=== PATIENT | female | born 1945 | race African-American/Black ===

== ENCOUNTER 2016-03-13 10:23 | Observation (INO) | payer MEDICARE, MEDICAID ==
[2016-03-13] MEDS ORDERED: ASPIRIN 81 MG TABLET, CHEWABLE PO ONE (10:37)
--- NOTE | 2016-03-13 10:37 | ER Document Report ---
ED Medical Screen (RME) - General Stated Complaint: SHORTNESS OF BREATH Notes: 70 yo female with hx/o asthma, COPD c/o chest pain and shortness of breath x several days. pt on home O2 @ 2L. + increased asthma symptoms . left sided chest pain 5/5. Sat 92% TRAVEL OUTSIDE OF THE [place] IN LAST 30 DAYS: No - Related Data Allergies/Adverse Reactions: NSAIDS (Non-Steroidal Anti-Inflamma [Nsaids] Allergy (Mild, Verified 04/07/15 08 :39) Past Medical History - Past Medical History Cardiac Medical History: Reports: Hx Coronary Artery Disease Denies: Hx Heart Attack, Hx Hypertension Pulmonary Medical History: Reports: Hx Asthma, Hx COPD Denies: Hx Bronchitis, Hx Pneumonia Neurological Medical History: Denies: Hx Cerebrovascular Accident, Hx Seizures Endocrine Medical History: Reports: Hx Diabetes Mellitus Type 1, Hx Diabetes Mellitus Type 2 GI Medical History: Reports: Hx Gastroesophageal Reflux Disease Musculoskeltal Medical History: Reports Hx Arthritis - Rheumatoid arthritis, Denies Hx Gout Past Surgical History: Reports: Hx Orthopedic Surgery - bilat knee. Denies: Hx Hysterectomy, Hx Pacemaker - Immunizations Hx Diphtheria, Pertussis, Tetanus Vaccination: Yes
[2016-03-13] MEDS ORDERED: IPRATROPIUM/ALBUTEROL 0.5-2.5 MG/3 ML AMPUL NEB ONE (11:03)
[2016-03-13] MEDS ORDERED: METHYLPREDNISOLONE INJ 125 MG/2 ML SDV IV ONE (11:03)
[2016-03-13] MEDS ORDERED: NITROGLYCERIN 0.4 MG/TAB 25 TAB/BOTTLE SL PRN (11:15)
--- NOTE | 2016-03-13 11:19 | ER Document Report ---
ED General - General Chief Complaint: Shortness Of Breath Stated Complaint: SHORTNESS OF BREATH Time seen by provider: 11:16 Mode of Arrival: Ambulatory Information source: Patient Notes: 70-year-old female who complains about left-sided chest heaviness nonradiating after waking up this morning associated with shortness of breath. Patient reports a history of asthma and uses oxygen 2 L nasal cannula continuously lower reports she does not usually get this type of chest discomfort with her asthma. Patient had a recent admission with COPD exacerbation and says she was at a routine follow-up after that with Dr. Eldridge this morning and when she reported the chest pain was referred to emergency department. She reports no associated diaphoresis, nausea, or vomiting. She denies fever, chills, swelling to extremities, or pain numbness weakness to extremities. She reports cough productive of yellow or white sputum which she says is chronic for her she did reports no prior cardiac workup. Physical Exam: General: Alert, appears well. HEENT: Normocephalic. Atraumatic. PERRLA. Extraocular movements intact. Oropharynx clear. Neck: Supple. Non-tender. Respiratory: No respiratory distress. Scattered wheezes bilaterally breath sounds equal. Left midsternal border mildly tender to palpation which does not exactly reproduce patient's pain Cardiovascular: Regular rate and rhythm. PMI not displaced Abdominal: Normal Inspection. Soft, non-tender. No distension. Normal Bowel Sounds. Back: Non-tender. No deformity or step off. Extremities: Moves all four extremities. SHOWS a 2+ pulses no cyanosis no edema no Homans sign brisk capillary refill Neurological: Speech clear mentation normal Psychological: Normal affect. Normal Mood. Skin: Warm. Dry. Normal color. TRAVEL OUTSIDE OF THE [place] IN LAST 30 DAYS: No - Related Data Allergies/Adverse Reactions: NSAIDS (Non-Steroidal Anti-Inflamma [Nsaids] Allergy (Mild, Verified 03/13/16 10 :34) Past Medical History - Social History Smoking Status: Former Smoker Chew tobacco use (# tins/day): No Frequency of alcohol use: None Drug Abuse: None Family History: Reviewed & Not Pertinent Patient has suicidal ideation: No Patient has homicidal ideation: No - Past Medical History Cardiac Medical History: Reports: Hx Coronary Artery Disease Denies: Hx Heart Attack, Hx Hypertension Pulmonary Medical History: Reports: Hx Asthma, Hx COPD Denies: Hx Bronchitis, Hx Pneumonia Neurological Medical History: Denies: Hx Cerebrovascular Accident, Hx Seizures Endocrine Medical History: Reports: Hx Diabetes Mellitus Type 1, Hx Diabetes Mellitus Type 2 Renal/ Medical History: Denies: Hx Peritoneal Dialysis GI Medical History: Reports: Hx Gastroesophageal Reflux Disease Musculoskeltal Medical History: Reports Hx Arthritis - Rheumatoid arthritis, Denies Hx Gout Past Surgical History: Reports: Hx Orthopedic Surgery - bilat knee. Denies: Hx Hysterectomy, Hx Pacemaker - Immunizations Hx Diphtheria, Pertussis, Tetanus Vaccination: Yes Hx Pneumococcal Vaccination: 12/25/14 Review of Systems - Review of Systems Constitutional: denies: Chills, Fever EENT: denies: Ear pain, Throat pain Cardiovascular: See HPI Respiratory: See HPI Gastrointestinal: denies: Abdominal pain Genitourinary: denies: Burning, Dysuria Musculoskeletal: denies: Back pain Hematologic/Lymphatic: denies: Swollen glands Neurological/Psychological: denies: Weakness, Numbness Physical Exam - Vital signs Vitals: Temp Pulse Resp BP Pulse Ox 98.4 F 107 H 24 H 129/97 H 92 03/13/16 10:37 03/13/16 10:37 03/13/16 10:37 03/13/16 10:37 03/13/16 10:37 Course - Re-evaluation Re-evalutation: 03/13/16 13:31 Patient treated with aspirin nebulizers and IV steroids here. She reported some chest pain on arrival but this resolved on its own prior to receiving nitroglycerin. The patient reports no prior cardiac workup and does have multiple risk factors for acute coronary syndrome. Certainly pleuritic chest discomfort related to COPD might also be in the differential with a what appeared to have her in at least overnight for repeat cardiac enzymes possible stress testing. Dr. Vandana Ibrahim request patient be placed on observation telemetry - Vital Signs Vital signs: Temp Pulse Resp BP Pulse Ox 98.4 F 107 H 21 H 146/81 H 98 03/13/16 10:37 03/13/16 10:37 03/13/16 12:17 03/13/16 12:17 03/13/16 12:17 - Laboratory Result Diagrams: 03/13/16 10:55 03/13/16 10:55 Laboratory results interpreted by me: 03/13/16 03/13/16 03/13/16 10:55 10:55 12:12 Hgb 10.8 L Hct 35.0 L MCH 26.4 L MCHC 30.9 L RDW 16.0 H Sodium 135.4 L Chloride 95 L Carbon Dioxide 32 H Glucose 372 H Urine Glucose (UA) >=500 H Urine Nitrite POSITIVE H - Diagnostic Test Radiology reviewed: Image reviewed, Reports reviewed - EKG Interpretation by Me Additional EKG results interpreted by me: 03/13/16 11:20 EKG reviewed by myself sinus tachycardia 109 no acute changes no significant change compared to February 13 03/13/16 13:31 Discharge - Discharge Clinical Impression: Acute coronary syndrome Chest pain Qualifiers: Chest pain type: precordial pain Qualified Code(s): R07.2 - Precordial pain Condition: Fair Disposition: ADMITTED OBSERVATION Admitting Provider: Jazmyn Unit Admitted: Telemetry
[2016-03-13 11:25] LABS: ABSOLUTE EOSINOPHILS # (AUTO) 0.1 10^3/uL (0.0-0.6); ABSOLUTE LYMPHOCYTES (AUTO) 0.9 10^3/uL (0.5-4.7); ABSOLUTE MONOCYTES (AUTO) 0.5 10^3/uL (0.1-1.4); ABSOLUTE NEUT (AUTO) 4.8 10^3/uL (1.7-8.2); BASOPHILS % (AUTO) 0.4 % (0-2); HEMOGLOBIN 10.8 g/dL (12.0-15.5); HGB HCT DIFFERENCE -2.6; LYMPHOCYTES % (AUTO) 14.1 % (13-45); MEAN CORPUSCULAR HEMOGLOBIN 26.4 pg (27.0-33.4); MEAN CORPUSCULAR HGB CONC 30.9 g/dL (32.0-36.0); MEAN CORPUSCULAR VOLUME 85 fl (80-97); MONOCYTES % (AUTO) 7.8 % (3-13); SEGMENTED NEUTROPHILS % (AUTO) 75.7 % (42-78); WHITE BLOOD COUNT 6.3 10^3/uL (4.0-10.5)
[2016-03-13 11:44] LABS: ALANINE AMINOTRANSFERASE 29 U/L (9-52); ALBUMIN 3.7 g/dL (3.5-5.0); ALKALINE PHOSPHATASE 93 U/L (38-126); ANION GAP 8 (5-19); ASPARTATE AMINO TRANSFERASE 22 U/L (14-36); BILIRUBIN,TOTAL 0.5 mg/dL (0.2-1.3); BLOOD UREA NITROGEN 10 mg/dL (7-20); CALCIUM 9.2 mg/dL (8.4-10.2); CARBON DIOXIDE 32 mmol/L (22-30); CHLORIDE 95 mmol/L (98-107); CREATINE KINASE 99 U/L (30-135); CREATININE RESULT 0.61 mg/dL (0.52-1.25); GLUCOSE 372 mg/dL (75-110); LIPASE 43.9 U/L (23-300); MAGNESIUM 1.7 mg/dL (1.6-2.3); POTASSIUM 4.8 mmol/L (3.6-5.0); SODIUM 135.4 mmol/L (137-145); TOTAL PROTEIN 6.6 g/dL (6.3-8.2)
[2016-03-13 11:53] LABS: CREATINE KINASE MB 1.13 ng/mL (<4.55)
[2016-03-13 11:54] LABS: TROPONIN I < 0.012 ng/mL
[2016-03-13 12:33] LABS: APPEARANCE,URINE CLEAR; BILIRUBIN,URINE NEGATIVE (NEGATIVE); GLUCOSE, URINE >=500 mg/dL (NEGATIVE); KETONES,URINE NEGATIVE (NEGATIVE); LEUKOCYTE ESTERASE,URINE NEGATIVE (NEGATIVE); NITRITE,URINE POSITIVE (NEGATIVE); PROTEIN,URINE NEGATIVE (NEGATIVE); URINE SPECIFIC GRAVITY 1.024; UROBILINOGEN,URINE NEGATIVE mg/dL (<2.0)
--- NOTE | 2016-03-13 18:28 | EKG REPORT ---
SEVERITY:- ABNORMAL ECG - SINUS TACHYCARDIA RIGHT ATRIAL ABNORMALITY PROBABLE ANTEROSEPTAL INFARCT, OLD : Confirmed by: Harry Wilde MD 13-Mar-2016 18:27:43
[2016-03-13] MEDS ORDERED: ALBUTEROL SULFATE HFA (90 MCG/PUFF) 200 PUFF/8.5 GM MDI IH PRN (18:51)
[2016-03-13] MEDS ORDERED: IPRATROPIUM/ALBUTEROL 0.5-2.5 MG/3 ML AMPUL NEB PRN (18:51)
[2016-03-13] MEDS ORDERED: ASPIRIN 81 MG TABLET, CHEWABLE PO PRN (18:51)
[2016-03-13] MEDS ORDERED: GLUCAGON,HUMAN RECOMB 1 MG INJ IM PRN (18:52)
[2016-03-13] MEDS ORDERED: DEXTROSE 40% GEL 15 GM TUBE PO PRN ×2 (18:52)
[2016-03-13] MEDS ORDERED: DEXTROSE 50%-WATER 25 GM/50 ML DISP.SYRIN IV PRN ×2 (18:52)
[2016-03-13] MEDS ORDERED: ENOXAPARIN SODIUM INJ 40 MG/0.4 ML DISP.SYRIN SUBCUT ONE (20:00)
[2016-03-13] MEDS: BUDESONIDE NEB 0.5 MG/2 ML AMPUL NEB SCH (20:05)
[2016-03-13 20:14] LABS: PROTHROMBIN TIME 12.7 SEC (11.4-15.4)
[2016-03-13 20:15] LABS: PARTIAL THROMBOPLASTIN TIME 25.6 SEC (23.5-35.8)
[2016-03-13] MEDS ORDERED: METFORMIN HCL 500 MG TABLET PO ONE (20:30)
[2016-03-13] MEDS ORDERED: GLIPIZIDE 5 MG TABLET PO ONE (20:30)
[2016-03-13] MEDS: DILTIAZEM HCL 120 MG CAP.SR.24H PO SCH (22:01)
[2016-03-13] MEDS: NORMAL SALINE 1000 ML 1,000 ML IV PRN (22:04)
[2016-03-13] MEDS: INSULIN LISPRO 100 UNIT/ML 3 ML VIAL SUBCUT PRN (22:30)
--- NOTE | 2016-03-13 22:59 | PDOC H&P ---
History of Present Illness Admission Date/PCP: 03/13/16 15:40 KIANALOTUS NEELY Patient complains of: Chest pain History of Present Illness: ALLIE JACQUES is a 70 year old female presented to the ED for further evaluation of reported left-sided chest pain and shortness of breath. Patient was seen in the office earlier today by my associates, Midny Jarad, HAND COUNTER-C, for schedule follow up appointment. She reported self discontinuation of her prescribed Cardizem, left sided chest pain and EKG that revealed sinus tachycardia. Due to lack of bed for direct admission, she was directed to the ED for immediate further evaluation. Patient reported associated shortness of breath, heaviness in chest, and productive cough. She denied any associated palpitation, diaphoresis, nausea or vomiting. No definite fever or chills. No nausea or vomiting. She denied any significant abdominal pain. Her chest pain and heaviness did resolved with administration of Aspirin 325 mg. Her initial cardiac enzymes were within normal limit without any significant electrocardiogram findings. In view of her comorbidities, including Diabetes Mellitus type 2, CAD, COPD, Asthma, GERD and Osteoarthritis, she was advised hospitalization to observation monitor bed for further evaluation for acute coronary syndrome process. Past Medical History Cardiac Medical History: Reports: Coronary Artery Disease Denies: Myocardial Infarction, Hypertension Pulmonary Medical History: Reports: Asthma, Chronic Obstructive Pulmonary Disease (COPD) Denies: Bronchitis, Pneumonia Neurological Medical History: Denies: Seizures Endocrine Medical History: Reports: Diabetes Mellitus Type 2 GI Medical History: Reports: Gastroesophageal Reflux Disease Musculoskeltal Medical History: Reports: Arthritis - Rheumatoid arthritis Denies: Gout Past Surgical History Past Surgical History: Reports: Orthopedic Surgery - bilat knee Denies: Hysterectomy, Pacemaker Social History Smoking Status: Former Smoker Last Time Smoked: 2010 Frequency of Alcohol Use: Rare Hx Recreational Drug Use: No Drugs: None Hx Prescription Drug Abuse: No - Advance Directive Resuscitation Status: Full Code Family History Family History: Reviewed & Not Pertinent Parental Family History Reviewed: Yes Children Family History Reviewed: Yes Sibling(s) Family History Reviewed.: Yes Medication/Allergy Home Medications: Albuterol Sulfate [Proair HFA Inhalation Aerosol 8.5 gm MDI] 1 puff IH Q4 PRN # 1 mdi 05/04/14 Aspirin [Aspirin 81 mg Chewable Tablet] 81 mg PO ASDIR PRN 04/07/15 [place]-3 Fatty Acids [Fish Oil] 1 tab PO DAILY 02/15/16 Metformin HCl 500 mg PO BID 02/19/16 Budesonide [Pulmicort Neb 0.5 mg/2 ml Ampul] 0.5 mg NEB RTQ12 #30 ampul.neb Diltiazem HCl [Cardizem Cd 120 mg Capsule] 120 mg PO Q12 #60 cap.sr.24h Glipizide [Glucotrol 5 mg Tablet] 5 mg PO BIDACBS #60 tablet 02/20/16 Ipratropium/Albuterol Sulfate [Duoneb 3 ml Ampul] 3 ml NEB RTQ3HP PRN #60 vial.neb 02/20/16 Tiotropium [place] [Spiriva Handihaler 5 Cap/Kit (18 Mcg/Cap)] 1 cap IH DAILY # 6 kit 02/20/16 Allergies/Adverse Reactions: NSAIDS (Non-Steroidal Anti-Inflamma [Nsaids] Allergy (Mild, Verified 03/13/16 10 :34) Review of Systems Constitutional: ABSENT: as per HPI, anorexia, chills, fatigue, fever(s), headache(s), night sweats, weakness, weight gain, weight loss, other Eyes: ABSENT: as per HPI, visual disturbances, other Ears: ABSENT: as per HPI, hearing changes, other Nose, Mouth, and Throat: ABSENT: as per HPI, headache(s), mouth pain, sore throat, vertigo, other Cardiovascular: PRESENT: chest pain. ABSENT: as per HPI, dyspnea on exertion, edema, orthropnea, palpitations, other Respiratory: PRESENT: cough, sputum. ABSENT: as per HPI, dyspnea, hemoptysis, other Gastrointestinal: ABSENT: as per HPI, abdominal pain, bloating, coffee ground emesis, constipation, diarrhea, dysphagia, heartburn, hematemesis, hematochezia , melena, nausea, vomiting, other Genitourinary: PRESENT: dysuria - recently treated for yeast vaginitis with Monostat. ABSENT: as per HPI, difficulty urinating, hematuria, nocturia, other Neurological: ABSENT: abnormal gait, abnormal speech, confusion, dizziness, focal weakness, syncope Psychiatric: ABSENT: anxiety, depression, homidical ideation, suicidal ideation Endocrine: ABSENT: cold intolerance, heat intolerance, menstrual abnormalities, polydipsia, polyuria Hematologic/Lymphatic: ABSENT: easy bleeding, easy bruising, lymphadenopathy Allergic/Immunologic: ABSENT: as per HPI, seasonal rhinorrhea, other Physical Exam Vital Signs: Temp Pulse Resp BP Pulse Ox 97.3 F 74 14 115/66 100 03/13/16 20:08 03/13/16 20:30 03/13/16 20:30 03/13/16 20:08 03/13/16 20:08 General appearance: PRESENT: no acute distress, obese. ABSENT: cooperative, disheveled, hard of hearing, mild distress, morbidly obese, severe distress, thin, well-developed, well-nourished, other Head exam: PRESENT: atraumatic, normocephalic Eye exam: PRESENT: conjunctiva pink, EOMI, PERRLA Ear exam: PRESENT: normal external ear exam Mouth exam: PRESENT: moist, tongue midline Throat exam: ABSENT: post pharyngeal erythema, tonsillar erythema, tonsillar exudate, tonsillogmegaly, other Neck exam: PRESENT: full ROM. ABSENT: carotid bruit, JVD, lymphadenopathy, thyromegaly Respiratory exam: PRESENT: rhonchi - minimal expiratory state. ABSENT: accessory muscle use, chest wall tenderness, clear to auscultation kyle, crackles , decreased breath sounds, prolonged expiratory phas, rales, retraction, stridor , symmetrical, tachypnea, unlabored, wheezes, other Cardiovascular exam: PRESENT: RRR. ABSENT: diastolic murmur, rubs, systolic murmur Pulses: PRESENT: normal dorsalis pedis pul, +2 pedal pulses bilateral Vascular exam: PRESENT: normal capillary refill GI/Abdominal exam: PRESENT: normal bowel sounds, soft. ABSENT: distended, guarding, mass, organolmegaly, rebound, tenderness Extremities exam: PRESENT: full ROM Musculoskeletal exam: PRESENT: ambulatory, deformity - due to arthritis involvement of multiple joints, full ROM Neurological exam: PRESENT: alert, awake, oriented to person, oriented to place , oriented to time, oriented to situation, CN II-XII grossly intact. ABSENT: motor sensory deficit Psychiatric exam: PRESENT: appropriate affect, normal mood. ABSENT: homicidal ideation, suicidal ideation Skin exam: PRESENT: dry, intact, warm. ABSENT: cyanosis, rash Results Laboratory Results: See komoot for details. I reviewed these results and they contribute to my final decision making. Impressions: Chest X-Ray 03/13/16 10:38 IMPRESSION: Stable chest. No acute findings. Assessment & Plan - Diagnosis (1) Acute coronary syndrome Is this a current diagnosis for this admission?: YesPlan: See admitting attending orders for details. (2) Chest pain Qualifiers: Chest pain type: precordial pain Qualified Code(s): R07.2 - Precordial pain Is this a current diagnosis for this admission?: YesPlan: See admitting attending orders for details. 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 (4) UTI (urinary tract infection) Qualifiers: Urinary tract infection type: site unspecified Hematuria presence: without hematuria Qualified Code(s): N39.0 - Urinary tract infection, site not specified Is this a current diagnosis for this admission?: YesPlan: See admitting attending orders for details. - Time Time Spent: 50 to 70 Minutes Medications reviewed and adjusted accordingly: Yes Anticipated discharge: Home Within: within 48 hours - Inpatient Certification Medical Necessity: Need Close Monitoring Due to Risk of Patient Decompensation, Need For Continuous Telemetry Monitoring, Risk of Complication if Not Cared For in Hospital - Plan Summary Plan Summary: See attending physician orders.
[2016-03-14 05:06] LABS: ABSOLUTE MONOCYTES (AUTO) 0.2 10^3/uL (0.1-1.4); ABSOLUTE NEUT (AUTO) 4.5 10^3/uL (1.7-8.2); BASOPHILS % (AUTO) 0.2 % (0-2); HEMATOCRIT 33.6 % (36.0-47.0); HEMOGLOBIN 10.2 g/dL (12.0-15.5); LYMPHOCYTES % (AUTO) 17.5 % (13-45); MEAN CORPUSCULAR HEMOGLOBIN 26.3 pg (27.0-33.4); MEAN CORPUSCULAR HGB CONC 30.5 g/dL (32.0-36.0); MEAN CORPUSCULAR VOLUME 86 fl (80-97); MONOCYTES % (AUTO) 3.2 % (3-13); RED BLOOD COUNT 3.89 10^6/uL (3.72-5.28); RED CELL DISTRIBUTION WIDTH 16.7 % (11.5-14.0); SEGMENTED NEUTROPHILS % (AUTO) 79.1 % (42-78); WHITE BLOOD COUNT 5.7 10^3/uL (4.0-10.5)
[2016-03-14] MEDS: LANSOPRAZOLE 30 MG TAB.RAP.DR PO SCH (05:14)
[2016-03-14 05:22] LABS: ALANINE AMINOTRANSFERASE 30 U/L (9-52); ALBUMIN 2.8 g/dL (3.5-5.0); ALKALINE PHOSPHATASE 81 U/L (38-126); ANION GAP 8 (5-19); ASPARTATE AMINO TRANSFERASE 18 U/L (14-36); BILIRUBIN,TOTAL 0.3 mg/dL (0.2-1.3); BLOOD UREA NITROGEN 12 mg/dL (7-20); CALCIUM 9.2 mg/dL (8.4-10.2); CARBON DIOXIDE 30 mmol/L (22-30); CHLORIDE 100 mmol/L (98-107); CHOLESTEROL 252.78 mg/dL (0-200); CREATININE RESULT 0.64 mg/dL (0.52-1.25); Direct HDL 70 mg/dL (>40); GLUCOSE 394 mg/dL (75-110); POTASSIUM 4.5 mmol/L (3.6-5.0); SODIUM 137.9 mmol/L (137-145); TOTAL PROTEIN 5.7 g/dL (6.3-8.2); TRIGLYCERIDES 121 mg/dL (<150)
[2016-03-14 05:32] LABS: DIRECT LDL 172 mg/dL (<100)
[2016-03-14] MEDS: BUDESONIDE NEB 0.5 MG/2 ML AMPUL NEB SCH ×2 (07:34→20:21)
[2016-03-14] MEDS: GLIPIZIDE 5 MG TABLET PO SCH ×2 (08:32→17:37)
[2016-03-14] MEDS: INSULIN LISPRO 100 UNIT/ML 3 ML VIAL SUBCUT PRN ×3 (08:32→17:37)
[2016-03-14] MEDS: DILTIAZEM HCL 120 MG CAP.SR.24H PO SCH (08:32)
[2016-03-14] MEDS: ENOXAPARIN SODIUM INJ 40 MG/0.4 ML DISP.SYRIN SUBCUT SCH (08:33)
[2016-03-14 09:50] LABS: CREATINE KINASE MB 1.41 ng/mL (<4.55)
[2016-03-14 09:57] LABS: TROPONIN I < 0.012 ng/mL
[2016-03-14] MEDS ORDERED: OMEGA PO SCH (10:00)
[2016-03-14] MEDS ORDERED: OMEGA-3 ACID ETHYL ESTERS 1 GM CAPSULE PO SCH (10:00)
[2016-03-14] MEDS ORDERED: METFORMIN HCL 500 MG TABLET PO SCH (10:00)
[2016-03-14] MEDS: TIOTROPIUM BROMIDE DPI 5 CAP/KIT (18 MCG/CAP) IH SCH (10:19)
[2016-03-14] MEDS: CEFTRIAXONE 1 GM/D5W RTU 50 ML IV SCH (10:19)
[2016-03-14] MEDS: RAMIPRIL 5 MG CAPSULE PO SCH (10:19)
--- NOTE | 2016-03-14 12:49 | PDOC PROGRESS REPORT ---
Subjective Progress Note for:: 03/14/16 Subjective:: Denied chest pain. No difficulty with breathing. No nausea or vomiting. No abdominal pain. Denied fever or chills. No significant dysuria. Physical Exam Vital Signs: Temp Pulse Resp BP Pulse Ox 97.3 F 73 18 124/64 100 03/14/16 07:52 03/14/16 07:52 03/14/16 07:52 03/14/16 07:52 03/14/16 07:52 Intake & Output 03/13/16 03/14/16 03/15/16 06:59 06:59 06:59 Intake Total 700 150 Balance 700 150 Weight 95.8 kg General appearance: PRESENT: no acute distress, well-developed, well-nourished Head exam: PRESENT: atraumatic, normocephalic Eye exam: PRESENT: conjunctiva pink, EOMI, PERRLA. ABSENT: scleral icterus Throat exam: ABSENT: post pharyngeal erythema, tonsillar erythema, tonsillar exudate, tonsillogmegaly, other Respiratory exam: ABSENT: accessory muscle use, chest wall tenderness, clear to auscultation kyle, crackles, decreased breath sounds, prolonged expiratory phas, rales, retraction, rhonchi, stridor, symmetrical, tachypnea, unlabored, wheezes , other Cardiovascular exam: PRESENT: RRR. ABSENT: diastolic murmur, rubs, systolic murmur GI/Abdominal exam: PRESENT: normal bowel sounds, soft. ABSENT: distended, guarding, mass, organolmegaly, rebound, tenderness Extremities exam: PRESENT: full ROM Musculoskeletal exam: PRESENT: ambulatory, deformity - due to joints involvement in arthritis changes, full ROM Neurological exam: PRESENT: alert, awake, oriented to person, oriented to place , oriented to time, oriented to situation, CN II-XII grossly intact. ABSENT: motor sensory deficit Psychiatric exam: PRESENT: appropriate affect, normal mood. ABSENT: homicidal ideation, suicidal ideation Skin exam: PRESENT: dry, intact, warm. ABSENT: cyanosis, rash Results Laboratory Results: 03/14/16 04:34 03/14/16 04:34 03/14/16 03/14/16 04:34 04:34 WBC 5.7 RBC 3.89 Hgb 10.2 L Hct 33.6 L MCV 86 MCH 26.3 L MCHC 30.5 L RDW 16.7 H Plt Count 213 Seg Neutrophils % 79.1 H Lymphocytes % 17.5 Monocytes % 3.2 Eosinophils % 0.0 Basophils % 0.2 Absolute Neutrophils 4.5 Absolute Lymphocytes 1.0 Absolute Monocytes 0.2 Absolute Eosinophils 0.0 Absolute Basophils 0.0 Sodium 137.9 Potassium 4.5 Chloride 100 Carbon Dioxide 30 Anion Gap 8 BUN 12 Creatinine 0.64 Est GFR ( Amer) > 60 Est GFR (Non-Af Amer) > 60 Glucose 394 H Calcium 9.2 Total Bilirubin 0.3 AST 18 ALT 30 Alkaline Phosphatase 81 Total Protein 5.7 L Albumin 2.8 L Triglycerides 121 Cholesterol 252.78 H LDL Cholesterol Direct 172 H VLDL Cholesterol 24.0 HDL Cholesterol 70 03/14/16 03/14/16 09:08 09:08 Creatine Kinase 73 CK-MB (CK-2) 1.41 Troponin I < 0.012 Impressions: Chest X-Ray 03/13/16 10:38 IMPRESSION: Stable chest. No acute findings. Assessment & Plan - Diagnosis (1) Acute coronary syndrome Is this a current diagnosis for this admission?: YesPlan: See attending physician orders. I will follow up on her cardiac enzymes findings. (2) Chest pain Qualifiers: Chest pain type: precordial pain Qualified Code(s): R07.2 - Precordial pain Is this a current diagnosis for this admission?: YesPlan: Resolved since admission. Follow up on cardiac enzymes profile. Her symptom is atypical and may be due to GI or musculoskeletal origin. 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 I will make adjustment to her diabetic mellitus medication management. (4) UTI (urinary tract infection) Qualifiers: Urinary tract infection type: site unspecified Hematuria presence: without hematuria Qualified Code(s): N39.0 - Urinary tract infection, site not specified Is this a current diagnosis for this admission?: YesPlan: Her urine culture did grew gram negative rods. Organism identification and sensitivity are pending. I will start patient on empirical antibiotic therapy iin viewof her comorbidities and hyperglycemia. - Time Time Spent with patient: 25-34 minutes Medications reviewed and adjusted accordingly: Yes Anticipated discharge: Home Within: Other - Inpatient Certification Based on my medical assessment, after consideration of the patient's comorbidities, presenting symptoms, or acuity I expect that the services needed warrant INPATIENT care.: Yes I certify that my determination is in accordance with my understanding of Medicare's requirements for reasonable and necessary INPATIENT services [42 CFR 412.3e].: Yes Medical Necessity: Need For IV Fluids, Need For Continuous Telemetry Monitoring , Need for IV Antibiotics, Risk of Complication if Not Cared For in Hospital Post Hospital Care: 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
[2016-03-14] MEDS ORDERED: ASPIRIN 81 MG TABLET, CHEWABLE PO ONE (14:00)
[2016-03-14 16:30] LABS: CREATINE KINASE MB 1.65 ng/mL (<4.55)
[2016-03-14 16:37] LABS: TROPONIN I < 0.012 ng/mL
[2016-03-14] MEDS: METFORMIN HCL 850 MG TABLET PO SCH (17:37)
[2016-03-14] MEDS: NORMAL SALINE 1000 ML 1,000 ML IV PRN (19:31)
[2016-03-14] MEDS ORDERED: ATORVASTATIN CALCIUM 20 MG TABLET PO SCH (22:00)
[2016-03-14 22:42] LABS: CREATINE KINASE MB 1.89 ng/mL (<4.55)
[2016-03-14 22:43] LABS: TROPONIN I < 0.012 ng/mL
[2016-03-14] MEDS ORDERED: ACETAMINOPHEN 325 MG TABLET PO PRN (23:47)
[2016-03-15] MEDS: LANSOPRAZOLE 30 MG TAB.RAP.DR PO SCH (06:17)
[2016-03-15] MEDS: BUDESONIDE NEB 0.5 MG/2 ML AMPUL NEB SCH (07:53)
[2016-03-15] MEDS ORDERED: ASPIRIN 81 MG TABLET, CHEWABLE PO SCH (10:00)
[2016-03-15] MEDS: CEFTRIAXONE 1 GM/D5W RTU 50 ML IV SCH (10:34)
[2016-03-15] MEDS: TIOTROPIUM BROMIDE DPI 5 CAP/KIT (18 MCG/CAP) IH SCH (10:35)
[2016-03-15] MEDS: METFORMIN HCL 850 MG TABLET PO SCH (10:36)
[2016-03-15] MEDS: RAMIPRIL 5 MG CAPSULE PO SCH (10:37)
[2016-03-15] MEDS: GLIPIZIDE 5 MG TABLET PO SCH (10:37)
[2016-03-15] MEDS: ENOXAPARIN SODIUM INJ 40 MG/0.4 ML DISP.SYRIN SUBCUT SCH (10:38)
[2016-03-15] MEDS: NORMAL SALINE 1000 ML 1,000 ML IV PRN (10:42)
[2016-03-15 15:43] VITALS: BP 113/82
--- NOTE | 2016-03-15 15:57 | PDOC DISCHARGE SUMMARY ---
General - Admit/Disc Date/PCP Admission Date/Primary Care Provider: 03/13/16 13:52 KIANA FLORINDA Discharge Date: 03/15/16 - Discharge Diagnosis (1) Acute coronary syndrome Is this a current diagnosis for this admission?: Yes (2) Chest pain Is this a current diagnosis for this admission?: Yes (3) Diabetes mellitus Is this a current diagnosis for this admission?: Yes (4) UTI (urinary tract infection) Is this a current diagnosis for this admission?: Yes - Additional Information Resuscitation Status: Full Code Discharge Diet: Cardiac, Diabetic Discharge Activity: Activity As Tolerated Home Medications: Albuterol Sulfate [Proair HFA Inhalation Aerosol 8.5 gm MDI] 1 puff IH Q4 PRN # 1 mdi 05/04/14 Aspirin [Aspirin 81 mg Chewable Tablet] 81 mg PO ASDIR PRN 04/07/15 [place]-3 Fatty Acids [Fish Oil] 1 tab PO DAILY 02/15/16 Budesonide [Pulmicort Neb 0.5 mg/2 ml Ampul] 0.5 mg NEB RTQ12 #30 ampul.neb Glipizide [Glucotrol 5 mg Tablet] 5 mg PO BIDACBS #60 tablet 02/20/16 Ipratropium/Albuterol Sulfate [Duoneb 3 ml Ampul] 3 ml NEB RTQ3HP PRN #60 vial.neb 02/20/16 Tiotropium [place] [Spiriva Handihaler 5 Cap/Kit (18 Mcg/Cap)] 1 cap IH DAILY # 6 kit 02/20/16 Amox Tr/Potassium Clavulanate [Augmentin 875-125 mg Tablet] 1 tab PO BID #10 tablet 03/15/16 Metformin HCl [Glucophage 850 mg Tablet] 850 mg PO BIDBS #60 tablet 03/15/16 Ramipril [Altace 5 mg Capsule] 5 mg PO DAILY #30 capsule 03/15/16 Rosuvastatin Calcium 10 mg PO DAILY #30 tablet 03/15/16 History of Present Illness History of Present Illness: ALLIE JACQUES is a 70 year old female presented to the ED for further evaluation of reported left-sided chest pain and shortness of breath. Patient was seen in the office earlier today by my associates, Mrs. Abraham, [employer], for schedule follow up appointment. She reported self discontinuation of her prescribed Cardizem, left sided chest pain and EKG that revealed sinus tachycardia. Due to lack of bed for direct admission, she was directed to the ED for immediate further evaluation. Patient reported associated shortness of breath, heaviness in chest, and productive cough. She denied any associated palpitation, diaphoresis, nausea or vomiting. No definite fever or chills. No nausea or vomiting. She denied any significant abdominal pain. Her chest pain and heaviness did resolved with administration of Aspirin 325 mg. Her initial cardiac enzymes were within normal limit without any significant electrocardiogram findings. In view of her comorbidities, including Diabetes Mellitus type 2, CAD, COPD, Asthma, GERD and Osteoarthritis, she was advised hospitalization to observation monitor bed for further evaluation for acute coronary syndrome process. Hospital Course Hospital Course: Patient's serial cardiac enzymes did not support acute coronary syndrome. Her chest pain is most likely due to musculoskeletal source. Her hospitalization was further complicated by hyperglycemia necessitating increase in her metformin dosage to 850 mg po bid. In view of her comorbidities, her Cardizem usage was discontinued. She was started on Ramipril 5 mg p.o daily with satisfactory response in Blood Pressure readings. Due to abnormal fasting lipid panel and associated comorbidities, she was started on Rosuvastatin. Her urine culture did grew E.Coli for which she received 2 doses of IV Rocephin and discharged home on Augmentin 875/125 mg p.o bid x 5 days based of sensitivity report. She will follow up in the office as instructed upon discharge. Physical Exam Vital Signs: Temp Pulse Resp BP Pulse Ox 97.7 F 100 14 129/71 H 96 03/15/16 11:20 03/15/16 14:00 03/15/16 11:20 03/15/16 11:20 03/15/16 11:20 Intake & Output 03/14/16 03/15/16 03/16/16 06:59 06:59 06:59 Intake Total 700 2040 Balance 700 2040 Weight 95.8 kg 92.7 kg General appearance: PRESENT: no acute distress, cooperative, obese Head exam: PRESENT: atraumatic, normocephalic Eye exam: PRESENT: conjunctiva pink, EOMI, PERRLA Neck exam: PRESENT: full ROM. ABSENT: carotid bruit, JVD, lymphadenopathy, thyromegaly Respiratory exam: ABSENT: accessory muscle use, chest wall tenderness, clear to auscultation kyle, crackles, decreased breath sounds, prolonged expiratory phas, rales, retraction, rhonchi, stridor, symmetrical, tachypnea, unlabored, wheezes , other GI/Abdominal exam: PRESENT: normal bowel sounds, soft. ABSENT: distended, guarding, mass, organolmegaly, rebound, tenderness Extremities exam: PRESENT: full ROM Musculoskeletal exam: PRESENT: deformity - related to joint involvement with arthritis, full ROM Neurological exam: PRESENT: alert, awake, oriented to person, oriented to place , oriented to time, oriented to situation, CN II-XII grossly intact. ABSENT: motor sensory deficit Psychiatric exam: PRESENT: appropriate affect, normal mood. ABSENT: homicidal ideation, suicidal ideation Skin exam: PRESENT: dry, intact, warm. ABSENT: cyanosis, rash Results Laboratory Results: 03/14/16 04:34 03/14/16 04:34 03/14/16 03/14/16 03/14/16 09:08 09:08 15:45 Creatine Kinase 73 83 CK-MB (CK-2) 1.41 Troponin I < 0.012 03/14/16 03/14/16 03/14/16 15:45 21:39 21:39 Creatine Kinase 98 CK-MB (CK-2) 1.65 1.89 Troponin I < 0.012 < 0.012 Impressions: Chest X-Ray 03/13/16 10:38 IMPRESSION: Stable chest. No acute findings. Qualifiers PATEINT BEING DISCHARGED WITH ANY OF THE FOLLOWING DIAGNOSIS?: No Plan Discharge Plan: see attending physician orders. Time Spent: Less than 30 Minutes
== END 2016-03-15 16:00 | disposition home or self-care (01) ==
LOC: ER 10:23 → EH 13:52 → OBSVTOIN 15:40 → INTOOBSV 15:40 → 5 16:14
PROVIDERS: ADMIT Internal Medicine Geriatric Medicine; ATTEND Internal Medicine Geriatric Medicine
DX: N39.0 Urinary tract infection, site not specified (principal); E11.8 Type 2 diabetes mellitus with unspecified complications; I24.9 Acute ischemic heart disease, unspecified; R06.02 Shortness of breath; I25.10 Atherosclerotic heart disease of native coronary artery without angina pectoris; J45.909 Unspecified asthma, uncomplicated; J44.9 Chronic obstructive pulmonary disease, unspecified; K21.9 Gastro-esophageal reflux disease without esophagitis; M06.9 Rheumatoid arthritis, unspecified; R00.0 Tachycardia, unspecified; R07.2 Precordial pain; Z87.891 Personal history of nicotine dependence; Z79.899 Other long term (current) drug therapy; Z79.51 Long term (current) use of inhaled steroids; Z79.82 Long term (current) use of aspirin; Z79.84 Long term (current) use of oral hypoglycemic drugs; Z88.6 Allergy status to analgesic agent
CPT/HCPCS: 93005; 94640 ×3; 99285; 96374; 36415 ×2; 87070; 87086; 87205; 82553 ×2; 82962 ×3; 82550 ×2; 83690; 83735; 85025 ×2; 85610; 85730; 87088; 80053 ×2; 81001; 84484 ×2; 87186; 83036; 80061; 83880; 71020; 93010; G0378 ×4; A9270 ×17; J3490; J2930; J1650 ×2; J7030 ×3; J0696 ×2; J1815; J7620

== ENCOUNTER → 2016-05-30 | Outpatient (CLI) | payer MEDICARE, MEDICAID | LOC: WI 08:09 | PROVIDERS: ATTEND Internal Medicine Geriatric Medicine | DX: N63 Unspecified lump in breast (principal) | CPT/HCPCS: 76642; G0204; 77066 ==

== ENCOUNTER 2016-11-13 12:02 | Emergency (ER) | payer MEDICARE, MEDICAID ==
[2016-11-13] MEDS ORDERED: BUTALB/ACETAMINOPHEN/CAFFEINE 1 TAB EACH PO ONE (13:37)
[2016-11-13 14:13] LABS: ABSOLUTE EOSINOPHILS # (AUTO) 0.1 10^3/uL (0.0-0.6); ABSOLUTE LYMPHOCYTES (AUTO) 2.2 10^3/uL (0.5-4.7); ABSOLUTE MONOCYTES (AUTO) 0.4 10^3/uL (0.1-1.4); ABSOLUTE NEUT (AUTO) 4.5 10^3/uL (1.7-8.2); BASOPHILS % (AUTO) 0.7 % (0-2); EOSINOPHILS % (AUTO) 1.3 % (0-6); HEMATOCRIT 37.2 % (36.0-47.0); HEMOGLOBIN 12.1 g/dL (12.0-15.5); HGB HCT DIFFERENCE -0.9; LYMPHOCYTES % (AUTO) 30.9 % (13-45); MEAN CORPUSCULAR HEMOGLOBIN 28.9 pg (27.0-33.4); MEAN CORPUSCULAR HGB CONC 32.4 g/dL (32.0-36.0); MEAN CORPUSCULAR VOLUME 89 fl (80-97); MONOCYTES % (AUTO) 5.8 % (3-13); RED BLOOD COUNT 4.18 10^6/uL (3.72-5.28); RED CELL DISTRIBUTION WIDTH 14.7 % (11.5-14.0); SEGMENTED NEUTROPHILS % (AUTO) 61.3 % (42-78); WHITE BLOOD COUNT 7.3 10^3/uL (4.0-10.5)
[2016-11-13 14:25] LABS: ALANINE AMINOTRANSFERASE 32 U/L (9-52); ALKALINE PHOSPHATASE 103 U/L (38-126); ANION GAP 12 (5-19); ASPARTATE AMINO TRANSFERASE 18 U/L (14-36); BILIRUBIN,DIRECT 0.3 mg/dL (0.0-0.4); BILIRUBIN,TOTAL 0.9 mg/dL (0.2-1.3); BLOOD UREA NITROGEN 8 mg/dL (7-20); CALCIUM 9.2 mg/dL (8.4-10.2); CARBON DIOXIDE 30 mmol/L (22-30); CHLORIDE 96 mmol/L (98-107); CREATINE KINASE 118 U/L (30-135); CREATININE RESULT 0.65 mg/dL (0.52-1.25); GLUCOSE 196 mg/dL (75-110); MAGNESIUM 1.9 mg/dL (1.6-2.3); POTASSIUM 4.4 mmol/L (3.6-5.0); SODIUM 137.9 mmol/L (137-145); TOTAL PROTEIN 7.4 g/dL (6.3-8.2)
[2016-11-13 14:40] LABS: APPEARANCE,URINE CLEAR; BILIRUBIN,URINE NEGATIVE (NEGATIVE); GLUCOSE, URINE 150 mg/dL (NEGATIVE); KETONES,URINE NEGATIVE (NEGATIVE); LEUKOCYTE ESTERASE,URINE NEGATIVE (NEGATIVE); NITRITE,URINE NEGATIVE (NEGATIVE); PROTEIN,URINE NEGATIVE (NEGATIVE); UROBILINOGEN,URINE NEGATIVE mg/dL (<2.0)
[2016-11-13 14:41] LABS: RBC,URINE NONE SEEN /HPF; WBC,URINE NONE SEEN /HPF
--- NOTE | 2016-11-13 15:47 | ER Document Report ---
ED Extremity Problem, Lower - General Chief Complaint: Leg Pain Stated Complaint: LEG CRAMPS Time Seen by Provider: 11/13/16 13:20 Mode of Arrival: Ambulatory Information source: Patient Notes: Patient presents with bilateral leg pain and cramps. Is been going on for several days. It is constant. Nothing makes it better or worse. The pain does radiate up both legs. She denies any rashes or joint swelling. No fevers. She does have a history of rheumatoid arthritis. TRAVEL OUTSIDE OF THE [place] IN LAST 30 DAYS: No - Related Data Allergies/Adverse Reactions: NSAIDS (Non-Steroidal Anti-Inflamma [Nsaids] Allergy (Mild, Verified 11/13/16 12 :06) Past Medical History - General Information source: Patient - Social History Smoking Status: Never Smoker Chew tobacco use (# tins/day): No Frequency of alcohol use: None Drug Abuse: None Family History: Reviewed & Not Pertinent - Past Medical History Cardiac Medical History: Reports: Hx Coronary Artery Disease Denies: Hx Heart Attack, Hx Hypertension Pulmonary Medical History: Reports: Hx Asthma, Hx COPD Denies: Hx Bronchitis, Hx Pneumonia Neurological Medical History: Denies: Hx Cerebrovascular Accident, Hx Seizures Endocrine Medical History: Reports: Hx Diabetes Mellitus Type 1, Hx Diabetes Mellitus Type 2 Renal/ Medical History: Denies: Hx Peritoneal Dialysis GI Medical History: Reports: Hx Gastroesophageal Reflux Disease Musculoskeltal Medical History: Reports Hx Arthritis - Rheumatoid arthritis, Denies Hx Gout Past Surgical History: Reports: Hx Orthopedic Surgery - bilat knee. Denies: Hx Hysterectomy, Hx Pacemaker - Immunizations Hx Diphtheria, Pertussis, Tetanus Vaccination: Yes Hx Pneumococcal Vaccination: 12/25/14 Review of Systems - Review of Systems Constitutional: denies: Chills, Fever Cardiovascular: denies: Chest pain, Palpitations Respiratory: denies: Cough, Short of breath -: Yes All other systems reviewed and negative Physical Exam - Vital signs Vitals: Temp Pulse Resp BP Pulse Ox 98.3 F 81 18 134/81 H 94 11/13/16 12:04 11/13/16 12:04 11/13/16 12:04 11/13/16 12:04 11/13/16 12:04 Interpretation: Normal - General General appearance: Appears well, Alert - HEENT Head: Normocephalic, Atraumatic Eyes: Normal Pupils: PERRL - Respiratory Respiratory status: No respiratory distress Chest status: Nontender Breath sounds: Normal Chest palpation: Normal - Cardiovascular Rhythm: Regular Heart sounds: Normal auscultation Murmur: No - Abdominal Inspection: Normal Distension: No distension Bowel sounds: Normal Tenderness: Nontender Organomegaly: No organomegaly - Back Back: Normal, Nontender - Extremities General upper extremity: Normal inspection, Nontender, Normal color, Normal ROM , Normal temperature General lower extremity: Normal inspection, Nontender, Normal color, Normal ROM , Normal temperature, Normal weight bearing. No: Jeanine's sign - Neurological Neuro grossly intact: Yes Cognition: Normal Orientation: AAOx4 Harpreet Coma Scale Eye Opening: Spontaneous [place] Coma Scale Verbal: Oriented Harpreet Coma Scale Motor: Obeys Commands Harpreet Coma Scale Total: 15 Speech: Normal Motor strength normal: LUE, RUE, LLE, RLE Sensory: Normal - Psychological Associated symptoms: Normal affect, Normal mood - Skin Skin Temperature: Warm Skin Moisture: Dry Skin Color: Normal Course - Vital Signs Vital signs: Temp Pulse Resp BP Pulse Ox 98.3 F 81 18 134/81 H 94 11/13/16 12:04 11/13/16 12:04 11/13/16 12:04 11/13/16 12:04 11/13/16 12:04 - Laboratory Result Diagrams: 11/13/16 13:37 11/13/16 13:37 Laboratory results interpreted by me: 11/13/16 11/13/16 11/13/16 13:37 13:37 13:37 RDW 14.7 H Chloride 96 L Glucose 196 H Urine Glucose (UA) 150 H Discharge - Discharge Clinical Impression: Leg cramps, Diabetic neuropathy, Diabetes mellitus Condition: Stable Disposition: HOME, SELF-CARE Instructions: Neuropathy ([facility]) Additional Instructions: Please follow-up with your primary care physician as soon as possible Prescriptions: Butalb/Acetaminophen/Caffeine [Fioricet (50-325-40 mg) Tablet] 1 tab PO Q4HP PRN #30 tab PRN Reason:
[2016-11-13 15:49] VITALS: BP 153/79
== END 2016-11-13 15:49 | disposition home or self-care (01) ==
LOC: ER 12:02
DX: E11.40 Type 2 diabetes mellitus with diabetic neuropathy, unspecified (principal); M79.605 Pain in left leg; R25.2 Cramp and spasm
CPT/HCPCS: 99283; 36415; 82550; 83735; 85025; 80053; 81001; A9270; J3490

== ENCOUNTER 2017-06-13 12:08 | Inpatient (IN) | payer MEDICARE, MEDICAID ==
--- NOTE | 2017-06-13 12:16 | ER Document Report ---
ED General - General Stated Complaint: DIFFICULTY BREATHING Time Seen by Provider: 06/13/17 12:15 Notes: 72-year-old female patient. Here approximately 1 month ago for pneumonia. Has been doing okay but over the last several days has increased shortness of breath. Was noted to have fever by EMS today. Patient states that she was having difficulty breathing at home. Continues to have shortness of breath and difficulty breathing here today. EMS provided Solu-Medrol and breathing treatment in route. Patient states that she does not feel any different. TRAVEL OUTSIDE OF THE [place] IN LAST 30 DAYS: No - HPI Onset: Last week Onset/Duration: Gradual Severity: Moderate Pain Level: 2 - Related Data Allergies/Adverse Reactions: NSAIDS (Non-Steroidal Anti-Inflamma [Nsaids] Allergy (Mild, Verified 11/13/16 12 :06) Past Medical History - General Information source: Patient, Emergency Med Personnel - Social History Smoking Status: Never Smoker Cigarette use (# per day): No Frequency of alcohol use: None Drug Abuse: None Lives with: Family Family History: Reviewed & Not Pertinent - Past Medical History Cardiac Medical History: Reports: Hx Coronary Artery Disease Denies: Hx Heart Attack, Hx Hypertension Pulmonary Medical History: Reports: Hx Asthma, Hx COPD Denies: Hx Bronchitis, Hx Pneumonia Neurological Medical History: Denies: Hx Cerebrovascular Accident, Hx Seizures Endocrine Medical History: Reports: Hx Diabetes Mellitus Type 1, Hx Diabetes Mellitus Type 2 Renal/ Medical History: Denies: Hx Peritoneal Dialysis GI Medical History: Reports: Hx Gastroesophageal Reflux Disease Musculoskeltal Medical History: Reports Hx Arthritis - Rheumatoid arthritis, Denies Hx Gout Past Surgical History: Reports: Hx Orthopedic Surgery - bilat knee. Denies: Hx Hysterectomy, Hx Pacemaker - Immunizations Hx Diphtheria, Pertussis, Tetanus Vaccination: Yes Hx Pneumococcal Vaccination: 12/25/14 Review of Systems - Review of Systems Constitutional: Fever, Malaise, Weakness EENT: denies: Eye pain, Ear pain, Difficulty swallowing, Throat swelling Cardiovascular: denies: Chest pain, Heart racing, Orthopnea Respiratory: Cough, Short of breath, Wheezing Gastrointestinal: denies: Abdominal pain, Diarrhea, Nausea Genitourinary: denies: Burning, Dysuria, Discharge Musculoskeletal: denies: Back pain, Joint pain, Deformity, Leg swelling Skin: denies: Change in color, Dryness, Lesions, Lumps, Rash Hematologic/Lymphatic: denies: Anemia, Blood clots, Easy bleeding, Easy bruising Neurological/Psychological: denies: Confusion, Weakness, Numbness Physical Exam - Vital signs Vitals: BP Pulse Ox 116/74 94 06/13/17 12:15 06/13/17 12:15 Interpretation: Normal - General General appearance: Appears well, Alert - HEENT Head: Normocephalic, Atraumatic Eyes: Normal Pupils: PERRL - Respiratory Respiratory status: No respiratory distress Chest status: Nontender Breath sounds: Rhonchi, Other - Left greater than right rhonchi Chest palpation: Normal - Cardiovascular Rhythm: Regular Heart sounds: Normal auscultation Murmur: No - Abdominal Inspection: Normal Distension: No distension Bowel sounds: Normal Tenderness: Nontender Organomegaly: No organomegaly - Back Back: Normal, Nontender - Extremities General upper extremity: Normal inspection, Nontender, Normal color, Normal ROM , Normal temperature. No: Edema General lower extremity: Normal inspection, Nontender, Normal color, Normal ROM , Normal temperature, Normal weight bearing. No: Edema, Jeanine's sign - Neurological Neuro grossly intact: Yes Cognition: Normal Orientation: AAOx4 Harpreet Coma Scale Eye Opening: Spontaneous [place] Coma Scale Verbal: Oriented Harpreet Coma Scale Motor: Obeys Commands [place] Coma Scale Total: 15 Speech: Normal Motor strength normal: LUE, RUE, LLE, RLE Sensory: Normal - Psychological Associated symptoms: Normal affect, Normal mood - Skin Skin Temperature: Warm Skin Moisture: Dry Skin Color: Normal Course - Re-evaluation Re-evalutation: 06/13/17 14:51 X-ray fairly unremarkable labs fairly unremarkable. Taking patient off of oxygen her oxygen saturations dropped to 88%. Still mildly tachypneic. At this time will order CT angiogram make sure that she does not have a PE based on her recent hospitalization. Patient had afebrile at this time but had Tylenol by EMS. 06/13/17 15:53 Patient was initially quite tachypneic but a little bit better now after steroids have kicked in and breathing treatment. Still is hypoxic of taking off the oxygen. Uncomfortable sending home. No fever at this time. No longer a patient of Dr. Eldridge. Will consult with hospitalist for admission at this time. ABG ordered as patient is slightly somnolent at this time. - Vital Signs Vital signs: Temp Pulse Resp BP Pulse Ox 99.3 F 22 H 115/76 97 06/13/17 12:16 06/13/17 15:00 06/13/17 14:01 06/13/17 15:00 - Laboratory Result Diagrams: 06/13/17 12:15 06/13/17 12:15 Laboratory results interpreted by me: 06/13/17 06/13/17 12:15 12:15 RDW 14.5 H Sodium 136.4 L Glucose 258 H - EKG Interpretation by Tn EKG shows normal: Sinus rhythm, [place], Intervals, QRS Complexes, ST-T Waves When compared to previous EKG there are: No significant change Discharge - Discharge Clinical Impression: COPD exacerbation Condition: Good Disposition: ADMITTED INPATIENT Admitting Provider: Hospitalist - [facility] Admitted: Telemetry
--- NOTE | 2017-06-13 12:47 | RADIOLOGY REPORT (SQ) ---
EXAM DESCRIPTION: CHEST SINGLE VIEW COMPLETED DATE/TIME: 06/13/2017 12:39 pm REASON FOR STUDY: sob COMPARISON: 03/13/2016. EXAM PARAMETERS: NUMBER OF VIEWS: One view. TECHNIQUE: Single frontal radiographic view of the chest acquired. RADIATION DOSE: NA LIMITATIONS: None. FINDINGS: LUNGS AND PLEURA: Focal chronic scarring in the right upper lobe. No infiltrates, masses or pneumothorax. No pleural effusion. MEDIASTINUM AND HILAR STRUCTURES: No masses. Contour normal. HEART AND VASCULAR STRUCTURES: Heart normal in size. Normal vasculature. BONES: No acute findings. HARDWARE: None in the chest. OTHER: No other significant finding. IMPRESSION: STABLE APPEARANCE. CHRONIC SCARRING IN THE RIGHT UPPER LOBE. NO ACUTE RADIOGRAPHIC FIN DING IN THE CHEST. TECHNICAL DOCUMENTATION: JOB ID: [id number] [employer]- All Rights Reserved Reading location - IP/workstation name: [email or web address]
[2017-06-13 13:06] LABS: ABSOLUTE LYMPHOCYTES (AUTO) 2.2 10^3/uL (0.5-4.7); ABSOLUTE MONOCYTES (AUTO) 0.8 10^3/uL (0.1-1.4); BASOPHILS % (AUTO) 0.5 % (0-2); EOSINOPHILS % (AUTO) 0.4 % (0-6); HEMATOCRIT 39.6 % (36.0-47.0); HEMOGLOBIN 12.8 g/dL (12.0-15.5); LYMPHOCYTES % (AUTO) 27.3 % (13-45); MEAN CORPUSCULAR HEMOGLOBIN 29.7 pg (27.0-33.4); MEAN CORPUSCULAR HGB CONC 32.3 g/dL (32.0-36.0); MEAN CORPUSCULAR VOLUME 92 fl (80-97); MONOCYTES % (AUTO) 9.7 % (3-13); PLATELET COUNT 195 10^3/uL (150-450); RED BLOOD COUNT 4.29 10^6/uL (3.72-5.28); RED CELL DISTRIBUTION WIDTH 14.5 % (11.5-14.0); SEGMENTED NEUTROPHILS % (AUTO) 62.1 % (42-78); TOTAL CELLS COUNTED % (AUTO) 100 %; WHITE BLOOD COUNT 8.1 10^3/uL (4.0-10.5)
[2017-06-13 13:12] LABS: ALANINE AMINOTRANSFERASE 34 U/L (9-52); ALBUMIN 3.6 g/dL (3.5-5.0); ALKALINE PHOSPHATASE 84 U/L (38-126); ANION GAP 8 (5-19); ASPARTATE AMINO TRANSFERASE 26 U/L (14-36); BILIRUBIN,DIRECT 0.3 mg/dL (0.0-0.4); BILIRUBIN,TOTAL 0.4 mg/dL (0.2-1.3); BLOOD UREA NITROGEN 12 mg/dL (7-20); CARBON DIOXIDE 29 mmol/L (22-30); CHLORIDE 99 mmol/L (98-107); GLUCOSE 258 mg/dL (75-110); POTASSIUM 3.9 mmol/L (3.6-5.0); SODIUM 136.4 mmol/L (137-145); TOTAL PROTEIN 6.3 g/dL (6.3-8.2)
[2017-06-13 14:55] LABS: NT PRO BNP 107 pg/mL (5-900); TROPONIN I < 0.012 ng/mL
--- NOTE | 2017-06-13 15:26 | RADIOLOGY REPORT (SQ) ---
EXAM DESCRIPTION: CTA CHEST COMPLETED DATE/TIME: 06/13/2017 2:46 pm REASON FOR STUDY: sob, chest pain COMPARISON: Chest x-ray dated 06/13/2017. CT chest dated 01/25/2014. TECHNIQUE: CT scan of the chest performed using helical scanning technique with dynamic intravenous contrast injection. Images reviewed with lung, soft tissue and bone windows. Reconstructed coronal and sagittal MPR images reviewed. Additional 3 dimensional post-processing performed to develop Maximal Intensity Projection images ([place] P). All images stored on PACS. All CT scanners at this facility use dose modulation, iterative reconstruction, and/or weight based d osing when appropriate to reduce radiation dose to as low as reasonably achievable (ALARA). [facility]: Dose Right [facility]: CareDose [facility]: Dose Right [facility]: Teradose 4D [facility]: Spare Change Payments CONTRAST TYPE AND DOSE: contrast/concentration: Isovue 370.00 mg/ml; Total Contrast Delivered: 80.0 ml; Total Saline Delivered: 110.0 ml Contrast bolus adequate for pulmonary arteries and aorta. RENAL FUNCTION: BUN 12 creatinine 0.83. RADIATION DOSE: CT Rad equipment meets quality standard of care and radiation dose reduction techniq ues were employed. CTDIvol: 27.0 - 33.1 mGy. DLP: 1039 mGy-cm. . LIMITATIONS: None. FINDINGS: LUNGS AND PLEURA: Stable chronic pleural and parenchymal scarring. Surgical changes in th e left lung. No masses, infiltrates, pneumothorax. No pleural effusions, calcifications. AORTA AND GREAT VESSELS: No aneurysm. No dissection. HEART: No pericardial effusion. No significant coronary artery calcifications. PULMONARY ARTERIES: No emboli visualized in the main pulmonary arteries or the segmental branches. HILAR AND MEDIASTINAL STRUCTURES: No identified masses or abnormal nodes. HARDWARE: None in the chest. UPPER ABDOMEN: No significant findings. Limited exam. THYROID AND OTHER SOFT TISSUES: No masses. No adenopathy. BONES: No acute or significant finding. 3D MIPS: Confirm above findings. OTHER: No other significant finding. IMPRESSION: 1. NORMAL CTA OF THE CHEST. NO PULMONARY EMBOLI. 2. STABLE CHRONIC CHANGES IN THE LUNGS WITH CHRONIC SCARRING. NO APPARENT ACUTE FINDINGS. COMMENT: Quality ID # [id number]: Final reports with documentation of one or more dose reduction techniques (e.g., Automated exposure control, adjustment of the mA and/or kV according to patient size, use of iterative reconstruction technique) TECHNICAL DOCUMENTATION: JOB ID: [id number] [employer]- All Rights Reserved Reading location - IP/workstation name: [email or web address]
[2017-06-13] MEDS ORDERED: CEFTRIAXONE INJ 1000 MG VIAL IV ONE (15:30)
[2017-06-13] MEDS ORDERED: ALBUTEROL SULFATE 0.083% NEB 2.5 MG/3 ML AMPUL NEB ONE (15:31)
[2017-06-13 16:19] LABS: ARTERIAL BLOOD BASE EXCESS 1.8 mmol/L; ARTERIAL BLOOD FIO2 2L; ARTERIAL BLOOD H2CO3 1.54 mmol/L (1.05-1.35); ARTERIAL BLOOD HCO3 28.1 mmol/L (20-26); ARTERIAL BLOOD O2 SATURATION 98.8 % (94-98); ARTERIAL BLOOD PCO2 51.2 mmHg (35-45); ARTERIAL BLOOD PH 7.36 (7.35-7.45); ARTERIAL BLOOD PO2 149.4 mmHg (80-100); ARTERIAL BLOOD TOTAL CO2 29.7 mmol/L (21-25)
[2017-06-13] MEDS ORDERED: ONDANSETRON HCL INJ/PF 4 MG/2 ML SDV IV PRN (16:28)
[2017-06-13] MEDS ORDERED: DEXTROSE 40% GEL 15 GM TUBE PO PRN ×2 (16:35)
[2017-06-13] MEDS ORDERED: GLUCAGON,HUMAN RECOMB 1 MG INJ IM PRN (16:35)
[2017-06-13] MEDS ORDERED: DEXTROSE 50%-WATER 25 GM/50 ML DISP.SYRIN IV PRN ×2 (16:35)
--- NOTE | 2017-06-13 16:55 | PDOC H&P ---
History of Present Illness History of Present Illness: ALLIE JACQUES is a 72 year old black female patient with past medical history of hypertension, coronary artery disease, diabetes mellitus, COPD and obesity presented with chief complaint of shortness of breath. Since patient is somewhat sleepy and unable to give any meaningful history, brief history is obtained from ER attending note. Attending note patient about months ago admitted to hospital for pneumonia. Has been doing well but over the last several days has increased shortness of breath and reportedly patient noted to have fever by EMS today patient states that she was having difficulty breathing at home patient has chronic respiratory failure and she uses oxygen at night but this time she requires to use oxygen during the daytime also. Detailed history and review of systems is unobtainable. Past Medical History Cardiac Medical History: Reports: Coronary Artery Disease Denies: Myocardial Infarction, Hypertension Pulmonary Medical History: Reports: Asthma, Chronic Obstructive Pulmonary Disease (COPD) Denies: Bronchitis, Pneumonia Neurological Medical History: Denies: Seizures Endocrine Medical History: Reports: Diabetes Mellitus Type 1, Diabetes Mellitus Type 2 GI Medical History: Reports: Gastroesophageal Reflux Disease Musculoskeltal Medical History: Reports: Arthritis - Rheumatoid arthritis Denies: Gout Past Surgical History Past Surgical History: Reports: Orthopedic Surgery - bilat knee Denies: Hysterectomy, Pacemaker Social History Lives with: Family Smoking Status: Never Smoker Frequency of Alcohol Use: Rare Hx Recreational Drug Use: No Drugs: None Hx Prescription Drug Abuse: No - Advance Directive Resuscitation Status: Full Code Family History Family History: Reviewed & Not Pertinent Parental Family History Reviewed: No - Unable to obtain history because of patient's mental status Children Family History Reviewed: No Sibling(s) Family History Reviewed.: No Medication/Allergy Home Medications: Aspirin [Aspirin 81 mg Chewable Tablet] 81 mg PO DAILY 04/07/15 Glipizide [Glucotrol 5 mg Tablet] 5 mg PO BIDACBS #60 tablet 02/20/16 Metformin HCl [Glucophage 850 mg Tablet] 850 mg PO BIDBS #60 tablet 03/15/16 Budesonide/Formoterol Fumarate [Symbicort Hfa 160-4.5 Mcg Inhaler 6 gm] 2 puff IH Q12 06/13/17 Multivitamin [Tab-A-Carlo (Multiple Vitamin) Tablet] 1 tab PO DAILY 06/13/17 Omeprazole 40 mg PO DAILY MDD PUTS IN APPLESAUCE 06/13/17 Tofacitinib Citrate [Xeljanz] 5 mg PO Q12 06/13/17 Allergies/Adverse Reactions: NSAIDS (Non-Steroidal Anti-Inflamma [Nsaids] Allergy (Mild, Verified 11/13/16 12 :06) Review of Systems ROS unobtainable: Due to mental status Physical Exam Vital Signs: Temp Pulse Resp BP Pulse Ox 99.3 F 22 H 115/76 97 06/13/17 12:16 06/13/17 15:00 06/13/17 14:01 06/13/17 15:00 Intake & Output 06/12/17 06/13/17 06/14/17 06:59 06:59 06:59 Weight 98.3 kg General appearance: PRESENT: mild distress Head exam: PRESENT: atraumatic, normocephalic Respiratory exam: PRESENT: wheezes - Both lungs Cardiovascular exam: PRESENT: tachycardia GI/Abdominal exam: PRESENT: other - Obese Results Laboratory Results: 06/13/17 12:15 06/13/17 12:15 06/13/17 06/13/17 06/13/17 12:15 12:15 12:15 WBC 8.1 RBC 4.29 Hgb 12.8 Hct 39.6 MCV 92 MCH 29.7 MCHC 32.3 RDW 14.5 H Plt Count 195 Seg Neutrophils % 62.1 Lymphocytes % 27.3 Monocytes % 9.7 Eosinophils % 0.4 Basophils % 0.5 Absolute Neutrophils 5.0 Absolute Lymphocytes 2.2 Absolute Monocytes 0.8 Absolute Eosinophils 0.0 Absolute Basophils 0.0 Carbonic Acid HCO3/H2CO3 Ratio ABG pH ABG pCO2 ABG pO2 ABG HCO3 ABG O2 Saturation ABG Base Excess FiO2 Sodium 136.4 L Potassium 3.9 Chloride 99 Carbon Dioxide 29 Anion Gap 8 BUN 12 Creatinine 0.83 Est GFR ( Amer) > 60 Est GFR (Non-Af Amer) > 60 Glucose 258 H Lactic Acid 1.0 Calcium 9.0 Total Bilirubin 0.4 AST 26 ALT 34 Alkaline Phosphatase 84 Total Protein 6.3 Albumin 3.6 06/13/17 16:06 WBC RBC Hgb Hct MCV MCH MCHC RDW Plt Count Seg Neutrophils % Lymphocytes % Monocytes % Eosinophils % Basophils % Absolute Neutrophils Absolute Lymphocytes Absolute Monocytes Absolute Eosinophils Absolute Basophils Carbonic Acid 1.54 H HCO3/H2CO3 Ratio 18:1 ABG pH 7.36 ABG pCO2 51.2 H ABG pO2 149.4 H ABG HCO3 28.1 H ABG O2 Saturation 98.8 H ABG Base Excess 1.8 FiO2 2L Sodium Potassium Chloride Carbon Dioxide Anion Gap BUN Creatinine Est GFR ( Amer) Est GFR (Non-Af Amer) Glucose Lactic Acid Calcium Total Bilirubin AST ALT Alkaline Phosphatase Total Protein Albumin 06/13/17 12:15 Troponin I < 0.012 NT-Pro-B Natriuret Pep 107 Impressions: Chest X-Ray 06/13/17 12:15 IMPRESSION: STABLE APPEARANCE. CHRONIC SCARRING IN THE RIGHT UPPER LOBE. NO ACUTE RADIOGRAPHIC FINDING IN THE CHEST. Chest/Abdomen CTA 06/13/17 14:24 IMPRESSION: 1. NORMAL CTA OF THE CHEST. NO PULMONARY EMBOLI. 2. STABLE CHRONIC CHANGES IN THE LUNGS WITH CHRONIC SCARRING. NO APPARENT ACUTE FINDINGS. Assessment & Plan - Diagnosis (1) Diabetes 1.5, managed as type 2 Is this a current diagnosis for this admission?: Yes Plan: We will continue her glipizide and metformin. And I will put her on sliding scale. (2) Hypertension Qualifiers: Hypertension type: essential hypertension Qualified Code(s): I10 - Essential (primary) hypertension Is this a current diagnosis for this admission?: Yes Plan: Stable continue her home medication. (3) Coronary artery disease Qualifiers: Coronary Disease-Associated Artery/Lesion type: [place] artery Is this a current diagnosis for this admission?: Yes Plan: Patient does not have angina. Continue her home medication. (4) COPD exacerbation Is this a current diagnosis for this admission?: Yes Plan: Patient has been on supplemental oxygen, DuoNeb, prednisone, doxycycline - Time Critical Time spent with patient: 25-34 minutes
[2017-06-13] MEDS ORDERED: GLIPIZIDE 10 MG TABLET PO SCH (17:00)
[2017-06-13 17:04] LABS: APPEARANCE,URINE CLEAR; BILIRUBIN,URINE NEGATIVE (NEGATIVE); COLOR,URINE YELLOW; GLUCOSE, URINE >=500 mg/dL (NEGATIVE); KETONES,URINE TRACE mg/dL (NEGATIVE); LEUKOCYTE ESTERASE,URINE TRACE (NEGATIVE); NITRITE,URINE NEGATIVE (NEGATIVE); PROTEIN,URINE NEGATIVE (NEGATIVE); URINE SPECIFIC GRAVITY 1.033; UROBILINOGEN,URINE NEGATIVE mg/dL (<2.0)
[2017-06-13] MEDS: GLIPIZIDE 5 MG TABLET PO SCH (17:19)
[2017-06-13] MEDS: METFORMIN HCL 850 MG TABLET PO SCH (17:19)
[2017-06-13] MEDS: DOCUSATE SODIUM 100 MG CAPSULE PO SCH (17:20)
[2017-06-13] MEDS ORDERED: PREDNISONE 20 MG TABLET PO SCH (18:00)
[2017-06-13] MEDS: IPRATROPIUM/ALBUTEROL 0.5-2.5 MG/3 ML AMPUL NEB SCH (19:59)
--- NOTE | 2017-06-13 21:13 | EKG REPORT ---
SEVERITY:- ABNORMAL ECG - SINUS RHYTHM RIGHT ATRIAL ABNORMALITY : Confirmed by: Dalton Horton 13-Jun-2017 21:13:03
[2017-06-13] MEDS ORDERED: ACETAMINOPHEN 325 MG TABLET ONE (23:19)
[2017-06-13] MEDS: DOXYCYCLINE HYCLATE 100 MG TABLET PO SCH (23:45)
[2017-06-13] MEDS: HEPARIN SOD (PORCINE) 5,000 UNIT/ML 1 ML SYRINGE SUBCUT SCH (23:46)
[2017-06-14] MEDS ORDERED: INSULIN LISPRO 100 UNIT/ML 3 ML VIAL SUBCUT ONE ×2 (00:45→04:30)
[2017-06-14] MEDS ORDERED: INSULIN GLARGINE,HUM.REC.ANLOG 300 UNIT/3 ML INSULN.PEN SUBCUT ONE ×2 (00:45→01:03)
[2017-06-14 03:55] LABS: HEMATOCRIT 39.4 % (36.0-47.0); HEMOGLOBIN 12.4 g/dL (12.0-15.5); MEAN CORPUSCULAR HEMOGLOBIN 29.7 pg (27.0-33.4); MEAN CORPUSCULAR HGB CONC 31.4 g/dL (32.0-36.0); MEAN CORPUSCULAR VOLUME 95 fl (80-97); PLATELET COUNT 183 10^3/uL (150-450); RED BLOOD COUNT 4.16 10^6/uL (3.72-5.28); RED CELL DISTRIBUTION WIDTH 14.4 % (11.5-14.0); WHITE BLOOD COUNT 5.6 10^3/uL (4.0-10.5)
[2017-06-14 04:00] LABS: ANION GAP 11 (5-19); BLOOD UREA NITROGEN 23 mg/dL (7-20); CALCIUM 9.1 mg/dL (8.4-10.2); CARBON DIOXIDE 29 mmol/L (22-30); CHLORIDE 98 mmol/L (98-107); POTASSIUM 4.7 mmol/L (3.6-5.0); SODIUM 138.2 mmol/L (137-145)
[2017-06-14 04:11] LABS: GLUCOSE 579 mg/dL (75-110)
[2017-06-14] MEDS: LANSOPRAZOLE 30 MG TAB.RAP.DR PO SCH (05:59)
[2017-06-14] MEDS: ACETAMINOPHEN 325 MG TABLET PO PRN ×3 (05:59→22:39)
[2017-06-14] MEDS: HEPARIN SOD (PORCINE) 5,000 UNIT/ML 1 ML SYRINGE SUBCUT SCH ×3 (06:03→22:01)
[2017-06-14] MEDS: INSULIN LISPRO 100 UNIT/ML 3 ML VIAL SUBCUT PRN ×3 (06:45→22:01)
[2017-06-14] MEDS: GLIPIZIDE 5 MG TABLET PO SCH ×2 (08:22→17:05)
[2017-06-14] MEDS: METFORMIN HCL 850 MG TABLET PO SCH ×2 (08:23→17:05)
[2017-06-14] MEDS: IPRATROPIUM/ALBUTEROL 0.5-2.5 MG/3 ML AMPUL NEB SCH ×4 (08:37→20:15)
[2017-06-14] MEDS ORDERED: IPRATROPIUM/ALBUTEROL 0.5-2.5 MG/3 ML AMPUL NEB PRN (09:32)
[2017-06-14] MEDS: DOXYCYCLINE HYCLATE 100 MG TABLET PO SCH ×2 (10:19→22:01)
[2017-06-14] MEDS: DOCUSATE SODIUM 100 MG CAPSULE PO SCH ×2 (10:19→17:04)
[2017-06-14] MEDS ORDERED: BUDESONIDE/FORMOTEROL 160-4.5 MCG 60 PUFF/6 GM MDI IH ONE (11:00)
[2017-06-14] MEDS ORDERED: PREDNISONE 20 MG TABLET PO ONE (11:00)
[2017-06-14] MEDS ORDERED: GUAIFENESIN 600 MG TABLET.SA PO ONE (11:00)
--- NOTE | 2017-06-14 13:12 | PDOC PROGRESS REPORT ---
Subjective Progress Note for:: 06/14/17 Subjective:: This 72 years old black female patient admitted for shortness of breath secondary to COPD exacerbation. She has been on doxycycline, 20 and prednisone. Patient still complains of some tightness of the chest and coughing. Reason For Visit: COPD EXACERBATION Physical Exam Vital Signs: Temp Pulse Resp BP Pulse Ox 97.8 F 76 20 124/71 96 06/14/17 12:12 06/14/17 12:12 06/14/17 12:12 06/14/17 12:12 06/14/17 12:12 Intake & Output 06/13/17 06/14/17 06/15/17 06:59 06:59 06:59 Intake Total 400 350 Balance 400 350 Weight 98.3 kg General appearance: PRESENT: no acute distress, well-developed, well-nourished Head exam: PRESENT: atraumatic, normocephalic Respiratory exam: PRESENT: wheezes - Mild wheezing bilaterally Cardiovascular exam: PRESENT: RRR. ABSENT: diastolic murmur, rubs, systolic murmur GI/Abdominal exam: PRESENT: other - Obese abdomen Neurological exam: PRESENT: alert, awake, oriented to time, oriented to situation Results Laboratory Results: 06/14/17 03:24 06/14/17 03:24 06/14/17 06/14/17 06/14/17 03:24 03:24 03:24 WBC 5.6 RBC 4.16 Hgb 12.4 Hct 39.4 MCV 95 MCH 29.7 MCHC 31.4 L RDW 14.4 H Plt Count 183 Sodium 138.2 Potassium 4.7 Chloride 98 Carbon Dioxide 29 Anion Gap 11 BUN 23 H Creatinine 0.96 Est GFR ( Amer) > 60 Est GFR (Non-Af Amer) 57 L Glucose 579 H* Calcium 9.1 TSH 0.37 L Impressions: Chest X-Ray 06/13/17 12:15 IMPRESSION: STABLE APPEARANCE. CHRONIC SCARRING IN THE RIGHT UPPER LOBE. NO ACUTE RADIOGRAPHIC FINDING IN THE CHEST. Chest/Abdomen CTA 06/13/17 14:24 IMPRESSION: 1. NORMAL CTA OF THE CHEST. NO PULMONARY EMBOLI. 2. STABLE CHRONIC CHANGES IN THE LUNGS WITH CHRONIC SCARRING. NO APPARENT ACUTE FINDINGS. Assessment & Plan - Diagnosis (1) Diabetes 1.5, managed as type 2 Is this a current diagnosis for this admission?: Yes Plan: Patient has a spike of hyperglycemia 579 with her latest blood sugar is 326. She has been on glipizide and metformin and also on sliding scale (2) Hypertension Qualifiers: Hypertension type: essential hypertension Qualified Code(s): I10 - Essential (primary) hypertension Is this a current diagnosis for this admission?: Yes Plan: Stable continue her home medication. (3) Coronary artery disease Qualifiers: Coronary Disease-Associated Artery/Lesion type: [place] artery Is this a current diagnosis for this admission?: Yes Plan: Patient does not have angina. Continue her home medication. (4) COPD exacerbation Is this a current diagnosis for this admission?: Yes Plan: Patient has been doing well tightness of the chest and cough. I started her on Mucinex and Symbicort .
[2017-06-14] MEDS ORDERED: INSULIN GLARGINE,HUM.REC.ANLOG 300 UNIT/3 ML INSULN.PEN SUBCUT SCH (22:00)
[2017-06-14] MEDS: GUAIFENESIN 600 MG TABLET.SA PO SCH (22:01)
[2017-06-14] MEDS: BUDESONIDE/FORMOTEROL 160-4.5 MCG 60 PUFF/6 GM MDI IH SCH (22:01)
[2017-06-15] MEDS: ACETAMINOPHEN 325 MG TABLET PO PRN (06:09)
[2017-06-15] MEDS: LANSOPRAZOLE 30 MG TAB.RAP.DR PO SCH (06:09)
[2017-06-15] MEDS: HEPARIN SOD (PORCINE) 5,000 UNIT/ML 1 ML SYRINGE SUBCUT SCH (06:12)
[2017-06-15] MEDS: IPRATROPIUM/ALBUTEROL 0.5-2.5 MG/3 ML AMPUL NEB SCH (08:33)
[2017-06-15] MEDS: GLIPIZIDE 5 MG TABLET PO SCH (08:58)
[2017-06-15] MEDS: INSULIN LISPRO 100 UNIT/ML 3 ML VIAL SUBCUT PRN (08:59)
[2017-06-15] MEDS: METFORMIN HCL 850 MG TABLET PO SCH (09:00)
[2017-06-15] MEDS ORDERED: PREDNISONE 20 MG TABLET PO SCH ×2 (10:00)
[2017-06-15 10:22] VITALS: BP 125/74
[2017-06-15] MEDS: DOCUSATE SODIUM 100 MG CAPSULE PO SCH (10:27)
[2017-06-15] MEDS: GUAIFENESIN 600 MG TABLET.SA PO SCH (10:27)
[2017-06-15] MEDS: DOXYCYCLINE HYCLATE 100 MG TABLET PO SCH (10:27)
[2017-06-15] MEDS: BUDESONIDE/FORMOTEROL 160-4.5 MCG 60 PUFF/6 GM MDI IH SCH (10:28)
--- NOTE | 2017-06-15 12:04 | PDOC DISCHARGE SUMMARY ---
General - Admit/Disc Date/PCP Admission Date/Primary Care Provider: 06/15/17 08:42 Discharge Date: 06/15/17 - Discharge Diagnosis (1) Diabetes 1.5, managed as type 2 Is this a current diagnosis for this admission?: Yes (2) Hypertension Is this a current diagnosis for this admission?: Yes (3) Coronary artery disease Is this a current diagnosis for this admission?: Yes (4) COPD exacerbation Is this a current diagnosis for this admission?: Yes - Additional Information Resuscitation Status: Full Code Discharge Diet: Diabetic Discharge Activity: Activity As Tolerated, Balance Activity w/Rest Prescriptions: Azithromycin [Zithromax] 500 mg PO DAILY #5 tablet Oxycodone HCl/Acetaminophen [Percocet 5-325 mg Tablet] 1 tab PO ASDIR PRN #15 tab PRN Reason: Prednisone [Deltasone 20 mg Tablet] 40 mg PO DAILY #7 tablet Tiotropium [place] [Spiriva Handihaler 18 mcg/dose (30 Dose)] 1 cap IH DAILY # 30 capsule Home Medications: Aspirin [Aspirin 81 mg Chewable Tablet] 81 mg PO DAILY 04/07/15 Glipizide [Glucotrol 5 mg Tablet] 5 mg PO BIDACBS #60 tablet 02/20/16 Metformin HCl [Glucophage 850 mg Tablet] 850 mg PO BIDBS #60 tablet 03/15/16 Budesonide/Formoterol Fumarate [Symbicort HFA 160-4.5 mcg Inhaler 6 gm] 2 puff IH Q12 06/13/17 Multivitamin [Tab-A-Carlo (Multiple Vitamin) Tablet] 1 tab PO DAILY 06/13/17 Omeprazole 40 mg PO DAILY MDD PUTS IN APPLESAUCE 06/13/17 Tofacitinib Citrate [Xeljanz] 5 mg PO Q12 06/13/17 Azithromycin [Zithromax] 500 mg PO DAILY #5 tablet 06/15/17 Oxycodone HCl/Acetaminophen [Percocet 5-325 mg Tablet] 1 tab PO ASDIR PRN #15 tab 06/15/17 Prednisone [Deltasone 20 mg Tablet] 40 mg PO DAILY #7 tablet 06/15/17 Tiotropium [place] [Spiriva Handihaler 18 mcg/dose (30 Dose)] 1 cap IH DAILY # 30 capsule 06/15/17 History of Present Illness History of Present Illness: ALLIE JACQUES is a 72 year old black female patient with past medical history of hypertension, coronary artery disease, diabetes mellitus, COPD and obesity presented with chief complaint of shortness of breath. Since patient is somewhat sleepy and unable to give any meaningful history, brief history is obtained from ER attending note. Per attending note patient about a month ago admitted to hospital for pneumonia. Has been doing well but over the last several days has increased shortness of breath and reportedly patient noted to have fever by EMS today patient states that she was having difficulty breathing. At her base line patint has has chronic respiratory failure for which she uses oxygen at night but this time she requires to use oxygen during the daytime also. Detailed history and review of systems is unobtainable. Hospital Course Hospital Course: Patient has been managed as a case of COPD exacerbation with supplemental oxygen , doxycycline, DuoNeb, prednisone and Symbicort inhaler. Patient has also a nagging cough for which she was started on Mucinex which helps her a lot. Morning I seen patient while she is sitting on chair she is awake alert oriented. Her O2 saturation is 95% on room air she is not wearing oxygen at all. Her vitals are stable and she does not have any wheezing patient is good for discharge. I sent her home with prednisone 40 mg p.o. daily for 7 days, Zithromax 500 mg p.o. daily for 5 days, Spiriva and Percocet. Physical Exam Vital Signs: Temp Pulse Resp BP Pulse Ox 98.2 F 94 20 125/74 94 06/15/17 11:12 06/15/17 11:12 06/15/17 11:12 06/15/17 11:12 06/15/17 11:12 General appearance: PRESENT: morbidly obese Head exam: PRESENT: atraumatic, normocephalic Respiratory exam: PRESENT: other - Occasional mild wheezing Cardiovascular exam: PRESENT: RRR. ABSENT: diastolic murmur, rubs, systolic murmur Neurological exam: PRESENT: alert, awake, oriented to time, oriented to situation Results Impressions: Chest X-Ray 06/13/17 12:15 IMPRESSION: STABLE APPEARANCE. CHRONIC SCARRING IN THE RIGHT UPPER LOBE. NO ACUTE RADIOGRAPHIC FINDING IN THE CHEST. Chest/Abdomen CTA 06/13/17 14:24 IMPRESSION: 1. NORMAL CTA OF THE CHEST. NO PULMONARY EMBOLI. 2. STABLE CHRONIC CHANGES IN THE LUNGS WITH CHRONIC SCARRING. NO APPARENT ACUTE FINDINGS. Qualifiers - * PATEINT BEING DISCHARGED WITH ANY OF THE FOLLOWING DIAGNOSIS?: No
== END 2017-06-15 11:27 | disposition home or self-care (01) | DRG 191 ==
LOC: ER 12:08 → EH 16:47 → 4W 22:55 → OBSVTOIN 06-15 08:42
PROVIDERS: ADMIT Internal Medicine; ATTEND Internal Medicine
PROC: 3E0F73Z Introduction of Anti-inflammatory into Respiratory Tract, Via Natural or Artificial Opening (ICD-10-PCS; principal; 2017-06-13)
DX: J44.1 Chronic obstructive pulmonary disease with (acute) exacerbation (principal); J96.11 Chronic respiratory failure with hypoxia; E11.9 Type 2 diabetes mellitus without complications; I10 Essential (primary) hypertension; E66.01 Morbid (severe) obesity due to excess calories; I25.10 Atherosclerotic heart disease of native coronary artery without angina pectoris; M06.9 Rheumatoid arthritis, unspecified; K21.9 Gastro-esophageal reflux disease without esophagitis; Z68.35 Body mass index [BMI] 35.0-35.9, adult; Z99.81 Dependence on supplemental oxygen; Z79.82 Long term (current) use of aspirin; Z79.899 Other long term (current) drug therapy; Z88.8 Allergy status to other drugs, medicaments and biological substances
CPT/HCPCS: 36415; 51701; 71045; 71275; 80048; 80053; 81001; 82803; 82962; 83605; 83880; 84443; 84484; 85025; 85027; 87040; 87086; 87088; 87186; 93005; 93010; 94640; 96365; 99285; G0378; J0696; J1644; J1815; J3490; J7512; J7620

== ENCOUNTER 2017-08-01 10:01 | Observation (INO) | payer MEDICARE, MEDICAID ==
--- NOTE | 2017-08-01 10:17 | ER Document Report ---
ED Medical Screen (RME) - General Chief Complaint: Pain All Over Stated Complaint: SIDE PAIN Time Seen by Provider: 08/01/17 10:08 Notes: 72-year-old female to the emergency department chief complaint of left chest pain. Pain is located on the left side radiating around from the front to the back. History of COPD. Mild shortness of breath. Recently was hospitalized for pneumonia and COPD exacerbation. Followed by Dr. Neely. And is described as 3/5 on a numeric pain scale. Pain all over but mostly in the left side of the chest. I have greeted and performed a rapid initial assessment of this patient. A comprehensive ED assessment and evaluation of the patient, analysis of test results and completion of the medical decision making process will be conducted by additional ED providers. TRAVEL OUTSIDE OF THE [place] IN LAST 30 DAYS: No - Related Data Allergies/Adverse Reactions: NSAIDS (Non-Steroidal Anti-Inflamma [Nsaids] Allergy (Mild, Verified 08/01/17 10 :01) Past Medical History - Past Medical History Cardiac Medical History: Reports: Hx Coronary Artery Disease Denies: Hx Heart Attack, Hx Hypertension Pulmonary Medical History: Reports: Hx Asthma, Hx COPD Denies: Hx Bronchitis, Hx Pneumonia Neurological Medical History: Denies: Hx Cerebrovascular Accident, Hx Seizures Endocrine Medical History: Reports: Hx Diabetes Mellitus Type 1, Hx Diabetes Mellitus Type 2 Renal/ Medical History: Denies: Hx Peritoneal Dialysis GI Medical History: Reports: Hx Gastroesophageal Reflux Disease Musculoskeltal Medical History: Reports Hx Arthritis - Rheumatoid arthritis, Denies Hx Gout Psychiatric Medical History: Denies: Hx Depression Past Surgical History: Reports: Hx Orthopedic Surgery - bilat knee. Denies: Hx Hysterectomy, Hx Pacemaker - Immunizations Hx Diphtheria, Pertussis, Tetanus Vaccination: Yes History of Influenza Vaccine for 11/2016 - 04/2017 Season: Yes Influenza Administration Date for 11/2016 - 04/2017 Season: 11/24/16 Review of Systems - Review of Systems Constitutional: No symptoms reported EENT: No symptoms reported Cardiovascular: Chest pain. denies: Palpitations, Heart racing Respiratory: Cough, Short of breath, Wheezing Gastrointestinal: No symptoms reported Musculoskeletal: See HPI, Muscle pain, Muscle stiffness. denies: Joint pain Skin: No symptoms reported Physical Exam - Vital signs Vitals: Temp Pulse Resp BP Pulse Ox 98.2 F 85 24 H 130/75 H 96 08/01/17 10:08/01/17 10:08/01/17 10:08/01/17 10:08/01/17 10:09 Interpretation: Normal - Respiratory Respiratory status: No respiratory distress Chest status: Nontender Breath sounds: Wheezing Chest palpation: Normal - Cardiovascular Rhythm: Regular Heart sounds: Normal auscultation Murmur: No - Back Back: Normal, Nontender - Skin Skin Temperature: Warm Skin Moisture: Dry Skin Color: Normal Course - Vital Signs Vital signs: Temp Pulse Resp BP Pulse Ox 98.2 F 85 24 H 130/75 H 96 08/01/17 10:08/01/17 10:08/01/17 10:08/01/17 10:08/01/17 10:09 Doctor's Discharge - Discharge Referrals: KIANA NEELY MD [Primary Care Provider] - Follow up as needed
[2017-08-01 11:11] LABS: ABSOLUTE EOSINOPHILS # (AUTO) 0.2 10^3/uL (0.0-0.6); ABSOLUTE LYMPHOCYTES (AUTO) 1.6 10^3/uL (0.5-4.7); ABSOLUTE MONOCYTES (AUTO) 0.5 10^3/uL (0.1-1.4); BASOPHILS % (AUTO) 0.7 % (0-2); EOSINOPHILS % (AUTO) 2.5 % (0-6); HEMATOCRIT 30.9 % (36.0-47.0); HEMOGLOBIN 10.1 g/dL (12.0-15.5); LYMPHOCYTES % (AUTO) 25.6 % (13-45); MEAN CORPUSCULAR HEMOGLOBIN 30.4 pg (27.0-33.4); MEAN CORPUSCULAR HGB CONC 32.6 g/dL (32.0-36.0); MEAN CORPUSCULAR VOLUME 93 fl (80-97); MONOCYTES % (AUTO) 8.1 % (3-13); PLATELET COUNT 214 10^3/uL (150-450); RED BLOOD COUNT 3.32 10^6/uL (3.72-5.28); RED CELL DISTRIBUTION WIDTH 14.5 % (11.5-14.0); SEGMENTED NEUTROPHILS % (AUTO) 63.1 % (42-78); TOTAL CELLS COUNTED % (AUTO) 100 %; WHITE BLOOD COUNT 6.4 10^3/uL (4.0-10.5)
--- NOTE | 2017-08-01 11:42 | RADIOLOGY REPORT (SQ) ---
EXAM DESCRIPTION: CHEST 2 VIEWS COMPLETED DATE/TIME: 08/01/2017 11:09 am REASON FOR STUDY: chest pain COMPARISON: 03/13/2016 EXAM PARAMETERS: NUMBER OF VIEWS: two views TECHNIQUE: Digital Frontal and Lateral radiographic views of the chest acquired. RADIATION DOSE: NA LIMITATIONS: none FINDINGS: LUNGS AND PLEURA: Chronic changes are seen in both upper lobes there appear relatively sta ble. There is right hilar prominence that appears stable. On the lateral view, however, there is an 18 mm posterior nodule that represents a change. MEDIASTINUM AND HILAR STRUCTURES: See above. HEART AND VASCULAR STRUCTURES: Heart normal size. No evidence for failure. BONES: No acute findings. HARDWARE: None in the chest. OTHER: No other significant finding. IMPRESSION: Chronic lung changes. 18 mm posterior nodule. Consider CT for further evaluation. TECHNICAL DOCUMENTATION: JOB ID: [id number] [email or web address]- All Rights Reserved Reading location - IP/workstation name: [email or web address]
[2017-08-01 11:45] LABS: TROPONIN I < 0.012 ng/mL
--- NOTE | 2017-08-01 11:50 | ER Document Report ---
ED General - General Chief Complaint: Pain All Over Stated Complaint: SIDE PAIN Time Seen by Provider: 08/01/17 10:08 Information source: Patient Notes: Patient is a 72-year-old female presenting with a myriad of complaints. Patient is an extremely poor historian. Patient states that last night she felt some pain from the left side of her hip up to her left abdomen, radiating to her left chest. She states a mild shortness of breath with a cough. She denies any fevers, nausea, vomiting, or diarrhea. Patient states she when questioned that she is a long history of left hip pain. She denies any recent injuries. She states she has had no imaging for this hip pain. She states she has had pain to the left side of her chest with radiation down the left arm. She also states she has some left arm pain. She denies any trauma to the chest to the arm. She denies any swelling of the arm. Patient states she has had chest pain previously. She actually saw her primary care physician yesterday and supposedly told him of this. No cardiac panel was performed. Patient states she believes she was having reflux previously. She has never had a cardiac evaluation according to the patient's report. She denies any weakness to bilateral arms or legs. She states only pain to the left arm. She does state for around 1 week she has had edema to bilateral lower extremities. No history of edema previously. No recent trips or travel. TRAVEL OUTSIDE OF THE [place] IN LAST 30 DAYS: No - HPI Onset: Other - See above Onset/Duration: Gradual Quality of pain: Achy Severity: Mild Pain Level: Denies Associated symptoms: Other Exacerbated by: Denies Relieved by: Denies Similar symptoms previously: Yes Recently seen / treated by doctor: Yes - Related Data Allergies/Adverse Reactions: NSAIDS (Non-Steroidal Anti-Inflamma [Nsaids] Allergy (Mild, Verified 08/01/17 10 :01) Past Medical History - General Information source: Patient - Social History Smoking Status: Former Smoker Cigarette use (# per day): No Chew tobacco use (# tins/day): No Smoking Education Provided: No Frequency of alcohol use: None Drug Abuse: None Family History: Reviewed & Not Pertinent Patient has suicidal ideation: No Patient has homicidal ideation: No - Past Medical History Cardiac Medical History: Reports: Hx Coronary Artery Disease Denies: Hx Heart Attack, Hx Hypertension Pulmonary Medical History: Reports: Hx Asthma, Hx COPD Denies: Hx Bronchitis, Hx Pneumonia Neurological Medical History: Denies: Hx Cerebrovascular Accident, Hx Seizures Endocrine Medical History: Reports: Hx Diabetes Mellitus Type 1, Hx Diabetes Mellitus Type 2 Renal/ Medical History: Denies: Hx Peritoneal Dialysis GI Medical History: Reports: Hx Gastroesophageal Reflux Disease Musculoskeltal Medical History: Reports Hx Arthritis - Rheumatoid arthritis, Denies Hx Gout Psychiatric Medical History: Denies: Hx Depression Past Surgical History: Reports: Hx Orthopedic Surgery - bilat knee. Denies: Hx Hysterectomy, Hx Pacemaker - Immunizations Hx Diphtheria, Pertussis, Tetanus Vaccination: Yes Hx Pneumococcal Vaccination: 12/25/14 Review of Systems - Review of Systems Constitutional: denies: Fever EENT: denies: Eye discharge, Nose discharge Respiratory: Short of breath Gastrointestinal: denies: Vomiting Genitourinary: denies: Dysuria Musculoskeletal: denies: Leg swelling Skin: Other - no hives. denies: Rash Neurological/Psychological: Other - no slurred speech -: Yes All other systems reviewed and negative Physical Exam - Vital signs Vitals: Temp 98.2 F 08/01/17 10:05 Notes: Reviewed vital signs and nursing note as charted by RN. CONSTITUTIONAL: Alert and oriented and responds appropriately to questions. Well -appearing; well-nourished HEAD: Normocephalic; atraumatic EYES: PERRL; Sclerae non-icteric ENT: Normal nose; no rhinorrhea; moist mucous membranes; pharynx without lesions noted NECK: Supple without meningismus; non-tender; no carotid bruits; no cervical lymphadenopathy, no masses CARD: Regular rate and rhythm; no murmurs, no clicks, no rubs, no gallops; symmetric distal pulses RESP: Normal chest excursion without splinting or tachypnea; breath sounds clear and equal bilaterally; no wheezes, no rhonchi, no rales; no tenderness to palpation of the anterior chest wall ABD/GI: Normal bowel sounds; non-distended; soft, highly tender to palpation of the left lower abdomen with no rebound or guarding. No palpable masses or abdominal bruits present BACK: The back appears normal and is non-tender to palpation, there is no CVA tenderness EXT: Normal ROM in all joints; non-tender to palpation; no cyanosis, no effusions, no left arm swelling or erythema. Strong distal pulses. Sensation intact to light touch. 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 Patient has 2+ edema to bilateral lower extremities SKIN: Normal color for age and race; warm; dry; good turgor; capillary refill < 2 seconds; no acute lesions noted NEURO: Moves all extremities equally; Motor and sensory function intact PSYCH: The patient's mood and manner are appropriate. Grooming and personal hygiene are appropriate. Course - Re-evaluation Re-evalutation: Given the above history and physical examination we will order cardiac panel, EKG, CT scan of the chest abdomen and pelvis and reassess. Patient currently has no focal neurological deficits. 08/01/17 11:49 Labs thus far as recorded. Normal troponin. 08/01/17 11:53 EKG shows a heart of 77, normal sinus rhythm, PACs present, no obvious ST elevation or depression. 08/01/17 13:37 Labs as recorded. Urine culture has been sent. Rocephin has been provided. CT of the chest and abdomen are pending. Normal cardiac panel and BNP. 08/01/17 14:36 CT scan of the abdomen and pelvis and chest as recorded. No obvious hip pathology or fractures. No pulmonary emboli. Given the urine analysis, with chest pain, we will start antibiotics and admit the patient to the hospital for further evaluation and repeat serial enzymes. - Vital Signs Vital signs: Temp Pulse Resp BP Pulse Ox 98.2 F 85 19 146/75 H 91 L 08/01/17 10:09 08/01/17 10:09 08/01/17 12:10 08/01/17 12:10 08/01/17 12:09 - Laboratory Result Diagrams: 08/01/17 10:50 08/01/17 10:50 Laboratory results interpreted by me: 08/01/17 08/01/17 08/01/17 10:50 10:50 12:02 RBC 3.32 L Hgb 10.1 L Hct 30.9 L RDW 14.5 H Carbon Dioxide 32 H Glucose 149 H Urine Nitrite POSITIVE H Ur Leukocyte Esterase SMALL H Discharge - Discharge Clinical Impression: Pyelonephritis Chest pain Qualifiers: Chest pain type: unspecified Qualified Code(s): R07.9 - Chest pain, unspecified Condition: Fair Disposition: ADMITTED OBSERVATION Admitting Provider: [facility] Unit Admitted: Telemetry Referrals: KIANA NEELY MD [Primary Care Provider] - Follow up as needed
[2017-08-01 11:53] LABS: ALANINE AMINOTRANSFERASE 20 U/L (9-52); ALBUMIN 3.5 g/dL (3.5-5.0); ALKALINE PHOSPHATASE 66 U/L (38-126); ANION GAP 8 (5-19); ASPARTATE AMINO TRANSFERASE 18 U/L (14-36); BILIRUBIN,DIRECT 0.2 mg/dL (0.0-0.4); BILIRUBIN,TOTAL 0.3 mg/dL (0.2-1.3); BLOOD UREA NITROGEN 9 mg/dL (7-20); CALCIUM 9.4 mg/dL (8.4-10.2); CARBON DIOXIDE 32 mmol/L (22-30); CHLORIDE 105 mmol/L (98-107); GLUCOSE 149 mg/dL (75-110); POTASSIUM 3.9 mmol/L (3.6-5.0); SODIUM 144.5 mmol/L (137-145); TOTAL PROTEIN 6.5 g/dL (6.3-8.2)
[2017-08-01 12:45] LABS: APPEARANCE,URINE SLIGHTLY-CLOUDY; BILIRUBIN,URINE NEGATIVE (NEGATIVE); GLUCOSE, URINE NEGATIVE (NEGATIVE); KETONES,URINE NEGATIVE (NEGATIVE); LEUKOCYTE ESTERASE,URINE SMALL (NEGATIVE); NITRITE,URINE POSITIVE (NEGATIVE); PROTEIN,URINE NEGATIVE (NEGATIVE); URINE SPECIFIC GRAVITY 1.009; UROBILINOGEN,URINE NEGATIVE mg/dL (<2.0)
[2017-08-01 12:46] LABS: COLOR,URINE LIGHT YELLOW
[2017-08-01] MEDS ORDERED: CEFTRIAXONE RTU 1 GM/D5W 50 ML IV ONE (13:36)
--- NOTE | 2017-08-01 13:48 | RADIOLOGY REPORT (SQ) ---
EXAM DESCRIPTION: CT ABD/PELVIS WITH IV ONLY COMPLETED DATE/TIME: 08/01/2017 1:20 pm REASON FOR STUDY: 6, left sided abdominal pain radiating to chest COMPARISON: None. TECHNIQUE: CT scan of the abdomen and pelvis performed using helical scanning technique with dynamic intravenous contrast injection. No oral contrast. Images reviewed with lung, soft tissue, and bone windows. Reconstructed coronal and sagittal MPR images reviewed. Delayed images for evaluation of the urinary system also acquired. All images stored on PACS. All CT scanners at this facility use dose modulation, iterative reconstruction, and/or weight based d osing when appropriate to reduce radiation dose to as low as reasonably achievable (ALARA). [facility]: Dose Right [facility]: CareDose [facility]: Dose Right [facility]: Teradose 4D [facility]: Urban Massage CONTRAST TYPE AND DOSE: 80 mL Isovue 370- low osmolar. RENAL FUNCTION: BUN 9 creatinine 0.67 RADIATION DOSE: . LIMITATIONS: None. FINDINGS: LOWER CHEST: See separate report of the CT of the chest. LIVER: Normal size. No masses. No dilated ducts. SPLEEN: Normal size. No focal lesions. PANCREAS: No masses. No significant calcifications. No adjacent inflammation or peripancreatic fluid collections. Pancreatic duct not dilated. GALLBLADDER: No identified stones by CT criteria. No inflammatory changes to suggest cholecystitis. ADRENAL GLANDS: No significant masses or asymmetry. RIGHT KIDNEY AND URETER: No solid masses. No significant calcifications. No hydronephrosis or hyd roureter. LEFT KIDNEY AND URETER: No solid masses. No significant calcifications. No hydronephrosis or hydr oureter. AORTA AND VESSELS: No aneurysm. No dissection. Renal arteries, SMA, celiac without stenosis. RETROPERITONEUM: No retroperitoneal adenopathy, hemorrhage or masses. BOWEL AND PERITONEAL CAVITY: No masses or inflammatory changes. No free fluid or peritoneal masses. APPENDIX: Not identified. PELVIS: No mass. No free fluid. Normal bladder. ABDOMINAL WALL: 2 cm wide ventral hernia containing only fat. BONES: No significant or acute findings. OTHER: No other significant finding. IMPRESSION: 1. No acute finding in the abdomen pelvis. 2. A 2 cm wide ventral hernia containing only fat. TECHNICAL DOCUMENTATION: JOB ID: [id number] Quality ID # [id number]: Final reports with documentation of one or more dose reduction techniques (e.g., Au tomated exposure control, adjustment of the mA and/or kV according to patient size, use of iterative reconstruction technique) 2010 [employer]- All Rights Reserved Reading location - IP/workstation name: [email or web address]
--- NOTE | 2017-08-01 13:57 | RADIOLOGY REPORT (SQ) ---
EXAM DESCRIPTION: CTA CHEST COMPLETED DATE/TIME: 08/01/2017 1:20 pm REASON FOR STUDY: 6, left sided abdominal pain radiating to chest COMPARISON: 06/13/2017 TECHNIQUE: CT scan of the chest performed using helical scanning technique with dynamic intravenous contrast injection. Images reviewed with lung, soft tissue and bone windows. Reconstructed coronal and sagittal MPR images reviewed. Additional 3 dimensional post-processing performed to develop Maximal Intensity Projection images (PR P). All images stored on PACS. All CT scanners at this facility use dose modulation, iterative reconstruction, and/or weight based d osing when appropriate to reduce radiation dose to as low as reasonably achievable (ALARA). [facility]: Dose Right [facility]: CareDose [facility]: Dose Right [facility]: Teradose 4D [facility]: Spongecell CONTRAST TYPE AND DOSE: contrast/concentration: Isovue 370.00 mg/ml; Total Contrast Delivered: 80.0 ml; Total Saline Delivered: 90.0 ml Contrast bolus optimized for the pulmonary arteries. Not diagnostic for the aorta. RENAL FUNCTION: Creatinine 0.67 RADIATION DOSE: CT Rad equipment meets quality standard of care and radiation dose reduction techniq ues were employed. CTDIvol: 25.3 - 34.7 mGy. DLP: 3448 mGy-cm. . LIMITATIONS: None. FINDINGS: LUNGS AND PLEURA: No acute changes. The previously described chronic pleural and parenchy mal changes with scarring appears stable. AORTA AND GREAT VESSELS: No aneurysm. Contrast bolus not optimized for the aorta. HEART: No pericardial effusion. No significant coronary artery calcifications. PULMONARY ARTERIES: No emboli visualized in the main pulmonary arteries or the segmental branches. HILAR AND MEDIASTINAL STRUCTURES: No identified masses or abnormal nodes. HARDWARE: None in the chest. UPPER ABDOMEN: No significant findings. Limited exam. THYROID AND OTHER SOFT TISSUES: No masses. No adenopathy. BONES: No acute or significant finding. 3D MIPS: Confirm above findings. OTHER: No other significant finding. IMPRESSION: NORMAL CTA OF THE CHEST. NO PULMONARY EMBOLI. COMMENT: Quality ID # [id number]: Final reports with documentation of one or more dose reduction techniques (e.g., Automated exposure control, adjustment of the mA and/or kV according to patient size, use of iterative reconstruction technique) TECHNICAL DOCUMENTATION: JOB ID: [id number] [employer]- All Rights Reserved Reading location - IP/workstation name: [email or web address]
[2017-08-01] MEDS ORDERED: HYDROCODONE/ACETAMINOPHEN 5-325 MG TABLET PO ONE (15:09)
--- NOTE | 2017-08-01 16:44 | PDOC H&P ---
History of Present Illness Admission Date/PCP: 08/01/17 14:57 KIANALOTUS NEELY Patient complains of: Left hip pain History of Present Illness: ALLIE JACQUES is a 72 year old female known to my practice who presented to the ED with complain of left hip pain and difficulty with walking that start night before her presentation. Patient denied any trauma, fall or injury. She reported radiation of pain upward into her abdomen and left side of her chest. She denied any palpitation, diaphoresis, nausea or vomiting. She reported radiation of pain into her left upper extremity. She denied sternal chest pain or radiation of pain into her jaw. She reported associated shortness of breath but has history of Asthma and COPD. She denied any dizziness, vertigo, headache or loss of consciousness. She denied any focal weakness. She reported leg swelling and her recently prescribed diuretic was giving her chest pain.No fever or chills. No urinary frequency, hematuria or dysuria. Her initial evaluation in the ED was unrevealing except for abnormal urinalysis. Her morbidities include Diabetes Mellitus Type 2, CAD, Asthma, COPD, GERD, Rheumatoid arthritis. Past Medical History Cardiac Medical History: Reports: Coronary Artery Disease Denies: Myocardial Infarction, Hypertension Pulmonary Medical History: Reports: Asthma, Chronic Obstructive Pulmonary Disease (COPD) Denies: Bronchitis, Pneumonia Neurological Medical History: Denies: Seizures Endocrine Medical History: Reports: Diabetes Mellitus Type 1, Diabetes Mellitus Type 2 GI Medical History: Reports: Gastroesophageal Reflux Disease Musculoskeltal Medical History: Reports: Arthritis - Rheumatoid arthritis Denies: Gout Psychiatric Medical History: Denies: Depression Past Surgical History Past Surgical History: Reports: Orthopedic Surgery - bilat knee Denies: Hysterectomy, Pacemaker Social History Smoking Status: Former Smoker Frequency of Alcohol Use: Rare Hx Recreational Drug Use: No Drugs: None Hx Prescription Drug Abuse: No - Advance Directive Resuscitation Status: Full Code Family History Family History: Reviewed & Not Pertinent Parental Family History Reviewed: Yes Children Family History Reviewed: Yes Sibling(s) Family History Reviewed.: Yes Medication/Allergy Home Medications: Aspirin [Aspirin 81 mg Chewable Tablet] 81 mg PO DAILY 04/07/15 Glipizide [Glucotrol 5 mg Tablet] 5 mg PO BIDACBS #60 tablet 02/20/16 Metformin HCl [Glucophage 850 mg Tablet] 850 mg PO BIDBS #60 tablet 03/15/16 Budesonide/Formoterol Fumarate [Symbicort HFA 160-4.5 mcg Inhaler 6 gm] 2 puff IH Q12 06/13/17 Multivitamin [Tab-A-Carlo (Multiple Vitamin) Tablet] 1 tab PO DAILY 06/13/17 Omeprazole 40 mg PO DAILY MDD PUTS IN APPLESAUCE 06/13/17 Tofacitinib Citrate [Xeljanz] 5 mg PO Q12 06/13/17 Azithromycin [Zithromax] 500 mg PO DAILY #5 tablet 06/15/17 Oxycodone HCl/Acetaminophen [Percocet 5-325 mg Tablet] 1 tab PO ASDIR PRN #15 tab 06/15/17 Prednisone [Deltasone 20 mg Tablet] 40 mg PO DAILY #7 tablet 06/15/17 Tiotropium [place] [Spiriva Handihaler 18 mcg/dose (30 Dose)] 1 cap IH DAILY # 30 capsule 06/15/17 Allergies/Adverse Reactions: NSAIDS (Non-Steroidal Anti-Inflamma [Nsaids] Allergy (Mild, Verified 08/01/17 10 :01) Review of Systems Constitutional: ABSENT: chills, fever(s), headache(s), weight gain, weight loss Eyes: ABSENT: visual disturbances Ears: ABSENT: hearing changes Nose, Mouth, and Throat: ABSENT: headache(s), sore throat, vertigo Cardiovascular: PRESENT: chest pain, dyspnea on exertion. ABSENT: as per HPI, edema, orthropnea, palpitations, other Respiratory: PRESENT: cough - unproductive, dyspnea - mild Gastrointestinal: ABSENT: abdominal pain, constipation, diarrhea, hematemesis, hematochezia, nausea, vomiting Genitourinary: ABSENT: dysuria, hematuria Musculoskeletal: PRESENT: back pain - left sided lower back region Integumentary: ABSENT: rash, wounds Neurological: ABSENT: abnormal gait, abnormal speech, confusion, dizziness, focal weakness, syncope Psychiatric: ABSENT: anxiety, depression, homidical ideation, suicidal ideation Endocrine: ABSENT: cold intolerance, heat intolerance, polydipsia, polyuria Hematologic/Lymphatic: ABSENT: easy bleeding, easy bruising, lymphadenopathy Allergic/Immunologic: ABSENT: seasonal rhinorrhea Physical Exam Vital Signs: Temp Pulse Resp BP Pulse Ox 98.2 F 85 19 141/84 H 98 08/01/17 10:09 08/01/17 10:09 08/01/17 14:49 08/01/17 14:49 08/01/17 14:49 General appearance: PRESENT: mild distress - related to her left hip pain, obese Head exam: PRESENT: atraumatic, normocephalic Eye exam: PRESENT: conjunctiva pink, EOMI, PERRLA. ABSENT: scleral icterus Ear exam: PRESENT: normal external ear exam Mouth exam: PRESENT: moist, tongue midline Neck exam: PRESENT: full ROM. ABSENT: carotid bruit, JVD, lymphadenopathy, thyromegaly Respiratory exam: PRESENT: clear to auscultation kyle Cardiovascular exam: PRESENT: RRR, +S1, +S2. ABSENT: diastolic murmur, rubs, systolic murmur Vascular exam: PRESENT: normal capillary refill. ABSENT: pallor GI/Abdominal exam: PRESENT: normal bowel sounds, soft. ABSENT: distended, guarding, mass, organolmegaly, rebound, tenderness Rectal exam: PRESENT: deferred Extremities exam: PRESENT: tenderness - left hip and iliac crest region to PROM and palpation. ABSENT: pedal edema Musculoskeletal exam: PRESENT: deformity - related to her rheumatoid arthritis, tenderness - left hip and iliac creast region Neurological exam: PRESENT: alert, awake, oriented to person, oriented to place , oriented to time, oriented to situation, CN II-XII grossly intact. ABSENT: motor sensory deficit Psychiatric exam: PRESENT: appropriate affect, normal mood. ABSENT: homicidal ideation, suicidal ideation Skin exam: PRESENT: dry, intact, warm. ABSENT: cyanosis, rash Results Laboratory Results: I reviewed her lab results on [facility] and form significant part of medical decision making. Impressions: Chest X-Ray 08/01/17 10:13 IMPRESSION: Chronic lung changes. 18 mm posterior nodule. Consider CT for further evaluation. Abdomen/Pelvis CT 08/01/17 11:44 IMPRESSION: 1. No acute finding in the abdomen pelvis. 2. A 2 cm wide ventral hernia containing only fat. Chest/Abdomen CTA 08/01/17 11:44 IMPRESSION: NORMAL CTA OF THE CHEST. NO PULMONARY EMBOLI. Assessment & Plan - Diagnosis (1) UTI (urinary tract infection), bacterial Is this a current diagnosis for this admission?: Yes Plan: See admiring attending physician orders. (2) Chest pain with minimal risk of acute coronary syndrome Is this a current diagnosis for this admission?: Yes Plan: See admiring attending physician orders. (3) Coronary artery disease Qualifiers: Coronary Disease-Associated Artery/Lesion type: [place] artery [place] vs. transplanted heart: [place] heart Associated angina: without angina Qualified Code(s): I25.10 - Atherosclerotic heart disease of [place]iat[place] coronary artery without angina pectoris Is this a current diagnosis for this admission?: Yes Plan: See admiring attending physician orders. (4) Diabetes mellitus type 2 in obese Is this a current diagnosis for this admission?: Yes Plan: See admiring attending physician orders. (5) Rheumatoid arthritis Qualifiers: Rheumatoid arthritis location: unspecified site Plan: See admiring attending physician orders. (6) COPD (chronic obstructive pulmonary disease) Qualifiers: Emphysema type: unspecified Is this a current diagnosis for this admission?: Yes Plan: See admiring attending physician orders. (7) Chronic left hip pain Is this a current diagnosis for this admission?: Yes Plan: See admiring attending physician orders. - Time Time Spent: 50 to 70 Minutes Medications reviewed and adjusted accordingly: Yes Anticipated discharge: Home Within: within 48 hours - Plan Summary Plan Summary: See admiring attending physician orders.
[2017-08-01] MEDS ORDERED: DEXTROSE 50%-WATER 25 GM/50 ML DISP.SYRIN IV PRN ×2 (16:45)
[2017-08-01] MEDS ORDERED: NORMAL SALINE 1000 ML 1,000 ML IV PRN (16:45)
[2017-08-01] MEDS ORDERED: DEXTROSE 40% GEL 15 GM TUBE PO PRN ×2 (16:45)
[2017-08-01] MEDS ORDERED: GLUCAGON,HUMAN RECOMB 1 MG INJ IM PRN (16:45)
[2017-08-01] MEDS: INSULIN LISPRO 100 UNIT/ML 3 ML VIAL SUBCUT PRN (18:20)
--- NOTE | 2017-08-01 21:47 | EKG REPORT ---
SEVERITY:- ABNORMAL ECG - SINUS RHYTHM MULTIPLE ATRIAL PREMATURE COMPLEXES : Confirmed by: Sweta Miller MD 01-Aug-2017 21:46:44
[2017-08-01] MEDS: ACETAMINOPHEN 325 MG TABLET PO PRN (22:33)
[2017-08-02] MEDS: LANSOPRAZOLE 30 MG TAB.RAP.DR PO SCH (05:47)
[2017-08-02] MEDS: ACETAMINOPHEN 325 MG TABLET PO PRN ×4 (06:10→23:31)
[2017-08-02 07:51] LABS: ABSOLUTE EOSINOPHILS # (AUTO) 0.1 10^3/uL (0.0-0.6); ABSOLUTE LYMPHOCYTES (AUTO) 1.4 10^3/uL (0.5-4.7); ABSOLUTE MONOCYTES (AUTO) 0.4 10^3/uL (0.1-1.4); ABSOLUTE NEUT (AUTO) 3.8 10^3/uL (1.7-8.2); BASOPHILS % (AUTO) 0.5 % (0-2); EOSINOPHILS % (AUTO) 2.5 % (0-6); HEMATOCRIT 33.2 % (36.0-47.0); HEMOGLOBIN 10.5 g/dL (12.0-15.5); LYMPHOCYTES % (AUTO) 24.7 % (13-45); MEAN CORPUSCULAR HEMOGLOBIN 29.5 pg (27.0-33.4); MEAN CORPUSCULAR HGB CONC 31.7 g/dL (32.0-36.0); MEAN CORPUSCULAR VOLUME 93 fl (80-97); MONOCYTES % (AUTO) 6.4 % (3-13); PLATELET COUNT 223 10^3/uL (150-450); RED BLOOD COUNT 3.56 10^6/uL (3.72-5.28); RED CELL DISTRIBUTION WIDTH 14.6 % (11.5-14.0); SEGMENTED NEUTROPHILS % (AUTO) 65.9 % (42-78); TOTAL CELLS COUNTED % (AUTO) 100 %; WHITE BLOOD COUNT 5.8 10^3/uL (4.0-10.5)
[2017-08-02 08:18] LABS: ALANINE AMINOTRANSFERASE 16 U/L (9-52); ALBUMIN 3.5 g/dL (3.5-5.0); ALKALINE PHOSPHATASE 69 U/L (38-126); ANION GAP 9 (5-19); ASPARTATE AMINO TRANSFERASE 20 U/L (14-36); BILIRUBIN,DIRECT 0.3 mg/dL (0.0-0.4); BILIRUBIN,TOTAL 0.4 mg/dL (0.2-1.3); BLOOD UREA NITROGEN 7 mg/dL (7-20); CALCIUM 9.5 mg/dL (8.4-10.2); CARBON DIOXIDE 30 mmol/L (22-30); CHLORIDE 105 mmol/L (98-107); GLUCOSE 151 mg/dL (75-110); POTASSIUM 4.2 mmol/L (3.6-5.0); SODIUM 144.2 mmol/L (137-145); TOTAL PROTEIN 6.5 g/dL (6.3-8.2)
[2017-08-02] MEDS ORDERED: CEFTRIAXONE 1 GM/D5W RTU 1 GM/50 ML RTUPB IV SCH (10:00)
[2017-08-02] MEDS: ENOXAPARIN SODIUM INJ 40 MG/0.4 ML DISP.SYRIN SUBCUT SCH (10:36)
[2017-08-02] MEDS: CEFTRIAXONE SODIUM 1,000 MG in DEXTROSE 5%-WATER 50 ML IV SCH (10:36)
[2017-08-02] MEDS: INSULIN LISPRO 100 UNIT/ML 3 ML VIAL SUBCUT PRN ×2 (11:51→23:40)
--- NOTE | 2017-08-02 15:09 | PDOC PROGRESS REPORT ---
Subjective Progress Note for:: 08/02/17 Subjective:: Patient seen by the bedside, she was admitted for the management of UTI, she complained of pain in the right hip joint Reason For Visit: UTI,CHEST PAIN,R/O ACS Physical Exam Vital Signs: Temp Pulse Resp BP Pulse Ox 97.4 F 81 20 145/73 H 90 L 08/02/17 11:18 08/02/17 11:18 08/02/17 11:18 08/02/17 11:18 08/02/17 11:18 Intake & Output 08/01/17 08/02/17 08/03/17 06:59 06:59 06:59 Intake Total 432 Balance 432 General appearance: PRESENT: no acute distress, well-developed, well-nourished Head exam: PRESENT: atraumatic, normocephalic Eye exam: PRESENT: conjunctiva pink, EOMI, PERRLA Ear exam: PRESENT: normal external ear exam Mouth exam: PRESENT: moist, tongue midline Neck exam: PRESENT: full ROM Respiratory exam: PRESENT: clear to auscultation kyle Cardiovascular exam: PRESENT: RRR, +S1, +S2 Pulses: PRESENT: normal dorsalis pedis pul, +2 pedal pulses bilateral Vascular exam: PRESENT: normal capillary refill GI/Abdominal exam: PRESENT: normal bowel sounds, soft Rectal exam: PRESENT: deferred Neurological exam: PRESENT: alert, awake, oriented to person, oriented to place , oriented to time, oriented to situation, CN II-XII grossly intact Psychiatric exam: PRESENT: appropriate affect, normal mood Skin exam: PRESENT: dry, intact, warm. ABSENT: cyanosis, rash Results Laboratory Results: 08/02/17 06:59 08/02/17 06:59 08/02/17 08/02/17 06:59 06:59 WBC 5.8 RBC 3.56 L Hgb 10.5 L Hct 33.2 L MCV 93 MCH 29.5 MCHC 31.7 L RDW 14.6 H Plt Count 223 Seg Neutrophils % 65.9 Lymphocytes % 24.7 Monocytes % 6.4 Eosinophils % 2.5 Basophils % 0.5 Absolute Neutrophils 3.8 Absolute Lymphocytes 1.4 Absolute Monocytes 0.4 Absolute Eosinophils 0.1 Absolute Basophils 0.0 Sodium 144.2 Potassium 4.2 Chloride 105 Carbon Dioxide 30 Anion Gap 9 BUN 7 Creatinine 0.62 Est GFR ( Amer) > 60 Est GFR (Non-Af Amer) > 60 Glucose 151 H Calcium 9.5 Total Bilirubin 0.4 AST 20 ALT 16 Alkaline Phosphatase 69 Total Protein 6.5 Albumin 3.5 Impressions: Chest X-Ray 08/01/17 10:13 IMPRESSION: Chronic lung changes. 18 mm posterior nodule. Consider CT for further evaluation. Abdomen/Pelvis CT 08/01/17 11:44 IMPRESSION: 1. No acute finding in the abdomen pelvis. 2. A 2 cm wide ventral hernia containing only fat. Chest/Abdomen CTA 08/01/17 11:44 IMPRESSION: NORMAL CTA OF THE CHEST. NO PULMONARY EMBOLI. Assessment & Plan - Diagnosis (1) UTI (urinary tract infection) Qualifiers: Urinary tract infection type: site unspecified Hematuria presence: without hematuria Qualified Code(s): N39.0 - Urinary tract infection, site not specified Is this a current diagnosis for this admission?: Yes (2) COPD (chronic obstructive pulmonary disease) Qualifiers: Emphysema type: unspecified Is this a current diagnosis for this admission?: Yes (3) Chronic left hip pain Is this a current diagnosis for this admission?: Yes Plan: X-ray of the hip joint ordered
--- NOTE | 2017-08-02 17:11 | RADIOLOGY REPORT (SQ) ---
EXAM DESCRIPTION: HIP BILATERAL COMPLETED DATE/TIME: 08/02/2017 3:52 pm REASON FOR STUDY: bilateral hip pain N39.0 URINARY TRACT INFECTION, SITE NOT SPECIFIED COMPARISON: None. NUMBER OF VIEWS: 3 views. TECHNIQUE: AP pelvis and additional frog-leg view of both hip. LIMITATIONS: None. FINDINGS: There is no acute fracture or bony abnormality identified. Lumbar spondylosis noted. SI joints are symmetrical. Fibroid calcification noted in left hemipelvis. IMPRESSION: No acute abnormality identified. TECHNICAL DOCUMENTATION: JOB ID: [id number] 2010 [employer]- All Rights Reserved Reading location - IP/workstation name: [email or web address]
[2017-08-03] MEDS: LANSOPRAZOLE 30 MG TAB.RAP.DR PO SCH (05:38)
[2017-08-03] MEDS: ACETAMINOPHEN 325 MG TABLET PO PRN ×4 (05:38→20:12)
[2017-08-03] MEDS: CEFTRIAXONE SODIUM 1,000 MG in DEXTROSE 5%-WATER 50 ML IV SCH (10:17)
[2017-08-03] MEDS: ENOXAPARIN SODIUM INJ 40 MG/0.4 ML DISP.SYRIN SUBCUT SCH (10:17)
[2017-08-03] MEDS: INSULIN LISPRO 100 UNIT/ML 3 ML VIAL SUBCUT PRN ×2 (13:44→16:51)
--- NOTE | 2017-08-03 16:52 | PDOC PROGRESS REPORT ---
Subjective Progress Note for:: 08/03/17 Subjective:: Urine culture grew Klebsiella, no new complaints yesterday she had x-ray of the hip joints, there is no acute change. Reason For Visit: UTI,CHEST PAIN,R/O ACS Physical Exam Vital Signs: Temp Pulse Resp BP Pulse Ox 98.0 F 84 21 H 144/60 H 96 08/03/17 15:43 08/03/17 15:43 08/03/17 15:43 08/03/17 15:43 08/03/17 15:43 Intake & Output 08/02/17 08/03/17 08/04/17 06:59 06:59 06:59 Intake Total 432 1946 Balance 432 1946 Weight 98.43 kg General appearance: PRESENT: no acute distress Eye exam: PRESENT: PERRLA Respiratory exam: PRESENT: clear to auscultation kyle Cardiovascular exam: PRESENT: +S1, +S2 GI/Abdominal exam: PRESENT: soft Neurological exam: PRESENT: alert Results Laboratory Results: 08/02/17 06:59 08/02/17 06:59 Impressions: Chest X-Ray 08/01/17 10:13 IMPRESSION: Chronic lung changes. 18 mm posterior nodule. Consider CT for further evaluation. Abdomen/Pelvis CT 08/01/17 11:44 IMPRESSION: 1. No acute finding in the abdomen pelvis. 2. A 2 cm wide ventral hernia containing only fat. Chest/Abdomen CTA 08/01/17 11:44 IMPRESSION: NORMAL CTA OF THE CHEST. NO PULMONARY EMBOLI. Hip X-Ray 08/02/17 00:00 IMPRESSION: No acute abnormality identified. Assessment & Plan - Diagnosis (1) UTI (urinary tract infection) Qualifiers: Urinary tract infection type: site unspecified Hematuria presence: without hematuria Qualified Code(s): N39.0 - Urinary tract infection, site not specified Is this a current diagnosis for this admission?: Yes (2) COPD (chronic obstructive pulmonary disease) Qualifiers: Emphysema type: unspecified Is this a current diagnosis for this admission?: Yes (3) Chronic left hip pain Is this a current diagnosis for this admission?: Yes
--- NOTE | 2017-08-04 01:05 | Physician Advisory Note ---
Physician Advisor ProgressNote .: Pursuant to the plan for [facility], I have reviewed the medical record for this patient. Physician Advisor Statement: Attending, please document Medical NEcessity r.e. why this pt with UTI has needed to stay in hospital x 3 MNs so far (since payer will say "most UTIs are tx'd via office, so why isn't that enough for this pt at this time?" What has concerned you/your colleague? - We need to "paint the picture" when documenting, so reviewers won't think pt was being kept for nonmedical reasons only. Of course, if pt has no medical reason to stay in hospital another night, we should promptly d/c them so other sick pts can get a bed out of the ED.) Thanks for all you do! CK
[2017-08-04] MEDS: LANSOPRAZOLE 30 MG TAB.RAP.DR PO SCH (05:54)
[2017-08-04] MEDS: ACETAMINOPHEN 325 MG TABLET PO PRN (05:55)
[2017-08-04 08:20] VITALS: BP 133/63
--- NOTE | 2017-08-04 08:41 | PDOC DISCHARGE SUMMARY ---
General - Admit/Disc Date/PCP Admission Date/Primary Care Provider: 08/01/17 14:57 KIANA FLORINDA Discharge Date: 08/04/17 - Discharge Diagnosis (1) Klebsiella pneumoniae infection Is this a current diagnosis for this admission?: Yes Summary: Discharge home on oral antibiotic therapy based on sensitivity report from urine culture. (2) UTI (urinary tract infection), bacterial Is this a current diagnosis for this admission?: Yes Summary: Improving. (3) Chest pain with minimal risk of acute coronary syndrome Is this a current diagnosis for this admission?: Yes Summary: resolved and less likely cardiac in origin. (4) Coronary artery disease Is this a current diagnosis for this admission?: Yes Summary: Continue on current management (5) Diabetes mellitus type 2 in obese Is this a current diagnosis for this admission?: Yes Summary: Continue preadmission medication management (6) Rheumatoid arthritis Is this a current diagnosis for this admission?: Yes Summary: Continue preadmission medication management (7) COPD (chronic obstructive pulmonary disease) Is this a current diagnosis for this admission?: Yes Summary: Continue preadmission medication management (8) Chronic left hip pain Is this a current diagnosis for this admission?: Yes Summary: Continue preadmission medication management - Additional Information Resuscitation Status: Full Code Prescriptions: Amoxicillin/Potassium Clav [Augmentin 500-125 Tablet] 1 each PO TID #15 tablet Home Medications: Glipizide [Glucotrol 5 mg Tablet] 5 mg PO BIDACBS #60 tablet 02/20/16 Metformin HCl [Glucophage 850 mg Tablet] 850 mg PO BIDBS #60 tablet 03/15/16 Budesonide/Formoterol Fumarate [Symbicort HFA 160-4.5 mcg Inhaler 6 gm] 2 puff IH Q12 06/13/17 Multivitamin [Tab-A-Carlo (Multiple Vitamin) Tablet] 1 tab PO DAILY 06/13/17 Omeprazole 40 mg PO DAILY MDD PUTS IN APPLESAUCE 06/13/17 Tofacitinib Citrate [Xeljanz] 5 mg PO Q12 06/13/17 Aspirin [Aspirin EC] 81 mg PO DAILY 08/01/17 Cetirizine HCl [Zyrtec 10 mg Tablet] 10 mg PO DAILYP PRN 08/01/17 Diclofenac Sodium [Voltaren] 4 gm TP QID 08/01/17 Folic Acid [Folvite 1 mg Tablet] 1 mg PO DAILY 08/01/17 Oxycodone HCl/Acetaminophen [Percocet 5-325 mg Tablet] 1 tab PO TIDP PRN Amoxicillin/Potassium Clav [Augmentin 500-125 Tablet] 1 each PO TID #15 tablet 08/04/17 History of Present Illness Patient complains of: Left hip pain and difficulty walking History of Present Illness: ALLIE JACQUES is a 72 year old female known to my practice who presented to the ED with complain of left hip pain and difficulty with walking that start night before her presentation. Patient denied any trauma, fall or injury. She reported radiation of pain upward into her abdomen and left side of her chest. She denied any palpitation, diaphoresis, nausea or vomiting. She reported radiation of pain into her left upper extremity. She denied sternal chest pain or radiation of pain into her jaw. She reported associated shortness of breath but has history of Asthma and COPD. She denied any dizziness, vertigo, headache or loss of consciousness. She denied any focal weakness. She reported leg swelling and her recently prescribed diuretic was giving her chest pain.No fever or chills. No urinary frequency, hematuria or dysuria. Her initial evaluation in the ED was unrevealing except for abnormal urinalysis. Her morbidities include Diabetes Mellitus Type 2, CAD, Asthma, COPD, GERD, Rheumatoid arthritis. Hospital Course Hospital Course: Patient was admitted for further evaluation of left sided her hip joint and flank pain. Her cardiac enzymes were within acceptable normal limits. Her urine culture did grew Klebsiella pneumoniae sensitive to ongoing antibiotic coverage Rocephin. She will be discharged home on Augmentin 500/125 mg p.o tid x 5 days. Her hip X ray was devoid of any acute pathology. There was identified calcified fibroid in left pelvic, questionable source of her pain. Her abdomen and pelvic CT scan as well as chest and Abdomen CTA did not reveal any acute findings. She is agreeable to discharge home today. She will follow up at the office as instructed upon discharge. Physical Exam Vital Signs: Temp Pulse Resp BP Pulse Ox 97.9 F 75 20 133/63 H 100 08/04/17 08:00 08/04/17 08:00 08/04/17 08:00 08/04/17 08:00 08/04/17 08:00 Intake & Output 08/03/17 08/04/17 08/05/17 06:59 06:59 06:59 Intake Total 6 916 Output Total 5 Balance 194 911 Weight 98.43 kg General appearance: PRESENT: no acute distress, obese Head exam: PRESENT: atraumatic, normocephalic Eye exam: PRESENT: conjunctiva pink, EOMI, PERRLA. ABSENT: scleral icterus Mouth exam: PRESENT: moist Respiratory exam: PRESENT: clear to auscultation kyle Cardiovascular exam: PRESENT: RRR. ABSENT: diastolic murmur, rubs, systolic murmur Vascular exam: PRESENT: normal capillary refill. ABSENT: pallor GI/Abdominal exam: PRESENT: normal bowel sounds, soft. ABSENT: distended, guarding, mass, organolmegaly, rebound, tenderness Extremities exam: ABSENT: pedal edema Musculoskeletal exam: PRESENT: deformity - related to her rheumatoid arthritis Neurological exam: PRESENT: alert, awake, oriented to person, oriented to place , oriented to time, oriented to situation, CN II-XII grossly intact. ABSENT: motor sensory deficit Psychiatric exam: PRESENT: appropriate affect, normal mood. ABSENT: homicidal ideation, suicidal ideation Skin exam: PRESENT: dry, intact, warm. ABSENT: cyanosis, rash Results Laboratory Results: 08/02/17 06:59 08/02/17 06:59 Impressions: Chest X-Ray 08/01/17 10:13 IMPRESSION: Chronic lung changes. 18 mm posterior nodule. Consider CT for further evaluation. Abdomen/Pelvis CT 08/01/17 11:44 IMPRESSION: 1. No acute finding in the abdomen pelvis. 2. A 2 cm wide ventral hernia containing only fat. Chest/Abdomen CTA 08/01/17 11:44 IMPRESSION: NORMAL CTA OF THE CHEST. NO PULMONARY EMBOLI. Hip X-Ray 08/02/17 00:00 IMPRESSION: No acute abnormality identified. Qualifiers - * PATIENT BEING DISCHARGED WITH ANY OF THE FOLLOWING DIAGNOSIS: No Plan Discharge Plan: D/C home today. Follow up in office as instructed upon discharge. Time Spent: Less than 30 Minutes
== END 2017-08-04 09:54 | disposition home or self-care (01) ==
LOC: ER 10:01 → EH 14:57 → 5 17:26
PROVIDERS: ADMIT Internal Medicine Geriatric Medicine; ATTEND Internal Medicine Geriatric Medicine
DX: N39.0 Urinary tract infection, site not specified (principal); B96.1 Klebsiella pneumoniae [K. pneumoniae] as the cause of diseases classified elsewhere; R07.9 Chest pain, unspecified; I25.10 Atherosclerotic heart disease of native coronary artery without angina pectoris; E11.9 Type 2 diabetes mellitus without complications; E66.9 Obesity, unspecified; M06.9 Rheumatoid arthritis, unspecified; J43.9 Emphysema, unspecified; G89.29 Other chronic pain; M25.552 Pain in left hip; R26.2 Difficulty in walking, not elsewhere classified; D36.7 Benign neoplasm of other specified sites; K43.9 Ventral hernia without obstruction or gangrene; K21.9 Gastro-esophageal reflux disease without esophagitis; M54.5 Low back pain; M79.602 Pain in left arm; R60.0 Localized edema; Z79.899 Other long term (current) drug therapy; Z79.82 Long term (current) use of aspirin; Z79.84 Long term (current) use of oral hypoglycemic drugs; Z87.891 Personal history of nicotine dependence; Z98.890 Other specified postprocedural states; Z68.36 Body mass index [BMI] 36.0-36.9, adult
CPT/HCPCS: 93005; 99285; 96365; 36415 ×2; 87086; 82553; 82962 ×4; 82550; 85025 ×2; 87088; 80053 ×2; 81001; 84484; 87186; 83880; 71046; 73522; 71275; 74177; 93010; G0378 ×5; A9270 ×10; J1650 ×2; J0696 ×3; J7030; J1815

== ENCOUNTER → 2017-10-23 | Day surgery (SDC) | payer MEDICARE, MEDICAID ==
[~2017-10-23] MED LIST: BUPIVACAINE HCL 0.5 % INJ/PF 30 ML SDV ONE; LIDOCAINE 1% INJ-PF (10 MG/ML) 30 ML SDV ONE; METHYLPREDNISOLONE ACETATE INJ 40 MG/1 ML ML ONE
--- NOTE | 2017-10-23 14:40 | RADIOLOGY REPORT (SQ) ---
EXAM DESCRIPTION: INJECT/ASPIR HIP/SHLDR/KNEE COMPLETED DATE/TIME: 10/23/2017 2:01 pm REASON FOR STUDY: UNILATERAL PRIMARY OSTEOARTHRITIS, LEFT HIP M16.12 UNILATERAL PRIMARY OSTEOARTHRI TIS, LEFT HIP COMPARISON: None. FLUOROSCOPY TIME: 35 seconds 1 digital radiographic image saved to PACS. LIMITATIONS: None. PROCEDURE: SITE OF INJECTION: Left hip LOCALIZING CONTRAST TYPE AND DOSE: 1 mL of Isovue 300 MEDICATION TYPE AND DOSE: 80 mg of Depo-Medrol, 5 mL of 0.5% bupivacaine Using local anesthesia and sterile technique with fluoroscopic guidance, the needle was advanced into the joint. Iodinated contrast was injected to verify intraarticular placement. This was followed by therapeutic injection of the indicated medications. The needle was removed. There were no immediat e complications. Preprocedure pain level: 4/10. Postprocedure pain level: 0/10. IMPRESSION: THERAPEUTIC INJECTION OF THE LEFT HIP JOINT ABOVE. COMMENT: Patient medication list reviewed: Yes- Quality ID# [id number]:Eligible professional attests to doc umenting in the medical record they obtained, updated, or reviewed the patient's current medications. . Quality ID 145: Final reports for procedures using fluoroscopy that document radiation exposure jesús mya, or exposure time and number of fluorographic images (if radiation exposure indices are not avail able) TECHNICAL DOCUMENTATION: JOB ID: [id number] [employer]- All Rights Reserved Reading location - IP/workstation name: [email or web address]
== END ==
LOC: RAD 13:14
PROVIDERS: ATTEND Orthopaedic Surgery
DX: M16.12 Unilateral primary osteoarthritis, left hip (principal)
CPT/HCPCS: 20610; 77002; J3490 ×2; J1020

== ENCOUNTER 2017-12-20 11:30 | Emergency (ER) | payer MEDICARE, MEDICAID ==
[2017-12-20] MEDS ORDERED: NORMAL SALINE 1000 ML 1,000 ML IV ONE (12:02)
--- NOTE | 2017-12-20 12:05 | ER Document Report ---
ED Medical Screen (RME) - General Chief Complaint: High Blood Pressure Stated Complaint: HEADACHE Time Seen by Provider: 12/20/17 11:52 Notes: Patient is a 72-year-old female that presents to the emergency department for chief complaint of headache. Patient states the headache have been and started a few days ago, but has been persistent on the right side of her head. ROS: Unless otherwise stated in this report the patient's positive and negative responses for review of systems for constitutional, eyes, ENT, cardiovascular, respiratory, gastrointestinal, neurological, genitourinary, musculoskeletal, and integumentary systems and related systems to the presenting problem are either as stated in the HPI or were not pertinent or were negative for the symptoms and/or complaints related to the presenting medical problem. PHYSICAL EXAMINATION: Vital signs reviewed. GENERAL: Well-appearing, well-nourished and in no acute distress. HEAD: Atraumatic, normocephalic. EYES: Pupils equal round extraocular movements intact, conjunctiva are normal. ENT: Nares patent NECK: Normal range of motion CV: Heart regular rate and rhythm LUNGS: No respiratory distress Musculoskeletal: Normal range of motion NEUROLOGICAL: Normal speech PSYCH: Normal mood, normal affect. MDM: Patient seen and examined for rapid initial assessment. Vital signs reviewed. A comprehensive ED assessment and evaluation of the patient, analysis of test results and completion of the medical decision making process will be conducted by additional ED providers. *Note is created using voice recognition software and may contain spelling, syntax or grammatical errors. TRAVEL OUTSIDE OF THE [place] IN LAST 30 DAYS: No - Related Data Allergies/Adverse Reactions: ibuprofen [From Motrin] Allergy (Intermediate, Verified 12/20/17 11:32) FACE SWELLING NSAIDS (Non-Steroidal Anti-Inflamma [Nsaids] Allergy (Mild, Verified 12/20/17 11 :32) Past Medical History - Social History Frequency of alcohol use: None - Past Medical History Cardiac Medical History: Reports: Hx Coronary Artery Disease Denies: Hx Heart Attack, Hx Hypertension Pulmonary Medical History: Reports: Hx Asthma, Hx COPD Denies: Hx Bronchitis, Hx Pneumonia Neurological Medical History: Denies: Hx Cerebrovascular Accident, Hx Seizures Endocrine Medical History: Reports: Hx Diabetes Mellitus Type 1, Hx Diabetes Mellitus Type 2 Renal/ Medical History: Denies: Hx Peritoneal Dialysis GI Medical History: Reports: Hx Gastroesophageal Reflux Disease Musculoskeltal Medical History: Reports Hx Arthritis - Rheumatoid arthritis, Denies Hx Gout Psychiatric Medical History: Denies: Hx Depression Past Surgical History: Reports: Hx Orthopedic Surgery - bilat knee. Denies: Hx Hysterectomy, Hx Pacemaker - Immunizations Hx Diphtheria, Pertussis, Tetanus Vaccination: Yes History of Influenza Vaccine for 11/2016 - 04/2017 Season: Yes Influenza Administration Date for 11/2016 - 04/2017 Season: 11/24/16 Physical Exam - Vital signs Vitals: Temp Pulse Resp BP Pulse Ox 97.9 F 91 19 157/72 H 92 12/20/17 11:36 12/20/17 11:36 12/20/17 11:36 12/20/17 11:36 12/20/17 11:36 Course - Vital Signs Vital signs: Temp Pulse Resp BP Pulse Ox 97.9 F 91 19 157/72 H 92 12/20/17 11:36 12/20/17 11:36 12/20/17 11:36 12/20/17 11:36 12/20/17 11:36 Doctor's Discharge - Discharge Referrals: KIANA NEELY MD [Primary Care Provider] - Follow up as needed
[2017-12-20] MEDS ORDERED: ACETAMINOPHEN 325 MG TABLET PO ONE (12:06)
--- NOTE | 2017-12-20 12:37 | RADIOLOGY REPORT (SQ) ---
EXAM DESCRIPTION: CT HEAD WITHOUT COMPLETED DATE/TIME: 12/20/2017 12:25 pm REASON FOR STUDY: headache COMPARISON: None. TECHNIQUE: Axial images acquired through the brain without intravenous contrast. Images reviewed wi th bone, brain and subdural windows. Additional sagittal and coronal reconstructions were generated. Images stored on PACS. All CT scanners at this facility use dose modulation, iterative reconstruction, and/or weight based d osing when appropriate to reduce radiation dose to as low as reasonably achievable (ALARA). [facility]: Dose Right [facility]: CareDose [facility]: Dose Right [facility]: Teradose 4D [facility]: Bionaturis RADIATION DOSE: CT Rad equipment meets quality standard of care and radiation dose reduction techniq ues were employed. CTDIvol: 53.2 mGy. DLP: 964 mGy-cm. mGy. LIMITATIONS: None. FINDINGS: VENTRICLES: Prominent. CEREBRUM: No masses. No hemorrhage. No midline shift. Areas of low density in the white matter mos t likely due to chronic micro-vascular ischemic change. No evidence for acute infarction. CEREBELLUM: No masses. No hemorrhage. No alteration of density. No evidence for acute infarction. EXTRAAXIAL SPACES: Mild age-related involutional change. No fluid collections. No masses. ORBITS AND GLOBE: No intra- or extraconal masses. Normal contour of globe without masses. CALVARIUM: No fracture. PARANASAL SINUSES: No fluid or mucosal thickening. SOFT TISSUES: No mass or hematoma. OTHER: No other significant finding. IMPRESSION: MILD CHRONIC CHANGES OF ATROPHY AND MICROVASCULAR ISCHEMIA. NO ACUTE PROCESS. EVIDENCE OF ACUTE STROKE: NO. TECHNICAL DOCUMENTATION: JOB ID: [id number] Quality ID # [id number]: Final reports with documentation of one or more dose reduction techniques (e.g., Au tomated exposure control, adjustment of the mA and/or kV according to patient size, use of iterative reconstruction technique) 2010 [employer]- All Rights Reserved Reading location - IP/workstation name: [email or web address]
--- NOTE | 2017-12-20 12:48 | ER Document Report ---
ED Headache - General Chief Complaint: High Blood Pressure Stated Complaint: HEADACHE Time Seen by Provider: 12/20/17 11:52 Mode of Arrival: Ambulatory Information source: Patient Notes: Patient presents complaining of right-sided headache pain and right-sided neck pain that started yesterday. Patient reports headache started gradually and continued to worsen today. Patient denies any fever nausea or vomiting. Patient denies any head injury. Patient denies any change in vision. Patient states that she did check her blood pressure at home and it was 209/107. Patient denies any history of hypertension. Patient without any elevated blood pressure here today. Patient also states that she had a nosebleed at home today. Patient states that she typically gets about 3 nosebleeds a month and has seen an ENT doctor for this problem in the past and told her that it was not an issue that she had occasional nosebleeds. Patient denies any other abnormal bleeding or bruising. She does have a history of rheumatoid arthritis and does report having her medications adjusted recently. Patient denies any photophobia or phonophobia. TRAVEL OUTSIDE OF THE [place] IN LAST 30 DAYS: No - HPI Patient complains to provider of: Headache Patient reports: No: Frequent migraines Onset: Yesterday Onset was: Gradual. denies: Thunderclap Timing: Still present Quality of pain: Achy Pain Level: 2 Context: denies: Head injury Associated symptoms: Lightheaded, Neck pain. denies: Chills, Confusion, Double/ blurred vision, Fever, Nausea/vomiting, Photophobia, Speech problems, Stiff neck , Tingling/numb sensation, Trouble walking Exacerbated by: denies: Light, Noise, Movement Similar symptoms previously: No Recently seen / treated by doctor: No - Related Data Allergies/Adverse Reactions: ibuprofen [From Motrin] Allergy (Intermediate, Verified 12/20/17 11:32) FACE SWELLING NSAIDS (Non-Steroidal Anti-Inflamma [Nsaids] Allergy (Mild, Verified 12/20/17 11 :32) Past Medical History - General Information source: Patient - Social History Smoking Status: Never Smoker Frequency of alcohol use: None Drug Abuse: None Lives with: Alone Family History: Reviewed & Not Pertinent Patient has suicidal ideation: No Patient has homicidal ideation: No - Past Medical History Cardiac Medical History: Denies: Hx Heart Attack, Hx Hypertension Pulmonary Medical History: Reports: Hx Asthma, Hx COPD Denies: Hx Bronchitis, Hx Pneumonia Neurological Medical History: Denies: Hx Cerebrovascular Accident, Hx Seizures Endocrine Medical History: Reports: Hx Diabetes Mellitus Type 1, Hx Diabetes Mellitus Type 2 Renal/ Medical History: Denies: Hx Peritoneal Dialysis GI Medical History: Reports: Hx Gastroesophageal Reflux Disease Musculoskeletal Medical History: Reports Hx Arthritis - Rheumatoid arthritis, Denies Hx Gout Psychiatric Medical History: Denies: Hx Depression Past Surgical History: Reports: Hx Orthopedic Surgery - bilat knee. Denies: Hx Hysterectomy, Hx Pacemaker - Immunizations Hx Diphtheria, Pertussis, Tetanus Vaccination: Yes Hx Pneumococcal Vaccination: 12/25/14 Review of Systems - Review of Systems Constitutional: No symptoms reported. denies: Fever, Recent illness EENT: No symptoms reported. denies: Eye pain, Eye discharge, Blurred vision Cardiovascular: Lightheaded. denies: Chest pain, Dizziness Respiratory: No symptoms reported. denies: Cough, Short of breath Gastrointestinal: No symptoms reported. denies: Vomiting Genitourinary: No symptoms reported Female Genitourinary: No symptoms reported Musculoskeletal: Neck pain. denies: Back pain Skin: No symptoms reported. denies: Rash Hematologic/Lymphatic: No symptoms reported Neurological/Psychological: denies: Confusion, Weakness, Headaches, Numbness Physical Exam - Vital signs Vitals: Temp Pulse Resp BP Pulse Ox 97.9 F 91 19 157/72 H 92 12/20/17 11:36 12/20/17 11:36 12/20/17 11:36 12/20/17 11:36 12/20/17 11:36 - General General appearance: Appears well, Alert In distress: None - HEENT Head: Normocephalic, Atraumatic Eyes: Normal Conjunctiva: Normal Extraocular movements intact: Yes Eyelashes: Normal Pupils: PERRL Ears: Normal External canal: Normal Tympanic membrane: Normal Mouth/Lips: Normal Mucous membranes: Normal Pharynx: Normal Neck: Supple, Other - Right trapezius muscle tenderness, right sternocleidomastoid tenderness. No: Lymphadenopathy, Meningismus - Respiratory Respiratory status: No respiratory distress Chest status: Nontender Breath sounds: Normal. No: Rales, Rhonchi, Stridor, Wheezing Chest palpation: Normal - Cardiovascular Rhythm: Regular Heart sounds: S1 appreciated, S2 appreciated Murmur: No - Abdominal Inspection: Obese Distension: No distension Bowel sounds: Normal Tenderness: Nontender Organomegaly: No organomegaly - Back Back: Normal, Nontender. No: CVA tenderness, Vertebra tenderness - Extremities General upper extremity: Normal inspection, Nontender, Normal ROM General lower extremity: Normal inspection, Nontender, Normal ROM - Neurological Neuro grossly intact: Yes Cognition: Normal Julian Coma Scale Eye Opening: Spontaneous Harpreet Coma Scale Verbal: Oriented Julian Coma Scale Motor: Obeys Commands Julian Coma Scale Total: 15 Speech: Normal Cranial nerves: Normal Motor strength normal: LUE, RUE, LLE, RLE - Psychological Associated symptoms: Normal affect, Normal mood - Skin Skin Temperature: Warm Skin Moisture: Dry Skin Color: Normal Course - Re-evaluation Re-evalutation: 12/20/17 13:20 Patient offered additional medication for her headache symptoms, patient declines stating that she does not want any medication that will make her drowsy because she intends to drive herself home today. 12/20/17 13:51 Patient reports headache pain has returned and that she would like medicine at this time. 12/20/17 14:47 Patient reports that headache pain is resolved at this time. Patient denies any nausea or vomiting symptoms. Patient states that she has had recent medication adjustments per her hiv nurse for her RA. Patient does have an elevated sed rate but suspect this is likely attributed to her rheumatoid arthritis. Patient does have an appointment with her hiv nurse in 2 days. Patient did have tenderness to the musculature to the right side of the neck concerning for tension headache, will give patient prescription for muscle relaxant to take as needed at home for pain symptoms. The patient presents with headache without signs of WELL LOGGING CAPTAIN bleed, stroke, infection, or other serious etiology. The patient is neurologically intact. Given the extremely low risk of these diagnoses further testing and evaluation for these possibilities does not appear to be indicated at this time. The patient has been instructed to return if the symptoms worsen or change in any way. - Vital Signs Vital signs: Temp Pulse Resp BP Pulse Ox 97.9 F 91 17 149/73 H 96 12/20/17 11:36 12/20/17 11:36 12/20/17 15:15 12/20/17 15:29 12/20/17 15:09 - Laboratory Result Diagrams: 12/20/17 12:30 12/20/17 12:30 Laboratory results interpreted by me: 10/12/20/17 12/20/17 12:30 12:30 12:30 RBC 3.70 L Hgb 11.2 L Hct 34.5 L RDW 14.5 H ESR 89 H Carbon Dioxide 34 H Glucose 138 H ALT < 6 L Labs- Entire Visit 12/20/17 12/20/17 12/20/17 12:30 12:30 12:30 WBC 7.9 RBC 3.70 L Hgb 11.2 L Hct 34.5 L MCV 93 MCH 30.3 MCHC 32.5 RDW 14.5 H Plt Count 270 Seg Neutrophils % 76.2 Lymphocytes % 17.2 Monocytes % 3.8 Eosinophils % 1.8 Basophils % 1.0 Absolute Neutrophils 6.0 Absolute Lymphocytes 1.3 Absolute Monocytes 0.3 Absolute Eosinophils 0.1 Absolute Basophils 0.1 ESR 89 H Sodium 143.7 Potassium 4.1 Chloride 103 Carbon Dioxide 34 H Anion Gap 7 BUN 15 Creatinine 0.75 Est GFR ( Amer) > 60 Est GFR (Non-Af Amer) > 60 Glucose 138 H Calcium 9.6 Total Bilirubin 0.6 Direct Bilirubin 0.3 Neonat Total Bilirubin Not Reportable Neonat Direct Bilirubin Not Reportable Neonat Indirect Bili Not Reportable AST 35 ALT < 6 L Alkaline Phosphatase 85 Total Protein 8.2 Albumin 4.0 - Diagnostic Test Radiology reviewed: Reports reviewed Discharge - Discharge Clinical Impression: Rheumatoid arthritis Qualifiers: Rheumatoid arthritis location: unspecified site Rheumatoid factor presence: unspecified presence Qualified Code(s): M06.9 - Rheumatoid arthritis, unspecified Headache Qualifiers: Headache type: unspecified Headache chronicity pattern: unspecified pattern Intractability: not intractable Qualified Code(s): R51 - Headache Asthma Qualifiers: Asthma severity: unspecified severity Asthma persistence: unspecified Asthma complication type: unspecified Qualified Code(s): J45.909 - Unspecified asthma, uncomplicated Condition: Stable Disposition: HOME, SELF-CARE Instructions: Asthma ([facility]), Headache ([facility]), Muscle Relaxers ([facility]), Steroid Medication, Tension Headache ([facility]) Additional Instructions: Return immediately for any new or worsening symptoms Followup with your primary care provider, call tomorrow to make a followup appointment Follow-up with your hiv nurse on Friday as planned Use your nebulizers at home for any wheezing symptoms Prescriptions: Cyclobenzaprine HCl [Flexeril 5 mg Tablet] 5 mg PO TID #15 tablet Referrals: KIANA NEELY MD [Primary Care Provider] - 12/22/17
[2017-12-20 12:49] LABS: ABSOLUTE BASOPHILS # (AUTO) 0.1 10^3/uL (0.0-0.2); ABSOLUTE EOSINOPHILS # (AUTO) 0.1 10^3/uL (0.0-0.6); ABSOLUTE LYMPHOCYTES (AUTO) 1.3 10^3/uL (0.5-4.7); ABSOLUTE MONOCYTES (AUTO) 0.3 10^3/uL (0.1-1.4); EOSINOPHILS % (AUTO) 1.8 % (0-6); HEMATOCRIT 34.5 % (36.0-47.0); HEMOGLOBIN 11.2 g/dL (12.0-15.5); LYMPHOCYTES % (AUTO) 17.2 % (13-45); MEAN CORPUSCULAR HEMOGLOBIN 30.3 pg (27.0-33.4); MEAN CORPUSCULAR HGB CONC 32.5 g/dL (32.0-36.0); MEAN CORPUSCULAR VOLUME 93 fl (80-97); MONOCYTES % (AUTO) 3.8 % (3-13); PLATELET COUNT 270 10^3/uL (150-450); RED CELL DISTRIBUTION WIDTH 14.5 % (11.5-14.0); SEGMENTED NEUTROPHILS % (AUTO) 76.2 % (42-78); TOTAL CELLS COUNTED % (AUTO) 100 %; WHITE BLOOD COUNT 7.9 10^3/uL (4.0-10.5)
[2017-12-20 13:07] LABS: ALANINE AMINOTRANSFERASE < 6 U/L (9-52); ALKALINE PHOSPHATASE 85 U/L (38-126); ANION GAP 7 (5-19); ASPARTATE AMINO TRANSFERASE 35 U/L (14-36); BILIRUBIN,DIRECT 0.3 mg/dL (0.0-0.4); BILIRUBIN,TOTAL 0.6 mg/dL (0.2-1.3); BLOOD UREA NITROGEN 15 mg/dL (7-20); CALCIUM 9.6 mg/dL (8.4-10.2); CARBON DIOXIDE 34 mmol/L (22-30); CHLORIDE 103 mmol/L (98-107); GLUCOSE 138 mg/dL (75-110); POTASSIUM 4.1 mmol/L (3.6-5.0); SODIUM 143.7 mmol/L (137-145); TOTAL PROTEIN 8.2 g/dL (6.3-8.2)
[2017-12-20] MEDS ORDERED: DIPHENHYDRAMINE HCL 50 MG/ML VIAL IV ONE ×2 (13:14→13:50)
[2017-12-20] MEDS ORDERED: PROCHLORPERAZINE EDISYLATE INJ 10 MG/2 ML VIAL IV ONE ×2 (13:14→13:50)
[2017-12-20] MEDS ORDERED: IPRATROPIUM/ALBUTEROL 0.5-2.5 MG/3 ML AMPUL NEB ONE (13:51)
[2017-12-20] MEDS ORDERED: DEXAMETHASONE SOD PHOS INJ 10 MG/1 ML VIAL IV ONE (13:51)
[2017-12-20 15:33] VITALS: BP 149/73
== END 2017-12-20 15:33 | disposition home or self-care (01) ==
LOC: ER 11:30
DX: R51 Headache (principal); M06.9 Rheumatoid arthritis, unspecified; Z79.899 Other long term (current) drug therapy; J44.9 Chronic obstructive pulmonary disease, unspecified; M54.2 Cervicalgia; E11.9 Type 2 diabetes mellitus without complications; R42 Dizziness and giddiness; R04.0 Epistaxis; Z88.6 Allergy status to analgesic agent; Z88.8 Allergy status to other drugs, medicaments and biological substances
CPT/HCPCS: 94640; 99284; 96361; 96374; 96375; 36415; 85025; 85652; 80053; 70450; A9270 ×2; J1200; J0780; J7030; J1100; J7620

== ENCOUNTER 2018-02-12 08:20 | Emergency (ER) | payer MEDICARE, MEDICAID ==
[2018-02-12] MEDS ORDERED: MORPHINE SULFATE 10 MG/ML INJ IM ONE (08:39)
[2018-02-12] MEDS ORDERED: ONDANSETRON 4 MG TAB.RAPDIS PO ONE (08:39)
--- NOTE | 2018-02-12 09:40 | ER Document Report ---
ED General - General Chief Complaint: Pain All Over Stated Complaint: RIGHT SIDE PAIN Time Seen by Provider: 02/12/18 08:25 Notes: Patient is a 72-year-old female with rheumatoid arthritis that presents to the emergency department for chief complaint of right hip, shoulder, elbow and wrist pain. Patient states that a few days ago she was doing some sweeping, and chores, exerting herself more than usual, and since then she started having wo rse pain in her right groin, particular with walking and movement of her hip, she is also having pain with range of motion of her right arm. She does take Xeljanz, for her rheumatoid arthritis, and folic acid with that. She is not currently on methotrexate. She did take a Percocet this morning, that did help with her pain, but decided to come to the ED because she was still uncomfortable. She does rate the pain currently is a 6 out of 10 describes as aching and worse with range of motion of the joints. She denies any particular falls or significant injuries. She also denies any numbness, weakness or tingling. Past Medical History: Rheumatoid arthritis, diabetes mellitus, hypertension Past Surgical History: Cyst on the neck removal Social History: Denies tobacco, alcohol or drug use. Family History: Reviewed and noncontributory for presenting illness Allergies: Reviewed, see documented allergy list. REVIEW OF SYSTEMS: Other than noted above, the 12 point review of systems was reviewed with the patient and were negative, all pertinent findings are included in the HPI. PHYSICAL EXAMINATION: Vital signs reviewed, nursing noted reviewed. GENERAL: Elderly female, appears uncomfortable HEAD: Atraumatic, normocephalic. EYES: Eyes appear normal, extraocular movements intact, sclera anicteric, conjunctiva are normal. ENT: nares patent, oropharynx clear without exudates. Moist mucous membranes. NECK: Normal range of motion, supple without lymphadenopathy LUNGS: Breath sounds clear to auscultation bilaterally and equal. No wheezes rales or rhonchi. HEART: Regular rate and rhythm without murmurs ABDOMEN: Soft, nontender, normoactive bowel sounds. No rebound, guarding, or rigidity. No masses appreciated. EXTREMITIES: Pain with range of motion of the right hip, particular with internal and external rotation, and logrolling, but no gross deformity, or shortening, the patient also has pain with range of motion of the right shoulder joint and elbow, and tenderness with palpation to these joints as well. The left upper and lower extremities are unremarkable. And nontender, good range of motion, no pitting or edema. NEUROLOGICAL: No focal neurological deficits. Moves all extremities spontaneously Motor and sensory grossly intact on exam. PSYCH: Normal mood, normal affect. SKIN: Warm, Dry, normal turgor, no rashes or lesions noted on exposed skin TRAVEL OUTSIDE OF THE [place] IN LAST 30 DAYS: No - Related Data Allergies/Adverse Reactions: ibuprofen [From Motrin] Allergy (Intermediate, Verified 02/12/18 08:29) FACE SWELLING NSAIDS (Non-Steroidal Anti-Inflamma [Nsaids] Allergy (Mild, Verified 02/12/18 08:29) Past Medical History - Social History Smoking Status: Unknown if Ever Smoked Family History: Reviewed & Not Pertinent Patient has suicidal ideation: No Patient has homicidal ideation: No - Past Medical History Cardiac Medical History: Reports: Hx Coronary Artery Disease Denies: Hx Heart Attack, Hx Hypertension Pulmonary Medical History: Reports: Hx Asthma, Hx COPD Denies: Hx Bronchitis, Hx Pneumonia Neurological Medical History: Denies: Hx Cerebrovascular Accident, Hx Seizures Endocrine Medical History: Reports: Hx Diabetes Mellitus Type 1, Hx Diabetes Mellitus Type 2 Renal/ Medical History: Denies: Hx Peritoneal Dialysis GI Medical History: Reports: Hx Gastroesophageal Reflux Disease Musculoskeletal Medical History: Reports Hx Arthritis - Rheumatoid arthritis, Denies Hx Gout Psychiatric Medical History: Denies: Hx Depression Past Surgical History: Reports: Hx Orthopedic Surgery - bilat knee. Denies: Hx Hysterectomy, Hx Pacemaker - Immunizations Hx Diphtheria, Pertussis, Tetanus Vaccination: Yes Hx Pneumococcal Vaccination: 12/25/14 Physical Exam - Vital signs Vitals: Temp Pulse Resp BP Pulse Ox 98.1 F 86 20 118/69 94 02/12/18 08:31 02/12/18 08:31 02/12/18 08:31 02/12/18 08:31 02/12/18 08:31 Course - Re-evaluation Re-evalutation: Patient seen and examined vital signs reviewed. Imaging was ordered as appropriate for the patient's presenting symptoms and complaint, with consideration of any critical or life threatening conditions that may be associated with their obtained history and exam as noted above. Patient was treated with IM morphine, and Zofran p.o. Results were reviewed when available and demonstrated degenerative changes to the hips bilaterally, worse on the right compared to the left, near [id number] arthritis, x-rays of the shoulder, and forearm of the right arm were unremarkable The patient was re-evaluated and was improved, I did order a dose of IM Depo- Medrol 40 mg, to help with the patient's inflammation, as she does have rheumatoid arthritis, I advised her that this could elevate her blood sugars, and she would monitor them at home, advised she needs to see an orthopedic surgeon as she may need evaluation for therapy versus possible surgery for her hip if her symptoms are not improving. Patient was agreeable to this plan of care. Evaluation was most consistent with rheumatoid arthritis flare Results were discussed with the patient at this point, after careful consideration I feel that that patient can be discharged from the emergency department, the patient was educated treatments and reasons to return to the emergency department based on their presumed diagnosis as noted above, they were advised to followup with a primary care physician in 2-3 days. Patient was agreeable to plan of care. *Note is created using voice recognition software and may contain spelling, syntax or grammatical errors. Hip/Pelvis X-Ray 02/12/18 08:38 IMPRESSION: DEGENERATIVE CHANGES. NO ACUTE FINDINGS. Shoulder X-Ray 02/12/18 08:38 IMPRESSION: NEGATIVE STUDY OF THE RIGHT SHOULDER. NO EXPLANATION FOR PAIN. Forearm X-Ray 02/12/18 08:39 IMPRESSION: NEGATIVE STUDY OF THE RIGHT FOREARM. NO EXPLANATION FOR PAIN. - Vital Signs Vital signs: Temp Pulse Resp BP Pulse Ox 98.1 F 86 20 118/69 94 02/12/18 08:31 02/12/18 08:31 02/12/18 08:31 02/12/18 08:31 02/12/18 08:31 Discharge - Discharge Clinical Impression: Hip pain Qualifiers: Laterality: right Qualified Code(s): M25.551 - Pain in right hip Arthralgia Qualifiers: Joint pain location: unspecified Qualified Code(s): M25.50 - Pain in unspecified joint Condition: Stable Disposition: HOME, SELF-CARE Instructions: Arthritis ([facility]) Additional Instructions: Please follow-up with orthopedic surgery, please monitor your, if they are getting higher than 400, please call your primary care physician, for any advice, if your pain is worsening or not improving, do not hesitate to return to the emergency department to be reevaluated. You should take Tylenol/acetaminophen at least 650 mg every 6-8 hours to help relieve your pain as well. And may benefit you to use a warm compress/heating pad for 20 minutes on the 20 minutes off to the joints that are affecting your pain. Referrals: KIANA NEELY MD [Primary Care Provider] - Follow up in 3-5 days CHE BRAR MD [ACTIVE STAFF] - Follow up in 3-5 days (orthopedics )
--- NOTE | 2018-02-12 09:46 | RADIOLOGY REPORT (SQ) ---
EXAM DESCRIPTION: FOREARM RIGHT COMPLETED DATE/TIME: 02/12/2018 9:36 am REASON FOR STUDY: right elbow and wrist pain COMPARISON: None. NUMBER OF VIEWS: Two views. TECHNIQUE: Two radiographic images acquired of the right forearm, including elbow and wrist in at le ast one projection. LIMITATIONS: None. FINDINGS: MINERALIZATION: Normal. BONES: No acute fracture or dislocation. No worrisome bone lesions. No significant osteophytes. SOFT TISSUES: No obvious swelling or foreign body. OTHER: No other significant finding. IMPRESSION: NEGATIVE STUDY OF THE RIGHT FOREARM. NO EXPLANATION FOR PAIN. TECHNICAL DOCUMENTATION: JOB ID: [id number] [employer]- All Rights Reserved Reading location - IP/workstation name: [email or web address]
--- NOTE | 2018-02-12 09:46 | RADIOLOGY REPORT (SQ) ---
EXAM DESCRIPTION: SHOULDER RIGHT 2 OR MORE VIEWS COMPLETED DATE/TIME: 02/12/2018 9:36 am REASON FOR STUDY: right shoulder pain COMPARISON: None. NUMBER OF VIEWS: Three views. TECHNIQUE: Internal rotation, external rotation, and Y view images acquired of the right shoulder. LIMITATIONS: None. FINDINGS: MINERALIZATION: Normal. BONES: No acute fracture or dislocation. No worrisome bone lesions. No significant osteophytes. GLENOHUMERAL JOINT: No significant findings. ACROMIOCLAVICULAR JOINT: No large osteophytes. SOFT TISSUES: No calcifications. VISUALIZED RIBS, SPINE, AND LUNG: No other significant finding. OTHER: No other significant finding. IMPRESSION: NEGATIVE STUDY OF THE RIGHT SHOULDER. NO EXPLANATION FOR PAIN. TECHNICAL DOCUMENTATION: JOB ID: [id number] [employer]- All Rights Reserved Reading location - IP/workstation name: [facility]
--- NOTE | 2018-02-12 09:47 | RADIOLOGY REPORT (SQ) ---
EXAM DESCRIPTION: HIP RIGHT AP/LATERAL COMPLETED DATE/TIME: 02/12/2018 9:36 am REASON FOR STUDY: right hip pain COMPARISON: None. NUMBER OF VIEWS: Two views. TECHNIQUE: AP pelvis and additional frog-leg view of the right hip. LIMITATIONS: None. FINDINGS: MINERALIZATION: Normal. RIGHT HIP: No fracture or dislocation. No worrisome bone lesions. No contour deformity. Mild joint space narrowing with sclerosis and small osteophytes. LEFT HIP: No fracture or dislocation. No worrisome bone lesions. Mild joint space narrowing with sc lerosis and small osteophytes. PUBIS AND ISCHIUM: No fracture. PELVIS: No fracture. SACRUM: No fracture or dislocation. No worrisome bone lesions. LOWER LUMBAR SPINE: No fracture or dislocation. No worrisome bone lesions. Degenerative disc disease . SOFT TISSUES: No findings. OTHER: No other significant finding. IMPRESSION: DEGENERATIVE CHANGES. NO ACUTE FINDINGS. TECHNICAL DOCUMENTATION: JOB ID: [id number] [employer]- All Rights Reserved Reading location - IP/workstation name: [facility]
[2018-02-12] MEDS ORDERED: METHYLPREDNISOLONE ACETATE INJ 40 MG/1 ML ML IM ONE (10:45)
[2018-02-12 12:29] VITALS: BP 120/87
== END 2018-02-12 11:43 | disposition home or self-care (01) ==
LOC: ER 08:20
DX: M25.551 Pain in right hip (principal); M25.50 Pain in unspecified joint; M79.10 Myalgia, unspecified site; I25.10 Atherosclerotic heart disease of native coronary artery without angina pectoris; I10 Essential (primary) hypertension; E11.9 Type 2 diabetes mellitus without complications; Z88.6 Allergy status to analgesic agent
CPT/HCPCS: 99283; 96372; 73090; 73502; 73030; A9270; J1020; J2270; S0119

== ENCOUNTER 2018-07-07 06:59 | Day surgery (SDC) | payer MEDICARE, MEDICAID ==
[~2018-07-07 06:59] MED LIST changes: -BUPIVACAINE HCL 0.5 % INJ/PF 30 ML SDV ONE; +BUPIVACAINE HCL 0.75% INJ/PF (7.5 MG/1 ML) 10 ML SDV OS PRN; -LIDOCAINE 1% INJ-PF (10 MG/ML) 30 ML SDV ONE; +LIDOCAINE 4% INJ/PF (40 MG/ML) 5 ML AMPUL OS PRN; -METHYLPREDNISOLONE ACETATE INJ 40 MG/1 ML ML ONE
[2018-07-07] MEDS ORDERED: EPINEPHRINE INJ/PF 1 MG/1 ML AMPULE ONE (07:22)
[2018-07-07] MEDS ORDERED: LIDOCAINE 1% INJ-PF (10 MG/ML) 30 ML SDV ONE (07:22)
[2018-07-07] MEDS ORDERED: CHONDR SU A NA/HYALUR INTRAOC KIT (SURGICARE) ONE (07:22)
[2018-07-07] MEDS: TROPICAMIDE 1% OPH SOLN 3 ML OS PRN ×3 (07:56→08:20)
[2018-07-07] MEDS: CYCLOPENTOLATE 0.2%/PHENYLEPHRINE 1% OPH SOLN 2 ML OS PRN ×3 (07:56→08:20)
[2018-07-07] MEDS: KETOROLAC TROMETHAMINE 0.45% 4 DROP/0.4 ML DROPERETTE OS PRN ×2 (07:57→09:20)
[2018-07-07] MEDS: BESIFLOXACIN HCL 0.6% OPH SUSP 5 ML BOTTLE OS PRN ×4 (07:57→08:51)
[2018-07-07] MEDS: TETRACAINE HCL 0.5% OPH SOLN 0.6 ML DROPERETTE OS PRN ×2 (07:58→08:21)
[2018-07-07] MEDS ORDERED: MIDAZOLAM 2 MG/2 ML INJ ONE (08:06)
[2018-07-07] MEDS ORDERED: FENTANYL CITRATE INJ/PF 100 MCG/2 ML AMPUL ONE (08:06)
[2018-07-07] MEDS: DORZOLAMIDE HCL 2%/TIMOLOL MALEAT 0.5% OPH SOLN 10 ML OS PRN ×2 (08:51)
--- NOTE | 2018-07-07 10:54 | [facility] OPERATIVE REPORT E ---
[facility] Operative Report NAME: ALLIE JACQUES AGE: 73Y DATE OF SURGERY: 07/07/2018 ROOM: PREOPERATIVE DIAGNOSIS Cataract, left eye. POSTOPERATIVE DIAGNOSIS: Cataract, left eye. PROCEDURE PERFORMED: Phacoemulsification with posterior chamber intraocular lens, left eye. SURGEON: SHANTAL RDZ M.D. ANESTHESIA: Topical with MAC. INDICATIONS FOR SURGERY: Difficulty driving. PROCEDURE: The patient was brought to the operating room and placed on the operating table. Topical anesthesia was administered. Following tetracaine drops, topical anesthesia was administered. This consisted of instrument wipe pledgets soaked in a solution of 4% Xylocaine mixed with 0.75% Marcaine in a 1:2 ratio. A 2 x 1 cm pledget was placed in the superior fornix. A 1 x 1 cm pledget was placed in the inferior fornix. The eye was patched shut for 5 minutes. The patch was removed. The eye was sterilely prepped and draped in the usual manner. Lid speculum was placed in the eye. The pledgets were removed. 4-0 black silk sutures were placed around the superior and the inferior rectus muscles to be used as traction. A conjunctival peritomy was made at the 10 o'clock position. Hemostasis was obtained with bipolar cautery. A posterior limbal groove was created using a crescent knife and dissected anteriorly towards the cornea. A sharp point blade was used to create a paracentesis site at the 2 o'clock position. A 2.4 mm keratome was used to enter the anterior chamber through the groove. Viscoelastic was injected into the anterior chamber. An anterior capsulotomy was performed using Utrata forceps in a capsulorrhexis fashion. Hydrodissection and hydrodelineation were performed. Phacoemulsification was performed in oorkdx-hth-[id number] technique. Total phaco time 3.50 CDE. Following this, the I/A unit was used to remove residual cortex. Viscoelastic was injected into the capsular bag. Intraocular lens model SN60WF, 22.5 diopters, serial number [id number] was placed in the capsular bag. The I/A unit was used to remove residual viscoelastic. The wound was seen to be watertight under high and low pressure, and no sutures were placed. The intraocular lens was well centered. The pressure was adjusted in the eye to normal pressure. The 4-0 black silk sutures and lid speculum were removed. The eye was shielded after Besivance drops were placed. The patient tolerated the procedure well and was sent to the Recovery Room in good condition. A drop of Cosopt was placed in the eye at the end of surgery. DICTATING PHYSICIAN: SHANTAL RDZ M.D. [id number] PHY#: [id number] ID: [id number] JOB#: [id number] ACCT: [id number] cc:SHANTAL RDZ M.D. >
--- NOTE | 2018-07-07 10:59 | [facility] DISCHARGE SUMMARY E ---
[facility] Discharge Summary NAME: ALLIE JACQUES AGE: 73Y ADMITTED: 07/07/2018 DISCHARGED: FINAL DIAGNOSIS: Cataract, left eye. PROCEDURE PERFORMED: Phacoemulsification with posterior chamber intraocular lens, left eye. HOSPITAL COURSE: The patient is a 73-year-old lady who underwent uneventful cataract extraction with intraocular lens implant, left eye, on 07/07/2018. She will be discharged to home. She is instructed to resume preoperative medications; to take Tylenol as needed for discomfort; to keep her eye shielded; to use Durezol, Prolensa, and Besivance at 3 p.m. and 8 p.m.; to follow up in my office in 1 day. DICTATING PHYSICIAN: SHANTAL RDZ M.D. [id number] PHY#: [id number] ID: [id number] JOB#: [id number] ACCT: [id number] cc:SHANTAL RDZ M.D. >
== END 2018-07-07 09:35 | disposition home or self-care (01) ==
LOC: SC 06:59
PROVIDERS: ATTEND Ophthalmology
DX: H25.812 Combined forms of age-related cataract, left eye (principal); Z96.1 Presence of intraocular lens; K21.9 Gastro-esophageal reflux disease without esophagitis; E11.9 Type 2 diabetes mellitus without complications; Z79.84 Long term (current) use of oral hypoglycemic drugs; J44.9 Chronic obstructive pulmonary disease, unspecified; Z79.51 Long term (current) use of inhaled steroids; Z79.82 Long term (current) use of aspirin; Z79.899 Other long term (current) drug therapy
CPT/HCPCS: 66984; 82962; V2632; J2250; J3490 ×4; A9270; J0171; J3010; 142

== ENCOUNTER 2018-10-04 19:30 | Emergency (ER) | payer MEDICARE, MEDICAID ==
[2018-10-04] MEDS ORDERED: ASPIRIN 81 MG TABLET, CHEWABLE ONE (19:44)
[2018-10-04] MEDS ORDERED: IPRATROPIUM/ALBUTEROL 0.5-2.5 MG/3 ML AMPUL NEB ONE ×2 (19:44→19:48)
[2018-10-04] MEDS ORDERED: ASPIRIN 81 MG TABLET, CHEWABLE PO ONE (19:47)
[2018-10-04 19:59] LABS: ABSOLUTE EOSINOPHILS # (AUTO) 0.2 10^3/uL (0.0-0.6); ABSOLUTE LYMPHOCYTES (AUTO) 1.4 10^3/uL (0.5-4.7); ABSOLUTE MONOCYTES (AUTO) 0.4 10^3/uL (0.1-1.4); ABSOLUTE NEUT (AUTO) 5.2 10^3/uL (1.7-8.2); BASOPHILS % (AUTO) 0.6 % (0-2); HEMATOCRIT 33.4 % (36.0-47.0); HEMOGLOBIN 10.8 g/dL (12.0-15.5); LYMPHOCYTES % (AUTO) 18.8 % (13-45); MEAN CORPUSCULAR HEMOGLOBIN 28.6 pg (27.0-33.4); MEAN CORPUSCULAR HGB CONC 32.2 g/dL (32.0-36.0); MEAN CORPUSCULAR VOLUME 89 fl (80-97); MONOCYTES % (AUTO) 5.8 % (3-13); PLATELET COUNT 243 10^3/uL (150-450); RED BLOOD COUNT 3.76 10^6/uL (3.72-5.28); RED CELL DISTRIBUTION WIDTH 14.7 % (11.5-14.0); SEGMENTED NEUTROPHILS % (AUTO) 71.8 % (42-78); TOTAL CELLS COUNTED % (AUTO) 100 %; WHITE BLOOD COUNT 7.3 10^3/uL (4.0-10.5)
[2018-10-04 20:19] LABS: ALKALINE PHOSPHATASE 96 U/L (38-126); ANION GAP 9 (5-19); ASPARTATE AMINO TRANSFERASE 30 U/L (14-36); BILIRUBIN,DIRECT 0.2 mg/dL (0.0-0.4); BILIRUBIN,TOTAL 0.3 mg/dL (0.2-1.3); BLOOD UREA NITROGEN 16 mg/dL (7-20); CALCIUM 9.5 mg/dL (8.4-10.2); CARBON DIOXIDE 31 mmol/L (22-30); CHLORIDE 98 mmol/L (98-107); CREATINE KINASE 86 U/L (30-135); GLUCOSE 173 mg/dL (75-110); TOTAL PROTEIN 7.9 g/dL (6.3-8.2)
--- NOTE | 2018-10-04 20:31 | RADIOLOGY REPORT (SQ) ---
EXAM DESCRIPTION: XR CHEST 1 VIEW COMPLETED DATE/TME: 10/04/2018 19:47 CLINICAL HISTORY: 73 years, Female, chest pain COMPARISON: EXAM DESCRIPTION: EXAM DESCRIPTION: CLINICAL HISTORY: chest pain COMPARISON: None. FINDINGS: Single view of the chest is submitted. There is atelectasis and consolidation at the medial right lung base. Left lung is clear. The left superior mediastinum appears enlarged. This is nonspecific but could reflect enlarged left main pulmonary artery and the pulmonary arterial trunk. There is enlargement of the right main pulmonary artery. Heart size is normal. No other consolidation. No significant pleural effusion. IMPRESSION: Right lung base consolidation. Nonspecific enlargement of the left superior mediastinum. This could reflect enlargement of the central pulmonary vasculature. Aneurysm of the aorta arch or superior mediastinal mass or lymphadenopathy are possible.
[2018-10-04 20:36] LABS: TROPONIN I < 0.012 ng/mL
--- NOTE | 2018-10-04 22:00 | EKG REPORT ---
SEVERITY:- ABNORMAL ECG - SINUS RHYTHM RIGHT ATRIAL ABNORMALITY : Confirmed by: Harry Wilde MD 04-Oct-2018 21:59:21
[2018-10-04 22:48] VITALS: BP 127/62
== END 2018-10-04 23:38 | disposition left against medical advice (07) ==
LOC: ER 19:30
DX: Z53.21 Procedure and treatment not carried out due to patient leaving prior to being seen by health care provider (principal)
CPT/HCPCS: 36415; 71045; 80053; 82550; 82553; 84484; 85025; 93005; 93010; J7620

== ENCOUNTER 2019-06-07 16:02 | Inpatient (IN) | payer MEDICARE, MEDICAID ==
[2019-06-07 16:28] LABS: ABSOLUTE LYMPHOCYTES (AUTO) 1.6 10^3/uL (0.5-4.7); ABSOLUTE MONOCYTES (AUTO) 1.1 10^3/uL (0.1-1.4); BASOPHILS % (AUTO) 0.2 % (0-2); HEMATOCRIT 32.8 % (36.0-47.0); HEMOGLOBIN 10.9 g/dL (12.0-15.5); LYMPHOCYTES % (AUTO) 11.9 % (13-45); MEAN CORPUSCULAR HEMOGLOBIN 29.3 pg (27.0-33.4); MEAN CORPUSCULAR HGB CONC 33.3 g/dL (32.0-36.0); MEAN CORPUSCULAR VOLUME 88 fl (80-97); PLATELET COUNT 283 10^3/uL (150-450); RED BLOOD COUNT 3.72 10^6/uL (3.72-5.28); RED CELL DISTRIBUTION WIDTH 14.7 % (11.5-14.0); SEGMENTED NEUTROPHILS % (AUTO) 79.9 % (42-78); TOTAL CELLS COUNTED % (AUTO) 100 %; WHITE BLOOD COUNT 13.8 10^3/uL (4.0-10.5)
[2019-06-07] MEDS ORDERED: NORMAL SALINE 1000 ML 1,000 ML IV ONE (16:41)
--- NOTE | 2019-06-07 16:41 | ER Document Report ---
ED General - General Stated Complaint: RESPIRATORY DISTRESS Time Seen by Provider: 06/07/19 16:39 Mode of Arrival: Ambulatory Information source: Patient TRAVEL OUTSIDE OF THE [place] IN LAST 30 DAYS: No - HPI Onset: Other - over the last 2 weeks Onset/Duration: Gradual - over the last 2 weeks Quality of pain: Achy Severity: Moderate Pain Level: 1 Associated symptoms: Productive cough Exacerbated by: Other - exertion Relieved by: Denies Similar symptoms previously: Yes - with COPD Recently seen / treated by doctor: No Notes: 74 year old female with a history of COPD (normally on 2-3L of O2 but she has been out for the last week), CAD, HTN, DM here in the ER for 2 weeks of shortness of breath, trouble breathing, and cough. The patient denies sick contacts or recent travel. The patient has been staying home since she is con cerned about COVID 19. The patient tells me her Oxygen Supplier has been closed and that is the reason she has been out of her Oxygen for the last week. The patient denies fevers, chills, sweats at home but she had a temp of 100.0F in triage. - Related Data Allergies/Adverse Reactions: ibuprofen [From Motrin] Allergy (Intermediate, Verified 10/04/18 20:05) FACE SWELLING NSAIDS (Non-Steroidal Anti-Inflamma [Nsaids] Allergy (Mild, Verified 10/04/18 20:05) Past Medical History - General Information source: Patient - Social History Smoking Status: Former Smoker Frequency of alcohol use: Rare Drug Abuse: None Lives with: Alone Family History: Reviewed & Not Pertinent - Past Medical History Cardiac Medical History: Reports: Hx Coronary Artery Disease, Hx Hypertension Denies: Hx Heart Attack Pulmonary Medical History: Reports: Hx Asthma, Hx COPD Denies: Hx Bronchitis, Hx Pneumonia Neurological Medical History: Denies: Hx Cerebrovascular Accident, Hx Seizures Endocrine Medical History: Reports: Hx Diabetes Mellitus Type 1, Hx Diabetes Mellitus Type 2 Renal/ Medical History: Denies: Hx Peritoneal Dialysis GI Medical History: Reports: Hx Gastroesophageal Reflux Disease. Denies: Hx Hepatitis, Hx Hiatal Hernia, Hx Ulcer Musculoskeletal Medical History: Reports Hx Arthritis - Rheumatoid arthritis, Denies Hx Gout Psychiatric Medical History: Denies: Hx Depression Infectious Medical History: Denies: Hx Hepatitis Past Surgical History: Reports: Hx Orthopedic Surgery - bilt knees. Denies: Hx Hysterectomy, Hx Mastectomy, Hx Open Heart Surgery, Hx Pacemaker - Immunizations Hx Diphtheria, Pertussis, Tetanus Vaccination: Yes Hx Pneumococcal Vaccination: 12/25/14 Review of Systems - Review of Systems Constitutional: Weakness EENT: No symptoms reported Cardiovascular: No symptoms reported Respiratory: Cough, Short of breath, Wheezing Gastrointestinal: No symptoms reported Genitourinary: No symptoms reported Female Genitourinary: No symptoms reported Musculoskeletal: No symptoms reported Skin: No symptoms reported Hematologic/Lymphatic: No symptoms reported Neurological/Psychological: No symptoms reported -: Yes All other systems reviewed and negative Physical Exam - Vital signs Vitals: Temp Pulse Resp BP Pulse Ox 100.0 F 106 H 24 H 99/79 L 88 L 06/07/19 16:14 06/07/19 16:14 06/07/19 16:14 06/07/19 16:14 06/07/19 16:14 - Notes Notes: GENERAL: Well-appearing, well-nourished and in no acute distress. HEAD: Atraumatic, normocephalic. EYES: Pupils equal round and reactive to light, extraocular movements intact, sclera anicteric, conjunctiva are normal. ENT: Nares patent, oropharynx clear without exudates. Moist mucous membranes. NECK: Normal range of motion, supple without lymphadenopathy or JVD. LUNGS: Breath sounds equal bilaterally. Mild diffuse wheezing noted. HEART: Regular rate and rhythm without murmurs, rubs or gallops. ABDOMEN: Soft, nontender, normoactive bowel sounds. No guarding, no rebound. No masses appreciated. EXTREMITIES: Normal range of motion, no pitting or edema. No clubbing or cyanosis. NEUROLOGICAL: Cranial nerves II through XII grossly intact. Normal speech, normal gait. PSYCH: Normal mood, normal affect. SKIN: Warm, Dry, normal turgor, no rashes or lesions noted. Course - Re-evaluation Re-evalutation: 06/07/19 18:38 The patient is hypoxic due to her not having access to home Oxygen. The patient likely is having a COPD flare. Xray shows edema vs atelectasis vs pneumonia. Will treat with albuterol and admit. Will defer antibiotic choice to inpatient team since influenza and COVID testing pending. BNP is elevated in the 4000s which seems to be new for her. Patient was slightly hypotensive on ER arrival. F or this, she was given some IV fluids. COVID precautions taken although patient has no known sick contacts and she has been staying home. Patient ill need work up of new onset CHF as well as pneumonia and COVID rule outs. - Vital Signs Vital signs: Temp Pulse Resp BP Pulse Ox 100.0 F 106 H 24 H 99/79 L 88 L 06/07/19 16:14 06/07/19 16:14 06/07/19 16:14 06/07/19 16:14 06/07/19 16:14 - Laboratory Result Diagrams: 06/07/19 16:11 06/07/19 16:11 Laboratory results interpreted by me: 06/07/19 06/07/19 06/07/19 16:11 16:11 16:11 WBC 13.8 H Hgb 10.9 L Hct 32.8 L RDW 14.7 H Lymph % (Auto) 11.9 L Absolute Neuts (auto) 11.0 H Seg Neutrophils % 79.9 H D-Dimer 18.17 H Sodium 132.9 L Est GFR ( Amer) 57 L Est GFR (MDRD) Non-Af 47 L Glucose 286 H AST 95 H ALT 46 H NT-Pro-B Natriuret Pep Albumin 3.4 L 06/07/19 16:40 WBC Hgb Hct RDW Lymph % (Auto) Absolute Neuts (auto) Seg Neutrophils % D-Dimer Sodium Est GFR ( Amer) Est GFR (MDRD) Non-Af Glucose AST ALT NT-Pro-B Natriuret Pep 4160 H Albumin - Diagnostic Test Radiology reviewed: Image reviewed, Reports reviewed Discharge - Discharge Clinical Impression: Shortness of breath COPD (chronic obstructive pulmonary disease) Qualifiers: COPD type: unspecified COPD Qualified Code(s): J44.9 - Chronic obstructive pulmonary disease, unspecified Heart failure Qualifiers: Heart failure type: unspecified Heart failure chronicity: acute Qualified Code(s): I50.9 - Heart failure, unspecified Condition: Fair Disposition: ADMITTED INPATIENT Admitting Provider: Shawn (Hospitalist) Unit Admitted: Telemetry
--- NOTE | 2019-06-07 16:42 | RADIOLOGY REPORT (SQ) ---
EXAM DESCRIPTION: CHEST SINGLE VIEW IMAGES COMPLETED DATE/TIME: 06/07/2019 4:26 pm REASON FOR STUDY: chest pain COMPARISON: AP view of the chest from 10/04/2018. EXAM PARAMETERS: NUMBER OF VIEWS: One view. TECHNIQUE: An AP view of the chest was obtained. RADIATION DOSE: NA LIMITATIONS: None. FINDINGS: LUNGS AND PLEURA: COPD with chronic parenchymal scars in the apices an acute opacities in the inferior aspect of the left hemithorax that obscure the contour of the hemidiaphragm and blunt th e left lateral costophrenic sulcus. MEDIASTINUM AND HILAR STRUCTURES: No mediastinal or hilar contour abnormality. HEART AND VASCULAR STRUCTURES: The cardiac silhouette and pulmonary vasculature are within normal duncan its. BONES: No acute findings. HARDWARE: None in the chest. OTHER: No other finding. IMPRESSION: Acute opacities in the inferior aspect of the left hemithorax that could represent a com bination of pleural fluid, atelectasis and/or pneumonia. TECHNICAL DOCUMENTATION: JOB ID: [id number] 2010 [employer]- All Rights Reserved Reading location - IP/workstation name: [email or web address]
[2019-06-07 16:47] LABS: ALBUMIN 3.4 g/dL (3.5-5.0); ALKALINE PHOSPHATASE 90 U/L (38-126); ANION GAP 8 (5-19); ASPARTATE AMINO TRANSFERASE 95 U/L (14-36); BILIRUBIN,TOTAL 0.5 mg/dL (0.2-1.3); BLOOD UREA NITROGEN 19 mg/dL (7-20); CALCIUM 8.4 mg/dL (8.4-10.2); CARBON DIOXIDE 26 mmol/L (22-30); CHLORIDE 99 mmol/L (98-107); GLUCOSE 286 mg/dL (75-110); POTASSIUM 4.2 mmol/L (3.6-5.0); TOTAL PROTEIN 6.8 g/dL (6.3-8.2)
[2019-06-07] MEDS ORDERED: ACETAMINOPHEN 325 MG TABLET PO PRN (18:20)
[2019-06-07] MEDS ORDERED: MIDODRINE HCL 5 MG TABLET PO PRN (18:35)
[2019-06-07] MEDS ORDERED: ALBUTEROL SULFATE HFA (90 MCG/PUFF) 8 GM MDI IH PRN (18:35)
[2019-06-07] MEDS ORDERED: GLUCAGON,HUMAN RECOMB 1 MG INJ IM PRN (18:36)
[2019-06-07] MEDS ORDERED: DEXTROSE 40% GEL 15 GM TUBE PO PRN ×2 (18:36)
[2019-06-07] MEDS ORDERED: DEXTROSE 50%-WATER 25 GM/50 ML DISP.SYRIN IV PRN ×2 (18:36)
[2019-06-07] MEDS ORDERED: ALBUTEROL SULFATE HFA (90 MCG/PUFF) 200 PUFF/8.5 GM MDI IH PRN (18:44)
--- NOTE | 2019-06-07 18:58 | PDOC H&P ---
History of Present Illness Admission Date/PCP: 06/07/19 17:36 Patient complains of: shortness of breath History of Present Illness: ALLIE JACQUES is a 74 year old female with a past medical history of COPD, chronic respiratory failure who is home O2 dependent, CAD, hypertension, DM 2, and rheumatoid arthritis who presents to the emergency department with a 10-day history of progressively worsening shortness of breath, productive cough, now with hemoptysis. She also reports posttussive emesis and generalized body aches. She reports chills but has not felt feverish and has not checked her temperature at home. Evaluation in the emergency department revealed low-grade temp of 100.0, heart rate 106, soft blood pressure 99/79, respiratory rate of 24, and 88% on 3 L/min (her home O2 level). She is noted to have leukocytosis with WBCs 13.8, mild hyponatremia, glucose 286, and proBNP 4k. Influenza, COVID 19 are pending. CXR demonstrated obesities to the inferior aspect of the left hemithorax representing pleural effusion atelectasis/pneumonia. Patient was provided 1 L normal saline bolus and supplemental oxygen. She is referred to the hospitalist service for admission and management of the above-stated complaints findings. Past Medical History Cardiac Medical History: Reports: Coronary Artery Disease, Hypertension Denies: Myocardial Infarction Pulmonary Medical History: Reports: Asthma, Chronic Obstructive Pulmonary Disease (COPD) Denies: Bronchitis, Pneumonia Neurological Medical History: Denies: Ischemic CVA, Seizures Endocrine Medical History: Reports: Diabetes Mellitus Type 2, Obesity GI Medical History: Reports: Gastroesophageal Reflux Disease Denies: Hepatitis, Hiatal Hernia Musculoskeltal Medical History: Reports: Arthritis - Rheumatoid arthritis Denies: Gout Psychiatric Medical History: Denies: Depression Hematology: Denies: Anemia, Sickle Cell Disease Past Surgical History Past Surgical History: Reports: Orthopedic Surgery - bilt knees Denies: Amputation, Hysterectomy, Mastectomy, Pacemaker Social History Information Source: Patient Lives with: Alone Smoking Status: Never Smoker Frequency of Alcohol Use: Rare Hx Recreational Drug Use: No Drugs: None Hx Prescription Drug Abuse: No - Advance Directive Resuscitation Status: Do Not Intubate - DNR/DNI Family History Family History: Reviewed & Not Pertinent Parental Family History Reviewed: Yes Children Family History Reviewed: Yes Sibling(s) Family History Reviewed.: Yes Medication/Allergy Home Medications: Glipizide [Glucotrol 5 mg Tablet] 5 mg PO BIDACBS #60 tablet 02/20/16 Tofacitinib Citrate [Xeljanz] 5 mg PO DAILY 06/13/17 Folic Acid [Folvite 1 mg Tablet] 1 mg PO DAILY 08/01/17 Brimonidine Tartrate [Alphagan P] 5 ml OU BID 06/07/19 Fluticasone/Umeclidin/Vilanter [Trelegy 100-62.5-25 Mcg Ellipta 14 Dose/Dpi] 1 each DAILY 06/07/19 Allergies/Adverse Reactions: ibuprofen [From Motrin] Allergy (Intermediate, Verified 10/04/18 20:05) FACE SWELLING NSAIDS (Non-Steroidal Anti-Inflamma [Nsaids] Allergy (Mild, Verified 10/04/18 20:05) Review of Systems Constitutional: PRESENT: chills, weakness. ABSENT: fever(s), headache(s), weight gain, weight loss Eyes: ABSENT: visual disturbances Ears: ABSENT: hearing changes Cardiovascular: ABSENT: chest pain, dyspnea on exertion, edema, orthropnea, palpitations Respiratory: PRESENT: cough, dyspnea, hemoptysis, sputum Gastrointestinal: PRESENT: vomiting. ABSENT: abdominal pain, constipation, diarrhea, hematemesis, hematochezia, nausea Genitourinary: ABSENT: dysuria, hematuria Musculoskeletal: ABSENT: joint swelling Integumentary: ABSENT: rash, wounds Neurological: ABSENT: abnormal gait, abnormal speech, confusion, dizziness, focal weakness, syncope Psychiatric: ABSENT: anxiety, depression, homidical ideation, suicidal ideation Endocrine: ABSENT: cold intolerance, heat intolerance, polydipsia, polyuria Hematologic/Lymphatic: ABSENT: easy bleeding, easy bruising Physical Exam Vital Signs: Temp Pulse Resp BP Pulse Ox 100.0 F 106 H 24 H 99/79 L 88 L 06/07/19 16:14 06/07/19 16:14 06/07/19 16:14 06/07/19 16:14 06/07/19 16:14 Intake & Output 06/06/19 06/07/19 06/08/19 06:59 06:59 06:59 Weight 95.4 kg General appearance: PRESENT: no acute distress, cooperative, obese, well- developed, well-nourished Head exam: PRESENT: atraumatic, normocephalic Eye exam: PRESENT: conjunctiva pink, EOMI, PERRLA. ABSENT: scleral icterus Mouth exam: PRESENT: moist, tongue midline Respiratory exam: PRESENT: crackles, decreased breath sounds, symmetrical, tachypnea, wheezes, other - Supplemental oxygen via nasal cannula. ABSENT: rales, rhonchi Cardiovascular exam: PRESENT: RRR, +S1, +S2, tachycardia. ABSENT: diastolic murmur, rubs, systolic murmur Pulses: PRESENT: normal dorsalis pedis pul Vascular exam: PRESENT: normal capillary refill GI/Abdominal exam: PRESENT: normal bowel sounds, soft. ABSENT: distended, guarding, mass, organolmegaly, rebound, tenderness Rectal exam: PRESENT: deferred Extremities exam: PRESENT: full ROM, pedal edema - Trace bilaterally. ABSENT: calf tenderness, clubbing Neurological exam: PRESENT: alert, awake, oriented to person, oriented to place, oriented to time, oriented to situation, CN II-XII grossly intact. ABSENT: motor sensory deficit Psychiatric exam: PRESENT: anxious, appropriate affect, normal mood. ABSENT: homicidal ideation, suicidal ideation Skin exam: PRESENT: dry, intact, warm. ABSENT: cyanosis, rash Results Laboratory Results: 06/07/19 16:11 06/07/19 16:11 06/07/19 06/07/19 16:11 16:11 WBC 13.8 H RBC 3.72 Hgb 10.9 L Hct 32.8 L MCV 88 MCH 29.3 MCHC 33.3 RDW 14.7 H Plt Count 283 Seg Neutrophils % 79.9 H Sodium 132.9 L Potassium 4.2 Chloride 99 Carbon Dioxide 26 Anion Gap 8 BUN 19 Creatinine 1.13 Est GFR ( Amer) 57 L Glucose 286 H Calcium 8.4 Total Bilirubin 0.5 AST 95 H Alkaline Phosphatase 90 Total Protein 6.8 Albumin 3.4 L 06/07/19 16:40 NT-Pro-B Natriuret Pep 4160 H Impressions: Chest X-Ray 06/07/19 16:04 IMPRESSION: Acute opacities in the inferior aspect of the left hemithorax that could represent a combination of pleural fluid, atelectasis and/or pneumonia. Assessment and Plan - Diagnosis (1) CHF (congestive heart failure) Qualifiers: Heart failure type: unspecified Is this a current diagnosis for this admission?: Yes Plan: proBNP elevated to4k EKG pending. Chest x-ray reveals pleural effusion but no overt cardiomegaly or heart failure. Echocardiogram is pending. Patient denies history of CHF. On exam she is noted to have mild pedal edema, crackles on exam, and hemoptysis. Of note, she is being treated for COPD exacerbation and is being ruled out for coronavirus. She is placed on enalapril 2.5 mg daily and metoprolol 12.5 mg twice daily. We will start furosemide 20 mg IV twice daily. Daily aspirin and statin therapy. Blood pressures are noted to be soft; expect these to improve as we optimize cardiac output. PRN Midrin as needed to support blood pressure until that time. Cardiac diet. Daily weight, strict I&O. Consider cardiology consultation. (2) COPD exacerbation Is this a current diagnosis for this admission?: Yes Plan: Patient is admitted to the medical floor on continuous cardiac telemetry. Will provide supplemental oxygen as needed to maintain saturations greater than 89%. Start on scheduled and as needed albuterol MDI. Start daily increase. Provide prednisone p.o. Mucinex twice daily. Robitussin as needed. Pulmonary toilet is encouraged with incentive spirometer, flutter valve, and ea rly ambulation. (3) Acute and chronic respiratory failure with hypoxia Is this a current diagnosis for this admission?: Yes Plan: Secondary to COPD exacerbation and new diagnosis of CHF. Ruling out CVID19, though with low suspicion. Patient utilizes home O2 at 2 to 3 L/min. She reports that she has a concentrator that broke this week and has run out of portable tanks. Was having difficulty obtaining help through her respiratory company will notify discharge planning. Remaining evaluation management as above. (4) Hypertension Qualifiers: Hypertension type: essential hypertension Qualified Code(s): I10 - Essential (primary) hypertension Is this a current diagnosis for this admission?: Yes Plan: Patient is hypotensive at present. We will monitor closely and adjust antihypertensives as indicated. She is started on enalapril 2.5 mg daily and metoprolol 12.5 mg twice daily. Cardiac diet. (5) JACQUELIN (obstructive sleep apnea) Is this a current diagnosis for this admission?: Yes Plan: Patient reports JACQUELIN but does admit that she is not noncompliant with CPAP and has refused machine in the past. Does not have device at home. (6) Diabetes Qualifiers: Diabetes mellitus type: type 2 Diabetes mellitus superintendent terminal insulin use: without correction use Diabetes mellitus complication status: with hyperglycemia Qualified Code(s): E11.65 - Type 2 diabetes mellitus with hyperglycemia Is this a current diagnosis for this admission?: Yes Plan: Holding oral medications while admitted. We will check A1c with a.m. lab work. Patient is placed on a consistent carb/cardiac diet. Accu-Cheks before meals and at bedtime with Humalog for sliding scale coverage. Hypoglycemia protocol in place. Registered dietitian nurse educator consulted. (7) Suspected COVID-19 virus infection Is this a current diagnosis for this admission?: Yes Plan: Influenza and COVID19 pending D-dimer, CRP, ferritin pending. Contact, droplet precautions. Avoid nebulizer treatment and other aerosolized and procedures. Start vitamin C, vitamin D, zinc, and melatonin supplementation. (8) Patient is Sabianist Is this a current diagnosis for this admission?: Yes Plan: Patient confirms that she is a DNR/DNI and would not want blood products if clinically indicated. - Time Time Spent with patient: 35 or more minutes Medications reviewed and adjusted accordingly: Yes - Inpatient Certification Based on my medical assessment, after consideration of the patient's comorbidities, presenting symptoms, or acuity I expect that the services needed warrant INPATIENT care.: Yes I certify that my determination is in accordance with my understanding of Medicare's requirements for reasonable and necessary INPATIENT services [42 CFR 412.3e].: Yes Medical Necessity: Need Close Monitoring Due to Risk of Patient Decompensation, Need For Continuous Telemetry Monitoring, Risk of Complication if Not Cared For in Hospital
[2019-06-07] MEDS: ZINC SULFATE 220 MG CAPSULE PO SCH (19:06)
[2019-06-07] MEDS: ASCORBIC ACID 500 MG TABLET PO SCH (19:06)
[2019-06-07 19:24] LABS: A TYPE INFLUENZA AG NEGATIVE (NEGATIVE); B INFLUENZA AG NEGATIVE (NEGATIVE)
[2019-06-07 20:20] LABS: C-REACTIVE PROTEIN 278.5 mg/L (<10.0)
[2019-06-08] MEDS ORDERED: ALBUTEROL SULFATE HFA (90 MCG/PUFF) 8 GM MDI IH SCH
[2019-06-08] MEDS: HEPARIN SOD (PORCINE) 5,000 UNIT/ML 1 ML VIAL SUBCUT SCH ×4 (03:20→22:00)
[2019-06-08] MEDS: INSULIN LISPRO 100 UNIT/ML 3 ML VIAL SUBCUT SCH ×5 (03:22→22:00)
[2019-06-08] MEDS: MELATONIN 3 MG TABLET PO SCH ×2 (03:23→22:01)
[2019-06-08] MEDS: ALBUTEROL SULFATE HFA (90 MCG/PUFF) 200 PUFF/8.5 GM MDI IH SCH ×4 (03:25→17:51)
[2019-06-08] MEDS: METOPROLOL TARTRATE 25 MG TABLET PO SCH ×2 (03:25→09:17)
[2019-06-08] MEDS: GUAIFENESIN 600 MG TABLET.SA PO SCH ×3 (03:42→22:01)
[2019-06-08] MEDS: ATORVASTATIN CALCIUM 10 MG TABLET PO SCH ×2 (03:42→22:01)
[2019-06-08] MEDS: FUROSEMIDE INJ/PF 20 MG/2 ML SDV IV SCH ×3 (03:42→22:32)
[2019-06-08 04:45] LABS: ANION GAP 14 (5-19); BLOOD UREA NITROGEN 23 mg/dL (7-20); CALCIUM 9.1 mg/dL (8.4-10.2); CARBON DIOXIDE 24 mmol/L (22-30); CHLORIDE 97 mmol/L (98-107); GLUCOSE 396 mg/dL (75-110); POTASSIUM 4.9 mmol/L (3.6-5.0)
[2019-06-08] MEDS ORDERED: PANTOPRAZOLE SODIUM 20 MG TABLET.DR PO SCH (06:00)
[2019-06-08 06:19] LABS: APPEARANCE,URINE CLEAR; BILIRUBIN,URINE NEGATIVE (NEGATIVE); COLOR,URINE STRAW; GLUCOSE, URINE >=500 mg/dL (NEGATIVE); KETONES,URINE NEGATIVE (NEGATIVE); LEUKOCYTE ESTERASE,URINE NEGATIVE (NEGATIVE); NITRITE,URINE NEGATIVE (NEGATIVE); PROTEIN,URINE NEGATIVE (NEGATIVE); URINE SPECIFIC GRAVITY 1.005; UROBILINOGEN,URINE NEGATIVE mg/dL (<2.0)
--- NOTE | 2019-06-08 08:00 | EKG REPORT ---
SEVERITY:- ABNORMAL ECG - SINUS TACHYCARDIA BIATRIAL ABNORMALITIES CONSIDER ANTEROSEPTAL INFARCT NONSPECIFIC T ABNORMALITIES, LATERAL LEADS : Confirmed by: Harry Wilde MD 08-Jun-2019 08:00:05
[2019-06-08] MEDS ORDERED: METOPROLOL TARTRATE PF/INJ 5 MG/5 ML SDV IV PRN (09:04)
[2019-06-08] MEDS: CHOLECALCIFEROL (D3) 1,000 UNIT (25 MCG) TABLET PO SCH (09:17)
[2019-06-08] MEDS: DOCUSATE SODIUM 100 MG CAPSULE PO SCH (09:17)
[2019-06-08] MEDS: ASPIRIN 81 MG TABLET, ENT COATED PO SCH (09:17)
[2019-06-08] MEDS: ZINC SULFATE 220 MG CAPSULE PO SCH (09:17)
[2019-06-08] MEDS: ASCORBIC ACID 500 MG TABLET PO SCH ×2 (09:18→17:49)
[2019-06-08] MEDS ORDERED: METOPROLOL TARTRATE PF/INJ 5 MG/5 ML SDV IV ONE ×2 (09:30→10:30)
[2019-06-08] MEDS ORDERED: UMECLIDINIUM BROMIDE 62.5 MCG/DOSE IH SCH (10:00)
[2019-06-08] MEDS ORDERED: PREDNISONE 20 MG TABLET PO SCH (10:00)
[2019-06-08] MEDS ORDERED: FOLIC ACID 1 MG TABLET PO SCH (10:00)
[2019-06-08] MEDS ORDERED: ENALAPRIL MALEATE 2.5 MG TABLET PO SCH (10:00)
[2019-06-08] MEDS: FLUTICASONE/UMECLIDIN/VILANTER 100-62.5-25 MCG/DOSE IH SCH (10:48)
[2019-06-08] MEDS ORDERED: GLIPIZIDE 10 MG TABLET PO ONE (11:40)
--- NOTE | 2019-06-08 11:54 | PDOC PROGRESS REPORT ---
Subjective Progress Note for:: 06/08/19 Subjective:: The patient is resting comfortably. She has been quite tachycardic and hyperglycemic. Much of this is likely due to prednisone and her anxiety. Her breathing is comfortable. Reason For Visit: A/C RESP FAILURE WITH HYPOXIA,COPD EXACERBATION, Physical Exam Vital Signs: Temp Pulse Resp BP Pulse Ox 98.4 F 154 H 24 H 113/74 92 06/08/19 08:31 06/08/19 08:31 06/08/19 08:31 06/08/19 09:15 06/08/19 08:31 Intake & Output 06/07/19 06/08/19 06/09/19 06:59 06:59 06:59 Intake Total 1550 Output Total 425 Balance 1125 Weight 91.8 kg General appearance: PRESENT: no acute distress, cooperative, well-developed Head exam: PRESENT: atraumatic, normocephalic Eye exam: PRESENT: conjunctiva pale. ABSENT: scleral icterus Ear exam: PRESENT: normal external ear exam. ABSENT: bleeding, drainage Mouth exam: PRESENT: moist, tongue midline Respiratory exam: PRESENT: clear to auscultation kyle, unlabored. ABSENT: accessory muscle use, prolonged expiratory phas, rales, rhonchi, wheezes Cardiovascular exam: PRESENT: +S1, +S2, tachycardia GI/Abdominal exam: PRESENT: normal bowel sounds, soft. ABSENT: distended, guarding, tenderness Rectal exam: PRESENT: deferred Gentrourinary exam: ABSENT: indwelling catheter Extremities exam: ABSENT: pedal edema Musculoskeletal exam: PRESENT: ambulatory Neurological exam: PRESENT: alert, awake, oriented to person, oriented to place, oriented to time, oriented to situation, CN II-XII grossly intact. ABSENT: motor sensory deficit Psychiatric exam: PRESENT: anxious, appropriate affect. ABSENT: agitated Focused psych exam: ABSENT: delusional, paranoid, restlessness Skin exam: PRESENT: dry, normal color, warm. ABSENT: rash Results Laboratory Results: 06/07/19 16:11 06/08/19 03:57 06/07/19 06/07/19 06/07/19 16:11 16:11 16:11 WBC 13.8 H RBC 3.72 Hgb 10.9 L Hct 32.8 L MCV 88 MCH 29.3 MCHC 33.3 RDW 14.7 H Plt Count 283 Seg Neutrophils % 79.9 H Sodium 132.9 L Potassium 4.2 Chloride 99 Carbon Dioxide 26 Anion Gap 8 BUN 19 Creatinine 1.13 Est GFR ( Amer) 57 L Glucose 286 H Lactic Acid Calcium 8.4 Magnesium Ferritin 1840.00 H Total Bilirubin 0.5 AST 95 H Alkaline Phosphatase 90 C-Reactive Protein 278.5 H Total Protein 6.8 Albumin 3.4 L Urine Color Urine Appearance Urine pH Ur Specific [place] Urine Protein Urine Glucose (UA) Urine Ketones Urine Blood Urine Nitrite Ur Leukocyte Esterase Urine WBC (Auto) Urine RBC (Auto) 06/07/19 06/08/19 06/08/19 17:40 03:57 05:45 WBC RBC Hgb Hct MCV MCH MCHC RDW Plt Count Seg Neutrophils % Sodium 134.5 L Potassium 4.9 Chloride 97 L Carbon Dioxide 24 Anion Gap 14 BUN 23 H Creatinine 0.99 Est GFR ( Amer) > 60 Glucose 396 H Lactic Acid 1.5 Calcium 9.1 Magnesium 1.9 Ferritin Total Bilirubin AST Alkaline Phosphatase C-Reactive Protein Total Protein Albumin Urine Color STRAW Urine Appearance CLEAR Urine pH 5.0 Ur Specific [place] 1.005 Urine Protein NEGATIVE Urine Glucose (UA) >=500 H Urine Ketones NEGATIVE Urine Blood NEGATIVE Urine Nitrite NEGATIVE Ur Leukocyte Esterase NEGATIVE Urine WBC (Auto) 0 Urine RBC (Auto) 1 06/07/19 16:40 NT-Pro-B Natriuret Pep 4160 H Impressions: Chest X-Ray 06/07/19 16:04 IMPRESSION: Acute opacities in the inferior aspect of the left hemithorax that could represent a combination of pleural fluid, atelectasis and/or pneumonia. Assessment and Plan - Diagnosis (1) Atrial fibrillation with rapid ventricular response Is this a current diagnosis for this admission?: Yes Plan: 06/08/2019 The patient's heart rate has remained in the 140-150 range despite increasing doses of oral and intravenous metoprolol. We will likely need to try alternative agents such as diltiazem or digoxin. (2) CHF (congestive heart failure) Qualifiers: Heart failure type: unspecified Is this a current diagnosis for this admission?: Yes Plan: proBNP elevated to4k EKG pending. Chest x-ray reveals pleural effusion but no overt cardiomegaly or heart failure. Echocardiogram is pending. Patient denies history of CHF. On exam she is noted to have mild pedal edema, crackles on exam, and hemoptysis. Of note, she is being treated for COPD exacerbation and is being ruled out for coronavirus. She is placed on enalapril 2.5 mg daily and metoprolol 12.5 mg twice daily. We will start furosemide 20 mg IV twice daily. Daily aspirin and statin therapy. Blood pressures are noted to be soft; expect these to improve as we optimize cardiac output. PRN Midrin as needed to support blood pressure until that time. Cardiac diet. Daily weight, strict I&O. Consider cardiology consultation. 06/08/2019 Patient is currently on Lasix, Vasotec and metoprolol. Still remains tachycardic. Breathing is comfortable and improved. We are tapering down to her baseline oxygen at home which is between 2 and 3 L/min. she still has a net positive fluid balance. Continue to monitor intake and output. (3) COPD exacerbation Is this a current diagnosis for this admission?: Yes Plan: Patient is admitted to the medical floor on continuous cardiac telemetry. Will provide supplemental oxygen as needed to maintain saturations greater than 89%. Start on scheduled and as needed albuterol MDI. Start daily increase. Provide prednisone p.o. Mucinex twice daily. Robitussin as needed. Pulmonary toilet is encouraged with incentive spirometer, flutter valve, and early ambulation. 06/08/2019 Because of her tachycardia and severe hyperglycemia and the fact that this may represent heart failure more than COPD I have discontinued the prednisone. She will continue on her Trelegy inhaler which does have an inhaled steroid. (4) Diabetes Qualifiers: Diabetes mellitus type: type 2 Diabetes mellitus longterm insulin use: without buttermilk drier operator use Diabetes mellitus complication status: with hyperglycemia Qualified Code(s): E11.65 - Type 2 diabetes mellitus with hyperglycemia Is this a current diagnosis for this admission?: Yes Plan: Holding oral medications while admitted. We will check A1c with a.m. lab work. Patient is placed on a consistent carb/cardiac diet. Accu-Cheks before meals and at bedtime with Humalog for sliding scale coverage. Hypoglycemia protocol in place. Registered dietitian nursing educator consulted. 06/08/2019 Normally on oral medications only. Because of the prednisone she is experiencing significant hyperglycemia. I have changed her to a more aggressive sliding scale. By discontinuing the prednisone her sugars should improve dramatically. (5) Acute and chronic respiratory failure with hypoxia Is this a current diagnosis for this admission?: Yes Plan: Secondary to COPD exacerbation and new diagnosis of CHF. Ruling out CVID19, though with low suspicion. Patient utilizes home O2 at 2 to 3 L/min. She reports that she has a concentrator that broke this week and has run out of portable tanks. Was having difficulty obtaining help through her respiratory company will notify discharge planning. Remaining evaluation management as above. 06/08/2019 Continue current regimen except the steroids as noted above. Continue to taper back to her baseline oxygen therapy at home. (6) Suspected COVID-19 virus infection Is this a current diagnosis for this admission?: Yes Plan: Influenza and COVID19 pending D-dimer, CRP, ferritin pending. Contact, droplet precautions. Avoid nebulizer treatment and other aerosolized and procedures. Start vitamin C, vitamin D, zinc, and melatonin supplementation. 06/08/2019 Continue current regimen. Testing results are still pending. (7) Hypertension Qualifiers: Hypertension type: essential hypertension Qualified Code(s): I10 - Essential (primary) hypertension Is this a current diagnosis for this admission?: Yes Plan: Patient is hypotensive at present. We will monitor closely and adjust antihypertensives as indicated. She is started on enalapril 2.5 mg daily and metoprolol 12.5 mg twice daily. Cardiac diet. 06/08/2019 Good blood pressure control between the furosemide, metoprolol and ANIKET inhibitor. Continue to monitor. Adjust medications accordingly. (8) JACQUELIN (obstructive sleep apnea) Is this a current diagnosis for this admission?: Yes Plan: Patient reports JACQUELIN but does admit that she is not noncompliant with CPAP and has refused machine in the past. Does not have device at home. (9) Patient is Anabaptist Is this a current diagnosis for this admission?: Yes Plan: Patient confirms that she is a DNR/DNI and would not want blood products if clinically indicated. - Time Time Spent with patient: 15-24 minutes Medications reviewed and adjusted accordingly: Yes Anticipated discharge: Home
[2019-06-08] MEDS ORDERED: METOPROLOL TARTRATE 50 MG TABLET PO ONE (14:30)
[2019-06-08] MEDS ORDERED: DILTIAZEM HCL INJ 25 MG/5 ML VIAL IV ONE (15:15)
[2019-06-08] MEDS ORDERED: DILTIAZEM HCL INJ 25 MG/5 ML VIAL IV PRN (16:42)
[2019-06-08] MEDS: DILTIAZEM HCL 30 MG TABLET PO SCH (17:49)
[2019-06-08] MEDS: GLIPIZIDE 5 MG TABLET PO SCH (17:50)
[2019-06-08] MEDS ORDERED: BRIMONIDINE TARTRATE OU SCH (18:00)
[2019-06-08] MEDS ORDERED: METOPROLOL TARTRATE 25 MG TABLET PO SCH (22:00)
[2019-06-09] MEDS: DILTIAZEM HCL 30 MG TABLET PO SCH ×4 (00:05→21:06)
[2019-06-09] MEDS: ALBUTEROL SULFATE HFA (90 MCG/PUFF) 200 PUFF/8.5 GM MDI IH SCH ×5 (00:21→23:13)
[2019-06-09 05:25] LABS: ABSOLUTE LYMPHOCYTES (AUTO) 1.1 10^3/uL (0.5-4.7); ABSOLUTE MONOCYTES (AUTO) 0.4 10^3/uL (0.1-1.4); ABSOLUTE NEUT (AUTO) 13.1 10^3/uL (1.7-8.2); BASOPHILS % (AUTO) 0.3 % (0-2); HEMATOCRIT 31.3 % (36.0-47.0); HEMOGLOBIN 10.3 g/dL (12.0-15.5); LYMPHOCYTES % (AUTO) 7.2 % (13-45); MEAN CORPUSCULAR HEMOGLOBIN 28.8 pg (27.0-33.4); MEAN CORPUSCULAR VOLUME 87 fl (80-97); PLATELET COUNT 264 10^3/uL (150-450); RED BLOOD COUNT 3.59 10^6/uL (3.72-5.28); RED CELL DISTRIBUTION WIDTH 15.1 % (11.5-14.0); SEGMENTED NEUTROPHILS % (AUTO) 89.5 % (42-78); TOTAL CELLS COUNTED % (AUTO) 100 %; WHITE BLOOD COUNT 14.7 10^3/uL (4.0-10.5)
[2019-06-09 05:44] LABS: ANION GAP 9 (5-19); BLOOD UREA NITROGEN 58 mg/dL (7-20); CALCIUM 8.4 mg/dL (8.4-10.2); CARBON DIOXIDE 26 mmol/L (22-30); CHLORIDE 96 mmol/L (98-107); GLUCOSE 336 mg/dL (75-110); POTASSIUM 4.9 mmol/L (3.6-5.0)
[2019-06-09] MEDS: HEPARIN SOD (PORCINE) 5,000 UNIT/ML 1 ML VIAL SUBCUT SCH ×3 (06:26→21:07)
[2019-06-09] MEDS ORDERED: DILTIAZEM HCL INJ 25 MG/5 ML VIAL IV PRN (07:08)
[2019-06-09] MEDS ORDERED: FUROSEMIDE INJ/PF 20 MG/2 ML SDV IV SCH (10:00)
[2019-06-09] MEDS: GLIPIZIDE 5 MG TABLET PO SCH ×2 (10:54→17:34)
[2019-06-09] MEDS: INSULIN LISPRO 100 UNIT/ML 3 ML VIAL SUBCUT SCH ×4 (10:54→21:06)
[2019-06-09] MEDS: FLUTICASONE/UMECLIDIN/VILANTER 100-62.5-25 MCG/DOSE IH SCH (10:56)
[2019-06-09] MEDS: CHOLECALCIFEROL (D3) 1,000 UNIT (25 MCG) TABLET PO SCH (10:57)
[2019-06-09] MEDS: ZINC SULFATE 220 MG CAPSULE PO SCH (10:57)
[2019-06-09] MEDS: CETIRIZINE 10 MG TABLET PO SCH (10:57)
[2019-06-09] MEDS: ASCORBIC ACID 500 MG TABLET PO SCH ×2 (10:57→17:34)
[2019-06-09] MEDS: ASPIRIN 81 MG TABLET, ENT COATED PO SCH (10:57)
[2019-06-09] MEDS: GUAIFENESIN 600 MG TABLET.SA PO SCH ×2 (10:58→21:06)
[2019-06-09] MEDS: DOCUSATE SODIUM 100 MG CAPSULE PO SCH (10:58)
[2019-06-09] MEDS ORDERED: NORMAL SALINE 1000 ML 1,000 ML IV ONE (13:19)
[2019-06-09] MEDS ORDERED: INSULIN LISPRO 100 UNIT/ML 3 ML VIAL SUBCUT ONE (14:30)
--- NOTE | 2019-06-09 18:47 | PDOC PROGRESS REPORT ---
Subjective Progress Note for:: 06/09/19 Subjective:: No adverse events overnight. She says her breathing feels fairly comfortable. She is on her usual level of oxygen support that she uses at home. She says she has had a lot of urine output. Her creatinine bumped a little bit today. Her blood pressures also been very low this morning. Reason For Visit: A/C RESP FAILURE WITH HYPOXIA,COPD EXACERBATION, Physical Exam Vital Signs: Temp Pulse Resp BP Pulse Ox 97.3 F 95 18 119/81 96 06/09/19 16:00 06/09/19 16:00 06/09/19 16:00 06/09/19 16:00 06/09/19 16:00 Intake & Output 06/08/19 06/09/19 06/10/19 06:59 06:59 06:59 Intake Total 1550 240 Output Total 425 Balance 1125 240 Weight 91.8 kg 95.1 kg General appearance: PRESENT: no acute distress, cooperative, well-developed Respiratory exam: PRESENT: clear to auscultation kyle, unlabored. ABSENT: accessory muscle use, prolonged expiratory phas, rales, rhonchi, wheezes Cardiovascular exam: PRESENT: +S1, +S2, RRR GI/Abdominal exam: PRESENT: normal bowel sounds, soft. ABSENT: distended, guarding, tenderness Extremities exam: ABSENT: pedal edema Musculoskeletal exam: PRESENT: ambulatory Neurological exam: PRESENT: alert, awake, oriented to person, oriented to place, oriented to time, oriented to situation Psychiatric exam: PRESENT: appropriate affect. ABSENT: agitated Focused psych exam: ABSENT: delusional, paranoid, restlessness Skin exam: PRESENT: dry, normal color, warm. Results Laboratory Results: 06/09/19 04:43 06/09/19 04:43 06/09/19 06/09/19 04:43 04:43 WBC 14.7 H RBC 3.59 L Hgb 10.3 L Hct 31.3 L MCV 87 MCH 28.8 MCHC 33.0 RDW 15.1 H Plt Count 264 Seg Neutrophils % 89.5 H Sodium 131.1 L Potassium 4.9 Chloride 96 L Carbon Dioxide 26 Anion Gap 9 BUN 58 H Creatinine 1.26 H Est GFR ( Amer) 50 L Glucose 336 H Calcium 8.4 Magnesium 2.1 06/07/19 19:40 Throat Throat Culture - Final NORMAL RIDDHI 06/07/19 16:40 NT-Pro-B Natriuret Pep 4160 H Impressions: Chest X-Ray 06/07/19 16:04 IMPRESSION: Acute opacities in the inferior aspect of the left hemithorax that could represent a combination of pleural fluid, atelectasis and/or pneumonia. Assessment and Plan - Diagnosis (1) Atrial fibrillation with rapid ventricular response Is this a current diagnosis for this admission?: Yes Plan: Rate is controlled with oral Cardizem. Dose was adjusted yesterday because of her blood pressure. Other blood pressure medications are on hold. (2) CHF (congestive heart failure) Qualifiers: Heart failure type: unspecified Is this a current diagnosis for this admission?: Yes Plan: Coronavirus testing was negative. She is not currently exacerbated and has responded well to Lasix. I think she has gotten a little too dry and this is why her blood pressure was little low, and also why her BUN and creatinine are elevated. I have stopped her Lasix and I am going to give her a little bit of gentle hydration overnight and see how she does in the morning. (3) COPD (chronic obstructive pulmonary disease) Qualifiers: COPD type: unspecified COPD Qualified Code(s): J44.9 - Chronic obstructive pulmonary disease, unspecified Is this a current diagnosis for this admission?: Yes Plan: Not acutely exacerbated (4) Suspected COVID-19 virus infection Is this a current diagnosis for this admission?: Yes Plan: She was negative for coronavirus infection (5) Acute and chronic respiratory failure with hypoxia Is this a current diagnosis for this admission?: Yes Plan: Stable on her usual level of oxygen support - Time Time Spent with patient: 15-24 minutes
[2019-06-09] MEDS: MELATONIN 3 MG TABLET PO SCH (21:06)
[2019-06-09] MEDS: ATORVASTATIN CALCIUM 10 MG TABLET PO SCH (21:06)
[2019-06-10] MEDS: HEPARIN SOD (PORCINE) 5,000 UNIT/ML 1 ML VIAL SUBCUT SCH ×3 (05:19→21:44)
[2019-06-10] MEDS: DILTIAZEM HCL 30 MG TABLET PO SCH ×3 (05:22→21:43)
[2019-06-10] MEDS: ALBUTEROL SULFATE HFA (90 MCG/PUFF) 200 PUFF/8.5 GM MDI IH SCH ×4 (05:22→23:22)
[2019-06-10] MEDS: GLIPIZIDE 5 MG TABLET PO SCH (09:42)
[2019-06-10] MEDS: GUAIFENESIN 600 MG TABLET.SA PO SCH ×2 (09:42→21:42)
[2019-06-10] MEDS: CHOLECALCIFEROL (D3) 1,000 UNIT (25 MCG) TABLET PO SCH (09:42)
[2019-06-10] MEDS: ASPIRIN 81 MG TABLET, ENT COATED PO SCH (09:43)
[2019-06-10] MEDS: ASCORBIC ACID 500 MG TABLET PO SCH ×2 (09:43→17:22)
[2019-06-10] MEDS: INSULIN LISPRO 100 UNIT/ML 3 ML VIAL SUBCUT SCH ×4 (09:43→21:43)
[2019-06-10] MEDS: DOCUSATE SODIUM 100 MG CAPSULE PO SCH (09:43)
[2019-06-10] MEDS: CETIRIZINE 10 MG TABLET PO SCH (09:43)
[2019-06-10] MEDS: FLUTICASONE/UMECLIDIN/VILANTER 100-62.5-25 MCG/DOSE IH SCH (09:44)
[2019-06-10] MEDS: ZINC SULFATE 220 MG CAPSULE PO SCH (09:44)
--- NOTE | 2019-06-10 10:43 | PDOC PROGRESS REPORT ---
Subjective Progress Note for:: 06/10/19 Subjective:: Patient is resting comfortably. She is about to have her echocardiogram. While explaining the tachycardia from several days ago she feels it was caused by the medicine. Likewise with her wheezing she thinks the Trelegy inhaler is causing the problem. Reason For Visit: A/C RESP FAILURE WITH HYPOXIA,COPD EXACERBATION, Physical Exam Vital Signs: Temp Pulse Resp BP Pulse Ox 98.2 F 81 20 146/79 H 97 06/10/19 07:41 06/10/19 07:41 06/10/19 07:41 06/10/19 07:41 06/10/19 07:56 Intake & Output 06/09/19 06/10/19 06/11/19 06:59 06:59 06:59 Intake Total 240 600 400 Balance 240 600 400 Weight 95.1 kg 93.2 kg General appearance: PRESENT: no acute distress, well-developed Head exam: PRESENT: atraumatic, normocephalic Eye exam: PRESENT: conjunctiva pink. ABSENT: scleral icterus Ear exam: PRESENT: normal external ear exam. ABSENT: bleeding, drainage Mouth exam: PRESENT: moist, tongue midline Neck exam: PRESENT: full ROM. ABSENT: JVD, lymphadenopathy Respiratory exam: PRESENT: unlabored, wheezes - Bilateral expiratory wheezes. ABSENT: accessory muscle use, rales, rhonchi, tachypnea Cardiovascular exam: PRESENT: RRR, +S1, +S2 GI/Abdominal exam: PRESENT: normal bowel sounds, soft. ABSENT: distended, g uarding, tenderness Rectal exam: PRESENT: deferred Gentrourinary exam: ABSENT: indwelling catheter Extremities exam: ABSENT: pedal edema Musculoskeletal exam: PRESENT: ambulatory, normal inspection. ABSENT: deformity Neurological exam: PRESENT: alert, awake, oriented to person, oriented to place, oriented to time, oriented to situation, CN II-XII grossly intact. ABSENT: altered Psychiatric exam: PRESENT: appropriate affect. ABSENT: agitated, anxious, unusual affect Focused psych exam: ABSENT: delusional, paranoid, restlessness Skin exam: PRESENT: dry, normal color, warm. ABSENT: rash Results Laboratory Results: 06/09/19 04:43 06/09/19 04:43 06/07/19 19:40 Throat Throat Culture - Final NORMAL RIDDHI 06/07/19 16:40 NT-Pro-B Natriuret Pep 4160 H Impressions: Chest X-Ray 06/07/19 16:04 IMPRESSION: Acute opacities in the inferior aspect of the left hemithorax that could represent a combination of pleural fluid, atelectasis and/or pneumonia. Assessment and Plan - Diagnosis (1) SVT (supraventricular tachycardia) Is this a current diagnosis for this admission?: Yes Plan: 06/10/2019 What was originally felt to be an atrial fibrillation with rapid ventricular res ponse was a supraventricular tachycardia. The patient has responded very well to diltiazem. Metoprolol would be an alternative choice. It was not effective initially and at this time we will continue with the diltiazem. (2) CHF (congestive heart failure) Qualifiers: Heart failure type: unspecified Is this a current diagnosis for this admission?: Yes Plan: Coronavirus testing was negative. She is not currently exacerbated and has responded well to Lasix. I think she has gotten a little too dry and this is why her blood pressure was little low, and also why her BUN and creatinine are elevated. I have stopped her Lasix and I am going to give her a little bit of gentle hydration overnight and see how she does in the morning. 06/10/2019 Blood pressures are better. Await echocardiogram to see if there is in fact heart failure. She remains in a positive fluid balance. We will check labo ratory studies tomorrow. (3) COPD exacerbation Is this a current diagnosis for this admission?: Yes Plan: Patient is admitted to the medical floor on continuous cardiac telemetry. Will provide supplemental oxygen as needed to maintain saturations greater than 89%. Start on scheduled and as needed albuterol MDI. Start daily increase. Provide prednisone p.o. Mucinex twice daily. Robitussin as needed. Pulmonary toilet is encouraged with incentive spirometer, flutter valve, and early ambulation. 06/08/2019 Because of her tachycardia and severe hyperglycemia and the fact that this may represent heart failure more than COPD I have discontinued the prednisone. She will continue on her Trelegy inhaler which does have an inhaled steroid. 06/10/2019 Continue Trelegy and albuterol inhalers (4) Diabetes Qualifiers: Diabetes mellitus type: type 2 Diabetes mellitus manager long term care insulin use: without skilled nursing use Diabetes mellitus complication status: with hyperglycemia Qualified Code(s): E11.65 - Type 2 diabetes mellitus with hyperglycemia Is this a current diagnosis for this admission?: Yes Plan: 06/10/2019 Accu-Cheks are still well above 150. I will increase her glipizide to 10 mg twice daily. Continue diabetic diet (5) Acute and chronic respiratory failure with hypoxia Is this a current diagnosis for this admission?: Yes Plan: 06/10/2019 Continue current regimen and our goal is to taper the patient back to room air. (6) Hypertension Qualifiers: Hypertension type: essential hypertension Qualified Code(s): I10 - Essential (primary) hypertension Is this a current diagnosis for this admission?: Yes Plan: 06/10/2019 Furosemide is currently on hold. Blood pressures are improved. Will consider increasing diltiazem to the 120 mg dose so that patient may take 1 tablet daily. (7) JACQUELIN (obstructive sleep apnea) Is this a current diagnosis for this admission?: Yes Plan: The patient needs evaluation on discharge. I believe she has been resistant to wearing CPAP in the past. Hopefully she will reconsider. (8) Patient is [employer] Is this a current diagnosis for this admission?: Yes Plan: Patient confirms that she is a DNR/DNI and would not want blood products if clinically indicated. (9) Suspected COVID-19 virus infection Is this a current diagnosis for this admission?: Yes Plan: 06/10/2019 Patient tested negative for Covid-19 virus. - Time Time Spent with patient: 15-24 minutes Anticipated discharge: Home
[2019-06-10 12:12] LABS: ABSOLUTE LYMPHOCYTES (AUTO) 2.3 10^3/uL (0.5-4.7); ABSOLUTE MONOCYTES (AUTO) 0.5 10^3/uL (0.1-1.4); ABSOLUTE NEUT (AUTO) 6.1 10^3/uL (1.7-8.2); BASOPHILS % (AUTO) 0.2 % (0-2); EOSINOPHILS % (AUTO) 0.1 % (0-6); HEMATOCRIT 36.3 % (36.0-47.0); HEMOGLOBIN 11.9 g/dL (12.0-15.5); LYMPHOCYTES % (AUTO) 26.2 % (13-45); MEAN CORPUSCULAR HEMOGLOBIN 29.2 pg (27.0-33.4); MEAN CORPUSCULAR HGB CONC 32.9 g/dL (32.0-36.0); MEAN CORPUSCULAR VOLUME 89 fl (80-97); MONOCYTES % (AUTO) 5.6 % (3-13); RED BLOOD COUNT 4.09 10^6/uL (3.72-5.28); RED CELL DISTRIBUTION WIDTH 15.1 % (11.5-14.0); SEGMENTED NEUTROPHILS % (AUTO) 67.9 % (42-78); TOTAL CELLS COUNTED % (AUTO) 100 %; WHITE BLOOD COUNT 8.9 10^3/uL (4.0-10.5)
[2019-06-10 12:38] LABS: PLATELET COUNT 329 10^3/uL (150-450)
[2019-06-10 12:40] LABS: ALBUMIN 3.9 g/dL (3.5-5.0); ANION GAP 10 (5-19); BLOOD UREA NITROGEN 38 mg/dL (7-20); CALCIUM 9.5 mg/dL (8.4-10.2); CARBON DIOXIDE 28 mmol/L (22-30); CHLORIDE 101 mmol/L (98-107); GLUCOSE 171 mg/dL (75-110); PHOSPHORUS 2.8 mg/dL (2.5-4.5); POTASSIUM 4.2 mmol/L (3.6-5.0)
--- NOTE | 2019-06-10 14:53 | PDOC CONSULTATION ---
Consultation Consult Date: 06/10/19 Provider Consulted: MOLLY OSULLIVAN Consult reason:: Tachycardia, dyspnea History of Present Illness Admission Date/PCP: 06/07/19 17:36 Patient complains of: Dyspnea History of Present Illness: ALLIE JACQUES is a 74 year old female With known history of reactive airway disease on bronchodilator therapy by inhalers presented with dyspnea. She had an episode of palpitations and was found to be in supraventricular tachycardia which responded to calcium channel blockers. She does not report any previous history of arrhythmia or palpita tions. No prior heart disease is reported. There is no report of congestive heart failure. No major surgeries reported. Patient presently does not report smoking. Past Medical History Cardiac Medical History: Reports: Coronary Artery Disease, Hypertension Denies: Myocardial Infarction Pulmonary Medical History: Reports: Asthma, Chronic Obstructive Pulmonary Disease (COPD) Denies: Bronchitis, Pneumonia Neurological Medical History: Denies: Ischemic CVA, Seizures Endocrine Medical History: Reports: Diabetes Mellitus Type 1, Diabetes Mellitus Type 2, Obesity GI Medical History: Reports: Gastroesophageal Reflux Disease Denies: Hepatitis, Hiatal Hernia Musculoskeltal Medical History: Reports: Arthritis - Rheumatoid arthritis Denies: Gout Psychiatric Medical History: Denies: Depression Hematology: Denies: Anemia, Sickle Cell Disease Past Surgical History Past Surgical History: Reports: Orthopedic Surgery - bilt knees Denies: Amputation, Hysterectomy, Mastectomy, Pacemaker Social History Lives with: Alone Smoking Status: Former Smoker Cigarettes Packs Per Day: 1.5 Number of Years Smokin Last Time Smoked: 1994 Frequency of Alcohol Use: None Hx Recreational Drug Use: No Drugs: None Hx Prescription Drug Abuse: No - Advance Directive Resuscitation Status: Do Not Intubate - DNR/DNI Family History Family History: Reviewed & Not Pertinent Parental Family History Reviewed: No - No familial illnesses Children Family History Reviewed: NA Sibling(s) Family History Reviewed.: NA Medication/Allergy Home Medications: Glipizide [Glucotrol 5 mg Tablet] 5 mg PO BIDACBS #60 tablet 02/20/16 Tofacitinib Citrate [Xeljanz] 5 mg PO DAILY 06/13/17 Folic Acid [Folvite 1 mg Tablet] 1 mg PO DAILY 08/01/17 Brimonidine Tartrate [Alphagan P] 5 ml OU BID 06/07/19 Fluticasone/Umeclidin/Vilanter [Trelegy 100-62.5-25 Mcg Ellipta 14 Dose/Dpi] 1 each DAILY 06/07/19 Allergies/Adverse Reactions: ibuprofen [From Motrin] Allergy (Intermediate, Verified 10/04/18 20:05) FACE SWELLING NSAIDS (Non-Steroidal Anti-Inflamma [Nsaids] Allergy (Mild, Verified 10/04/18 20:05) Review of Systems Cardiovascular: PRESENT: palpitations Respiratory: PRESENT: dyspnea Physical Exam Vital Signs: Temp Pulse Resp BP Pulse Ox 98.2 F 81 20 146/79 H 97 06/10/19 07:41 06/10/19 07:41 06/10/19 07:41 06/10/19 07:41 06/10/19 07:56 Intake & Output 06/09/19 06/10/19 06/11/19 06:59 06:59 06:59 Intake Total 240 600 400 Balance 240 600 400 Weight 95.1 kg 93.2 kg 93.2 kg General appearance: PRESENT: no acute distress, cooperative, obese, well- nourished Head exam: PRESENT: atraumatic, normocephalic Eye exam: PRESENT: conjunctiva pink, EOMI Respiratory exam: PRESENT: decreased breath sounds, prolonged expiratory phas, symmetrical, unlabored Cardiovascular exam: PRESENT: RRR, +S1, +S2 Neurological exam: PRESENT: alert, awake, oriented to person, oriented to place, oriented to time, oriented to situation Psychiatric exam: PRESENT: appropriate affect Skin exam: PRESENT: dry, intact, normal color Results Laboratory Results: 06/09/19 04:43 06/09/19 04:43 06/07/19 19:40 Throat Throat Culture - Final NORMAL RIDDHI 06/07/19 16:40 NT-Pro-B Natriuret Pep 4160 H EKG Comments: Twelve-lead EKG independently reviewed by me Sinus tachycardia 103 bpm, biatrial abnormality, nonspecific ST-T changes Telemetry strips show probable atrial tachycardia at 149 bpm. Impressions: Chest X-Ray 06/07/19 16:04 IMPRESSION: Acute opacities in the inferior aspect of the left hemithorax that could represent a combination of pleural fluid, atelectasis and/or pneumonia. Assessment & Plan - Diagnosis (1) SVT (supraventricular tachycardia) Is this a current diagnosis for this admission?: Yes Plan: Review of strips is suggestive of supraventricular tachycardia possibly atrial tachycardia in this lady with reactive airway disease and probable underlying sleep apnea as well. Agree with current use of diltiazem. This may help suppress triggers for rhythms like the one observed. Recommend outpatient evaluation for sleep apnea. (2) Acute exacerbation of chronic obstructive airways disease Is this a current diagnosis for this admission?: Yes Plan: Presently is not wheezing. On appropriate bronchodilator therapy. We will review echocardiogram.
[2019-06-10] MEDS: GLIPIZIDE 10 MG TABLET PO SCH (17:22)
[2019-06-10] MEDS: ATORVASTATIN CALCIUM 10 MG TABLET PO SCH (21:42)
[2019-06-10] MEDS: MELATONIN 3 MG TABLET PO SCH (21:42)
[2019-06-11] MEDS: DILTIAZEM HCL 30 MG TABLET PO SCH (06:01)
[2019-06-11] MEDS: ALBUTEROL SULFATE HFA (90 MCG/PUFF) 200 PUFF/8.5 GM MDI IH SCH ×4 (06:04→23:44)
[2019-06-11] MEDS: HEPARIN SOD (PORCINE) 5,000 UNIT/ML 1 ML VIAL SUBCUT SCH ×3 (06:04→22:23)
[2019-06-11] MEDS: INSULIN LISPRO 100 UNIT/ML 3 ML VIAL SUBCUT SCH ×4 (07:42→22:22)
[2019-06-11] MEDS: GLIPIZIDE 10 MG TABLET PO SCH ×2 (08:14→18:10)
[2019-06-11] MEDS: DOCUSATE SODIUM 100 MG CAPSULE PO SCH (10:19)
[2019-06-11] MEDS: FLUTICASONE/UMECLIDIN/VILANTER 100-62.5-25 MCG/DOSE IH SCH (10:22)
[2019-06-11] MEDS: CETIRIZINE 10 MG TABLET PO SCH (10:23)
[2019-06-11] MEDS: CHOLECALCIFEROL (D3) 1,000 UNIT (25 MCG) TABLET PO SCH (10:23)
[2019-06-11] MEDS: ZINC SULFATE 220 MG CAPSULE PO SCH (10:23)
[2019-06-11] MEDS: ASPIRIN 81 MG TABLET, ENT COATED PO SCH (10:23)
[2019-06-11] MEDS: ASCORBIC ACID 500 MG TABLET PO SCH ×2 (10:23→18:10)
[2019-06-11] MEDS: GUAIFENESIN 600 MG TABLET.SA PO SCH ×2 (10:23→22:22)
[2019-06-11] MEDS ORDERED: DILTIAZEM HCL 120 MG CAP.SR.24H PO ONE (11:30)
[2019-06-11] MEDS ORDERED: METOPROLOL TARTRATE PF/INJ 5 MG/5 ML SDV IV ONE ×2 (15:55→16:15)
--- NOTE | 2019-06-11 18:06 | EKG REPORT ---
SEVERITY:- ABNORMAL ECG - ATRIAL FLUTTER, A-RATE 333 : Confirmed by: Harry Wilde MD 11-Jun-2019 18:06:04
--- NOTE | 2019-06-11 18:08 | PDOC PROGRESS REPORT ---
Subjective Progress Note for:: 06/11/19 Subjective:: No adverse events overnight. No new complaints. Vital signs been stable. We switched her over to long-acting Cardizem today and she seemed to do fine with that and not get bradycardic or hypotensive, but she had an episode earlier where her heart rate spiked up into the 120s and 130s and required some IV metoprolol. Reason For Visit: A/C RESP FAILURE WITH HYPOXIA,COPD EXACERBATION, Physical Exam Vital Signs: Temp Pulse Resp BP Pulse Ox 98.4 F 93 16 109/53 L 93 06/11/19 07:37 06/11/19 14:00 06/11/19 07:37 06/11/19 07:37 06/11/19 07:37 Intake & Output 06/10/19 06/11/19 06/12/19 06:59 06:59 06:59 Intake Total 600 1380 Balance 600 1380 Weight 93.2 kg 93 kg General appearance: PRESENT: no acute distress, cooperative, well-developed Respiratory exam: PRESENT: clear to auscultation kyle, unlabored. ABSENT: accessory muscle use, prolonged expiratory phas, rales, rhonchi, wheezes Cardiovascular exam: PRESENT: +S1, +S2, RRR GI/Abdominal exam: PRESENT: normal bowel sounds, soft. ABSENT: distended, guarding, tenderness Extremities exam: ABSENT: pedal edema Musculoskeletal exam: PRESENT: ambulatory Neurological exam: PRESENT: alert, awake, oriented to person, oriented to place, oriented to time, oriented to situation Psychiatric exam: PRESENT: appropriate affect. ABSENT: agitated Focused psych exam: ABSENT: delusional, paranoid, restlessness Skin exam: PRESENT: dry, normal color, warm. Results Laboratory Results: 06/10/19 11:50 06/10/19 11:50 06/07/19 16:40 NT-Pro-B Natriuret Pep 4160 H Impressions: Chest X-Ray 06/07/19 16:04 IMPRESSION: Acute opacities in the inferior aspect of the left hemithorax that could represent a combination of pleural fluid, atelectasis and/or pneumonia. Assessment and Plan - Diagnosis (1) Atrial fibrillation with rapid ventricular response Is this a current diagnosis for this admission?: Yes Plan: Transitioned over to long-acting Cardizem today. It looked a lot like it was actually sinus rhythm with frequent PACs that went into SVT. She is on some Cardizem to help keep her rate under control. She did have another episode of tachycardia earlier and we were trying to break it with some IV metoprolol. Seems to be doing okay at this time but we will going to monitor her overnight. (2) CHF (congestive heart failure) Qualifiers: Heart failure type: unspecified Is this a current diagnosis for this admission?: Yes Plan: Coronavirus testing was negative. She is not currently exacerbated and has responded well to Lasix. I think she has gotten a little too dry and this is why her blood pressure was little low, and also why her BUN and creatinine are elevated. I have stopped her Lasix and I am going to give her a little bit of gentle hydration overnight and see how she does in the morning. 06/10/2019 Blood pressures are better. Await echocardiogram to see if there is in fact heart failure. She remains in a positive fluid balance. We will check laboratory studies tomorrow. 06/11/2019 No sign of acute exacerbation. Echocardiogram has been done but has not been read. She is on her usual level of home oxygen support with no signs of overload. Preliminary read on the echocardiogram looks like there is a preserved ejection fraction so Cardizem should be okay. (3) COPD (chronic obstructive pulmonary disease) Qualifiers: COPD type: unspecified COPD Qualified Code(s): J44.9 - Chronic obstructive pulmonary disease, unspecified Is this a current diagnosis for this admission?: Yes Plan: Not acutely exacerbated (4) Suspected COVID-19 virus infection Is this a current diagnosis for this admission?: Yes Plan: Coronavirus testing was negative (5) Acute and chronic respiratory failure with hypoxia Is this a current diagnosis for this admission?: Yes Plan: Resolved, stable on her usual level of oxygen support. - Time Time Spent with patient: 15-24 minutes
[2019-06-11] MEDS: MELATONIN 3 MG TABLET PO SCH ×2 (22:21→22:26)
[2019-06-11] MEDS: ATORVASTATIN CALCIUM 10 MG TABLET PO SCH (22:21)
[2019-06-12] MEDS: ALBUTEROL SULFATE HFA (90 MCG/PUFF) 200 PUFF/8.5 GM MDI IH SCH (05:46)
[2019-06-12] MEDS: HEPARIN SOD (PORCINE) 5,000 UNIT/ML 1 ML VIAL SUBCUT SCH (05:46)
[2019-06-12] MEDS: GLIPIZIDE 10 MG TABLET PO SCH (08:41)
[2019-06-12] MEDS ORDERED: IPRATROPIUM BROMIDE 0.02% NEB 0.5 MG/2.5 ML AMPUL NEB ONE (09:13)
[2019-06-12] MEDS ORDERED: LEVALBUTEROL HCL NEB 1.25 MG/3 ML AMPUL NEB ONE (09:13)
[2019-06-12] MEDS: INSULIN LISPRO 100 UNIT/ML 3 ML VIAL SUBCUT SCH (09:41)
[2019-06-12] MEDS: FLUTICASONE/UMECLIDIN/VILANTER 100-62.5-25 MCG/DOSE IH SCH (09:47)
[2019-06-12] MEDS: GUAIFENESIN 600 MG TABLET.SA PO SCH (09:48)
[2019-06-12] MEDS: DOCUSATE SODIUM 100 MG CAPSULE PO SCH (09:48)
[2019-06-12] MEDS: CHOLECALCIFEROL (D3) 1,000 UNIT (25 MCG) TABLET PO SCH (09:48)
[2019-06-12] MEDS: CETIRIZINE 10 MG TABLET PO SCH (09:48)
[2019-06-12] MEDS: ASCORBIC ACID 500 MG TABLET PO SCH (09:48)
[2019-06-12] MEDS: ASPIRIN 81 MG TABLET, ENT COATED PO SCH (09:48)
[2019-06-12] MEDS: ZINC SULFATE 220 MG CAPSULE PO SCH (09:49)
[2019-06-12] MEDS ORDERED: IPRATROPIUM BROMIDE 0.02% NEB 0.5 MG/2.5 ML AMPUL NEB PRN (09:54)
[2019-06-12] MEDS ORDERED: LEVALBUTEROL HCL NEB 1.25 MG/3 ML AMPUL NEB PRN (09:54)
[2019-06-12] MEDS ORDERED: DILTIAZEM HCL 120 MG CAP.SR.24H PO SCH (10:10)
[2019-06-12 11:16] VITALS: BP 119/81
--- NOTE | 2019-06-12 12:49 | XCELERA REPORT ---
[address] [address] Transthoracic Echocardiogram Report Name: ALLIE JACQUES Age: 74 yrs Gender: Female : 1945 Patient Status: Inpatient Patient Location: [address] [place] [address] Study Date: 06/10/2019 10:33 AM History: Atrial fibrillation COPD Height: 65 in Weight: 205 lb BSA: 2.0 m2 Procedure: A complete two-dimensional transthoracic echocardiogram was performed (2D, M-mode, spectral and color flow Doppler). The study was technically difficult with many images being suboptimal in quality. Reason For Study: CHF Previous echo 2016 H Previous Evaluation: No previous studies were available. History: Shortness of breath. Atrial fibrillation. Ordering Physician: GOOD RUFFIN Performed By: Interpretation Summary Atrial fibrillation Left ventricular systolic function is normal. The Ejection Fraction estimate is 55-60% The right ventricle is normal in size and function. There is a trace amount of mitral regurgitation There is no aortic valve stenosis There is a trace amount of tricuspid regurgitation There is no pericardial effusion. MMode/2D Measurements & Calculations RVDd: 3.1 cm LVIDd: 3.9 cm FS: 28.7 % Ao root diam: 2.5 cm IVSd: 1.0 cm LVIDs: 2.8 cm EDV(Teich): 64.8 ml Ao root area: 4.7 cm2 LVPWd: 1.0 cm ESV(Teich): 28.6 ml LA dimension: 3.0 cm EF(Teich): 55.9 % Doppler Measurements & Calculations MV E max teresa: MV P1/2t max teresa: Ao V2 max: LV V1 max P.0 cm/sec 79.0 cm/sec 132.3 cm/sec 4.3 mmHg MV A max teresa: MV P1/2t: 75.3 msec Ao max PG: LV V1 max: 93.3 cm/sec MVA(P1/2t): 2.9 cm2 7.0 mmHg 103.2 cm/sec MV E/A: 0.85 MV dec slope: 307.2 cm/sec2 MV dec time: 0.26 sec PA V2 max: PI end-d teresa: TR max teresa: MV P1/2t-pr_phl: 71.1 cm/sec 143.3 cm/sec 219.4 cm/sec 75.3 msec PA max PG: TR max P.0 mmHg 19.2 mmHg Left Ventricle The left ventricle is grossly normal size. There is mild concentric left ventricular hypertrophy. Left ventricular systolic function is normal. The Ejection Fraction estimate is 55-60%. Doppler measurements suggest impaired left ventricular relaxation, which is associated with grade I/IV or mild diastolic dysfunction. No regional wall motion abnormalities noted. Right Ventricle The right ventricle is normal in size and function. Atria The right atrium is normal. The left atrium is borderline dilated. Mitral Valve The mitral valve is grossly normal. There is a trace amount of mitral regurgitation. Aortic Valve The aortic valve opens well. The aortic valve is sclerotic, but shows no functional abnormality. The aortic valve is trileaflet. There is no aortic valve stenosis. No aortic regurgitation is present. Tricuspid Valve The tricuspid valve is normal in structure and function. There is a trace amount of tricuspid regurgitation. Tricuspid regurgitation jet envelope not well defined to measure RV systolic pressure accurately. Doppler findings do not suggest pulmonary hypertension. Pulmonic Valve The pulmonic valve is not well seen, but is grossly normal. There is a mild amount of pulmonic regurgitation. Great Vessels The aortic root is normal size. The inferior vena cava appeared normal and decreased > 50% with respiration (RAP 5-10 mmHg). Effusions There is no pericardial effusion. : GOOD RUFFIN Anil
--- NOTE | 2019-06-12 14:45 | PDOC DISCHARGE SUMMARY ---
Impression - Admit/DC Date/PCP Admission Date/Primary Care Provider: 06/07/19 17:36 Discharge Date: 06/12/19 - Discharge Diagnosis (1) Atrial fibrillation with rapid ventricular response Is this a current diagnosis for this admission?: Yes (2) CHF (congestive heart failure) Is this a current diagnosis for this admission?: Yes (3) COPD (chronic obstructive pulmonary disease) Is this a current diagnosis for this admission?: Yes (4) Suspected COVID-19 virus infection Is this a current diagnosis for this admission?: Yes (5) Acute and chronic respiratory failure with hypoxia Is this a current diagnosis for this admission?: Yes - Additional Information Resuscitation Status: Do Not Intubate - DNR/DNI Discharge Diet: Cardiac, Diabetic Discharge Activity: Activity As Tolerated, Balance Activity w/Rest, Weigh Daily Referrals: [facility] [Provider Group] Prescriptions: Diltiazem HCl [Cardizem Cd 120 mg Capsule] 120 mg PO DAILY #30 cap.sr.24h Midodrine HCl [Proamatine 5 mg Tablet] 5 mg PO TIDP PRN #90 tablet PRN Reason: Home Medications: Glipizide [Glucotrol 5 mg Tablet] 5 mg PO BIDACBS #60 tablet 02/20/16 Tofacitinib Citrate [Xeljanz] 5 mg PO DAILY 06/13/17 Folic Acid [Folvite 1 mg Tablet] 1 mg PO DAILY 08/01/17 Brimonidine Tartrate [Alphagan P] 5 ml OU BID 06/07/19 Fluticasone/Umeclidin/Vilanter [Trelegy 100-62.5-25 Mcg Ellipta 14 Dose/Dpi] 1 each DAILY 06/07/19 Diltiazem HCl [Cardizem Cd 120 mg Capsule] 120 mg PO DAILY #30 cap.sr.24h 06/12/19 Midodrine HCl [Proamatine 5 mg Tablet] 5 mg PO TIDP PRN #90 tablet 06/12/19 History of Present Illiness History of Present Illness: ALLIE JACQUES is a 74 year old female with a past medical history of COPD, chronic respiratory failure who is home O2 dependent, CAD, hypertension, DM 2, and rheumatoid arthritis who presents to the emergency department with a 10-day history of progressively worsening shortness of breath, productive cough, now with hemoptysis. She also reports posttussive emesis and generalized body aches. She reports chills but has not felt feverish and has not checked her temperature at home. Evaluation in the emergency department revealed low-grade temp of 100.0, heart rate 106, soft blood pressure 99/79, respiratory rate of 24, and 88% on 3 L/min (her home O2 level). She is noted to have leukocytosis with WBCs 13.8, mild hyponatremia, glucose 286, and proBNP 4k. Influenza, COVID 19 are pending. CXR demonstrated obesities to the inferior aspect of the left hemithorax representing pleural effusion atelectasis/pneumonia. Patient was provided 1 L normal saline bolus and supplemental oxygen. She is referred to the hospitalist service for admission and management of the above-stated complaints findings. Hospital Course Hospital Course: For some reason she was tested for coronavirus, but the testing was negative. She responded to diuretics and we actually had to take her off Lasix give a little bit of fluids because she got a little dry. Her echocardiogram was fairly unremarkable with a normal ejection fraction. Cardiology was consulted and they felt that she had sinus rhythm with frequent PACs and that she went into SVT and that that is what triggered this presentation. We put her on a little bit of diltiazem and actually had to cut the dose back some because it made her heart rate dropped a little bit made her blood pressure dropped a little bit, but adjusting her dose kept her in a good heart rate range without affecting her blood pressure very much. She was put on Midrin because her blood pressure was a little bit low, but we told her this was something that she may not have to be on permanently. She will have follow-up scheduled with Dr. Reich within 2 weeks. Her labs and examination were reassuring and she was discharged in stable condition. Physical Exam Vital Signs: Temp Pulse Resp BP Pulse Ox 97.4 F 82 16 119/81 91 L 06/12/19 11:14 06/12/19 11:14 06/12/19 11:14 06/12/19 11:14 06/12/19 11:14 Intake & Output 06/11/19 06/12/19 06/13/19 06:59 06:59 06:59 Intake Total 1380 720 Balance 1380 720 Weight 93 kg 92.9 kg General appearance: PRESENT: no acute distress, cooperative, well-developed Respiratory exam: PRESENT: clear to auscultation kyle, unlabored. ABSENT: ac cessory muscle use, prolonged expiratory phas, rales, rhonchi, wheezes Cardiovascular exam: PRESENT: +S1, +S2, RRR GI/Abdominal exam: PRESENT: normal bowel sounds, soft. ABSENT: distended, guarding, tenderness Extremities exam: ABSENT: pedal edema Musculoskeletal exam: PRESENT: ambulatory Neurological exam: PRESENT: alert, awake, oriented to person, oriented to place, oriented to time, oriented to situation Psychiatric exam: PRESENT: appropriate affect. ABSENT: agitated Focused psych exam: ABSENT: delusional, paranoid, restlessness Skin exam: PRESENT: dry, normal color, warm. Results Laboratory Results: WBC 8.9 10^3/uL (4.0-10.5) 06/10/19 11:50 RBC 4.09 10^6/uL (3.72-5.28) 06/10/19 11:50 Hgb 11.9 g/dL (12.0-15.5) L 06/10/19 11:50 Hct 36.3 % (36.0-47.0) 06/10/19 11:50 MCV 89 fl (80-97) 06/10/19 11:50 MCH 29.2 pg (27.0-33.4) 06/10/19 11:50 MCHC 32.9 g/dL (32.0-36.0) 06/10/19 11:50 RDW 15.1 % (11.5-14.0) H 06/10/19 11:50 Plt Count 329 10^3/uL (150-450) 06/10/19 11:50 Lymph % (Auto) 26.2 % (13-45) 06/10/19 11:50 Bailey % (Auto) 5.6 % (3-13) 06/10/19 11:50 Eos % (Auto) 0.1 % (0-6) 06/10/19 11:50 Baso % (Auto) 0.2 % (0-2) 06/10/19 11:50 Absolute Neuts (auto) 6.1 10^3/uL (1.7-8.2) 06/10/19 11:50 Absolute Lymphs (auto) 2.3 10^3/uL (0.5-4.7) 06/10/19 11:50 Absolute Monos (auto) 0.5 10^3/uL (0.1-1.4) 06/10/19 11:50 Absolute Eos (auto) 0.0 10^3/uL (0.0-0.6) 06/10/19 11:50 Absolute Basos (auto) 0.0 10^3/uL (0.0-0.2) 06/10/19 11:50 Seg Neutrophils % 67.9 % (42-78) 06/10/19 11:50 D-Dimer 18.17 ug/mL (0.00-0.50) H 06/07/19 16:11 Sodium 139.1 mmol/L (137-145) 06/10/19 11:50 Potassium 4.2 mmol/L (3.6-5.0) 06/10/19 11:50 Chloride 101 mmol/L (98-107) 06/10/19 11:50 Carbon Dioxide 28 mmol/L (22-30) 06/10/19 11:50 Anion Gap 10 (5-19) 06/10/19 11:50 BUN 38 mg/dL (7-20) H 06/10/19 11:50 Creatinine 0.87 mg/dL (0.52-1.25) 06/10/19 11:50 Est GFR ( Amer) > 60 (>60) 06/10/19 11:50 Est GFR (MDRD) Non-Af > 60 (>60) 06/10/19 11:50 Glucose 171 mg/dL (75-110) H 06/10/19 11:50 POC Glucose 134 mg/dL (70-110) H 06/12/19 07:48 Hemoglobin A1c % 8.5 % (4.7-6.0) H 06/08/19 03:57 Lactic Acid 1.5 mmol/L (0.7-2.1) 06/07/19 17:40 Calcium 9.5 mg/dL (8.4-10.2) 06/10/19 11:50 Phosphorus 2.8 mg/dL (2.5-4.5) 06/10/19 11:50 Magnesium 2.4 mg/dL (1.6-2.3) H 06/10/19 11:50 Ferritin 1840.00 ng/mL (11.1-264.0) H 06/07/19 16:11 Total Bilirubin 0.5 mg/dL (0.2-1.3) 06/07/19 16:11 Direct Bilirubin 0.0 mg/dL (0.0-0.4) 06/07/19 16:11 Neonat Total Bilirubin Not Reportable 06/07/19 16:11 Neonat Direct Bilirubin Not Reportable 06/07/19 16:11 Neonat Indirect Bili Not Reportable 06/07/19 16:11 AST 95 U/L (14-36) H 06/07/19 16:11 ALT 46 U/L (<35) H 06/07/19 16:11 Alkaline Phosphatase 90 U/L (38-126) 06/07/19 16:11 C-Reactive Protein 278.5 mg/L (<10.0) H 06/07/19 16:11 NT-Pro-B Natriuret Pep 4160 pg/mL (<450) H 06/07/19 16:40 Total Protein 6.8 g/dL (6.3-8.2) 06/07/19 16:11 Albumin 3.9 g/dL (3.5-5.0) 06/10/19 11:50 Urine Color STRAW 06/08/19 05:45 Urine Appearance CLEAR 06/08/19 05:45 Urine pH 5.0 (5.0-9.0) 06/08/19 05:45 Ur Specific Steinauer 1.005 06/08/19 05:45 Urine Protein NEGATIVE mg/dL (NEGATIVE) 06/08/19 05:45 Urine Glucose (UA) >=500 mg/dL (NEGATIVE) H 06/08/19 05:45 Urine Ketones NEGATIVE mg/dL (NEGATIVE) 06/08/19 05:45 Urine Blood NEGATIVE (NEGATIVE) 06/08/19 05:45 Urine Nitrite NEGATIVE (NEGATIVE) 06/08/19 05:45 Urine Bilirubin NEGATIVE (NEGATIVE) 06/08/19 05:45 Urine Urobilinogen NEGATIVE mg/dL (<2.0) 06/08/19 05:45 Ur Leukocyte Esterase NEGATIVE (NEGATIVE) 06/08/19 05:45 Urine WBC (Auto) 0 /HPF 06/08/19 05:45 Urine RBC (Auto) 1 /HPF 06/08/19 05:45 U Hyaline Cast (Auto) 3 /LPF 06/08/19 05:45 Squamous Epi Cells Auto <1 /HPF 06/08/19 05:45 Urine Mucus (Auto) RARE /LPF 06/08/19 05:45 Urine Ascorbic Acid NEGATIVE (NEGATIVE) 06/08/19 05:45 COVID-19 Source NASOPHARYNGEAL 06/07/19 19:36 COVID-19 (NING) NOT DETECTED 06/07/19 19:36 Influenza A (Rapid) NEGATIVE (NEGATIVE) 06/07/19 18:34 Influenza B (Rapid) NEGATIVE (NEGATIVE) 06/07/19 18:34 Group A Strep Rapid NEGATIVE (NEGATIVE) 06/07/19 17:40 06/07/19 16:40 NT-Pro-B Natriuret Pep 4160 H Impressions: Chest X-Ray 06/07/19 16:04 IMPRESSION: Acute opacities in the inferior aspect of the left hemithorax that could represent a combination of pleural fluid, atelectasis and/or pneumonia. Plan Time Spent: Greater than 30 Minutes Stroke Is this a Stroke Patient?: No Acute Heart Failure - Is this a Heart Failure Patient?: No
== END 2019-06-12 11:20 | disposition home or self-care (01) | DRG 308 ==
LOC: ER 16:02 → EH 17:36 → 5 06-08 02:11 → 3S 06-09 18:53
PROVIDERS: ADMIT Internal Medicine; ATTEND Family Medicine
DX: I47.1 Supraventricular tachycardia (principal); J96.21 Acute and chronic respiratory failure with hypoxia; J44.1 Chronic obstructive pulmonary disease with (acute) exacerbation; I11.0 Hypertensive heart disease with heart failure; I50.9 Heart failure, unspecified; E11.65 Type 2 diabetes mellitus with hyperglycemia; I48.91 Unspecified atrial fibrillation; I25.10 Atherosclerotic heart disease of native coronary artery without angina pectoris; K21.9 Gastro-esophageal reflux disease without esophagitis; M06.9 Rheumatoid arthritis, unspecified; G47.33 Obstructive sleep apnea (adult) (pediatric); Z66 Do not resuscitate; Z60.2 Problems related to living alone; Z99.81 Dependence on supplemental oxygen; Z03.818 Encounter for observation for suspected exposure to other biological agents ruled out; Z79.84 Long term (current) use of oral hypoglycemic drugs; Z79.51 Long term (current) use of inhaled steroids; Z79.899 Other long term (current) drug therapy
CPT/HCPCS: 36415; 71045; 80048; 80053; 80069; 81001; 82728; 82962; 83036; 83605; 83735; 83880; 85025; 85379; 86140; 87040; 87070; 87635; 87804; 87880; 93005; 93010; 93306; 94667; 94799; 99285; J1644; J1815; J1940; J3490; J7030; J7512

== ENCOUNTER 2019-07-06 08:59 | Emergency (ER) | payer MEDICARE, MEDICAID ==
[2019-07-06] MEDS ORDERED: DILTIAZEM HCL 120 MG CAP.SR.24H PO ONE (09:41)
[2019-07-06 10:04] LABS: ABSOLUTE BASOPHILS # (AUTO) 0.1 10^3/uL (0.0-0.2); ABSOLUTE EOSINOPHILS # (AUTO) 0.1 10^3/uL (0.0-0.6); ABSOLUTE LYMPHOCYTES (AUTO) 1.7 10^3/uL (0.5-4.7); ABSOLUTE MONOCYTES (AUTO) 0.4 10^3/uL (0.1-1.4); ABSOLUTE NEUT (AUTO) 6.5 10^3/uL (1.7-8.2); EOSINOPHILS % (AUTO) 0.7 % (0-6); HEMATOCRIT 35.9 % (36.0-47.0); HEMOGLOBIN 11.7 g/dL (12.0-15.5); LYMPHOCYTES % (AUTO) 19.1 % (13-45); MEAN CORPUSCULAR HEMOGLOBIN 28.8 pg (27.0-33.4); MEAN CORPUSCULAR HGB CONC 32.6 g/dL (32.0-36.0); MEAN CORPUSCULAR VOLUME 89 fl (80-97); MONOCYTES % (AUTO) 4.7 % (3-13); PLATELET COUNT 189 10^3/uL (150-450); RED BLOOD COUNT 4.05 10^6/uL (3.72-5.28); RED CELL DISTRIBUTION WIDTH 16.8 % (11.5-14.0); SEGMENTED NEUTROPHILS % (AUTO) 74.5 % (42-78); TOTAL CELLS COUNTED % (AUTO) 100 %; WHITE BLOOD COUNT 8.7 10^3/uL (4.0-10.5)
[2019-07-06 10:09] LABS: INTERNATIONAL RATION (INR) 1.02; PROTHROMBIN TIME 13.4 SEC (11.4-15.4)
[2019-07-06] MEDS: MAGNESIUM SULFATE/D5W 1 GM/100 ML RTUPB IV SCH ×2 (10:22→10:38)
--- NOTE | 2019-07-06 10:41 | RADIOLOGY REPORT (SQ) ---
EXAM DESCRIPTION: CHEST SINGLE VIEW IMAGES COMPLETED DATE/TIME: 07/06/2019 10:23 am REASON FOR STUDY: bed 5 difficulty breathing COMPARISON: 06/07/2019 NUMBER OF VIEWS: One view. TECHNIQUE: Single frontal radiographic image of the chest acquired. LIMITATIONS: None. FINDINGS: LUNGS AND PLEURA: Stable appearance. Persistent linear opacities in the right upper lobe. Persistent blunting of both costophrenic angles left greater than right. MEDIASTINUM AND HILAR STRUCTURES: Stable in appearance. Fullness in the right hilar region. Most li cathy secondary to prominent pulmonary artery. HEART AND VASCULAR STRUCTURES: Normal size. No failure. BONES: No acute findings. HARDWARE: None in the chest. OTHER: No other significant finding. IMPRESSION: No interval change in the chest. Probable scarring in the right upper lobe and both eduardo g bases. TECHNICAL DOCUMENTATION: JOB ID: [id number] 2010 [employer]- All Rights Reserved Reading location - IP/workstation name: [email or web address]
[2019-07-06 11:39] LABS: ALBUMIN 3.6 g/dL (3.5-5.0); ALKALINE PHOSPHATASE 97 U/L (38-126); ANION GAP 7 (5-19); ASPARTATE AMINO TRANSFERASE 23 U/L (14-36); BILIRUBIN,DIRECT 0.1 mg/dL (0.0-0.4); BILIRUBIN,TOTAL 1.1 mg/dL (0.2-1.3); BLOOD UREA NITROGEN 13 mg/dL (7-20); CALCIUM 9.2 mg/dL (8.4-10.2); CARBON DIOXIDE 28 mmol/L (22-30); CHLORIDE 96 mmol/L (98-107); CREATINE KINASE 64 U/L (30-135); GLUCOSE 366 mg/dL (75-110); POTASSIUM 3.9 mmol/L (3.6-5.0); TOTAL PROTEIN 7.1 g/dL (6.3-8.2)
[2019-07-06 11:49] LABS: CREATINE KINASE MB 0.77 ng/mL (<4.55); NT PRO BNP 321 pg/mL (<450)
[2019-07-06 11:50] LABS: TROPONIN I < 0.012 ng/mL
[2019-07-06 12:11] LABS: APPEARANCE,URINE CLEAR; BILIRUBIN,URINE NEGATIVE (NEGATIVE); COLOR,URINE YELLOW; GLUCOSE, URINE >=1000 mg/dL (NEGATIVE); KETONES,URINE 25 mg/dL (NEGATIVE); LEUKOCYTE ESTERASE,URINE NEGATIVE (NEGATIVE); NITRITE,URINE NEGATIVE (NEGATIVE); PROTEIN,URINE NEGATIVE (NEGATIVE); UROBILINOGEN,URINE NEGATIVE mg/dL (<2.0)
--- NOTE | 2019-07-06 12:46 | RADIOLOGY REPORT (SQ) ---
EXAM DESCRIPTION: FEMUR RIGHT IMAGES COMPLETED DATE/TIME: 07/06/2019 12:36 pm REASON FOR STUDY: Right femoral pain COMPARISON: None. NUMBER OF VIEWS: Two views. TECHNIQUE: Two radiographic images acquired of the right femur to include hip and knee in at least o ne projection. LIMITATIONS: None. FINDINGS: MINERALIZATION: Normal. BONES: No acute fracture or dislocation. No worrisome bone lesions. Prior total knee arthroplasty. SOFT TISSUES: No obvious swelling or foreign body. OTHER: Degenerative changes in the right hip. IMPRESSION: No acute findings involving right femur. TECHNICAL DOCUMENTATION: JOB ID: [id number] [employer]- All Rights Reserved Reading location - IP/workstation name: [email or web address]
--- NOTE | 2019-07-06 12:47 | RADIOLOGY REPORT (SQ) ---
EXAM DESCRIPTION: TIBIA FIBULA RIGHT IMAGES COMPLETED DATE/TIME: 07/06/2019 12:37 pm REASON FOR STUDY: PAIN COMPARISON: None. NUMBER OF VIEWS: Two views. TECHNIQUE: Two radiographic images acquired of the right tibia and fibula to include the knee and an kle in at least one projection. LIMITATIONS: None. FINDINGS: MINERALIZATION: Normal. BONES: No acute fracture or dislocation. No worrisome bone lesions. SOFT TISSUES: No obvious swelling or foreign body. OTHER: Prior total knee arthroplasty. IMPRESSION: No acute findings. TECHNICAL DOCUMENTATION: JOB ID: [id number] 2010 [employer]- All Rights Reserved Reading location - IP/workstation name: [email or web address]
[2019-07-06] MEDS ORDERED: ACETAMINOPHEN 325 MG TABLET PO ONE (13:16)
--- NOTE | 2019-07-06 14:42 | RADIOLOGY REPORT (SQ) ---
EXAM DESCRIPTION: VENOUS UNILATERAL LOWER IMAGES COMPLETED DATE/TIME: 07/06/2019 2:27 pm REASON FOR STUDY: RIGHT LOWER LEG PAIN COMPARISON: None. TECHNIQUE: Dynamic and static mejia scale and color images acquired of the right leg venous system. S elected spectral images acquired with additional compression and augmentation maneuvers. The contrala teral common femoral vein and saphenofemoral junction were also imaged. Images stored on PACS. LIMITATIONS: None. FINDINGS: COMMON FEMORAL: Normal phasicity, compression and augmentation. No visualized echogenic ma terial on mejia scale. No defects on color images. FEMORAL: Normal compression and augmentation. No visualized echogenic material on mejia scale. No defe cts on color images. POPLITEAL: Normal compression, augmentation. No visualized echogenic material on mejia scale. No defec ts on color images. CALF VESSELS: Normal compression, augmentation. No visualized echogenic material on mejia scale. No de fects on color images. GSV and SSV: Normal compression, augmentation. No visualize echogenic material lung grayscale. No d efects on color images. ANY DEEP VENOUS INSUFFICIENCY: Not evaluated. ANY EVIDENCE OF POPLITEAL CYST: No. OTHER: No other significant finding. CONTRALATERAL COMMON FEMORAL VEIN AND SAPHENOFEMORAL JUNCTION: Normal phasicity, compression and augmentation. No visualized echogenic material on mejia scale. No de fects on color images. IMPRESSION: NO EVIDENCE DVT OR SVT IN THE RIGHT LEG. TECHNICAL DOCUMENTATION: JOB ID: [id number] 2010 [employer]- All Rights Reserved Reading location - IP/workstation name: [email or web address]
--- NOTE | 2019-07-06 14:45 | ER Document Report ---
Entered by SHAILESH STEELE SCRIBE 07/06/19 0916 Acting as scribe for:PAVITHRA RENO MD ED General - General Chief Complaint: Leg Pain Stated Complaint: DIFFICULTY BREATHING Information source: Patient, Emergency Med Personnel Notes: This 74-year-old female with atrial fibrillation presents to the emergency de partment complaining of right leg pain that began this morning. Patient states that her "entire leg hurts". Patient states that she couldn't move her leg this morning due to pain so she called EMS. Upon EMS arrival, EMS reports wheezing and difficulty breathing. EMS administered three breathing treatments, 125 IV solumed and 975 mg Tylenol. Patient had a low-grade fever of 100.9 en route. Patient reports left-sided headache which "makes my left eye flutter". Patient denies any trauma to her right leg. TRAVEL OUTSIDE OF THE [place] IN LAST 30 DAYS: No - Related Data Allergies/Adverse Reactions: ibuprofen [From Motrin] Allergy (Intermediate, Verified 07/06/19 09:34) FACE SWELLING NSAIDS (Non-Steroidal Anti-Inflamma [Nsaids] Allergy (Mild, Verified 07/06/19 09:34) Past Medical History - General Information source: Patient - Social History Smoking Status: Former Smoker Cigarette use (# per day): No Chew tobacco use (# tins/day): No Frequency of alcohol use: Rare Drug Abuse: None Lives with: Alone Family History: Reviewed & Not Pertinent - Past Medical History Cardiac Medical History: Reports: Hx Coronary Artery Disease, Hx Hypertension Pulmonary Medical History: Reports: Hx Asthma, Hx COPD Endocrine Medical History: Reports: Hx Diabetes Mellitus Type 1, Hx Diabetes Padmaja litus Type 2 GI Medical History: Reports: Hx Gastroesophageal Reflux Disease Musculoskeletal Medical History: Reports Hx Arthritis - Rheumatoid arthritis Past Surgical History: Reports: Hx Orthopedic Surgery - bilt knees - Immunizations Hx Diphtheria, Pertussis, Tetanus Vaccination: Yes Hx Pneumococcal Vaccination: 12/25/14 Review of Systems - Review of Systems Constitutional: See HPI, Fever EENT: No symptoms reported Cardiovascular: No symptoms reported Respiratory: See HPI, Wheezing Gastrointestinal: No symptoms reported Genitourinary: No symptoms reported Female Genitourinary: No symptoms reported Musculoskeletal: See HPI, Other - Right leg pain Skin: No symptoms reported Hematologic/Lymphatic: No symptoms reported Neurological/Psychological: See HPI, Headaches -: Yes All other systems reviewed and negative Physical Exam - Vital signs Vitals: Temp 98.7 F 07/06/19 09:00 - Notes Notes: Physical Exam: General: Alert, appears paranoid. HEENT: Normocephalic. Atraumatic. PERRL. Extraocular movements intact. Oropharynx clear. Neck: Supple. Non-tender. Respiratory: No respiratory distress. Faint wheeze bilaterally. Cardiovascular: Tachycardic rate and normal rhythm. Abdominal: Normal Inspection. Non-tender. No distension. Normal Bowel Sounds. Back: No gross abnormalities. Extremities: Moves all four extremities. Upper extremities: Normal inspection. Normal ROM. Lower extremities: No edema. Normal ROM. Pain with movement with right leg. Neurological: Normal cognition. AAOx4. Normal speech. Psychological: Paranoid. Skin: Warm. Dry. Normal color. Course - Re-evaluation Re-evalutation: 07/06/19 14:35 Patient resting comfortably not showing signs of distress at this time. No shor tness of breath and no chest pain and atrial fever is under control with a heart rate of 80 and a normal sinus rhythm at this time. - Vital Signs Vital signs: Temp Pulse Resp BP Pulse Ox 98.5 F 25 H 105/53 L 98 07/06/19 11:35 07/06/19 14:00 07/06/19 11:00 07/06/19 14:00 - Laboratory Result Diagrams: 07/06/19 09:39 07/06/19 11:09 Laboratory results interpreted by me: 07/06/19 07/06/19 07/06/19 09:39 09:39 11:09 Hgb 11.7 L Hct 35.9 L RDW 16.8 H APTT 23.0 L Sodium 130.5 L Chloride 96 L Glucose 366 H Urine Glucose (UA) Urine Ketones 07/06/19 11:45 Hgb Hct RDW APTT Sodium Chloride Glucose Urine Glucose (UA) >=1000 H Urine Ketones 25 H Laboratories show a glucose of 366 otherwise no other acute problem - Diagnostic Test Radiology reviewed: Image reviewed, Reports reviewed Radiology results interpreted by me: 07/06/19 14:36 Ultrasound of right lower leg shows no DVT. Chest x-ray 07/06/19 14:39 Chest x-ray shows scarring in the right upper lobe and both lung bases no change from previous chest x-ray. 07/06/19 14:39 X-ray right femur arthritis in right hip area otherwise no acute process X-ray right tib-fib shows no acute process patient does have arthroPLASTYy prior surgery of right knee 07/06/19 14:41 - EKG Interpretation by Me Additional EKG results interpreted by me: 07/06/19 09:17 Twelve-lead EKG shows atrial fibrillation with a ventricular rate of 104 nonspecific intraventricular conduction delay. 07/06/19 14:41 Repeat twelve-lead EKG shows normal sinus rhythm rate of 80 right atrial enlargement and biatrial abnormalities on EKG. Discharge - Discharge Clinical Impression: COPD exacerbation, Diabetes, Atrial fibrillation with rapid ventricular response, Chronic left hip pain Condition: Good Disposition: HOME, SELF-CARE Additional Instructions: Arthritis Your symptoms are due to arthritis. Arthritis is an inflammation of the joints. There are many types -- osteoarthritis (due to "wear and tear"), auto- immmune arthritis (such as rheumatoid, lupus, Lizeth's, and others), and hemanth charley-induced arthritis (such as gout and pseudogout). The physician's examination, combined with laboratory tests, will determine the cause of your arthritis. All types of arthritis are treated with antiinflammatory medications. Other medication may be required for special types of arthritis, or if your problem does not respond to the antiinflammatory medicine. Local warmth may be helpful. Move the involved joints through the full range of motion daily. Mild exercise is usually still possible for most persons with arthritis (ask your physician). Swimming provides good exercise without damaging the joints. Contact the physician if you are worsening in any way.Chronic Obstructive Lung Disease You have chronic obstructive lung disease (COPD). The symptoms come from e mphysema (damage to small airways, with trapping of air in large sacks in the lung) and chronic bronchitis (repeated infection and damage to larger airways). The cause is almost always cigarette smoking, although dust exposure, asthma, and infections contribute. You should avoid fumes, dust, and smoke (especially tobacco smoke). Your condition will flare from time to time. There is no cure, but the symptoms can be treated. Bronchodilators (asthma medicine) are often helpful. Antibiotics help when infection is present. When shortness of breath is severe, we may prescribe cortisone medication. If medicine doesn't help enough, we can arrange for you to have an oxygen tank at home. Notify your doctor at once if sputum becomes thick, foul, or bloody, if you develop a fever or chest pain, or if your shortness of breath worsens.Atrial Fibrillation Atrial fibrillation is an abnormal heart rhythm, caused by irregular electrical circuits in the upper heart chamber. It can be caused by heart valve disease, hardening of the arteries, or metabolic problems such as thyroid disease, or may occur without a clear cause. Atrial fibrillation may occur only occasionally, or may be chronic. Atrial fibrillation often results in a very fast heart rate, with palpitations, lightheadedness, and shortness of breath. Treatment is to slow the abnormally fast rate, and to convert the rhythm back to normal, if possible. Many patients stay in atrial fibrillation for years without symptoms or complications. Your doctor will decide whether you can be converted back to a n ormal heart rhythm. Contact the doctor or emergency medical system at once if you develop chest pain, shortness of breath, or severe lightheadedness, or if you develop any disturbance of consciousness, problems with speech, or localized weakness. Continue your same medications no additional medications required at this time. I personally performed the services described in the documentation, reviewed and edited the documentation which was dictated to the scribe in my presence, and it accurately records my words and actions.
[2019-07-06 15:14] VITALS: BP 125/89
--- NOTE | 2019-07-07 08:33 | EKG REPORT ---
SEVERITY:- ABNORMAL ECG - SINUS RHYTHM RAA, CONSIDER BIATRIAL ABNORMALITIES : Confirmed by: Dalton Horton 07-Jul-2019 08:32:26
--- NOTE | 2019-07-07 08:34 | EKG REPORT ---
SEVERITY:- ABNORMAL ECG - ATRIAL FLUTTER NONSPECIFIC INTRAVENTRICULAR CONDUCTION DELAY : Confirmed by: Dalton Horton 07-Jul-2019 08:32:58
== END 2019-07-06 15:15 | disposition home or self-care (01) ==
LOC: ER 08:59
DX: J44.1 Chronic obstructive pulmonary disease with (acute) exacerbation (principal); E11.9 Type 2 diabetes mellitus without complications; I48.91 Unspecified atrial fibrillation; M79.604 Pain in right leg; G89.29 Other chronic pain; M25.552 Pain in left hip; R50.9 Fever, unspecified; R51 Headache; Z88.8 Allergy status to other drugs, medicaments and biological substances; Z87.891 Personal history of nicotine dependence; I25.10 Atherosclerotic heart disease of native coronary artery without angina pectoris; I10 Essential (primary) hypertension
CPT/HCPCS: 93005; 99285; 96360; 36415; 82553; 82550; 83605; 85025; 85610; 85730; 80053; 81001; 84484; 83880; 93971; 71045; 73552; 73590; 93010; A9270 ×2; J3475

== ENCOUNTER 2019-07-30 15:48 | Inpatient (IN) | payer MEDICARE, MEDICAID ==
[2019-07-30] MEDS ORDERED: NORMAL SALINE IV PRN (16:36)
--- NOTE | 2019-07-30 16:43 | ER Document Report ---
ED General - General Mode of Arrival: Medic Information source: Patient TRAVEL OUTSIDE OF THE [place] IN LAST 30 DAYS: No <VICKYMARLEN - Last Filed: 07/30/19 20:35> <LUCAS MAI IV - Last Filed: 07/31/19 00:28> - General Chief Complaint: Chest Pain Stated Complaint: CHEST PAIN Time Seen by Provider: 07/30/19 16:35 Notes: 74-year-old woman presents from home with complaint of muscle back and joint pains which began yesterday. Today she also complains of chest tightness, cough and shortness of breath. EMS was called patient was noted to have a temperature of 101.6, she was given Tylenol and a bolus of IV fluids. Patient states that she was not aware she had a fever. She denies a history of exposure to coronavirus. Patient was noted to be in atrial fib with RVR, she was given bolus of Cardizem 20 mg, also adenosine 6 mg, followed by 12 mg in route. Patient has a past medical history of atrial fibrillation, hypertension, CAD, arthritis, and diabetes mellitus. Patient is a Jehovah witness. (MARLEN KIRKLAND) - Related Data Allergies/Adverse Reactions: ibuprofen [From Motrin] Allergy (Intermediate, Verified 07/06/19 09:34) FACE SWELLING NSAIDS (Non-Steroidal Anti-Inflamma [Nsaids] Allergy (Mild, Verified 07/06/19 09:34) Past Medical History - Social History Smoking Status: Unknown if Ever Smoked Family History: Reviewed & Not Pertinent - Past Medical History Cardiac Medical History: Reports: Hx Atrial Fibrillation, Hx Coronary Artery Disease, Hx Hypertension Denies: Hx Heart Attack Pulmonary Medical History: Reports: Hx Asthma, Hx COPD Denies: Hx Bronchitis, Hx Pneumonia Neurological Medical History: Denies: Hx Cerebrovascular Accident, Hx Seizures Endocrine Medical History: Reports: Hx Diabetes Mellitus Type 1, Hx Diabetes Mellitus Type 2 Renal/ Medical History: Denies: Hx Peritoneal Dialysis GI Medical History: Reports: Hx Gastroesophageal Reflux Disease. Denies: Hx Hepatitis, Hx Hiatal Hernia, Hx Ulcer Musculoskeletal Medical History: Reports Hx Arthritis - Rheumatoid arthritis, Denies Hx Gout Psychiatric Medical History: Denies: Hx Depression Infectious Medical History: Denies: Hx Hepatitis Past Surgical History: Reports: Hx Orthopedic Surgery - bilt knees. Denies: Hx Hysterectomy, Hx Mastectomy, Hx Open Heart Surgery, Hx Pacemaker - Immunizations Hx Diphtheria, Pertussis, Tetanus Vaccination: Yes Hx Pneumococcal Vaccination: 12/25/14 <MARLEN PERRY - Last Filed: 07/30/19 20:35> Review of Systems <MARLEN PERRY - Last Filed: 07/30/19 20:35> - Review of Systems Notes: Constitutional: Negative for fever. HENT: Negative for sore throat. Eyes: Negative for visual changes. Cardiovascular: + Tachycardia Respiratory: + Cough, + shortness of breath. Gastrointestinal: Negative for abdominal pain, vomiting or diarrhea. Genitourinary: Negative for dysuria. Musculoskeletal: Negative for back pain. Skin: Negative for rash. Neurological: Negative for headaches, weakness or numbness. 10 point ROS negative except as marked above and in HPI. (MARLEN PERRY) Physical Exam <MARLEN PERRY - Last Filed: 07/30/19 20:35> - Vital signs Vitals: Temp 99.0 F 07/30/19 15:48 - Notes Notes: PHYSICAL EXAMINATION: Physical Exam: General: Well-nourished well-developed 74-year-old woman mild distress secondary to shortness of breath and tachycardia HEENT: NC/AT, pupils equal round and reactive to light, MM moist,nares clear, oropharynx clear, airway patent Neck: supple, no adenopathy, no masses. Good range of motion Lungs: Bilateral wheezing, good air movement, mild respiratory distress CVS: Tachycardic rate and rhythm no murmur gallop or rub Abdomen: Soft, active, nontender, no masses, no hepatosplenomegaly Ext: No edema, clubbing or cyanosis. Neuro: Alert and responsive, moving all 4 extremities on command, cranial nerves intact, no focal findings Skin: Intact no open lesions, no rash PSYCH: Normal mood, normal affect. (MARLEN PERRY) Course - Laboratory Result Diagrams: 07/30/19 16:17 07/30/19 16:17 - Diagnostic Test Radiology reviewed: Image reviewed, Reports reviewed - Chest x-ray: Chronic interstitial lung disease, bilateral hilar fullness, CT scan contrast recommended. - EKG Interpretation by Ri Rhythm: A.Fib - With RVR rate of 138. <MARLEN PERRY - Last Filed: 07/30/19 20:35> - Laboratory Result Diagrams: 07/30/19 16:17 07/30/19 16:17 <LUCAS MAI IV - Last Filed: 07/31/19 00:28> - Re-evaluation Re-evalutation: 07/30/19 20:41 74-year-old woman with A. fib and RVR, fever, cough and diffuse body aches and pains. She has a history of arthritis, atrial fibrillation, hypertension and diabetes mellitus. Chest x-ray reveals bilateral hilar fullness, CT chest with IV contrast is being performed. A BNP was also added after some discussion with the hospitalist. This patient's care is being turned over to Dr. Mai, he will follow up on a CT scan BNP and contact hospitalist for admission. (MARLEN PERRY) - Vital Signs Vital signs: Temp Pulse Resp BP Pulse Ox 98.6 F 22 H 116/74 100 07/30/19 17:55 07/30/19 21:55 07/30/19 21:55 07/30/19 21:55 - Laboratory Laboratory results interpreted by me: 07/30/19 07/30/19 07/30/19 16:17 16:17 17:05 RBC 2.88 L Hgb 8.2 L Hct 25.1 L RDW 16.1 H Carbonic Acid 1.41 H ABG pCO2 46.8 H ABG pO2 47.1 L ABG HCO3 28.9 H ABG Total CO2 30.3 H ABG O2 Saturation 83.0 L Sodium 132.9 L Chloride 96 L Glucose 152 H Albumin 2.9 L Critical Care Note - Critical Care Note Total time excluding time spent on procedures (mins): 60 - Critical care time spent obtaining history from patient or surrogate, discussions with consultants, development of treatment plan with patient or surrogate, evaluation of patient's response to treatment, examination of patient, ordering and performing treatments and interventions, ordering and review of laboratory studies, re- evaluation of patient's condition, ordering and review of radiographic studies a nd review of old charts <MARLEN PERRY - Last Filed: 07/30/19 20:35> Discharge <MARLEN PERRY - Last Filed: 07/30/19 20:35> - Discharge Admitting Provider: Tam (Hospitalist) Unit Admitted: [facility] <LUCAS MAI IV - Last Filed: 07/31/19 00:28> - Discharge Clinical Impression: Atrial fibrillation with rapid ventricular response, COPD exacerbation Fever Qualifiers: Fever type: unspecified Qualified Code(s): R50.9 - Fever, unspecified Anemia Qualifiers: Anemia type: unspecified type Qualified Code(s): D64.9 - Anemia, unspecified Condition: Good Disposition: ADMITTED INPATIENT
[2019-07-30] MEDS ORDERED: IPRATROPIUM/ALBUTEROL 0.5-2.5 MG/3 ML AMPUL NEB ONE ×2 (16:45→17:36)
[2019-07-30 16:55] LABS: ABSOLUTE LYMPHOCYTES (AUTO) 1.3 10^3/uL (0.5-4.7); ABSOLUTE MONOCYTES (AUTO) 0.9 10^3/uL (0.1-1.4); ABSOLUTE NEUT (AUTO) 7.6 10^3/uL (1.7-8.2); BASOPHILS % (AUTO) 0.4 % (0-2); EOSINOPHILS % (AUTO) 0.4 % (0-6); HEMATOCRIT 25.1 % (36.0-47.0); HEMOGLOBIN 8.2 g/dL (12.0-15.5); LYMPHOCYTES % (AUTO) 13.3 % (13-45); MEAN CORPUSCULAR HEMOGLOBIN 28.6 pg (27.0-33.4); MEAN CORPUSCULAR HGB CONC 32.7 g/dL (32.0-36.0); MEAN CORPUSCULAR VOLUME 87 fl (80-97); MONOCYTES % (AUTO) 9.1 % (3-13); PLATELET COUNT 337 10^3/uL (150-450); RED BLOOD COUNT 2.88 10^6/uL (3.72-5.28); RED CELL DISTRIBUTION WIDTH 16.1 % (11.5-14.0); SEGMENTED NEUTROPHILS % (AUTO) 76.8 % (42-78); TOTAL CELLS COUNTED % (AUTO) 100 %
[2019-07-30 17:06] LABS: ALBUMIN 2.9 g/dL (3.5-5.0); ALKALINE PHOSPHATASE 109 U/L (38-126); ANION GAP 9 (5-19); ASPARTATE AMINO TRANSFERASE 20 U/L (14-36); BILIRUBIN,DIRECT 0.2 mg/dL (0.0-0.4); BILIRUBIN,TOTAL 0.9 mg/dL (0.2-1.3); BLOOD UREA NITROGEN 9 mg/dL (7-20); CALCIUM 8.8 mg/dL (8.4-10.2); CARBON DIOXIDE 28 mmol/L (22-30); CHLORIDE 96 mmol/L (98-107); GLUCOSE 152 mg/dL (75-110); POTASSIUM 3.7 mmol/L (3.6-5.0); TOTAL PROTEIN 6.9 g/dL (6.3-8.2)
--- NOTE | 2019-07-30 17:15 | RADIOLOGY REPORT (SQ) ---
EXAM DESCRIPTION: CHEST SINGLE VIEW IMAGES COMPLETED DATE/TIME: 07/30/2019 5:03 pm REASON FOR STUDY: Cough COMPARISON: 07/06/2019 EXAM PARAMETERS: NUMBER OF VIEWS: One view. TECHNIQUE: Single frontal radiographic view of the chest acquired. RADIATION DOSE: NA LIMITATIONS: None. FINDINGS: LUNGS AND PLEURA: Stable scarring in the right upper lung zone and at the lung bases. Sli ght blunting of the costophrenic angle suggests small pleural effusions, unchanged findings. No acut e pulmonary consolidation. No pneumothorax. MEDIASTINUM AND HILAR STRUCTURES: Stable fullness in the right and left hilar regions and right freddie tracheal region, again noted. HEART AND VASCULAR STRUCTURES: Stable appearance. Normal vasculature. BONES: No acute findings. HARDWARE: None in the chest. OTHER: No other significant finding. IMPRESSION: 1. No significant interval changes since the prior examination dated 07/06/2019. Stable chronic changes and small pleural effusions versus pleural thickening. No acute pulmonary consolida tion. 2. Fullness in the bilateral hilar regions and right paratracheal region. Further evaluation with C T chest with IV contrast suggested. TECHNICAL DOCUMENTATION: JOB ID: [id number] 2010 [employer]- All Rights Reserved Reading location - IP/workstation name: [email or web address]
[2019-07-30 17:18] LABS: CREATINE KINASE MB 0.26 ng/mL (<4.55); TROPONIN I < 0.012 ng/mL
[2019-07-30] MEDS: PIPERACILLIN SODIUM/TAZOBACTAM 4.5 GM in NORMAL SALINE 100 ML IV SCH (17:31)
[2019-07-30] MEDS ORDERED: METOPROLOL TARTRATE PF/INJ 5 MG/5 ML SDV IV ONE (17:55)
[2019-07-30] MEDS: DILTIAZEM HCL/D5W 125 MG/125 ML RTUINJ IV PRN (19:31)
[2019-07-30 19:35] LABS: APPEARANCE,URINE CLEAR; BILIRUBIN,URINE NEGATIVE (NEGATIVE); COLOR,URINE STRAW; GLUCOSE, URINE NEGATIVE (NEGATIVE); KETONES,URINE NEGATIVE (NEGATIVE); PROTEIN,URINE NEGATIVE (NEGATIVE); URINE SPECIFIC GRAVITY 1.003; UROBILINOGEN,URINE NEGATIVE mg/dL (<2.0)
[2019-07-30 19:42] LABS: ARTERIAL BLOOD BASE EXCESS 3.7 mmol/L; ARTERIAL BLOOD H2CO3 1.41 mmol/L (1.05-1.35); ARTERIAL BLOOD HCO3 28.9 mmol/L (20-24); ARTERIAL BLOOD PCO2 46.8 mmHg (35-45); ARTERIAL BLOOD PH 7.41 (7.35-7.45); ARTERIAL BLOOD PO2 47.1 mmHg (80-100); ARTERIAL BLOOD TOTAL CO2 30.3 mmol/L (21-25)
[2019-07-30 19:43] LABS: ARTERIAL BLOOD FIO2 3
--- NOTE | 2019-07-30 22:10 | RADIOLOGY REPORT (SQ) ---
EXAM DESCRIPTION: CT CHEST WITH IV CONTRAST COMPLETED DATE/TME: 07/30/2019 19:20 CLINICAL HISTORY: 74 years, Female, Bilateral hilar density COMPARISON: Prior chest radiograph from earlier the same day TECHNIQUE: Contrast enhanced CT of the chest was acquired. Coronal and sagittal reformations were created. Images were acquired after the uneventful administration of 80 mL of Omnipaque 350 intravenous contrast. Images stored on PACS. All CT scanners at this facility use dose modulation, iterative reconstruction, and/or weight based dosing when appropriate to reduce radiation dose to as low as reasonably achievable (ALARA). [facility]: Dose Right [facility]: CareDose [facility]: Dose Right [facility]: Teradose 4D [facility]: Mertado LIMITATIONS: None. FINDINGS: Evaluation of the central airways reveals focal occlusion of the right lower lobe airways as a result of a lobulated soft tissue nodule measuring 2.7 x 2.6 cm in size on image 28 of series 4. Mild upper zone predominant emphysematous changes are evident along with biapical scarring. This appears fairly similar in configuration to the previous study dated 06/13/2017. Curvilinear bandlike opacity is noted about the right upper lobe, indicating an area of atelectasis and/or scar. There is also a new 0.7 cm solid nodule within the right lower lobe on image 42 of series 4. Otherwise, patchy groundglass/nodular consolidative opacity is noted about the basilar segments of the right lower lobe. There is also a new 0.5 cm solid nodule within the right lower lobe superior segment on image 22 of series 4. Additional spiculated nodular opacity is noted about the periphery of the left upper lobe on image 22 of series 4, currently measuring 1.0 x 0.9 cm in size, fairly similar in configuration to the previous exam dated 06/13/2017. Mediastinal windows show and enlarged right hilar lymph node on image 23 of series 3 measuring 2.1 x 1.7 cm in size. A few additional mildly prominent left axillary lymph nodes are also evident. Calcifications are noted about the coronary vessels and thoracic aorta. Visualized pulmonary arterial vasculature appears opacify with contrast normally. Limited evaluation of the upper abdomen reveals no suspicious abnormality. Bone windows show no destructive osseous lesions. IMPRESSION: Soft tissue mass located about the right lower lobe which obstructs the right lower lobe airway, concerning for primary bronchogenic carcinoma. Superimposed right hilar lymphadenopathy could indicate locoregional metastatic disease. This could be confirmed with bronchoscopy. Mucous plugging about the right lower lobe basilar subsegmental airways with associated multifocal tree-in-bud and nodular consolidative opacity, likely indicative of a postobstructive infectious/inflammatory bronchiolitis. New subcentimeter pulmonary nodules, as above. These are indeterminate. Additional left axillary lymphadenopathy is also indeterminate. TECHNICAL DOCUMENTATION: Quality ID # 436: Final reports with documentation of one or more dose reduction techniques (e.g., Automated exposure control, adjustment of the mA and/or kV according to patient size, use of iterative reconstruction technique) copyright 2011 [employer]- All Rights Reserved
[2019-07-30] MEDS ORDERED: DEXTROSE 50%-WATER 25 GM/50 ML DISP.SYRIN IV PRN ×2 (23:03)
[2019-07-30] MEDS ORDERED: MAG HYDROX/AL HYDROX/SIMETH SUSP 30 ML UDCUP PO PRN (23:03)
[2019-07-30] MEDS ORDERED: IPRATROPIUM/ALBUTEROL 0.5-2.5 MG/3 ML AMPUL NEB PRN (23:03)
[2019-07-30] MEDS ORDERED: GLUCAGON,HUMAN RECOMB 1 MG INJ IM PRN (23:03)
[2019-07-30] MEDS ORDERED: DEXTROSE 40% GEL 15 GM TUBE PO PRN ×2 (23:03)
[2019-07-31] MEDS ORDERED: POTASSIUM CHLORIDE 10 MEQ TABLET.ER PO ONE (00:49)
[2019-07-31] MEDS: LEVALBUTEROL HCL NEB 1.25 MG/3 ML AMPUL NEB SCH ×3 (02:31→16:14)
[2019-07-31] MEDS: PIPERACILLIN SODIUM/TAZOBACTAM 4.5 GM in NORMAL SALINE 100 ML IV SCH ×3 (02:33→12:11)
[2019-07-31] MEDS: ACETAMINOPHEN 325 MG TABLET PO PRN ×2 (02:49→08:59)
--- NOTE | 2019-07-31 03:07 | PDOC H&P ---
History of Present Illness Admission Date/PCP: 07/30/19 23:18 JORGE CHACON DO Patient complains of: Left-sided chest pain History of Present Illness: ALLIE JACQUES is a 74 year old female who is a [employer] with a past medical history of atrial fibrillation, coronary artery disease, diabetes, rheumatoid arthritis, congestive heart failure, oxygen dependent COPD COPD, recurrent bronchitis. She presents with 24 hours of shortness of breath, fever of 101.6 and left-sided chest pain. In the emergency department she is found to have A. fib with RVR in the 180s she receives adenosine followed by Cardizem. In the emergency department she denies recent change in medication regiment or exposure to known ill contacts. Her work-up reveals anemia, A. fib with RVR, left lower lobe mass and bilateral hilar adenopathy without leukocytosis. She receives empiric antibiotics, IV Cardizem and referred to the hospitalist for admission. She denies chest pain nausea vomiting Past Medical History Cardiac Medical History: Reports: Atrial Fibrillation, Coronary Artery Disease, Hypertension Denies: Myocardial Infarction Pulmonary Medical History: Reports: Asthma, Chronic Obstructive Pulmonary Disease (COPD) Denies: Bronchitis, Pneumonia Neurological Medical History: Denies: Seizures Endocrine Medical History: Reports: Diabetes Mellitus Type 1, Diabetes Mellitus Type 2 GI Medical History: Reports: Gastroesophageal Reflux Disease Denies: Hepatitis, Hiatal Hernia Musculoskeltal Medical History: Reports: Arthritis - Rheumatoid arthritis Denies: Gout Psychiatric Medical History: Denies: Depression Hematology: Denies: Anemia, Sickle Cell Disease Past Surgical History Past Surgical History: Reports: Orthopedic Surgery - bilt knees Denies: Amputation, Hysterectomy, Mastectomy, Pacemaker Social History Information Source: Patient Smoking Status: Unknown if Ever Smoked Electronic Cigarette use?: No Frequency of Alcohol Use: None Hx Recreational Drug Use: No Drugs: None Hx Prescription Drug Abuse: No - Advance Directive Resuscitation Status: Full Code Family History Family History: Reviewed & Not Pertinent Parental Family History Reviewed: Yes Children Family History Reviewed: Yes Sibling(s) Family History Reviewed.: Yes Medication/Allergy Home Medications: Glipizide [Glucotrol 5 mg Tablet] 5 mg PO BIDACBS #60 tablet 02/20/16 Tofacitinib Citrate [Xeljanz] 5 mg PO DAILY 06/13/17 Folic Acid [Folvite 1 mg Tablet] 1 mg PO DAILY 08/01/17 Brimonidine Tartrate [Alphagan P] 5 ml OU BID 06/07/19 Fluticasone/Umeclidin/Vilanter [Trelegy 100-62.5-25 Mcg Ellipta 14 Dose/Dpi] 1 each DAILY 06/07/19 Diltiazem HCl [Cardizem Cd 120 mg Capsule] 120 mg PO DAILY #30 cap.sr.24h 06/12/19 Midodrine HCl [Proamatine 5 mg Tablet] 5 mg PO TIDP PRN #90 tablet 06/12/19 Allergies/Adverse Reactions: ibuprofen [From Motrin] Allergy (Intermediate, Verified 07/06/19 09:34) FACE SWELLING NSAIDS (Non-Steroidal Anti-Inflamma [Nsaids] Allergy (Mild, Verified 07/06/19 09:34) Review of Systems Constitutional: PRESENT: as per HPI, anorexia, fatigue, night sweats, weakness, weight loss Eyes: ABSENT: visual disturbances Ears: ABSENT: hearing changes Cardiovascular: PRESENT: chest pain, dyspnea on exertion, palpitations. ABSENT: edema, orthropnea Respiratory: PRESENT: as per HPI, cough, dyspnea, sputum. ABSENT: hemoptysis Gastrointestinal: ABSENT: abdominal pain, constipation, diarrhea, hematemesis, hematochezia, nausea, vomiting Genitourinary: ABSENT: dysuria, hematuria Musculoskeletal: ABSENT: joint swelling Integumentary: ABSENT: rash, wounds Neurological: ABSENT: abnormal gait, abnormal speech, confusion, dizziness, focal weakness, syncope Psychiatric: ABSENT: anxiety, depression, homidical ideation, suicidal ideation Endocrine: ABSENT: cold intolerance, heat intolerance, polydipsia, polyuria Hematologic/Lymphatic: ABSENT: easy bleeding, easy bruising Physical Exam Vital Signs: Temp Pulse Resp BP Pulse Ox 98.6 F 87 25 H 126/62 H 99 07/30/19 17:55 07/31/19 00:00 07/31/19 02:01 07/31/19 02:00 07/31/19 02:37 Intake & Output 07/29/19 07/30/19 07/31/19 11:59 11:59 11:59 Intake Total 2763 Balance 2763 Weight 87.7 kg General appearance: PRESENT: cooperative, mild distress, obese, well-developed, well-nourished Head exam: PRESENT: atraumatic, normocephalic Eye exam: PRESENT: conjunctiva pink, EOMI, PERRLA. ABSENT: scleral icterus Ear exam: PRESENT: normal external ear exam Mouth exam: PRESENT: moist, tongue midline Neck exam: ABSENT: carotid bruit, JVD, lymphadenopathy, thyromegaly Respiratory exam: PRESENT: accessory muscle use, crackles, prolonged expiratory phas, retraction, rhonchi - Left-sided, tachypnea Cardiovascular exam: PRESENT: RRR. ABSENT: diastolic murmur, rubs, systolic murmur Pulses: PRESENT: normal dorsalis pedis pul Vascular exam: PRESENT: normal capillary refill GI/Abdominal exam: PRESENT: ascites Rectal exam: PRESENT: deferred Extremities exam: PRESENT: full ROM. ABSENT: calf tenderness, clubbing, pedal edema Neurological exam: PRESENT: alert, awake, oriented to person, oriented to place, oriented to time, oriented to situation, CN II-XII grossly intact. ABSENT: motor sensory deficit Psychiatric exam: PRESENT: appropriate affect, normal mood. ABSENT: homicidal ideation, suicidal ideation Skin exam: PRESENT: dry, intact, warm. ABSENT: cyanosis, rash Results Laboratory Results: 07/30/19 16:17 07/30/19 16:17 07/30/19 07/30/19 07/30/19 16:17 16:17 17:05 WBC 10.0 RBC 2.88 L Hgb 8.2 L Hct 25.1 L MCV 87 MCH 28.6 MCHC 32.7 RDW 16.1 H Plt Count 337 Seg Neutrophils % 76.8 Carbonic Acid HCO3/H2CO3 Ratio ABG pH ABG pCO2 ABG pO2 ABG HCO3 ABG O2 Saturation ABG Base Excess FiO2 Sodium 132.9 L Potassium 3.7 Chloride 96 L Carbon Dioxide 28 Anion Gap 9 BUN 9 Creatinine 0.69 Est GFR ( Amer) > 60 Glucose 152 H Lactic Acid 1.0 Calcium 8.8 Total Bilirubin 0.9 AST 20 Alkaline Phosphatase 109 Total Protein 6.9 Albumin 2.9 L Urine Color Urine Appearance Urine pH Ur Specific [place] Urine Protein Urine Glucose (UA) Urine Ketones Urine Blood Urine RBC (Auto) 07/30/19 07/30/19 07/30/19 17:05 18:46 19:53 WBC RBC Hgb Hct MCV MCH MCHC RDW Plt Count Seg Neutrophils % Carbonic Acid 1.41 H HCO3/H2CO3 Ratio 20:1 ABG pH 7.41 ABG pCO2 46.8 H ABG pO2 47.1 L ABG HCO3 28.9 H ABG O2 Saturation 83.0 L ABG Base Excess 3.7 FiO2 3 Sodium Potassium Chloride Carbon Dioxide Anion Gap BUN Creatinine Est GFR ( Amer) Glucose Lactic Acid 0.7 Calcium Total Bilirubin AST Alkaline Phosphatase Total Protein Albumin Urine Color STRAW Urine Appearance CLEAR Urine pH 6.0 Ur Specific [place] 1.003 Urine Protein NEGATIVE Urine Glucose (UA) NEGATIVE Urine Ketones NEGATIVE Urine Blood NEGATIVE Urine RBC (Auto) 0 07/30/19 22:45 WBC RBC Hgb Hct MCV MCH MCHC RDW Plt Count Seg Neutrophils % Carbonic Acid HCO3/H2CO3 Ratio ABG pH ABG pCO2 ABG pO2 ABG HCO3 ABG O2 Saturation ABG Base Excess FiO2 Sodium Potassium Chloride Carbon Dioxide Anion Gap BUN Creatinine Est GFR ( Amer) Glucose Lactic Acid 1.0 Calcium Total Bilirubin AST Alkaline Phosphatase Total Protein Albumin Urine Color Urine Appearance Urine pH Ur Specific [place] Urine Protein Urine Glucose (UA) Urine Ketones Urine Blood Urine RBC (Auto) 07/30/19 07/30/19 07/30/19 16:17 16:17 16:17 Creatine Kinase 35 CK-MB (CK-2) 0.26 Troponin I < 0.012 NT-Pro-B Natriuret Pep 348 Impressions: Chest X-Ray 07/30/19 16:37 IMPRESSION: 1. No significant interval changes since the prior examination d ated 07/06/2019. Stable chronic changes and small pleural effusions versus pleural thickening. No acute pulmonary consolidation. 2. Fullness in the bilateral hilar regions and right paratracheal region. Further evaluation with CT chest with IV contrast suggested. Chest CT 07/30/19 19:20 IMPRESSION: Soft tissue mass located about the right lower lobe which obstructs the right lower lobe airway, concerning for primary bronchogenic carcinoma. Superimposed right hilar lymphadenopathy could indicate locoregional metastatic disease. This could be confirmed with bronchoscopy. Mucous plugging about the right lower lobe basilar subsegmental airways with associated multifocal tree-in-bud and nodular consolidative opacity, likely indicative of a postobstructive infectious/inflammatory bronchiolitis. New subcentimeter pulmonary nodules, as above. These are indeterminate. Additional left axillary lymphadenopathy is also indeterminate. TECHNICAL DOCUMENTATION: Quality ID # 436: Final reports with documentation of one or more dose reduction techniques (e.g., Automated exposure control, adjustment of the mA and/or kV according to patient size, use of iterative reconstruction technique) copyright 2011 [employer]- All Rights Reserved Assessment and Plan - Diagnosis (1) Atrial fibrillation with rapid ventricular response Is this a current diagnosis for this admission?: Yes Plan: Likely secondary to decompensated COPD exacerbation complicated by mass. IV Cardizem, Pradaxa, limit albuterol in favor of Xopenex (2) Lung mass Is this a current diagnosis for this admission?: Yes Plan: Rheumatic versus malignant, follow-up ESR, steroid trial, pulmonology consult (3) Rheumatoid arthritis Is this a current diagnosis for this admission?: Yes Plan: Follow-up ESR, steroid trial initiated (4) COPD exacerbation Is this a current diagnosis for this admission?: Yes Plan: Incentive spirometry, flutter valve, Xopenex, Flonase, steroid trial (5) Diabetes Qualifiers: Is this a current diagnosis for this admission?: Yes Plan: Humalog sliding scale q. before meals - Time Time Spent with patient: 25-34 minutes - Inpatient Certification Medical Necessity: Need Close Monitoring Due to Risk of Patient Decompensation
[2019-07-31] MEDS ORDERED: METHYLPREDNISOLONE INJ 125 MG/2 ML SDV IV ONE (03:15)
[2019-07-31] MEDS: MAGNESIUM SULFATE/D5W 1 GM/100 ML RTUPB IV SCH ×2 (03:34→04:35)
[2019-07-31 04:14] LABS: RETICULOCYTE COUNT (AUTO) 2.05 % (0.66-2.85)
[2019-07-31 04:17] LABS: ABSOLUTE BASOPHILS # (AUTO) 0.1 10^3/uL (0.0-0.2); ABSOLUTE EOSINOPHILS # (AUTO) 0.1 10^3/uL (0.0-0.6); ABSOLUTE MONOCYTES (AUTO) 0.7 10^3/uL (0.1-1.4); BASOPHILS % (AUTO) 0.6 % (0-2); TOTAL CELLS COUNTED % (AUTO) 100 %
[2019-07-31 04:29] LABS: ABSOLUTE LYMPHOCYTES (AUTO) 1.5 10^3/uL (0.5-4.7); ABSOLUTE NEUT (AUTO) 6.1 10^3/uL (1.7-8.2); HEMATOCRIT 26.2 % (36.0-47.0); HEMOGLOBIN 8.4 g/dL (12.0-15.5); LYMPHOCYTES % (AUTO) 17.7 % (13-45); MEAN CORPUSCULAR HEMOGLOBIN 28.1 pg (27.0-33.4); MEAN CORPUSCULAR HGB CONC 31.9 g/dL (32.0-36.0); MEAN CORPUSCULAR VOLUME 88 fl (80-97); MONOCYTES % (AUTO) 8.5 % (3-13); PLATELET COUNT 342 10^3/uL (150-450); RED BLOOD COUNT 2.97 10^6/uL (3.72-5.28); RED CELL DISTRIBUTION WIDTH 16.7 % (11.5-14.0); SEGMENTED NEUTROPHILS % (AUTO) 72.2 % (42-78); WHITE BLOOD COUNT 8.5 10^3/uL (4.0-10.5)
[2019-07-31] MEDS: DILTIAZEM HCL/D5W 125 MG/125 ML RTUINJ IV PRN (04:34)
[2019-07-31 04:36] LABS: IRON(TIBC) 21.6 ug/dL (37-170)
[2019-07-31 04:38] LABS: ANION GAP 5 (5-19); BLOOD UREA NITROGEN 8 mg/dL (7-20); CALCIUM 8.8 mg/dL (8.4-10.2); CARBON DIOXIDE 31 mmol/L (22-30); CHLORIDE 99 mmol/L (98-107); GLUCOSE 268 mg/dL (75-110); POTASSIUM 3.5 mmol/L (3.6-5.0)
[2019-07-31] MEDS: INSULIN LISPRO 100 UNIT/ML 3 ML VIAL SUBCUT SCH ×3 (08:59→16:49)
[2019-07-31] MEDS: POTASSIUM CHLORIDE 10 MEQ TABLET.ER PO SCH ×2 (09:54→17:51)
[2019-07-31] MEDS: FLUTICASONE NASAL SPRAY 50 MCG/SPRY 120 SPRAY/16 GM NASL SCH ×2 (09:54→22:23)
[2019-07-31] MEDS ORDERED: METHYLPREDNISOLONE INJ 125 MG/2 ML SDV IV SCH ×2 (10:00→18:00)
[2019-07-31] MEDS ORDERED: AZITHROMYCIN INJ 500 MG VIAL IV ONE (10:39)
[2019-07-31] MEDS: GLIPIZIDE 5 MG TABLET PO SCH ×2 (12:10→16:49)
[2019-07-31] MEDS: DILTIAZEM HCL 120 MG CAP.SR.24H PO SCH (12:11)
[2019-07-31] MEDS: FLUTICASONE/UMECLIDIN/VILANTER 100-62.5-25 MCG/DOSE IH SCH (12:12)
[2019-07-31] MEDS ORDERED: INSULIN NPH (ISOPHANE), HUMAN 100 UNIT/ML 3 ML SUBCUT ONE (12:30)
[2019-07-31] MEDS ORDERED: AZITHROMYCIN 500 MG in DEXTROSE 5%-WATER 250 ML IV ONE (13:00)
[2019-07-31] MEDS ORDERED: OXYCODONE-ACETAMINOPHEN 5-325 MG TABLET PO PRN (15:33)
--- NOTE | 2019-07-31 16:00 | PDOC PROGRESS REPORT ---
Subjective Progress Note for:: 07/31/19 Subjective:: Patient states she feels a whole lot better this morning. Her breathing has significantly improved. Does not want the BiPAP and is not having any work of breathing at the moment. Denies any chest pain in the encounter but was noted to have some chest discomfort earlier. Reason For Visit: AFIB,LUNG MASS,FEVER Physical Exam Vital Signs: Temp Pulse Resp BP Pulse Ox 97.4 F 61 19 132/50 H 100 07/31/19 11:49 07/31/19 11:49 07/31/19 11:49 07/31/19 11:49 07/31/19 11:49 Intake & Output 07/30/19 07/31/19 08/01/19 06:59 06:59 06:59 Intake Total 3341 189 Balance 3341 189 Weight 84.8 kg 84.8 kg General appearance: PRESENT: no acute distress, cooperative Neck exam: ABSENT: JVD Respiratory exam: PRESENT: symmetrical, unlabored, wheezes. ABSENT: accessory m uscle use, retraction, stridor, tachypnea Cardiovascular exam: PRESENT: irregular rhythm, +S1, +S2. ABSENT: tachycardia GI/Abdominal exam: PRESENT: soft. ABSENT: rebound, rigid, tenderness Extremities exam: ABSENT: pedal edema Neurological exam: PRESENT: alert, awake, oriented to person, oriented to place, oriented to time Psychiatric exam: ABSENT: agitated, anxious Focused psych exam: ABSENT: pressured speech Skin exam: ABSENT: jaundice Results Laboratory Results: 07/31/19 03:35 07/31/19 03:35 07/30/19 07/30/19 07/30/19 16:17 16:17 17:05 WBC 10.0 RBC 2.88 L Hgb 8.2 L Hct 25.1 L MCV 87 MCH 28.6 MCHC 32.7 RDW 16.1 H Plt Count 337 Seg Neutrophils % 76.8 Retic Count (auto) Carbonic Acid HCO3/H2CO3 Ratio ABG pH ABG pCO2 ABG pO2 ABG HCO3 ABG O2 Saturation ABG Base Excess FiO2 Sodium 132.9 L Potassium 3.7 Chloride 96 L Carbon Dioxide 28 Anion Gap 9 BUN 9 Creatinine 0.69 Est GFR ( Amer) > 60 Glucose 152 H Lactic Acid 1.0 Calcium 8.8 Iron TIBC % Saturation Transferrin Ferritin Total Bilirubin 0.9 AST 20 Alkaline Phosphatase 109 Total Protein 6.9 Albumin 2.9 L Vitamin B12 Folate Urine Color Urine Appearance Urine pH Ur Specific [place] Urine Protein Urine Glucose (UA) Urine Ketones Urine Blood Urine RBC (Auto) 07/30/19 07/30/19 07/30/19 17:05 18:46 19:53 WBC RBC Hgb Hct MCV MCH MCHC RDW Plt Count Seg Neutrophils % Retic Count (auto) Carbonic Acid 1.41 H HCO3/H2CO3 Ratio 20:1 ABG pH 7.41 ABG pCO2 46.8 H ABG pO2 47.1 L ABG HCO3 28.9 H ABG O2 Saturation 83.0 L ABG Base Excess 3.7 FiO2 3 Sodium Potassium Chloride Carbon Dioxide Anion Gap BUN Creatinine Est GFR ( Amer) Glucose Lactic Acid 0.7 Calcium Iron TIBC % Saturation Transferrin Ferritin Total Bilirubin AST Alkaline Phosphatase Total Protein Albumin Vitamin B12 Folate Urine Color STRAW Urine Appearance CLEAR Urine pH 6.0 Ur Specific [place] 1.003 Urine Protein NEGATIVE Urine Glucose (UA) NEGATIVE Urine Ketones NEGATIVE Urine Blood NEGATIVE Urine RBC (Auto) 0 07/30/19 07/31/19 07/31/19 22:45 03:35 03:35 WBC 8.5 RBC 2.97 L Hgb 8.4 L Hct 26.2 L MCV 88 MCH 28.1 MCHC 31.9 L RDW 16.7 H Plt Count 342 Seg Neutrophils % 72.2 Retic Count (auto) Carbonic Acid HCO3/H2CO3 Ratio ABG pH ABG pCO2 ABG pO2 ABG HCO3 ABG O2 Saturation ABG Base Excess FiO2 Sodium 134.9 L Potassium 3.5 L Chloride 99 Carbon Dioxide 31 H Anion Gap 5 BUN 8 Creatinine 0.64 Est GFR ( Amer) > 60 Glucose 268 H Lactic Acid 1.0 Calcium 8.8 Iron TIBC % Saturation Transferrin Ferritin Total Bilirubin AST Alkaline Phosphatase Total Protein Albumin Vitamin B12 Folate Urine Color Urine Appearance Urine pH Ur Specific [place] Urine Protein Urine Glucose (UA) Urine Ketones Urine Blood Urine RBC (Auto) 07/31/19 07/31/19 07/31/19 03:35 03:35 03:35 WBC RBC Hgb Hct MCV MCH MCHC RDW Plt Count Seg Neutrophils % Retic Count (auto) 2.05 Carbonic Acid HCO3/H2CO3 Ratio ABG pH ABG pCO2 ABG pO2 ABG HCO3 ABG O2 Saturation ABG Base Excess FiO2 Sodium Potassium Chloride Carbon Dioxide Anion Gap BUN Creatinine Est GFR ( Amer) Glucose Lactic Acid Calcium Iron 21.6 L TIBC 189 L % Saturation 11 Transferrin 122.89 L Ferritin 724.00 H Total Bilirubin AST Alkaline Phosphatase Total Protein Albumin Vitamin B12 962.0 H Folate 16.00 Urine Color Urine Appearance Urine pH Ur Specific [place] Urine Protein Urine Glucose (UA) Urine Ketones Urine Blood Urine RBC (Auto) 07/30/19 07/30/19 07/30/19 16:17 16:17 16:17 Creatine Kinase 35 CK-MB (CK-2) 0.26 Troponin I < 0.012 NT-Pro-B Natriuret Pep 348 Impressions: Chest X-Ray 07/30/19 16:37 IMPRESSION: 1. No significant interval changes since the prior examination dated 07/06/2019. Stable chronic changes and small pleural effusions versus pleural thickening. No acute pulmonary consolidation. 2. Fullness in the bilateral hilar regions and right paratracheal region. Further evaluation with CT chest with IV contrast suggested. Chest CT 07/30/19 19:20 IMPRESSION: Soft tissue mass located about the right lower lobe which obstructs the right lower lobe airway, concerning for primary bronchogenic carcinoma. Superimposed right hilar lymphadenopathy could indicate locoregional metastatic disease. This could be confirmed with bronchoscopy. Mucous plugging about the right lower lobe basilar subsegmental airways with associated multifocal tree-in-bud and nodular consolidative opacity, likely indicative of a postobstructive infectious/inflammatory bronchiolitis. New subcentimeter pulmonary nodules, as above. These are indeterminate. Additional left axillary lymphadenopathy is also indeterminate. TECHNICAL DOCUMENTATION: Quality ID # [id number]: Final reports with documentation of one or more dose reduction techniques (e.g., Automated exposure control, adjustment of the mA and/or kV according to patient size, use of iterative reconstruction technique) copyright 2011 [employer]- All Rights Reserved Assessment and Plan - Diagnosis (1) COPD exacerbation Is this a current diagnosis for this admission?: Yes Plan: On IV Solu-Medrol, Xopenex every 8 hours. Azithromycin. Flonase. (2) Atrial flutter with rapid ventricular response Is this a current diagnosis for this admission?: Yes Plan: EKG indicating atrial flutter with rapid ventricular response. Unspecified type. Likely exacerbated by COPD exacerbation/SOB. Diltiazem drip discontinued this morning as heart rate has normalized. I have restarted patient's p.o. diltiazem. IV Lopressor as needed. Eliquis. Monitor on telemetry. (3) Bronchiolitis Is this a current diagnosis for this admission?: Yes Plan: CT scan shows evidence of bronchiolitis in the right lower lung. This is likely inflammatory secondary to rheumatoid arthritis but could also be infectious. I will treat with azithromycin and steroids. (4) Right lower lobe lung mass Is this a current diagnosis for this admission?: Yes Plan: CT chest shows approximately 3 cm mass that seems to encapsulate and partially occluded the bronchus that fits the right lower lobe as well as right hilar adenopathy. Given patient's smoking history, weight loss and hemoptysis in May, this is concerning for bronchogenic carcinoma. I contacted [facility] to discuss with supervisor assembly department. However the supervisor assembly department reviewed the image and stated that based off image only, he did not feel any emergent danger that required urgent transfer for bronchoscopy. However he declined providing phone consultation on the case because he was unable to examine the patient in person. I discussed with their hospitalist who was graciously able to set patient up with another supervisor assembly department called Dr. Kristian Gaston in [place] and the office will be contacting patient on Friday to schedule an urgent date for Bronchoscopy. (5) Type 2 diabetes mellitus with hyperglycemia Qualifiers: Diabetes mellitus fdc insulin use: without fdc use Qualified Code(s): E11.65 - Type 2 diabetes mellitus with hyperglycemia Is this a current diagnosis for this admission?: Yes Plan: Resume glipizide and metformin. Hyperglycemic. Will give NPH 8 units now. Sliding scale insulin. Continue Accu-Cheks. (6) Rheumatoid arthritis Is this a current diagnosis for this admission?: Yes Plan: Elevated ESR. Denies worsening joint pains. Could be from other etiologies as well. Continue outpatient follow-up with her cash applications specialist. - Time Time Spent with patient: 15-24 minutes
[2019-07-31] MEDS ORDERED: INSULIN GLARGINE,HUM.REC.ANLOG 1,000 UNIT/10 ML VIAL (PYX) SUBCUT ONE (16:46)
[2019-07-31] MEDS: METFORMIN HCL 500 MG TABLET PO SCH (16:47)
[2019-07-31] MEDS: METHYLPREDNISOLONE INJ 40 MG/1 ML SDV IV SCH (17:51)
[2019-07-31] MEDS: APIXABAN 5 MG TABLET PO SCH (17:51)
[2019-07-31] MEDS: BRIMONIDINE TARTRATE 0.2% OPH SOLN 5 ML OD SCH (17:53)
[2019-07-31] MEDS ORDERED: PIPERACILLIN SODIUM/TAZOBACTAM 4.5 GM in NORMAL SALINE 100 ML IV SCH (18:00)
[2019-07-31] MEDS ORDERED: INSULIN GLARGINE,HUM.REC.ANLOG 1,000 UNIT/10 ML VIAL (PYX) SUBCUT SCH (18:00)
--- NOTE | 2019-07-31 20:46 | EKG REPORT ---
SEVERITY:- BORDERLINE ECG - SINUS RHYTHM PROMINENT P WAVES, NONDIAGNOSTIC : Confirmed by: Dalton Horton 31-Jul-2019 20:45:53
--- NOTE | 2019-07-31 20:46 | EKG REPORT ---
SEVERITY:- ABNORMAL ECG - ATRIAL FIBRILLATION VENTRICULAR PREMATURE COMPLEX : Confirmed by: Dalton Horton 31-Jul-2019 20:46:02
[2019-08-01] MEDS: LEVALBUTEROL HCL NEB 1.25 MG/3 ML AMPUL NEB SCH ×4 (00:33→19:54)
[2019-08-01] MEDS: METHYLPREDNISOLONE INJ 40 MG/1 ML SDV IV SCH ×3 (01:18→21:51)
[2019-08-01] MEDS: ACETAMINOPHEN 325 MG TABLET PO PRN (01:18)
[2019-08-01 07:25] LABS: BLOOD UREA NITROGEN 17 mg/dL (7-20); CALCIUM 9.3 mg/dL (8.4-10.2); CARBON DIOXIDE 30 mmol/L (22-30); CHLORIDE 101 mmol/L (98-107); GLUCOSE 389 mg/dL (75-110); POTASSIUM 5.2 mmol/L (3.6-5.0)
[2019-08-01 07:32] LABS: ANION GAP 4 (5-19)
[2019-08-01] MEDS: GLIPIZIDE 5 MG TABLET PO SCH ×2 (08:41→17:58)
[2019-08-01] MEDS: METFORMIN HCL 500 MG TABLET PO SCH ×2 (08:42→17:58)
[2019-08-01] MEDS: INSULIN LISPRO 100 UNIT/ML 3 ML VIAL SUBCUT SCH ×3 (08:42→17:58)
[2019-08-01] MEDS ORDERED: INSULIN GLARGINE,HUM.REC.ANLOG 1,000 UNIT/10 ML VIAL SUBCUT SCH ×2 (10:00→18:00)
[2019-08-01] MEDS ORDERED: AZITHROMYCIN INJ 500 MG VIAL IV SCH (10:00)
[2019-08-01] MEDS: APIXABAN 5 MG TABLET PO SCH ×2 (10:29→17:58)
[2019-08-01] MEDS: DILTIAZEM HCL 120 MG CAP.SR.24H PO SCH (10:29)
[2019-08-01] MEDS: ASPIRIN 81 MG TABLET, ENT COATED PO SCH (10:29)
[2019-08-01] MEDS: FLUTICASONE NASAL SPRAY 50 MCG/SPRY 120 SPRAY/16 GM NASL SCH ×2 (10:30→21:51)
[2019-08-01] MEDS: BRIMONIDINE TARTRATE 0.2% OPH SOLN 5 ML OD SCH ×2 (10:30→17:59)
[2019-08-01] MEDS: FLUTICASONE/UMECLIDIN/VILANTER 100-62.5-25 MCG/DOSE IH SCH (10:31)
[2019-08-01] MEDS ORDERED: AZITHROMYCIN 250 MG in NORMAL SALINE 250 ML IV SCH (12:00)
[2019-08-01] MEDS ORDERED: AZITHROMYCIN 250 MG in DEXTROSE 5%-WATER 250 ML IV SCH (12:00)
--- NOTE | 2019-08-01 13:39 | PDOC PROGRESS REPORT ---
Subjective Progress Note for:: 08/01/19 Subjective:: Patient doing okay today. However when she ambulated from the bathroom back to her chair this morning she seemed very dyspneic. She otherwise denies any chest pain or fevers. Reason For Visit: AFIB,LUNG MASS,FEVER Physical Exam Vital Signs: Temp Pulse Resp BP Pulse Ox 97.9 F 92 18 117/57 L 92 08/01/19 11:36 08/01/19 11:36 08/01/19 11:36 08/01/19 11:36 08/01/19 11:36 Intake & Output 07/31/19 08/01/19 08/02/19 06:59 06:59 06:59 Intake Total 3341 1626 220 Output Total 1500 Balance 3341 126 220 Weight 84.8 kg 84.8 kg General appearance: PRESENT: cooperative, mild distress - Mildly working to breathe during encounter after patient had just walked from the bathroom to the chair Neck exam: ABSENT: JVD Respiratory exam: PRESENT: decreased breath sounds, tachypnea. ABSENT: unlabored, wheezes Cardiovascular exam: PRESENT: RRR, +S1, +S2. ABSENT: tachycardia GI/Abdominal exam: PRESENT: soft. ABSENT: rebound, rigid, tenderness Neurological exam: PRESENT: alert, awake, oriented to person, oriented to place, oriented to time Results Laboratory Results: 07/31/19 03:35 08/01/19 06:19 08/01/19 06:19 Sodium 135.4 L Potassium 5.2 H Chloride 101 Carbon Dioxide 30 Anion Gap 4 L BUN 17 Creatinine 0.62 Est GFR ( Amer) > 60 Glucose 389 H Calcium 9.3 07/30/19 17:05 Blood Blood Culture (PCR) - Final Staphylococcus Species 07/30/19 07/30/19 07/30/19 16:17 16:17 16:17 Creatine Kinase 35 CK-MB (CK-2) 0.26 Troponin I < 0.012 NT-Pro-B Natriuret Pep 348 Impressions: Chest X-Ray 07/30/19 16:37 IMPRESSION: 1. No significant interval changes since the prior examination dated 07/06/2019. Stable chronic changes and small pleural effusions versus pleural thickening. No acute pulmonary consolidation. 2. Fullness in the bilateral hilar regions and right paratracheal region. F urther evaluation with CT chest with IV contrast suggested. Chest CT 07/30/19 19:20 IMPRESSION: Soft tissue mass located about the right lower lobe which obstructs the right lower lobe airway, concerning for primary bronchogenic carcinoma. Superimposed right hilar lymphadenopathy could indicate locoregional metastatic disease. This could be confirmed with bronchoscopy. Mucous plugging about the right lower lobe basilar subsegmental airways with associated multifocal tree-in-bud and nodular consolidative opacity, likely indicative of a postobstructive infectious/inflammatory bronchiolitis. New subcentimeter pulmonary nodules, as above. These are indeterminate. Additional left axillary lymphadenopathy is also indeterminate. TECHNICAL DOCUMENTATION: Quality ID # 436: Final reports with documentation of one or more dose reduction techniques (e.g., Automated exposure control, adjustment of the mA and/or kV according to patient size, use of iterative reconstruction technique) copyright 2011 [employer]- All Rights Reserved Assessment and Plan - Diagnosis (1) COPD exacerbation Is this a current diagnosis for this admission?: Yes Plan: Patient has advanced COPD with chronic hypoxic respiratory failure on 3 to 4 L n herson cannula. IV Solu-Medrol, Xopenex every 6 hours. Azithromycin. Flonase. Discussed with landscape architect and planner about patient's needs for larger portable oxygen tank (2) Atrial flutter with rapid ventricular response Is this a current diagnosis for this admission?: Yes Plan: Off diltiazem drip. Heart rate is doing well on po cardizem and back in NSR. AF was likely exacerbated by COPD. (3) Bronchiolitis Is this a current diagnosis for this admission?: Yes Plan: CT scan shows evidence of bronchiolitis in the right lower lung. This is likely inflammatory secondary to rheumatoid arthritis but could also be infectious. I will treat with azithromycin and steroids. (4) Right lower lobe lung mass Is this a current diagnosis for this admission?: Yes Plan: CT chest shows approximately 3 cm mass that seems to encapsulate and partially occluded the bronchus that fits the right lower lobe as well as right hilar adenopathy. Given patient's smoking history, weight loss and hemoptysis in [place], this is concerning for bronchogenic carcinoma. I contacted [facility] to discuss with claim rep. However the claim rep reviewed the image and stated that based off image only, he did not feel any emergent danger that required urgent transfer for bronchoscopy. However he declined providing phone consultation on the case because he was unable to examine the patient in person. I discussed with their hospitalist who was graciously able to set patient up with another claim rep called Dr. Kristian Gaston in [place] and the office will be contacting patient on Friday to schedule an urgent date for Bronchoscopy. (5) Type 2 diabetes mellitus with hyperglycemia Qualifiers: Diabetes mellitus halfway insulin use: without intermediate frame tender use Qualified Code(s): E11.65 - Type 2 diabetes mellitus with hyperglycemia Is this a current diagnosis for this admission?: Yes Plan: Resume glipizide and metformin. A1c is 8.1 which shows good control for patient's age. Hyperglycemia is likely secondary to steroids. I will place patient on Lantus 10 units daily while on steroids. Sliding scale insulin. Continue Accu-Cheks. (6) Rheumatoid arthritis Is this a current diagnosis for this admission?: Yes - Time Time Spent with patient: Less than 15 minutes
[2019-08-01] MEDS: METOPROLOL TARTRATE PF/INJ 5 MG/5 ML SDV IV PRN (21:12)
[2019-08-02] MEDS: LEVALBUTEROL HCL NEB 1.25 MG/3 ML AMPUL NEB SCH ×4 (02:21→20:35)
[2019-08-02] MEDS: METOPROLOL TARTRATE PF/INJ 5 MG/5 ML SDV IV PRN (03:02)
[2019-08-02 06:52] LABS: BLOOD UREA NITROGEN 21 mg/dL (7-20); CALCIUM 9.6 mg/dL (8.4-10.2); CHLORIDE 101 mmol/L (98-107); GLUCOSE 302 mg/dL (75-110)
[2019-08-02 06:58] LABS: CARBON DIOXIDE 33 mmol/L (22-30)
[2019-08-02 07:17] LABS: ANION GAP 4 (5-19)
[2019-08-02] MEDS: GLIPIZIDE 5 MG TABLET PO SCH ×2 (08:04→17:12)
[2019-08-02] MEDS: METFORMIN HCL 500 MG TABLET PO SCH ×2 (08:04→17:12)
[2019-08-02] MEDS: INSULIN LISPRO 100 UNIT/ML 3 ML VIAL SUBCUT SCH ×3 (08:04→17:13)
[2019-08-02 09:11] LABS: ARTERIAL BLOOD BASE EXCESS 6.9 mmol/L; ARTERIAL BLOOD HCO3 32.1 mmol/L (20-24); ARTERIAL BLOOD O2 SATURATION 92.8 % (94-98); ARTERIAL BLOOD PCO2 49.8 mmHg (35-45); ARTERIAL BLOOD PH 7.43 (7.35-7.45); ARTERIAL BLOOD PO2 64.4 mmHg (80-100); ARTERIAL BLOOD TOTAL CO2 33.6 mmol/L (21-25)
[2019-08-02 09:12] LABS: ARTERIAL BLOOD FIO2 40%
[2019-08-02] MEDS: DILTIAZEM HCL 120 MG CAP.SR.24H PO SCH (10:36)
[2019-08-02] MEDS: APIXABAN 5 MG TABLET PO SCH ×2 (10:37→17:12)
[2019-08-02] MEDS: ASPIRIN 81 MG TABLET, ENT COATED PO SCH (10:37)
[2019-08-02] MEDS: METHYLPREDNISOLONE INJ 40 MG/1 ML SDV IV SCH (10:37)
[2019-08-02] MEDS: FLUTICASONE/UMECLIDIN/VILANTER 100-62.5-25 MCG/DOSE IH SCH (10:37)
[2019-08-02] MEDS: FLUTICASONE NASAL SPRAY 50 MCG/SPRY 120 SPRAY/16 GM NASL SCH ×2 (10:38→23:00)
[2019-08-02] MEDS: BRIMONIDINE TARTRATE 0.2% OPH SOLN 5 ML OD SCH (10:42)
[2019-08-02] MEDS: INSULIN GLARGINE,HUM.REC.ANLOG 1,000 UNIT/10 ML VIAL SUBCUT SCH (12:17)
--- NOTE | 2019-08-02 13:23 | PDOC PROGRESS REPORT ---
Subjective Progress Note for:: 08/02/19 Subjective:: Patient states she is feels closer to baseline today but still feels that she needs another day of steroids and nebulizer treatment. Reason For Visit: AFIB,LUNG MASS,FEVER Physical Exam Vital Signs: Temp Pulse Resp BP Pulse Ox 98.1 F 90 21 H 139/64 H 92 08/02/19 11:53 08/02/19 11:53 08/02/19 11:53 08/02/19 11:53 08/02/19 11:53 Intake & Output 08/01/19 08/02/19 08/03/19 06:59 06:59 06:59 Intake Total 1626 1342 237 Output Total 1500 500 200 Balance 126 842 37 Weight 84.8 kg 85.1 kg General appearance: PRESENT: no acute distress, cooperative Neck exam: ABSENT: JVD Respiratory exam: PRESENT: clear to auscultation kyle, decreased breath sounds, symmetrical, unlabored. ABSENT: tachypnea, wheezes Cardiovascular exam: PRESENT: RRR, +S1, +S2. ABSENT: tachycardia GI/Abdominal exam: PRESENT: soft. ABSENT: rebound, rigid, tenderness Neurological exam: PRESENT: alert, awake, oriented to person, oriented to place, oriented to time, oriented to situation Results Laboratory Results: 07/31/19 03:35 08/02/19 05:52 08/02/19 08/02/19 05:52 08:55 Carbonic Acid 1.50 H HCO3/H2CO3 Ratio 21:1 ABG pH 7.43 ABG pCO2 49.8 H ABG pO2 64.4 L ABG HCO3 32.1 H ABG O2 Saturation 92.8 L ABG Base Excess 6.9 FiO2 40% Sodium 137.7 Potassium 5.0 Chloride 101 Carbon Dioxide 33 H Anion Gap 4 L BUN 21 H Creatinine 0.57 Est GFR ( Amer) > 60 Glucose 302 H Calcium 9.6 07/30/19 17:05 Blood Blood Culture (PCR) - Final Staphylococcus Species 07/30/19 07/30/19 07/30/19 16:17 16:17 16:17 Creatine Kinase 35 CK-MB (CK-2) 0.26 Troponin I < 0.012 NT-Pro-B Natriuret Pep 348 Impressions: Chest X-Ray 07/30/19 16:37 IMPRESSION: 1. No significant interval changes since the prior examination dated 07/06/2019. Stable chronic changes and small pleural effusions versus pleural thickening. No acute pulmonary consolidation. 2. Fullness in the bilateral hilar regions and right paratracheal region. Further evaluation with CT chest with IV contrast suggested. Chest CT 07/30/19 19:20 IMPRESSION: Soft tissue mass located about the right lower lobe which obstructs the right lower lobe airway, concerning for primary bronchogenic carcinoma. Superimposed right hilar lymphadenopathy could indicate locoregional metastatic disease. This could be confirmed with bronchoscopy. Mucous plugging about the right lower lobe basilar subsegmental airways with associated multifocal tree-in-bud and nodular consolidative opacity, likely indicative of a postobstructive infectious/inflammatory bronchiolitis. New subcentimeter pulmonary nodules, as above. These are indeterminate. Additional left axillary lymphadenopathy is also indeterminate. TECHNICAL DOCUMENTATION: Quality ID # 436: Final reports with documentation of one or more dose reduction techniques (e.g., Automated exposure control, adjustment of the mA and/or kV according to patient size, use of iterative reconstruction technique) copyright 2011 [employer]- All Rights Reserved Assessment and Plan - Diagnosis (1) COPD exacerbation Is this a current diagnosis for this admission?: Yes Plan: Patient has advanced COPD with chronic hypoxic respiratory failure on 3 to 4 L nasal cannula. Continue Xopenex every 6 hours. Flonase. Change azithromycin to p.o. Discontinue Solu-Medrol and start prednisone p.o. Discussed with assistant media planner about patient's needs for larger portable oxygen tank Seems close to her baseline at this point. I will give patient 1 more day of frequent nebs with anticipation of discharge tomorrow. Have discussed with patient that advanced COPD will limit the amount of improvement expected. She will benefit from pulmonary rehabilitation outpatient-Case management consulted. (2) Atrial flutter with rapid ventricular response Is this a current diagnosis for this admission?: Yes Plan: Triggered by acute exacerbation of COPD. Has remained off diltiazem drip for the past 2 days. Heart rate is doing well on po cardizem and back in NSR. (3) Bronchiolitis Is this a current diagnosis for this admission?: Yes Plan: CT scan shows evidence of bronchiolitis in the right lower lung. This is likely inflammatory secondary to rheumatoid arthritis but could also be infectious. I will treat with azithromycin and steroids. (4) Right lower lobe lung mass Is this a current diagnosis for this admission?: Yes Plan: CT chest shows approximately 3 cm mass that seems to encapsulate and partially occluded the bronchus that fits the right lower lobe as well as right hilar adenopathy. Given patient's smoking history, weight loss and hemoptysis in May, this is concerning for bronchogenic carcinoma. I contacted [facility] to discuss with batter depositor. However the batter depositor reviewed the image and stated that based off image only, he did not feel any emergent danger that required urgent transfer for bronchoscopy. However he declined providing phone consultation on the case because he was unable to examine the patient in person. I discussed with their hospitalist who was graciously able to set patient up with another batter depositor called Dr. Kristian Gaston in [place] and the office will be contacting patient on Friday to schedule an urgent date for Bronchoscopy. 08/02/2019-received a call today from [facility] and patient has been set up for appointment with Catrina SZYMANSKI at [facility] Pulmonology for tomorrow at 3 PM to plan for bronchoscopy with biopsy. Patient has been informed her given information and address. Plan is to discharge patient tomorrow straight to have appointment. (5) Type 2 diabetes mellitus with hyperglycemia Qualifiers: Diabetes mellitus termite treater helper insulin use: without termite treater helper use Qualified Code(s): E11.65 - Type 2 diabetes mellitus with hyperglycemia Is this a current diagnosis for this admission?: Yes Plan: Resume glipizide and metformin. A1c is 8.1 which shows good control for patient's age. Hyperglycemia is likely secondary to steroids. Increase Lantus 15 units daily while on steroids inpatient. Sliding scale insulin. Continue Accu-Cheks. Steroids de-escalated. (6) Rheumatoid arthritis Is this a current diagnosis for this admission?: Yes - Time Time Spent with patient: 15-24 minutes
[2019-08-02] MEDS: AZITHROMYCIN 250 MG TABLET PO SCH (14:22)
[2019-08-02] MEDS: PREDNISONE 20 MG TABLET PO SCH (17:12)
[2019-08-03] MEDS: LEVALBUTEROL HCL NEB 1.25 MG/3 ML AMPUL NEB SCH ×4 (02:11→20:36)
[2019-08-03] MEDS: BRIMONIDINE TARTRATE 0.2% OPH SOLN 5 ML OD SCH ×3 (04:37→19:15)
[2019-08-03] MEDS: GLIPIZIDE 5 MG TABLET PO SCH ×2 (08:24→19:12)
[2019-08-03] MEDS: METFORMIN HCL 500 MG TABLET PO SCH ×2 (08:24→19:11)
[2019-08-03] MEDS: INSULIN LISPRO 100 UNIT/ML 3 ML VIAL SUBCUT SCH ×3 (08:25→19:14)
--- NOTE | 2019-08-03 10:41 | PDOC PROGRESS REPORT ---
Subjective Progress Note for:: 08/03/19 Subjective:: Patient is now having hemoptysis. She coughed up most of the blood this morning. It appears to be lightening somewhat. The first emesis bag actually has a large clot in it from the amount of blood coughed up earlier. She is anticoagulated. She also complains of some discomfort at the right clavicle. It is not continuous. She describes it as not too bad. It is not made worse by breathing or coughing. Reason For Visit: AFIB,LUNG MASS,FEVER Physical Exam Vital Signs: Temp Pulse Resp BP Pulse Ox 97.6 F 99 20 121/45 L 96 08/03/19 03:19 08/03/19 08:34 08/03/19 08:34 08/03/19 03:19 08/03/19 08:34 Intake & Output 08/02/19 08/03/19 08/04/19 06:59 06:59 06:59 Intake Total 1342 1337 Output Total 500 200 Balance 842 1137 Weight 85.1 kg 85.1 kg General appearance: PRESENT: cooperative, mild distress, well-developed Head exam: PRESENT: atraumatic, normocephalic Eye exam: PRESENT: conjunctiva pale. ABSENT: scleral icterus Ear exam: PRESENT: normal external ear exam. ABSENT: bleeding, drainage Mouth exam: PRESENT: moist, tongue midline Respiratory exam: PRESENT: clear to auscultation kyle, decreased breath sounds - Slightly decreased breath sounds left base, symmetrical, unlabored. ABSENT: rales, rhonchi, tachypnea, wheezes Cardiovascular exam: PRESENT: RRR, +S1, +S2 GI/Abdominal exam: PRESENT: soft. ABSENT: distended, mass, tenderness Rectal exam: PRESENT: deferred Gentrourinary exam: ABSENT: indwelling catheter Extremities exam: ABSENT: joint swelling, pedal edema Musculoskeletal exam: PRESENT: ambulatory, normal inspection Neurological exam: PRESENT: alert, awake, oriented to person, oriented to place, oriented to time, oriented to situation, CN II-XII grossly intact. ABSENT: altered Psychiatric exam: PRESENT: flat affect. ABSENT: agitated, anxious Focused psych exam: ABSENT: delusional, paranoid, restlessness Skin exam: PRESENT: dry, intact, warm. ABSENT: rash Results Laboratory Results: 07/31/19 03:35 08/02/19 05:52 07/30/19 17:05 Blood Blood Culture (PCR) - Final Staphylococcus Species 07/30/19 07/30/19 07/30/19 16:17 16:17 16:17 Creatine Kinase 35 CK-MB (CK-2) 0.26 Troponin I < 0.012 NT-Pro-B Natriuret Pep 348 Impressions: Chest X-Ray 07/30/19 16:37 IMPRESSION: 1. No significant interval changes since the prior examination dated 07/06/2019. Stable chronic changes and small pleural effusions versus pleural thickening. No acute pulmonary consolidation. 2. Fullness in the bilateral hilar regions and right paratracheal region. Further evaluation with CT chest with IV contrast suggested. Chest CT 07/30/19 19:20 IMPRESSION: Soft tissue mass located about the right lower lobe which obstructs the right lower lobe airway, concerning for primary bronchogenic carcinoma. Superimposed right hilar lymphadenopathy could indicate locoregional metastatic disease. This could be confirmed with bronchoscopy. Mucous plugging about the right lower lobe basilar subsegmental airways with associated multifocal tree-in-bud and nodular consolidative opacity, likely indicative of a postobstructive infectious/inflammatory bronchiolitis. New subcentimeter pulmonary nodules, as above. These are indeterminate. Additional left axillary lymphadenopathy is also indeterminate. TECHNICAL DOCUMENTATION: Quality ID # 436: Final reports with documentation of one or more dose reduction techniques (e.g., Automated exposure control, adjustment of the mA and/or kV according to patient size, use of iterative reconstruction technique) copyright 2011 [employer]- All Rights Reserved Assessment and Plan - Diagnosis (1) Hemoptysis Is this a current diagnosis for this admission?: Yes Plan: 08/03/2019 The patient is anticoagulated for history of atrial fibrillation. Unfortunately this morning she experienced hemoptysis. The first 2 emesis bags had clotted blood. The third emesis bag has blood-tinged tissues. It may be slowing down. I have stopped the anticoagulant but this takes several days to wear off. An outpatient appointment for biopsy was arranged in [place] for later today but it was rescheduled for tomorrow. I have ordered a CBC and a chest x-ray to assess her status. (2) COPD exacerbation Is this a current diagnosis for this admission?: Yes Plan: Patient has advanced COPD with chronic hypoxic respiratory failure on 3 to 4 L nasal cannula. Continue Xopenex every 6 hours. Flonase. Change azithromycin to p.o. Discontinue Solu-Medrol and start prednisone p.o. Discussed with production planner scheduler about patient's needs for larger portable oxygen tank Seems close to her baseline at this point. I will give patient 1 more day of frequent nebs with anticipation of discharge tomorrow. Have discussed with patient that advanced COPD will limit the amount of improvement expected. She will benefit from pulmonary rehabilitation outpatient-Case management consulted. 08/03/2019 Continue current regimen. COPD appears to be improved however because of the hemoptysis I have ordered a pulmonology consult. (3) Atrial flutter with rapid ventricular response Is this a current diagnosis for this admission?: Yes Plan: Triggered by acute exacerbation of COPD. Has remained off diltiazem drip for the past 2 days. Heart rate is doing well on po cardizem and back in NSR. 08/03/2019 Continue oral diltiazem. She briefly is flipped back into fibrillation earlier. This is likely from the stress of the hemoptysis and coughing. She is back in sinus rhythm. The apixaban has been stopped because of the hemoptysis. (4) Right lower lobe lung mass Is this a current diagnosis for this admission?: Yes Plan: CT chest shows approximately 3 cm mass that seems to encapsulate and partially occluded the bronchus that fits the right lower lobe as well as right hilar adenopathy. Given patient's smoking history, weight loss and hemoptysis in May, this is concerning for bronchogenic carcinoma. I contacted [facility] to discuss with information technology security analyst. However the information technology security analyst reviewed the image and stated that based off image only, he did not feel any emergent danger that required urgent transfer for bronchoscopy. However he declined providing phone consultation on the case because he was unable to examine the patient in person. I discussed with their hospitalist who was graciously able to set patient up with another information technology security analyst called Dr. Kristian Gaston in [place] and the office will be contacting patient on Friday to schedule an urgent date for Bronchoscopy. 08/02/2019-received a call today from [facility] and patient has been set up for appointment with Catrina SZYMANSKI at [facility] for tomorrow at 3 PM to plan for bronchoscopy with biopsy. Patient has been informed her given information and address. Plan is to discharge patient tomorrow straight to have appointment. 08/03/2019 The 3 PM appointment today to begin the process of arranging a bronchoscopy will need to be canceled. If the patient improves we can continue with her outpatient appointment later this week. I have asked pulmonology to consult to see if a bronchoscopy during this hospitalization would be appropriate. (5) Type 2 diabetes mellitus with hyperglycemia Qualifiers: Diabetes mellitus vacuum caster insulin use: without half-way use Qualified Code(s): E11.65 - Type 2 diabetes mellitus with hyperglycemia Is this a current diagnosis for this admission?: Yes Plan: Resume glipizide and metformin. A1c is 8.1 which shows good control for patient's age. Hyperglycemia is likely secondary to steroids. Increase Lantus 15 units daily while on steroids inpatient. Sliding scale insulin. Continue Accu-Cheks. Steroids de-escalated. 08/03/2019 Accu-Cheks still above 200. Lantus just increased yesterday. We will monitor Accu-Cheks and possibly adjust again tomorrow. Also the Accu-Chek should improve as the steroids taper. (6) Rheumatoid arthritis Qualifiers: Rheumatoid factor presence: unspecified presence Laterality: unspecified laterality Is this a current diagnosis for this admission?: Yes Plan: Elevated ESR. Denies worsening joint pains. Could be from other etiologies as well. Continue outpatient follow-up with her professional athlete. 08/03/2019 She will follow-up with her professional athlete as an outpatient. The prednisone for her COPD should be helpful. - Time Time Spent with patient: 25-34 minutes Medications reviewed and adjusted accordingly: Yes Anticipated discharge: Home
[2019-08-03] MEDS: AZITHROMYCIN 250 MG TABLET PO SCH (10:53)
[2019-08-03] MEDS: PREDNISONE 20 MG TABLET PO SCH ×2 (10:53→19:15)
[2019-08-03] MEDS: DILTIAZEM HCL 120 MG CAP.SR.24H PO SCH (10:53)
[2019-08-03] MEDS: FLUTICASONE NASAL SPRAY 50 MCG/SPRY 120 SPRAY/16 GM NASL SCH ×2 (10:54→21:43)
[2019-08-03] MEDS: FLUTICASONE/UMECLIDIN/VILANTER 100-62.5-25 MCG/DOSE IH SCH (10:54)
[2019-08-03] MEDS: INSULIN GLARGINE,HUM.REC.ANLOG 1,000 UNIT/10 ML VIAL SUBCUT SCH (11:01)
[2019-08-03] MEDS: ASPIRIN 81 MG TABLET, ENT COATED PO SCH (11:02)
[2019-08-03 11:19] LABS: HEMATOCRIT 25.6 % (36.0-47.0); MEAN CORPUSCULAR HEMOGLOBIN 28.1 pg (27.0-33.4); MEAN CORPUSCULAR HGB CONC 31.3 g/dL (32.0-36.0); MEAN CORPUSCULAR VOLUME 90 fl (80-97); PLATELET COUNT 419 10^3/uL (150-450); RED BLOOD COUNT 2.85 10^6/uL (3.72-5.28); RED CELL DISTRIBUTION WIDTH 17.2 % (11.5-14.0); WHITE BLOOD COUNT 15.3 10^3/uL (4.0-10.5)
[2019-08-03 11:37] LABS: ABSOLUTE LYMPHOCYTES# (MANUAL) 2.4 10^3/uL (0.5-4.7); ABSOLUTE MONOCYTES # (MANUAL) 0.5 10^3/uL (0.1-1.4); BASOPHILS % (MANUAL) 0 % (0-2); EOSINOPHILS % (MANUAL) 0 % (0-6); LYMPHOCYTES % (MANUAL) 16 % (13-45); MONOCYTES % (MANUAL) 3 % (3-13); NUCLEATED RED BLOOD CELLS 2 /100 WBC (0); SEGMENTED NEUTROPHILS % (MAN) 81 % (42-78); TOTAL CELLS COUNTED 100
[2019-08-03 11:38] LABS: ANISOCYTOSIS 1+; PLATELET COMMENT ADEQUATE; POLYCHROMASIA SLIGHT
--- NOTE | 2019-08-03 11:41 | RADIOLOGY REPORT (SQ) ---
EXAM DESCRIPTION: CHEST SINGLE VIEW IMAGES COMPLETED DATE/TIME: 08/03/2019 9:48 am REASON FOR STUDY: New hemoptysis COMPARISON: Chest radiograph 07/30/2019. CT chest 07/30/2019. EXAM PARAMETERS: NUMBER OF VIEWS: One view. TECHNIQUE: Single frontal radiographic view of the chest acquired. RADIATION DOSE: NA LIMITATIONS: None. FINDINGS: LUNGS AND PLEURA: The lungs are hyperinflated. No focal consolidation or pleural effusion . No pneumothorax. Biapical pleural and parenchymal scarring is stable. MEDIASTINUM AND HILAR STRUCTURES: No masses. Contour normal. HEART AND VASCULAR STRUCTURES: Heart normal in size. Normal vasculature. BONES: No acute findings. HARDWARE: None in the chest. OTHER: No other significant finding. IMPRESSION: No significant interval change. No acute cardiopulmonary disease. TECHNICAL DOCUMENTATION: JOB ID: [id number] 2010 [employer]- All Rights Reserved Reading location - IP/workstation name: [email or web address]
[2019-08-03] MEDS: APIXABAN 5 MG TABLET PO SCH (13:13)
[2019-08-03] MEDS: ACETAMINOPHEN 325 MG TABLET PO PRN (22:50)
[2019-08-03] MEDS: LEVALBUTEROL HCL NEB 1.25 MG/3 ML AMPUL NEB PRN (23:15)
[2019-08-03] MEDS: METOPROLOL TARTRATE PF/INJ 5 MG/5 ML SDV IV PRN (23:16)
[2019-08-04] MEDS: LEVALBUTEROL HCL NEB 1.25 MG/3 ML AMPUL NEB SCH ×4 (02:26→20:56)
[2019-08-04] MEDS: LEVALBUTEROL HCL NEB 1.25 MG/3 ML AMPUL NEB PRN (05:33)
[2019-08-04 07:05] LABS: HEMATOCRIT 27.1 % (36.0-47.0); HEMOGLOBIN 8.6 g/dL (12.0-15.5); MEAN CORPUSCULAR HEMOGLOBIN 28.6 pg (27.0-33.4); MEAN CORPUSCULAR HGB CONC 31.9 g/dL (32.0-36.0); MEAN CORPUSCULAR VOLUME 90 fl (80-97); PLATELET COUNT 360 10^3/uL (150-450); RED BLOOD COUNT 3.02 10^6/uL (3.72-5.28); RED CELL DISTRIBUTION WIDTH 17.8 % (11.5-14.0); WHITE BLOOD COUNT 10.1 10^3/uL (4.0-10.5)
[2019-08-04 07:09] LABS: BLOOD UREA NITROGEN 29 mg/dL (7-20); CALCIUM 9.5 mg/dL (8.4-10.2); CHLORIDE 94 mmol/L (98-107); POTASSIUM 4.7 mmol/L (3.6-5.0)
[2019-08-04 07:16] LABS: CARBON DIOXIDE 36 mmol/L (22-30)
[2019-08-04 07:18] LABS: ANION GAP 4 (5-19); GLUCOSE 399 mg/dL (75-110)
[2019-08-04 07:54] LABS: ABSOLUTE LYMPHOCYTES# (MANUAL) 1.9 10^3/uL (0.5-4.7); ABSOLUTE MONOCYTES # (MANUAL) 0.2 10^3/uL (0.1-1.4); BASOPHILS % (MANUAL) 0 % (0-2); EOSINOPHILS % (MANUAL) 0 % (0-6); LYMPHOCYTES % (MANUAL) 19 % (13-45); MONOCYTES % (MANUAL) 2 % (3-13); NUCLEATED RED BLOOD CELLS 1 /100 WBC (0); SEGMENTED NEUTROPHILS % (MAN) 79 % (42-78); TOTAL CELLS COUNTED 100
[2019-08-04 07:55] LABS: ANISOCYTOSIS 1+; BURR CELLS SLIGHT; PLATELET COMMENT ADEQUATE; POIKILOCYTOSIS SLIGHT; POLYCHROMASIA SLIGHT; TEAR DROP CELLS SLIGHT
[2019-08-04] MEDS: INSULIN LISPRO 100 UNIT/ML 3 ML VIAL SUBCUT SCH ×3 (08:04→15:55)
[2019-08-04] MEDS: GLIPIZIDE 5 MG TABLET PO SCH ×2 (08:04→17:49)
[2019-08-04] MEDS: METFORMIN HCL 500 MG TABLET PO SCH ×2 (08:04→17:49)
[2019-08-04] MEDS: METOPROLOL TARTRATE PF/INJ 5 MG/5 ML SDV IV PRN (09:29)
[2019-08-04] MEDS ORDERED: LEVALBUTEROL HCL NEB 1.25 MG/3 ML AMPUL NEB PRN (09:41)
[2019-08-04] MEDS ORDERED: CEFTRIAXONE 2 GM/D5W RTU 2 GM/50 ML RTUPB IV SCH (10:00)
--- NOTE | 2019-08-04 10:14 | PDOC PROGRESS REPORT ---
Subjective Progress Note for:: 08/04/19 Subjective:: Patient is very concerned. With everything that is going on she fears that she is dying. I reassured her that although it seems overwhelming we are making all these changes to get her better. Reason For Visit: AFIB,LUNG MASS,FEVER Physical Exam Vital Signs: Temp Pulse Resp BP Pulse Ox 97.9 F 126 H 16 102/62 90 L 08/04/19 03:30 08/04/19 08:58 08/04/19 08:58 08/04/19 03:30 08/04/19 08:58 Intake & Output 08/03/19 08/04/19 08/05/19 06:59 06:59 06:59 Intake Total 1337 100 Output Total 200 Balance 1137 100 Weight 85.1 kg 85 kg General appearance: PRESENT: cooperative, mild distress, well-developed, well- nourished Head exam: PRESENT: atraumatic, normocephalic Eye exam: PRESENT: conjunctiva pale. ABSENT: scleral icterus Ear exam: PRESENT: normal external ear exam. ABSENT: bleeding, drainage Mouth exam: PRESENT: moist. ABSENT: dry mucosa, laceration Respiratory exam: PRESENT: prolonged expiratory phas, symmetrical, tachypnea, wheezes - Faint expiratory wheezes bilaterally. ABSENT: rales, rhonchi Cardiovascular exam: PRESENT: irregular rhythm, tachycardia GI/Abdominal exam: PRESENT: normal bowel sounds, soft. ABSENT: distended, guarding, tenderness Rectal exam: PRESENT: deferred Gentrourinary exam: ABSENT: indwelling catheter Extremities exam: ABSENT: pedal edema Musculoskeletal exam: PRESENT: ambulatory, normal inspection Neurological exam: PRESENT: alert, awake, oriented to person, oriented to place, oriented to time, oriented to situation, CN II-XII grossly intact. ABSENT: alt ered Psychiatric exam: PRESENT: anxious, flat affect. ABSENT: agitated Focused psych exam: ABSENT: delusional, paranoid, restlessness Skin exam: PRESENT: dry, normal color, warm. ABSENT: rash Results Laboratory Results: 08/04/19 06:21 08/04/19 06:21 08/03/19 08/04/19 08/04/19 10:49 06:21 06:21 WBC 15.3 H 10.1 RBC 2.85 L 3.02 L Hgb 8.0 L 8.6 L Hct 25.6 L 27.1 L MCV 90 90 MCH 28.1 28.6 MCHC 31.3 L 31.9 L RDW 17.2 H 17.8 H Plt Count 419 360 Seg Neutrophils % Not Reportable Not Reportable Sodium 134.1 L Potassium 4.7 Chloride 94 L Carbon Dioxide 36 H Anion Gap 4 L BUN 29 H Creatinine 0.67 Est GFR ( Amer) > 60 Glucose 399 H Calcium 9.5 Magnesium 2.2 07/30/19 17:05 Blood Blood Culture (PCR) - Final Staphylococcus Species 07/30/19 07/30/19 07/30/19 16:17 16:17 16:17 Creatine Kinase 35 CK-MB (CK-2) 0.26 Troponin I < 0.012 NT-Pro-B Natriuret Pep 348 Impressions: Chest CT 07/30/19 19:20 IMPRESSION: Soft tissue mass located about the right lower lobe which obstructs the right lower lobe airway, concerning for primary bronchogenic carcinoma. Superimposed right hilar lymphadenopathy could indicate locoregional metastatic disease. This could be confirmed with bronchoscopy. Mucous plugging about the right lower lobe basilar subsegmental airways with associated multifocal tree-in-bud and nodular consolidative opacity, likely indicative of a postobstructive infectious/inflammatory bronchiolitis. New subcentimeter pulmonary nodules, as above. These are indeterminate. Additional left axillary lymphadenopathy is also indeterminate. TECHNICAL DOCUMENTATION: Quality ID # 436: Final reports with documentation of one or more dose reduction techniques (e.g., Automated exposure control, adjustment of the mA and/or kV according to patient size, use of iterative reconstruction technique) copyright 2011 [employer]- All Rights Reserved Chest X-Ray 08/03/19 00:00 IMPRESSION: No significant interval change. No acute cardiopulmonary disease. Assessment and Plan - Diagnosis (1) Hemoptysis Is this a current diagnosis for this admission?: Yes Plan: 08/03/2019 The patient is anticoagulated for history of atrial fibrillation. Unfortunately this morning she experienced hemoptysis. The first 2 emesis bags had clotted blood. The third emesis bag has blood-tinged tissues. It may be slowing down. I have stopped the anticoagulant but this takes several days to wear off. An outpatient appointment for biopsy was arranged in [place] for later today but it was rescheduled for tomorrow. I have ordered a CBC and a chest x-ray to assess her status. 08/04/2019 Hemoptysis resolved. Hemoglobin is improving. (2) COPD exacerbation Is this a current diagnosis for this admission?: Yes Plan: Patient has advanced COPD with chronic hypoxic respiratory failure on 3 to 4 L nasal cannula. Continue Xopenex every 6 hours. Flonase. Change azithromycin to p.o. Discontinue Solu-Medrol and start prednisone p.o. Discussed with kit planner about patient's needs for larger portable oxygen tank Seems close to her baseline at this point. I will give patient 1 more day of frequent nebs with anticipation of discharge tomorrow. Have discussed with patient that advanced COPD will limit the amount of improvement expected. She will benefit from pulmonary rehabilitation outpatient-Case management co nsulted. 08/03/2019 Continue current regimen. COPD appears to be improved however because of the hemoptysis I have ordered a pulmonology consult. 08/04/2019 Pulmonology suggests using an oxygen diffuser. The patient has been resisting the diffuser and BiPAP. I did spend a long time with her today discussing our plan to improve her breathing and the need to improve her cardiac status as well. We will continue her current regimen at this time. (3) Atrial flutter with rapid ventricular response Is this a current diagnosis for this admission?: Yes Plan: Triggered by acute exacerbation of COPD. Has remained off diltiazem drip for the past 2 days. Heart rate is doing well on po cardizem and back in NSR. 08/03/2019 Continue oral diltiazem. She briefly is flipped back into fibrillation earlier. This is likely from the stress of the hemoptysis and coughing. She is back in sinus rhythm. The apixaban has been stopped because of the hemoptysis. 08/04/2019 This morning her heart rate rapidly [id number]. I increased her diltiazem dosing and added digoxin. She has as needed metoprolol available as well. We will continue to monitor on telemetry and adjust medication to get her heart rate below 100. I did tell her that if all the changes in medications are effective anticipate her being able to go home tomorrow or Friday. (4) Right lower lobe lung mass Is this a current diagnosis for this admission?: Yes Plan: CT chest shows approximately 3 cm mass that seems to encapsulate and partially occluded the bronchus that fits the right lower lobe as well as right hilar adenopathy. Given patient's smoking history, weight loss and hemoptysis in May, this is concerning for bronchogenic carcinoma. I contacted [facility] to discuss with chef de partie. However the chef de partie reviewed the image and stated that based off image only, he did not feel any emergent danger that required urgent transfer for bronchoscopy. However he declined providing phone consultation on the case because he was unable to examine the patient in person. I discussed with their hospitalist who was graciously able to set patient up with another chef de partie called Dr. Kristian Gaston in [place] and the office will be contacting patient on Friday to schedule an urgent date for Bronchoscopy. 08/02/2019-received a call today from [facility] and patient has been set up for appointment with Catrina SZYMANSKI at [facility] for tomorrow at 3 PM to plan for bronchoscopy with biopsy. Patient has been infor med her given information and address. Plan is to discharge patient tomorrow straight to have appointment. 08/03/2019 The 3 PM appointment today to begin the process of arranging a bronchoscopy will need to be canceled. If the patient improves we can continue with her outpatient appointment later this week. I have asked pulmonology to consult to see if a bronchoscopy during this hospitalization would be appropriate. 08/04/2019 I told her it was most likely the mass that bled but it appears to have stopped. She still needs to have the biopsy. Because a procedure cannot be done know for Friday we will reschedule her appointment in [place]. Off of the apixaban she may not have to wait as long to get the biopsy and have a diagnosis. Once the diagnosis is made she can embark on a treatment plan. (5) Type 2 diabetes mellitus with hyperglycemia Qualifiers: Diabetes mellitus correction insulin use: without correction use Qualified Code(s): E11.65 - Type 2 diabetes mellitus with hyperglycemia Is this a current diagnosis for this admission?: Yes Plan: Resume glipizide and metformin. A1c is 8.1 which shows good control for patient's age. Hyperglycemia is likely secondary to steroids. Increase Lantus 15 units daily while on steroids inpatient. Sliding scale insulin. Continue Accu-Cheks. Steroids de-escalated. 08/03/2019 Accu-Cheks still above 200. Lantus just increased yesterday. We will monitor Accu-Cheks and possibly adjust again tomorrow. Also the Accu-Chek should improve as the steroids taper. 08/04/2019 Accu-Cheks are still wildly variable. We did increase her Lantus but today's numbers were greater than 400. I will adjust her medication again. (6) Rheumatoid arthritis Qualifiers: Rheumatoid factor presence: unspecified presence Laterality: unspecified laterality Is this a current diagnosis for this admission?: Yes Plan: Elevated ESR. Denies worsening joint pains. Could be from other etiologies as well. Continue outpatient follow-up with her ring conductor. 08/03/2019 She will follow-up with her ring conductor as an outpatient. The prednisone for her COPD should be helpful. 08/04/2019 Continue steroids and taper when COPD improves - Time Time Spent with patient: 15-24 minutes Medications reviewed and adjusted accordingly: Yes Anticipated discharge: Home with Homehealth Within: within 48 hours
[2019-08-04] MEDS ORDERED: DIGOXIN INJ 0.5 MG/2 ML AMPULE ONE (10:27)
[2019-08-04] MEDS: PREDNISONE 20 MG TABLET PO SCH (10:35)
[2019-08-04] MEDS: AZITHROMYCIN 250 MG TABLET PO SCH (10:35)
[2019-08-04] MEDS: FLUTICASONE NASAL SPRAY 50 MCG/SPRY 120 SPRAY/16 GM NASL SCH ×2 (10:36→21:33)
[2019-08-04] MEDS: BRIMONIDINE TARTRATE 0.2% OPH SOLN 5 ML OD SCH ×2 (10:36→17:59)
[2019-08-04] MEDS: FLUTICASONE/UMECLIDIN/VILANTER 100-62.5-25 MCG/DOSE IH SCH (10:37)
[2019-08-04] MEDS: DIGOXIN INJ 0.5 MG/2 ML AMPULE IV SCH (10:45)
[2019-08-04] MEDS ORDERED: DILTIAZEM HCL 30 MG TABLET PO ONE (11:42)
[2019-08-04] MEDS ORDERED: DIGOXIN INJ 0.5 MG/2 ML AMPULE IV ONE (11:42)
[2019-08-04] MEDS: INSULIN GLARGINE,HUM.REC.ANLOG 1,000 UNIT/10 ML VIAL SUBCUT SCH (12:11)
[2019-08-04] MEDS: DILTIAZEM HCL 60 MG TABLET PO SCH ×2 (17:50→21:32)
[2019-08-04] MEDS: ACETAZOLAMIDE 250 MG TABLET PO SCH (21:30)
[2019-08-05] MEDS: LEVALBUTEROL HCL NEB 1.25 MG/3 ML AMPUL NEB SCH ×3 (02:36→14:17)
[2019-08-05] MEDS: DILTIAZEM HCL 60 MG TABLET PO SCH ×2 (05:42→15:41)
[2019-08-05 06:49] LABS: HEMATOCRIT 27.9 % (36.0-47.0); HEMOGLOBIN 8.7 g/dL (12.0-15.5); MEAN CORPUSCULAR HEMOGLOBIN 27.9 pg (27.0-33.4); MEAN CORPUSCULAR HGB CONC 31.1 g/dL (32.0-36.0); MEAN CORPUSCULAR VOLUME 90 fl (80-97); PLATELET COUNT 383 10^3/uL (150-450); RED CELL DISTRIBUTION WIDTH 17.3 % (11.5-14.0); WHITE BLOOD COUNT 11.4 10^3/uL (4.0-10.5)
[2019-08-05 07:07] LABS: ANION GAP 6 (5-19); BLOOD UREA NITROGEN 24 mg/dL (7-20); CALCIUM 9.7 mg/dL (8.4-10.2); CARBON DIOXIDE 35 mmol/L (22-30); CHLORIDE 96 mmol/L (98-107); GLUCOSE 136 mg/dL (75-110); POTASSIUM 4.3 mmol/L (3.6-5.0)
[2019-08-05 07:09] LABS: ABSOLUTE LYMPHOCYTES# (MANUAL) 4.2 10^3/uL (0.5-4.7); ABSOLUTE MONOCYTES # (MANUAL) 0.7 10^3/uL (0.1-1.4); BAND NEUTROPHILS % (MANUAL) 1 % (3-5); BASOPHILS % (MANUAL) 0 % (0-2); EOSINOPHILS % (MANUAL) 0 % (0-6); LYMPHOCYTES % (MANUAL) 37 % (13-45); MONOCYTES % (MANUAL) 6 % (3-13); NUCLEATED RED BLOOD CELLS 4 /100 WBC (0); SEGMENTED NEUTROPHILS % (MAN) 56 % (42-78); TOTAL CELLS COUNTED 100
[2019-08-05 07:10] LABS: ANISOCYTOSIS 1+; PLATELET COMMENT ADEQUATE; TOXIC GRANULATION SLIGHT
[2019-08-05 07:11] LABS: POLYCHROMASIA 1+
[2019-08-05] MEDS: INSULIN LISPRO 100 UNIT/ML 3 ML VIAL SUBCUT SCH ×2 (08:56→13:16)
--- NOTE | 2019-08-05 09:41 | PDOC CONSULTATION ---
Consultation-Blank Consultation: Met with Patient at Attending Physician request. Patient reported she is having heart difficulties that she feels her physician has not properly addressed. She indicated she is anxious to go home but feels nothing will be accomplished by going home. She indicated she believes she wants to go to another hospital where she can be "more appropriately treated." When asked what she felt what "more appropriately treated" looked like to her, she stated " I don't know, I'm not the doctor." She was challenged about this statement "then how do you know your doctor isn't doing the absolutely right and best treatment?" Patient avoided the answer and complained that the nurses were coming in the room and turning he r oxygen levels up and down. She was unable to provide a reason as to why she thought the nurses would engage in this behavior. Patient admitted to feeling anxious, but only about remaining in the hospital. She denied feeling anxious about dying, reporting she had a solid relationship with God and knew she would go to [facility] when she . She denied feeling depressed, having previous suicide attempts or previous experiences with mental health. She reported having a strong support system but indicated most of her family being out of state. She indicated she would like "help" at home in the fo rm of Home Health and transportation services to assist getting to her physician appointments. Patient refused medication management for her anxiety. Patient was oriented to person, place, time, and circumstance. Mood was guarded, foundationally angry, anxious and depressed, with blunted affect. She denied suicidal/homicidal ideation, intent or plan and displayed forward thinking. She auditory /visual hallucinations and mild delusions were present as evidenced by her belief that the nurses were purposefully messing with her oxygen. Thought processes were organized and liner but slightly illogical. Conversational speech was within normal limits for rate, tone, and prosody. Eye contact was well maintained. Intellectual abilities were estimated within the average range. Receptiveness to alternative perspectives or feedback was poor. Attention and concentration was within normal limits. Insight, judgment, and impulse control was poor. Clinical Presentation: Guarded Angry Scared Anxious Depressed Medically Compromised Impression/Plan: Patient is clear from acute psychiatric services. She presents with anxiety, depression, and anger about her most recent medical diagnoses. Patient reports dissatisfaction with her current medical care but cannot articulate what she believes needs to be done differently. Patient reports a strong support system but indicates her family lives in different States such as [place] and [place], though she states she has a strong relationship with God. Patient desires assistance with home health and transportation coordination upon discharge. She refuses medication management or intervention for her anxiety and depression and was not interested in any counseling services, though it is felt she could benefit from such services. Thank you for this kind referral. If you have questions regarding this consultation, please consult the behavioral health team at [phone].
[2019-08-05] MEDS ORDERED: CEFTRIAXONE 1 GM/D5W RTU 1 GM/50 ML RTUPB IV SCH (10:00)
[2019-08-05] MEDS: METFORMIN HCL 500 MG TABLET PO SCH (10:02)
[2019-08-05] MEDS: BRIMONIDINE TARTRATE 0.2% OPH SOLN 5 ML OD SCH (10:03)
[2019-08-05] MEDS: FLUTICASONE NASAL SPRAY 50 MCG/SPRY 120 SPRAY/16 GM NASL SCH (10:03)
[2019-08-05] MEDS: DIGOXIN INJ 0.5 MG/2 ML AMPULE IV SCH (10:04)
[2019-08-05] MEDS: FLUTICASONE/UMECLIDIN/VILANTER 100-62.5-25 MCG/DOSE IH SCH (10:05)
[2019-08-05] MEDS: INSULIN GLARGINE,HUM.REC.ANLOG 1,000 UNIT/10 ML VIAL SUBCUT SCH (10:11)
[2019-08-05] MEDS: ACETAZOLAMIDE 250 MG TABLET PO SCH (10:34)
[2019-08-05] MEDS: GLIPIZIDE 5 MG TABLET PO SCH (10:34)
[2019-08-05] MEDS: PREDNISONE 20 MG TABLET PO SCH (10:34)
[2019-08-05] MEDS ORDERED: DILTIAZEM HCL 120 MG CAP.SR.24H PO ONE (12:23)
--- NOTE | 2019-08-05 12:24 | PDOC DISCHARGE SUMMARY ---
Impression - Admit/DC Date/PCP Admission Date/Primary Care Provider: 07/30/19 23:18 JORGE CHACON DO Discharge Date: 08/05/19 - Discharge Diagnosis (1) Hemoptysis Is this a current diagnosis for this admission?: Yes (2) COPD exacerbation Is this a current diagnosis for this admission?: Yes (3) Atrial flutter with rapid ventricular response Is this a current diagnosis for this admission?: Yes (4) Right lower lobe lung mass Is this a current diagnosis for this admission?: Yes (5) Type 2 diabetes mellitus with hyperglycemia Is this a current diagnosis for this admission?: Yes (6) Rheumatoid arthritis Is this a current diagnosis for this admission?: Yes - Additional Information Resuscitation Status: Full Code Discharge Diet: Cardiac, Diabetic Discharge Activity: Balance Activity w/Rest Referrals: CARLOS OLIVARES DO [NO LOCAL MD] - 08/13/19 10:30 am (photo id, insurance card and medications) DEB FABIAN MD [ACTIVE STAFF] - 09/09/19 1:30 pm Prescriptions: Diltiazem HCl [Diltiazem 24Hr ER] 180 mg PO DAILY 30 Days #30 cap.sa.24h Ipratropium/Albuterol Sulfate [Duoneb 3 ml Ampul] 3 ml NEB RTQ6 30 Days #120 vial.neb Glipizide [Glucotrol 10 mg Tablet] 10 mg PO BID 30 Days #60 tablet Digoxin [Lanoxin 0.125 mg Tablet] 0.125 mg PO DAILY 30 Days #30 tablet Home Medications: Brimonidine Tartrate [Alphagan P] 5 ml OU BID 06/07/19 Fluticasone/Umeclidin/Vilanter [Trelegy 100-62.5-25 Mcg Ellipta 14 Dose/Dpi] 1 each DAILY 06/07/19 Midodrine HCl [Proamatine 5 mg Tablet] 5 mg PO TIDP PRN #90 tablet 06/12/19 Aspirin [Ecotrin 81 mg EC Tablet] 81 mg PO DAILY 07/31/19 Fluticasone Propionate [Flonase Nasal Boston 50 Mcg/Boston 16 gm] 1 spray NASL Q12 07/31/19 Metformin HCl 500 mg PO BID 07/31/19 Oxycodone HCl/Acetaminophen [Percocet 5-325 mg Tablet] 1 tab PO DAILYP PRN 07/31/19 Digoxin [Lanoxin 0.125 mg Tablet] 0.125 mg PO DAILY 30 Days #30 tablet 08/05/19 Diltiazem HCl [Diltiazem 24Hr ER] 180 mg PO DAILY 30 Days #30 cap.sa.24h 08/05/19 Fluticasone Propionate [Flonase Nasal Boston 50 Mcg/Boston 16 gm] 2 spray NASL Q12 spray.pump 08/05/19 Fluticasone/Umeclidin/Vilanter [Trelegy 100-62.5-25 Mcg Ellipta 14 Dose/Dpi] 1 inh IH DAILY inhaler 08/05/19 Glipizide [Glucotrol 10 mg Tablet] 10 mg PO BID 30 Days #60 tablet 08/05/19 Ipratropium/Albuterol Sulfate [Duoneb 3 ml Ampul] 3 ml NEB RTQ6 30 Days #120 vial.neb 08/05/19 History of Present Illiness History of Present Illness: ALLIE 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 She presents with 24 hours of shortness of breath, fever of 101.6 and left-sided chest pain. In the emergency department she is found to have A. fib with RVR in the 180s she receives adenosine followed by Cardizem. In the emergency department she denies recent change in medication regiment or exposure to known ill contacts. Her work-up reveals anemia, A. fib with RVR, left lower lobe mass and bilateral hilar adenopathy without leukocytosis. She receives empiric antibiotics, IV Cardizem and referred to the hospitalist for admission. She denies chest pain nausea vomiting Hospital Course Hospital Course: (1) Hemoptysis Is this a current diagnosis for this admission?: Yes Plan: 08/03/2019 The patient is anticoagulated for history of atrial fibrillation. Unfortunately this morning she experienced hemoptysis. The first 2 emesis bags had clotted blood. The third emesis bag has blood-tinged tissues. It may be slowing down. I have stopped the anticoagulant but this takes several days to wear off. An outpatient appointment for biopsy was arranged in [place] for later today but it was rescheduled for tomorrow. I have ordered a CBC and a chest x-ray to assess her status. 08/04/2019 Hemoptysis resolved. Hemoglobin is improving. (2) COPD exacerbation Is this a current diagnosis for this admission?: Yes Plan: Patient has advanced COPD with chronic hypoxic respiratory failure on 3 to 4 L nasal cannula. Continue Xopenex every 6 hours. Flonase. Change azithromycin to p.o. Discontinue Solu-Medrol and start prednisone p.o. Discussed with space planner about patient's needs for larger portable oxygen tank Seems close to her baseline at this point. I will give patient 1 more day of frequent nebs with anticipation of discharge tomorrow. Have discussed with patient that advanced COPD will limit the amount of improvement expected. She will benefit from pulmonary rehabilitation outpatient-Case management consulted. 08/03/2019 Continue current regimen. COPD appears to be improved however because of the hemoptysis I have ordered a pulmonology consult. 08/04/2019 Pulmonology suggests using an oxygen diffuser. The patient has been resisting the diffuser and BiPAP. I did spend a long time with her today discussing our plan to improve her breathing and the need to improve her cardiac status as well. We will continue her current regimen at this time. 08/05/2019 The patient had no way to get her portable oxygen to the hospital for transport home. Arrangements will be made with a home oxygen equipment company to provide portable therapy for her trip home. I believe that the same company for supplies her oxygen at home. Continue current medications and follow-up with pulmonology as an outpatient. (3) Atrial flutter with rapid ventricular response Is this a current diagnosis for this admission?: Yes Plan: Triggered by acute exacerbation of COPD. Has remained off diltiazem drip for the past 2 days. Heart rate is doing well on po cardizem and back in NSR. 08/03/2019 Continue oral diltiazem. She briefly is flipped back into fibrillation earlier. This is likely from the stress of the hemoptysis and coughing. She is back in sinus rhythm. The apixaban has been stopped because of the hemoptysis. 08/04/2019 This morning her heart rate rapidly [id number]. I increased her diltiazem dosing and added digoxin. She has as needed metoprolol available as well. We will continue to monitor on telemetry and adjust medication to get her heart rate below 100. I did tell her that if all the changes in medications are effective anticipate her being able to go home tomorrow or Friday. 08/05/2019 1 the patient is compliant with her medications her heart rate is improved. I have increased her diltiazem to 180 mg daily and added digoxin 0.125 mg daily. She needs follow-up with primary care and she should follow-up with a plasma center nurse. (4) Right lower lobe lung mass Is this a current diagnosis for this admission?: Yes Plan: CT chest shows approximately 3 cm mass that seems to encapsulate and partially occluded the bronchus that fits the right lower lobe as well as right hilar adenopathy. Given patient's smoking history, weight loss and hemoptysis in May, this is concerning for bronchogenic carcinoma. I contacted [facility] to discuss with application helper. However the application helper reviewed the image and stated that based off image only, he did not feel any emergent danger that required urgent transfer for bronchoscopy. However he declined providing phone consultation on the case because he was unable to examine the patient in person. I discussed with their hospitalist who was graciously able to set patient up with another application helper called Dr. Kristian Gaston in [place] and the office will be contacting patient on Friday to schedule an urgent date for Bronchoscopy. 08/02/2019-received a call today from [facility] and patient has been set up for appointment with Catrina SZYMANSKI at [facility] for tomorrow at 3 PM to plan for bronchoscopy with biopsy. Patient has been informed her given information and address. Plan is to discharge patient tomorrow straight to have appointment. 08/03/2019 The 3 PM appointment today to begin the process of arranging a bronchoscopy will need to be canceled. If the patient improves we can continue with her outpatient appointment later this week. I have asked pulmonology to consult to see if a bronchoscopy during this hospitalization would be appropriate. 08/04/2019 I told her it was most likely the mass that bled but it appears to have stopped. She still needs to have the biopsy. Because a procedure cannot be done know for Friday we will reschedule her appointment in [place]. Off of the apixaban she may not have to wait as long to get the biopsy and have a diagnosis. Once the diagnosis is made she can embark on a treatment plan. 08/05/2019 After spending an inordinate amount of time with the pillowcase cleaner, rn community as well as patient and her daughter it is realized that the patient is not going to be able to travel to [place] for any further appointments. Her daughter was not willing to drive her and no members of her mormon will drive her. They were expecting transportation to the [facility]. Even if the patient did have Medicaid, which evidently she does not, they would not transport out of the [facility]. For this we have encouraged outpatient follow-up with the application helper who saw the patient in the hospital. (5) Type 2 diabetes mellitus with hyperglycemia Qualifiers: Diabetes mellitus skilled nursing insulin use: without skilled nursing use Qualified Code(s): E11.65 - Type 2 diabetes mellitus with hyperglycemia Is this a current diagnosis for this admission?: Yes Plan: Resume glipizide and metformin. A1c is 8.1 which shows good control for patient's age. Hyperglycemia is likely secondary to steroids. Increase Lantus 15 units daily while on steroids inpatient. Sliding scale insulin. Continue Accu-Cheks. Steroids de-escalated. 08/03/2019 Accu-Cheks still above 200. Lantus just increased yesterday. We will monitor Accu-Cheks and possibly adjust again tomorrow. Also the Accu-Chek should improve as the steroids taper. 08/04/2019 Accu-Cheks are still wildly variable. We did increase her Lantus but today's numbers were greater than 400. I will adjust her medication again. 08/05/2019 Continue metformin and I increased her glipizide to 10 mg twice daily. She will eventually need to initiate insulin therapy at home. (6) Rheumatoid arthritis Qualifiers: Rheumatoid factor presence: unspecified presence Laterality: unspecified laterality Is this a current diagnosis for this admission?: Yes Plan: Elevated ESR. Denies worsening joint pains. Could be from other etiologies as well. Continue outpatient follow-up with her senior devops engineer. 08/03/2019 She will follow-up with her senior devops engineer as an outpatient. The prednisone for her COPD should be helpful. 08/04/2019 Continue steroids and taper when COPD improves 08/05/2019 Steroid taper for COPD is complete. Follow-up with the senior devops engineer. Physical Exam Vital Signs: Temp Pulse Resp BP Pulse Ox 97.7 F 76 20 97/65 L 94 08/05/19 03:13 08/05/19 08:47 08/05/19 08:47 08/05/19 03:13 08/05/19 08:47 Intake & Output 08/04/19 08/05/19 08/06/19 06:59 06:59 06:59 Intake Total 100 370 Balance 100 370 Weight 85 kg 85 kg General appearance: PRESENT: no acute distress, cooperative, well-developed Respiratory exam: PRESENT: prolonged expiratory phas, symmetrical. ABSENT: rales, rhonchi, tachypnea, wheezes Cardiovascular exam: PRESENT: RRR, +S1, +S2 GI/Abdominal exam: PRESENT: normal bowel sounds, soft. ABSENT: distended, guarding, tenderness Results Laboratory Results: WBC 11.4 10^3/uL (4.0-10.5) H 08/05/19 06:24 RBC 3.10 10^6/uL (3.72-5.28) L 08/05/19 06:24 Hgb 8.7 g/dL (12.0-15.5) L 08/05/19 06:24 Hct 27.9 % (36.0-47.0) L 08/05/19 06:24 MCV 90 fl (80-97) 08/05/19 06:24 MCH 27.9 pg (27.0-33.4) 08/05/19 06:24 MCHC 31.1 g/dL (32.0-36.0) L 08/05/19 06:24 RDW 17.3 % (11.5-14.0) H 08/05/19 06:24 Plt Count 383 10^3/uL (150-450) 08/05/19 06:24 Lymph % (Auto) Not Reportable 08/05/19 06:24 Payne % (Auto) Not Reportable 08/05/19 06:24 Eos % (Auto) Not Reportable 08/05/19 06:24 Baso % (Auto) Not Reportable 08/05/19 06:24 Reticulocyte # 0.060 10^6/uL (0.028-0.122) 07/31/19 03:35 Absolute Neuts (auto) Not Reportable 08/05/19 06:24 Absolute Lymphs (auto) Not Reportable 08/05/19 06:24 Absolute Monos (auto) Not Reportable 08/05/19 06:24 Absolute Eos (auto) Not Reportable 08/05/19 06:24 Absolute Basos (auto) Not Reportable 08/05/19 06:24 Total Counted 100 08/05/19 06:24 Seg Neutrophils % Not Reportable 08/05/19 06:24 Seg Neuts % (Manual) 56 % (42-78) 08/05/19 06:24 Band Neutrophils % 1 % (3-5) L 08/05/19 06:24 Lymphocytes % (Manual) 37 % (13-45) 08/05/19 06:24 Monocytes % (Manual) 6 % (3-13) 08/05/19 06:24 Eosinophils % (Manual) 0 % (0-6) 08/05/19 06:24 Basophils % (Manual) 0 % (0-2) 08/05/19 06:24 Abs Neuts (Manual) 6.5 10^3/uL (1.7-8.2) 08/05/19 06:24 Abs Lymphs (Manual) 4.2 10^3/uL (0.5-4.7) 08/05/19 06:24 Abs Monocytes (Manual) 0.7 10^3/uL (0.1-1.4) 08/05/19 06:24 Absolute Eos (Manual) 0.0 10^3/uL (0.0-0.6) 08/05/19 06:24 Abs Basophils (Manual) 0.0 10^3/uL (0.0-0.2) 08/05/19 06:24 Nucleated RBCs 4 /100 WBC (0) 08/05/19 06:24 Toxic Granulation SLIGHT 08/05/19 06:24 Platelet Comment ADEQUATE 08/05/19 06:24 Polychromasia 1+ 08/05/19 06:24 Poikilocytosis SLIGHT 08/04/19 06:21 Anisocytosis 1+ 08/05/19 06:24 Tear Drop Cells SLIGHT 08/04/19 06:21 Louise Cells SLIGHT 08/04/19 06:21 ESR > 120 mm/hr (0-30) H 08/01/19 06:19 Retic Count (auto) 2.05 % (0.66-2.85) 07/31/19 03:35 Carbonic Acid 1.50 mmol/L (1.05-1.35) H 08/02/19 08:55 HCO3/H2CO3 Ratio 21:1 08/02/19 08:55 ABG pH 7.43 (7.35-7.45) 08/02/19 08:55 ABG pCO2 49.8 mmHg (35-45) H 08/02/19 08:55 ABG pO2 64.4 mmHg (80-100) L 08/02/19 08:55 ABG HCO3 32.1 mmol/L (20-24) H 08/02/19 08:55 ABG Total CO2 33.6 mmol/L (21-25) H 08/02/19 08:55 ABG O2 Saturation 92.8 % (94-98) L 08/02/19 08:55 ABG Base Excess 6.9 mmol/L 08/02/19 08:55 FiO2 40% 08/02/19 08:55 Sodium 137.1 mmol/L (137-145) 08/05/19 06:24 Potassium 4.3 mmol/L (3.6-5.0) 08/05/19 06:24 Chloride 96 mmol/L (98-107) L 08/05/19 06:24 Carbon Dioxide 35 mmol/L (22-30) H 08/05/19 06:24 Anion Gap 6 (5-19) 08/05/19 06:24 BUN 24 mg/dL (7-20) H 08/05/19 06:24 Creatinine 0.83 mg/dL (0.52-1.25) 08/05/19 06:24 Est GFR ( Amer) > 60 (>60) 08/05/19 06:24 Est GFR (MDRD) Non-Af > 60 (>60) 08/05/19 06:24 Glucose 136 mg/dL (75-110) H 08/05/19 06:24 POC Glucose 112 mg/dL (70-110) H 08/05/19 08:04 Hemoglobin A1c % 8.1 % (4.7-6.0) H 08/01/19 06:19 Lactic Acid 1.0 mmol/L (0.7-2.1) 07/30/19 22:45 Calcium 9.7 mg/dL (8.4-10.2) 08/05/19 06:24 Magnesium 2.3 mg/dL (1.6-2.3) 08/05/19 06:24 Iron 21.6 ug/dL (37-170) L 07/31/19 03:35 TIBC 189 ug/dL (250-450) L 07/31/19 03:35 % Saturation 11 % 07/31/19 03:35 Transferrin 122.89 mg/dL (206.00-381.00) L 07/31/19 03:35 Ferritin 724.00 ng/mL (11.1-264.0) H 07/31/19 03:35 Total Bilirubin 0.9 mg/dL (0.2-1.3) 07/30/19 16:17 Direct Bilirubin 0.2 mg/dL (0.0-0.4) 07/30/19 16:17 Neonat Total Bilirubin Not Reportable 07/30/19 16:17 Neonat Direct Bilirubin Not Reportable 07/30/19 16:17 Neonat Indirect Bili Not Reportable 07/30/19 16:17 AST 20 U/L (14-36) 07/30/19 16:17 ALT 9 U/L (<35) 07/30/19 16:17 Alkaline Phosphatase 109 U/L (38-126) 07/30/19 16:17 Creatine Kinase 35 U/L (30-135) 07/30/19 16:17 CK-MB (CK-2) 0.26 ng/mL (<4.55) 07/30/19 16:17 Troponin I < 0.012 ng/mL 07/30/19 16:17 NT-Pro-B Natriuret Pep 348 pg/mL (<450) 07/30/19 16:17 Total Protein 6.9 g/dL (6.3-8.2) 07/30/19 16:17 Albumin 2.9 g/dL (3.5-5.0) L 07/30/19 16:17 Vitamin B12 962.0 pg/mL (239-931) H 07/31/19 03:35 Folate 16.00 ng/mL (>2.76) 07/31/19 03:35 Urine Color STRAW 07/30/19 18:46 Urine Appearance CLEAR 07/30/19 18:46 Urine pH 6.0 (5.0-9.0) 07/30/19 18:46 Ur Specific Branford 1.003 07/30/19 18:46 Urine Protein NEGATIVE mg/dL (NEGATIVE) 07/30/19 18:46 Urine Glucose (UA) NEGATIVE mg/dL (NEGATIVE) 07/30/19 18:46 Urine Ketones NEGATIVE mg/dL (NEGATIVE) 07/30/19 18:46 Urine Blood NEGATIVE (NEGATIVE) 07/30/19 18:46 Urine Nitrite (Reflex) NEGATIVE (NEGATIVE) 07/30/19 18:46 Urine Bilirubin NEGATIVE (NEGATIVE) 07/30/19 18:46 Urine Urobilinogen NEGATIVE mg/dL (<2.0) 07/30/19 18:46 Leukocyte Esterase Rfl NEGATIVE (NEGATIVE) 07/30/19 18:46 Urine RBC (Auto) 0 /HPF 07/30/19 18:46 Urine WBC (Reflex) < 1 /HPF 07/30/19 18:46 Squamous Epi Cells Auto <1 /HPF 07/30/19 18:46 Urine Mucus (Auto) RARE /LPF 07/30/19 18:46 Urine Ascorbic Acid NEGATIVE (NEGATIVE) 07/30/19 18:46 POC Stool Occult Blood NEGATIVE (NEGATIVE) 07/30/19 20:31 SARS-CoV-2 (PCR) NEGATIVE (NEGATIVE) 07/30/19 22:37 07/30/19 07/30/19 16:17 16:17 CK-MB (CK-2) 0.26 Troponin I < 0.012 NT-Pro-B Natriuret Pep 348 Impressions: Chest X-Ray 07/30/19 16:37 IMPRESSION: 1. No significant interval changes since the prior examination dated 07/06/2019. Stable chronic changes and small pleural effusions versus pleural thickening. No acute pulmonary consolidation. 2. Fullness in the bilateral hilar regions and right paratracheal region. Further evaluation with CT chest with IV contrast suggested. Chest CT 07/30/19 19:20 IMPRESSION: Soft tissue mass located about the right lower lobe which obstructs the right lower lobe airway, concerning for primary bronchogenic carcinoma. Superimposed right hilar lymphadenopathy could indicate locoregional metastatic disease. This could be confirmed with bronchoscopy. Mucous plugging about the right lower lobe basilar subsegmental airways with associated multifocal tree-in-bud and nodular consolidative opacity, likely indicative of a postobstructive infectious/inflammatory bronchiolitis. New subcentimeter pulmonary nodules, as above. These are indeterminate. Additional left axillary lymphadenopathy is also indeterminate. TECHNICAL DOCUMENTATION: Quality ID # [id number]: Final reports with documentation of one or more dose reduction techniques (e.g., Automated exposure control, adjustment of the mA and/or kV according to patient size, use of iterative reconstruction technique) copyright 2011 [employer]- All Rights Reserved Chest X-Ray 08/03/19 00:00 IMPRESSION: No significant interval change. No acute cardiopulmonary disease. Plan Health Concerns: I believe the patient is experiencing the shock of a potential diagnosis of lung cancer. She has been refusing medications in the hospital including antibiotics and cardiac medications. Transportation was an issue. She insisted that she has Medicaid. I do not believe they have been able to confirm this. Even if she did have Medicaid they would not transport her outside of the [facility]. For this reason we are trying to localize her care. We will refer her to the application helper for bronchoscopy and biopsy and if positive to the local oncology office. In addition she is unhappy with her current primary care provider and will refer her to a new provider locally. Plan of Treatment: Change providers to local. Refer to application helper and establish with new primary care provider as she is not happy with her current provider. In addition she may benefit from cardiology follow-up as well. If a lung biopsy reveals malignancy she can follow-up with the medical oncology group in [place]. Goals: Determination of the mass in her chest and establish appropriate treatment plan once the lesion is defined. Establish new primary care, local pulmonology and eventually local cardiology. Time Spent: Greater than 30 Minutes Stroke Is this a Stroke Patient?: No Acute Heart Failure - Is this a Heart Failure Patient?: No
[2019-08-05 14:53] VITALS: BP 131/70
[2019-08-06] MEDS ORDERED: DIGOXIN 0.125 MG TABLET PO SCH (10:00)
[2019-08-06] MEDS ORDERED: PREDNISONE 10 MG TABLET PO SCH (10:00)
== END 2019-08-05 15:25 | disposition home or self-care (01) | DRG 191 ==
LOC: ER 15:48 → EH 23:18 → 3S 07-31 03:17
PROVIDERS: ADMIT Internal Medicine; ATTEND Hospitalist
DX: J44.1 Chronic obstructive pulmonary disease with (acute) exacerbation (principal); J96.11 Chronic respiratory failure with hypoxia; R04.2 Hemoptysis; I48.92 Unspecified atrial flutter; M06.9 Rheumatoid arthritis, unspecified; E11.65 Type 2 diabetes mellitus with hyperglycemia; R91.8 Other nonspecific abnormal finding of lung field; Z20.828 Contact with and (suspected) exposure to other viral communicable diseases; I25.10 Atherosclerotic heart disease of native coronary artery without angina pectoris; I50.9 Heart failure, unspecified; F41.9 Anxiety disorder, unspecified; F32.9 Major depressive disorder, single episode, unspecified; Z99.81 Dependence on supplemental oxygen; Z88.6 Allergy status to analgesic agent; Z79.84 Long term (current) use of oral hypoglycemic drugs
CPT/HCPCS: 36415; 36600; 71045; 71260; 80048; 80053; 81001; 82270; 82550; 82553; 82607; 82728; 82746; 82803; 82962; 83036; 83540; 83550; 83605; 83735; 83880; 84466; 84484; 85025; 85045; 85652; 87015; 87040; 87077; 87116; 87150; 87186; 87206; 87635; 93005; 93010; 94640; 94660; 96361; 96365; 96375; 99291; C9803; J0456; J0696; J1160; J1815; J2543; J2920; J2930; J3475; J3490; J7030; J7050; J7060; J7512; J7620

== ENCOUNTER 2019-09-10 14:18 | Emergency (ER) | payer MEDICARE, MEDICAID ==
--- NOTE | 2019-09-10 15:11 | RADIOLOGY REPORT (SQ) ---
EXAM DESCRIPTION: CHEST SINGLE VIEW IMAGES COMPLETED DATE/TIME: 09/10/2019 2:50 pm REASON FOR STUDY: sob COMPARISON: 08/03/2019 EXAM PARAMETERS: NUMBER OF VIEWS: One view. TECHNIQUE: Single frontal radiographic view of the chest acquired. RADIATION DOSE: NA LIMITATIONS: None. FINDINGS: LUNGS AND PLEURA: Stable in appearance with atelectasis with scarring in the right upper l obe. Mild hyperexpansion. Blunting of the costophrenic angles consistent with pleural thickening or small effusions. MEDIASTINUM AND HILAR STRUCTURES: No masses. Contour normal. HEART AND VASCULAR STRUCTURES: Stable in appearance. BONES: No acute findings. HARDWARE: None in the chest. OTHER: No other significant finding. IMPRESSION: No interval change in the chest. TECHNICAL DOCUMENTATION: JOB ID: [id number] 2010 [employer]- All Rights Reserved Reading location - IP/workstation name: [email or web address]
--- NOTE | 2019-09-10 15:42 | ER Document Report ---
ED General - General Chief Complaint: Respiratory Distress Stated Complaint: DIFFICULTY BREATHING Time Seen by Provider: 09/10/19 15:02 Primary Care Provider: JORGE CHACON DO [Primary Care Provider] - Follow up as needed TRAVEL OUTSIDE OF THE [place] IN LAST 30 DAYS: No - HPI Notes: Patient is a 74-year-old female who presents to the emergency department for evaluation of shortness of breath. She states to have been done intermittently throughout the day, but got progressively worse. She called for EMS and was found to be oxygenating at 74% on her normal 4 L. She states she had some chest pain prior to EMS arrival, but cannot describe it for me. She states it was wo rsened by breathing. Nothing seemed to make it better. She denies any fevers or chills. She states she has been coughing, but does admit to a chronic cough. She states perhaps is slightly more. She also has pain in her right groin which she states is not new. She states she is been taking her medications as prescribed. The patient cannot tell me who her primary care doctor is. She cannot describe her chest pain. I asked her about a lung mass, noted in 1 of her prior admissions here in the hospital. She states that she never followed up in [place] "because she got sick." She states she saw another doctor a few days ago who was worried about her heart, but she cannot tell me which doctor that was, nor what the concerns were. - Related Data Allergies/Adverse Reactions: ibuprofen [From Motrin] Allergy (Intermediate, Verified 07/06/19 09:34) FACE SWELLING NSAIDS (Non-Steroidal Anti-Inflamma [Nsaids] Allergy (Mild, Verified 07/06/19 0 9:34) Home Medications: List reviewed, please see notes Past Medical History - General Information source: Patient - Social History Smoking Status: Former Smoker Chew tobacco use (# tins/day): No Frequency of alcohol use: None Drug Abuse: None Family History: CVA, Hypertension, Malignancy Patient has homicidal ideation: No - Past Medical History Cardiac Medical History: Reports: Hx Atrial Fibrillation, Hx Coronary Artery Disease, Hx Hypertension Denies: Hx Heart Attack Pulmonary Medical History: Reports: Hx Asthma, Hx COPD, Other - Lung mass Denies: Hx Bronchitis, Hx Pneumonia Neurological Medical History: Denies: Hx Cerebrovascular Accident, Hx Seizures Endocrine Medical History: Reports: Hx Diabetes Mellitus Type 1, Hx Diabetes Mellitus Type 2 Renal/ Medical History: Denies: Hx Peritoneal Dialysis GI Medical History: Reports: Hx Gastroesophageal Reflux Disease. Denies: Hx Hepatitis, Hx Hiatal Hernia, Hx Ulcer Musculoskeletal Medical History: Reports Hx Arthritis - Rheumatoid arthritis, Denies Hx Gout Psychiatric Medical History: Denies: Hx Depression Traumatic Medical History: Denies: Hx Pneumothorax Infectious Medical History: Denies: Hx C-Diff, Hx Hepatitis, Hx HIV Past Surgical History: Reports: Hx Orthopedic Surgery - bilt knees. Denies: Hx Hysterectomy, Hx Mastectomy, Hx Open Heart Surgery, Hx Pacemaker - Immunizations Hx Diphtheria, Pertussis, Tetanus Vaccination: Yes Hx Pneumococcal Vaccination: 12/25/14 Review of Systems - Review of Systems Constitutional: Weakness Cardiovascular: Chest pain Respiratory: See HPI Gastrointestinal: Poor appetite -: Yes All other systems reviewed and negative Physical Exam - Vital signs Vitals: Resp Pulse Ox 18 97 09/10/19 14:19 09/10/19 14:19 - Notes Notes: This is a frail-appearing 74-year-old female who appears her stated age in no acute distress. Respiratory rate is approximately 20-22. She intermittently coughs up what appears to be just saliva, holds it out, stating it is "thick mucus that is choking" her. Vital signs reviewed, please refer to chart. Head is normocephalic, atraumatic. Pupils equal round, reactive to light. Neck is supple without meningismus. Heart is regular rate and rhythm. Lungs reveal scattered inspiratory and expiratory wheezes throughout. Abdomen is soft, nontender, normoactive bowel sounds throughout. Extremities without cyanosis, clubbing. She has 2+ pitting edema to the ankles and feet bilaterally. Posterior calves are nontender. Peripheral pulses are equal. Skin is warm and dry. Patient is awake, alert, cooperative with examiner. She moves all 4 extremities spontaneously. Course - Re-evaluation Re-evalutation: 09/10/19 15:46 Patient presents to the emergency department for evaluation. EMS found her to be markedly hypoxic. Upon arrival she had received magnesium, Solu-Medrol, aspirin, and several breathing treatments. She is oxygenating well at this time. Her EKG does show some nonspecific T wave changes that are different from her prior study performed last month. Laboratory investigations, including troponin are ordered. She has chronic changes on her chest x-ray that appear no different from prior studies per radiology. At this point awaiting blood work. 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 It does seem, however, the patient is back on her Eliquis. She is not had any hemoptysis. She currently is stable, although she is still wheezing. Awaiting labs, we will continue to monitor. 09/10/19 16:09 I went back to visit the patient several times to try and clarify historical aspects of her story and her medical history. Each time I was in the room the patient stated that she had to urinate. This is at least 5 times over 30- minute. Her urine does reveal a small amount of white blood cells. Urine culture is sent. 09/10/19 18:18 I went back into reevaluate the patient. She is not wheezing at all. She is 98 to 100% on her normal 4 L. I talked her about the possibility of discharge. The patient states she was afraid that she might get more short of breath when she went home. She told me her oxygen was "hot coming out of the tank" and she did not like it. I told her she should talk to her physician about that, but at this point I did not see any acute reason for admission. She agreed that she was not short of breath, but again was concerned she might become short of breath when she went home. I explained to her that if that happens she should come back to the ED. I told her we would order an ABG to finish her evaluation. Initially she was agreeable, until nurses came to go get this blood work, which time she became abusive and started yelling, threw them out of her room. I will go and treat her for a COPD exacerbation with antibiotics and steroids. She is to use her regular medications at home as prescribed. She is to follow- up with primary care and pulmonology next week, return to the ED with worsening. - Vital Signs Vital signs: Temp Pulse Resp BP Pulse Ox 18 133/50 H 100 09/10/19 17:01 09/10/19 17:01 09/10/19 17:01 - Laboratory Result Diagrams: 09/10/19 16:11 09/10/19 16:11 Laboratory results interpreted by me: 09/10/19 09/10/19 09/10/19 14:48 16:11 16:11 RBC 3.54 L Hgb 10.1 L Hct 31.9 L MCHC 31.7 L RDW 16.9 H Lymph % (Auto) 9.4 L [place] % (Auto) 1.3 L Seg Neutrophils % 88.7 H VBG pCO2 VBG HCO3 Sodium 132.8 L Chloride 90 L Carbon Dioxide 36 H Glucose 154 H Ur Leukocyte Esterase SMALL H 09/10/19 17:10 RBC Hgb Hct MCHC RDW Lymph % (Auto) [place] % (Auto) Seg Neutrophils % VBG pCO2 72.5 H* VBG HCO3 37.5 H Sodium Chloride Carbon Dioxide Glucose Ur Leukocyte Esterase - Diagnostic Test Radiology reviewed: Reports reviewed Radiology results interpreted by me: 09/10/19 15:47 Chest X-Ray 09/10/19 14:22 IMPRESSION: No interval change in the chest. - EKG Interpretation by Me Additional EKG results interpreted by me: 09/10/19 15:47 Sinus mechanism with a rate of 76 bpm, PACs noted. Normal axis and intervals. Nonspecific T wave changes, but no ST elevation or depression concerning for ischemia or infarction. These T wave changes are different from prior study dated 07/31/2019 Discharge - Discharge Clinical Impression: Right lower lobe lung mass, Acute exacerbation of COPD with asthma Condition: Stable Disposition: HOME, SELF-CARE Instructions: Chronic Obstructive Lung Disease ([facility]) Additional Instructions: Please take medications as prescribed. Follow-up with your primary care provider and your assistant chief of police next week. If your breathing worsens, or you develop new or concerning symptoms of any sort, return immediately to the emergency department for evaluation. Referrals: JORGE CHACON DO [Primary Care Provider] - Follow up as needed
[2019-09-10 15:48] LABS: APPEARANCE,URINE CLEAR; BILIRUBIN,URINE NEGATIVE (NEGATIVE); COLOR,URINE STRAW; GLUCOSE, URINE NEGATIVE (NEGATIVE); KETONES,URINE NEGATIVE (NEGATIVE); LEUKOCYTE ESTERASE,URINE SMALL (NEGATIVE); NITRITE,URINE NEGATIVE (NEGATIVE); PROTEIN,URINE NEGATIVE (NEGATIVE); URINE SPECIFIC GRAVITY 1.004; UROBILINOGEN,URINE NEGATIVE mg/dL (<2.0)
[2019-09-10 16:34] LABS: ABSOLUTE LYMPHOCYTES (AUTO) 0.8 10^3/uL (0.5-4.7); ABSOLUTE MONOCYTES (AUTO) 0.1 10^3/uL (0.1-1.4); ABSOLUTE NEUT (AUTO) 7.7 10^3/uL (1.7-8.2); BASOPHILS % (AUTO) 0.3 % (0-2); EOSINOPHILS % (AUTO) 0.3 % (0-6); HEMATOCRIT 31.9 % (36.0-47.0); HEMOGLOBIN 10.1 g/dL (12.0-15.5); LYMPHOCYTES % (AUTO) 9.4 % (13-45); MEAN CORPUSCULAR HEMOGLOBIN 28.6 pg (27.0-33.4); MEAN CORPUSCULAR HGB CONC 31.7 g/dL (32.0-36.0); MEAN CORPUSCULAR VOLUME 90 fl (80-97); MONOCYTES % (AUTO) 1.3 % (3-13); PLATELET COUNT 251 10^3/uL (150-450); RED BLOOD COUNT 3.54 10^6/uL (3.72-5.28); RED CELL DISTRIBUTION WIDTH 16.9 % (11.5-14.0); SEGMENTED NEUTROPHILS % (AUTO) 88.7 % (42-78); TOTAL CELLS COUNTED % (AUTO) 100 %; WHITE BLOOD COUNT 8.7 10^3/uL (4.0-10.5)
[2019-09-10 16:57] LABS: ALKALINE PHOSPHATASE 112 U/L (38-126); ANION GAP 7 (5-19); ASPARTATE AMINO TRANSFERASE 27 U/L (14-36); BILIRUBIN,DIRECT 0.1 mg/dL (0.0-0.4); BILIRUBIN,TOTAL 0.5 mg/dL (0.2-1.3); BLOOD UREA NITROGEN 10 mg/dL (7-20); CALCIUM 9.8 mg/dL (8.4-10.2); CARBON DIOXIDE 36 mmol/L (22-30); CHLORIDE 90 mmol/L (98-107); GLUCOSE 154 mg/dL (75-110); POTASSIUM 4.2 mmol/L (3.6-5.0)
[2019-09-10 17:28] LABS: VENOUS BLOOD BASE EXCESS 9.4 mmol/L; VENOUS BLOOD HCO3 37.5 mmol/L (20-32); VENOUS BLOOD PH 7.33 (7.30-7.42)
[2019-09-10 17:30] LABS: VENOUS BLOOD PCO2 72.5 mmHg (35-63)
[2019-09-10 19:05] VITALS: BP 119/61
--- NOTE | 2019-09-13 07:56 | EKG REPORT ---
SEVERITY:- ABNORMAL ECG - SINUS RHYTHM consider SA jean-claude exit block MULTIPLE ATRIAL PREMATURE COMPLEXES BORDERLINE T WAVE ABNORMALITIES : Confirmed by: Dalton Horton 13-Sep-2019 07:55:30
== END 2019-09-10 19:16 | disposition home or self-care (01) ==
LOC: ER 14:18
DX: J44.1 Chronic obstructive pulmonary disease with (acute) exacerbation (principal); R91.8 Other nonspecific abnormal finding of lung field; R07.9 Chest pain, unspecified; R06.02 Shortness of breath; R05 Cough; R10.31 Right lower quadrant pain; R63.0 Anorexia; Z79.899 Other long term (current) drug therapy; Z88.8 Allergy status to other drugs, medicaments and biological substances; Z87.891 Personal history of nicotine dependence; I48.91 Unspecified atrial fibrillation; I25.10 Atherosclerotic heart disease of native coronary artery without angina pectoris; I10 Essential (primary) hypertension; E11.9 Type 2 diabetes mellitus without complications; Z99.81 Dependence on supplemental oxygen
CPT/HCPCS: 36415; 71045; 80053; 81001; 82803; 84484; 85025; 87040; 87077; 87086; 87088; 87150; 87186; 93005; 93010; 99285

== ENCOUNTER 2019-09-11 15:12 | Emergency (ER) | payer MEDICARE, MEDICAID ==
[2019-09-11 18:12] VITALS: BP 127/77
--- NOTE | 2019-09-11 18:17 | ER Document Report ---
ED Respiratory Problem - General Chief Complaint: Cough Stated Complaint: COUGHING UP BLOOD Time Seen by Provider: 09/11/19 16:10 Primary Care Provider: JORGE CHACON DO [Primary Care Provider] - Follow up as needed Mode of Arrival: Wheelchair Information source: Relative Notes: This is a 74-year-old female presented to the emergency room today stating that she had been coughing up blood since she left the department last night. Errantly she was seen here last night because she stated that she was short of breath she came in they did some treatments to discharge her after going home since she started spitting up some blood. She states that she has an oxygen generating machine at home or concentrator that she called the company because seem to be malfunctioning it is putting out very warm air and she feels the very warm air may be initiating some of this. TRAVEL OUTSIDE OF THE [place] IN LAST 30 DAYS: No - HPI Patient complains to provider of: COPD Onset: Yesterday Duration: Intermittent episodes Quality of pain: No pain Severity: None - Related Data Allergies/Adverse Reactions: ibuprofen [From Motrin] Allergy (Intermediate, Verified 09/11/19 17:02) FACE SWELLING NSAIDS (Non-Steroidal Anti-Inflamma [Nsaids] Allergy (Mild, Verified 09/11/19 17:02) Past Medical History - General Information source: Patient - Social History Smoking Status: Former Smoker Cigarette use (# per day): No Chew tobacco use (# tins/day): No Frequency of alcohol use: None Drug Abuse: None Lives with: Alone - The son is here currently with the patient. Family History: CVA, Hypertension, Malignancy Patient has homicidal ideation: No - Past Medical History Cardiac Medical History: Reports: Hx Atrial Fibrillation, Hx Coronary Artery Disease, Hx Hypertension Denies: Hx Heart Attack Pulmonary Medical History: Reports: Hx Asthma, Hx COPD Denies: Hx Bronchitis, Hx Pneumonia Neurological Medical History: Denies: Hx Cerebrovascular Accident, Hx Seizures Endocrine Medical History: Reports: Hx Diabetes Mellitus Type 1, Hx Diabetes Mellitus Type 2 Renal/ Medical History: Denies: Hx Peritoneal Dialysis GI Medical History: Reports: Hx Gastroesophageal Reflux Disease. Denies: Hx Hepatitis, Hx Hiatal Hernia, Hx Ulcer Musculoskeletal Medical History: Reports Hx Arthritis - Rheumatoid arthritis, Denies Hx Gout Psychiatric Medical History: Denies: Hx Depression Traumatic Medical History: Denies: Hx Pneumothorax Infectious Medical History: Denies: Hx C-Diff, Hx Hepatitis, Hx HIV Past Surgical History: Reports: Hx Orthopedic Surgery - bilt knees. Denies: Hx Hysterectomy, Hx Mastectomy, Hx Open Heart Surgery, Hx Pacemaker - Immunizations Hx Diphtheria, Pertussis, Tetanus Vaccination: Yes Hx Pneumococcal Vaccination: 12/25/14 Review of Systems - Review of Systems Constitutional: No symptoms reported EENT: No symptoms reported Cardiovascular: No symptoms reported. denies: Chest pain, Palpitations, Syncope, Dizziness Respiratory: No symptoms reported, Sputum - Patient states she is intermittently coughing up blood she has coughed up approximately 3 teaspoons of blood-tinged emesis while here in the department. denies: Cough Gastrointestinal: No symptoms reported Genitourinary: No symptoms reported Female Genitourinary: No symptoms reported Musculoskeletal: No symptoms reported Skin: No symptoms reported Hematologic/Lymphatic: No symptoms reported Neurological/Psychological: No symptoms reported Physical Exam - Vital signs Vitals: Temp Pulse Resp BP Pulse Ox 98.1 F 91 20 127/77 H 89 L 09/11/19 17:46 09/11/19 17:46 09/11/19 17:46 09/11/19 17:46 09/11/19 17:46 Interpretation: Normal - General General appearance: Appears well, Alert - HEENT Head: Normocephalic, Atraumatic Eyes: Normal Pupils: PERRL Nasal: Normal, Other - She has no nasal abscess she does have irritation in the TAVR notes - Respiratory Respiratory status: No respiratory distress Chest status: Nontender Breath sounds: Normal Chest palpation: Normal - Cardiovascular Rhythm: Regular Heart sounds: Normal auscultation Murmur: No - Abdominal Inspection: Normal Distension: No distension Bowel sounds: Normal Tenderness: Nontender Organomegaly: No organomegaly - Back Back: Normal, Nontender - Extremities General upper extremity: Normal inspection, Nontender, Normal color, Normal ROM, Normal temperature General lower extremity: Normal inspection, Nontender, Normal color, Normal ROM, Normal temperature, Normal weight bearing. No: Jeanine's sign - Neurological Neuro grossly intact: Yes Cognition: Normal Orientation: AAOx4 Harpreet Coma Scale Eye Opening: Spontaneous Farrell Coma Scale Verbal: Oriented Farrell Coma Scale Motor: Obeys Commands Harpreet Coma Scale Total: 15 Speech: Normal Motor strength normal: LUE, RUE, LLE, RLE Sensory: Normal - Psychological Associated symptoms: Normal affect, Normal mood - Skin Skin Temperature: Warm Skin Moisture: Dry Skin Color: Normal Course - Re-evaluation Re-evalutation: 09/11/19 18:15 The patient the son and I discussed her oxygen concentrator at home the fact that she was trying to call the company and it would not come out liquid. I did have the nurses address that apparently the charge nurse called the company and the son has departed the facility to go meet them to look at the machine. Patient is now refusing to have any labs drawn states that they maylin blood last night I told her that I need to get a baseline for where she is at as she was not having any bleeding last night patient adamantly refused that she is to leave AGAINST MEDICAL ADVICE. Her son will be returning to the facility once he is finished with the respiratory air [employer]. 09/11/19 18:17 It is my thought that there is a high potential for the oxygen concentrator to be malfunctioning she states that it was expressing very hot air and that could very well lead to turbinate irritation we did discuss using surgical lube on her naris or a product like AYRE which would help keep the nostrils lubricated. However I cannot definitively speak to the cause without complete laboratory and radiology pill form. - Vital Signs Vital signs: Temp Pulse Resp BP Pulse Ox 98.1 F 91 20 127/77 H 89 L 09/11/19 17:46 09/11/19 17:46 09/11/19 17:46 09/11/19 17:46 09/11/19 17:46 - Laboratory Laboratory results interpreted by me: 09/11/19 17:27 Urine Glucose (UA) >=500 H Urine Blood SMALL H Urine Nitrite POSITIVE H Ur Leukocyte Esterase TRACE H Discharge - Discharge Clinical Impression: Left against medical advice Condition: Fair Disposition: AGAINST MEDICAL ADVICE Additional Instructions: Patient should return to the facility for absolutely any change worsening condition. Patient should return she is willing to let us complete a full evaluation including laboratory and x-rays. Patient was told that she was certainly welcome to return at any point of time I would be happy to provide that evaluation for her. Referrals: JORGE CHACON DO [Primary Care Provider] - Follow up as needed
[2019-09-11 18:20] LABS: APPEARANCE,URINE SLIGHTLY-CLOUDY; BILIRUBIN,URINE NEGATIVE (NEGATIVE); COLOR,URINE YELLOW; GLUCOSE, URINE >=500 mg/dL (NEGATIVE); KETONES,URINE NEGATIVE (NEGATIVE); LEUKOCYTE ESTERASE,URINE TRACE (NEGATIVE); NITRITE,URINE POSITIVE (NEGATIVE); PROTEIN,URINE NEGATIVE (NEGATIVE); URINE SPECIFIC GRAVITY 1.014; UROBILINOGEN,URINE NEGATIVE mg/dL (<2.0)
[2019-09-11 18:38] LABS: INTERNATIONAL RATION (INR) 1.19; PROTHROMBIN TIME 15.1 SEC (11.4-15.4)
--- NOTE | 2019-09-12 08:41 | EKG REPORT ---
SEVERITY:- ABNORMAL ECG - SINUS ARRHYTHMIA, RATE 72-84 PROBABLE ANTEROSEPTAL INFARCT, OLD BORDERLINE T WAVE ABNORMALITIES : Confirmed by: Bola Reich MD 12-Sep-2019 08:40:57
== END 2019-09-11 18:24 | disposition left against medical advice (07) ==
LOC: ER 15:12
DX: R04.2 Hemoptysis (principal); J44.9 Chronic obstructive pulmonary disease, unspecified; I25.10 Atherosclerotic heart disease of native coronary artery without angina pectoris; I10 Essential (primary) hypertension; E11.9 Type 2 diabetes mellitus without complications; Z87.891 Personal history of nicotine dependence; Z88.8 Allergy status to other drugs, medicaments and biological substances; Z53.20 Procedure and treatment not carried out because of patient's decision for unspecified reasons
CPT/HCPCS: 36415; 81001; 85610; 93005; 93010; 99284

== ENCOUNTER 2019-11-13 18:24 | Inpatient (IN) | payer MEDICARE, MEDICAID ==
--- NOTE | 2019-11-13 19:28 | RADIOLOGY REPORT (SQ) ---
EXAM DESCRIPTION: CHEST SINGLE VIEW IMAGES COMPLETED DATE/TIME: 11/13/2019 6:09 pm REASON FOR STUDY: shortness of breath COMPARISON: 09/17/2019 EXAM PARAMETERS: NUMBER OF VIEWS: One view. TECHNIQUE: Single frontal radiographic view of the chest acquired. RADIATION DOSE: NA LIMITATIONS: None. FINDINGS: LUNGS AND PLEURA: Lungs are hyperinflated. Biapical pleural and parenchymal scarring is s table. No focal consolidation or pleural effusion. No pneumothorax. MEDIASTINUM AND HILAR STRUCTURES: No masses. Contour normal. HEART AND VASCULAR STRUCTURES: Heart normal in size. Normal vasculature. BONES: No acute findings. HARDWARE: None in the chest. OTHER: No other significant finding. IMPRESSION: No significant interval change. No acute cardiopulmonary disease. Hyperinflated lungs which can be seen with obstructive lung disease. TECHNICAL DOCUMENTATION: JOB ID: [id number] [email or web address] All Rights Reserved Reading location - IP/workstation name: [email or web address]
[2019-11-13] MEDS ORDERED: MORPHINE SULFATE 10 MG/ML INJ IV ONE (20:45)
[2019-11-13] MEDS ORDERED: ONDANSETRON HCL INJ/PF 4 MG/2 ML SDV IV ONE (20:45)
--- NOTE | 2019-11-13 20:47 | ER Document Report ---
ED General - General Chief Complaint: Headache Stated Complaint: HEADACHE/GENERAL WEAKNESS Time Seen by Provider: 11/13/19 20:31 Notes: Patient is a 74 year old female that comes to the emergency department for chief complaint of progressive sick symptoms for about 1 week. She states she started with a sore throat, developed congestion, developed cough, body aches, and worsening weakness. She states that over the past couple of days she is also developed a headache at the back of her head which is throbbing. She denies history of headaches, head injury. She denies fever. She reports intermittent discomfort in her chest along with coughing episodes. She reports her breathing is approximately baseline with her COPD, she is on 3-4 L nasal cannula at all times. She is also been recently told she has a lung mass but she has not had any additional testing, biopsy, or diagnosis for this. She is not on chemotherapy or radiation. Past medical history includes atrial fibrillation, hypertension, type 2 diabetes, COPD. She lives at home by herself, she comes by ambulance, she states she was too weak to get up and take her medications or come to the emergency department on her own. TRAVEL OUTSIDE OF THE [place] IN LAST 30 DAYS: No - Related Data Allergies/Adverse Reactions: ibuprofen [From Motrin] Allergy (Intermediate, Verified 09/15/19 17:10) FACE SWELLING NSAIDS (Non-Steroidal Anti-Inflamma [Nsaids] Allergy (Mild, Verified 09/15/19 17:10) Past Medical History - General Information source: Patient - Social History Smoking Status: Former Smoker Frequency of alcohol use: None Drug Abuse: None Lives with: Alone Family History: CVA, Hypertension, Malignancy - Past Medical History Cardiac Medical History: Reports: Hx Atrial Fibrillation - Chronic, Hx Coronary Artery Disease, Hx Hypertension Denies: Hx Heart Attack Pulmonary Medical History: Reports: Hx Asthma, Hx COPD Denies: Hx Bronchitis, Hx Pneumonia Neurological Medical History: Denies: Hx Cerebrovascular Accident, Hx Seizures Endocrine Medical History: Reports: Hx Diabetes Mellitus Type 2. Denies: Hx Diabetes Mellitus Type 1, Hx Hyperthyroidism, Hx Hypothyroidism Renal/ Medical History: Denies: Hx Peritoneal Dialysis GI Medical History: Reports: Hx Gastroesophageal Reflux Disease. Denies: Hx Hepatitis, Hx Hiatal Hernia, Hx Ulcer Musculoskeletal Medical History: Reports Hx Arthritis - Rheumatoid arthritis, Denies Hx Gout Skin Medical History: Denies Hx Eczema, Denies Hx Psoriasis Psychiatric Medical History: Denies: Hx Depression Traumatic Medical History: Denies: Hx Pneumothorax Infectious Medical History: Denies: Hx C-Diff, Hx Hepatitis, Hx HIV Past Surgical History: Reports: Hx Orthopedic Surgery - Bilateral knees, Other - Cataract surgery. Denies: Hx Hysterectomy, Hx Mastectomy, Hx Open Heart Surgery, Hx Pacemaker - Immunizations Hx Diphtheria, Pertussis, Tetanus Vaccination: Yes Hx Pneumococcal Vaccination: 12/25/14 Review of Systems - Review of Systems Constitutional: See HPI EENT: See HPI Cardiovascular: See HPI Respiratory: See HPI Gastrointestinal: No symptoms reported Genitourinary: No symptoms reported Female Genitourinary: No symptoms reported Musculoskeletal: No symptoms reported Skin: No symptoms reported Hematologic/Lymphatic: No symptoms reported Neurological/Psychological: See HPI Physical Exam - Vital signs Vitals: Temp 98.2 F 11/13/19 18:34 - Notes Notes: GENERAL: Patient is alert and does not appear to be in distress HEAD: Normocephalic, atraumatic. EYES: Pupils equal, round, and reactive to light. Extraocular movements intact. ENT: Oral mucosa moist, tongue midline. Oropharynx unremarkable. Airway patent. NECK: Full range of motion. Supple. Trachea midline. No lymphadenopathy. LUNGS: Decreased lung sounds bilaterally, a few scattered expiratory wheezes and coarse lung sounds. Patient speaks in full sentences. No respiratory distress. HEART: Tachycardic, irregularly irregular, no murmur ABDOMEN: Soft, non-tender. Non-distended. EXTREMITIES: Moves all 4 extremities spontaneously. No edema, normal radial and dorsalis pedis pulses bilaterally. No cyanosis. BACK: no cervical, thoracic, lumbar midline tenderness. No saddle anesthesia, normal distal neurovascular exam. NEUROLOGICAL: Alert and oriented x3. Normal speech. Cranial nerves II through XII grossly intact. Patient seems globally weak but still moves all extremities in full range of motion PSYCH: Normal affect, normal mood. SKIN: Warm, dry, normal turgor. No rashes or lesions noted. Course - Re-evaluation Re-evalutation: On initial evaluation patient is noted to be very weak, she can barely sit sit forward at all, she has to be assisted with leaning forward and she states she is unwilling to ambulate because she is too weak. However she is alert, oriented, conversational. She has decreased breath sounds and trace scattered expiratory wheezes but she is not in respiratory distress, she is not hypoxic. Patient noted on initial evaluation to be tachycardic with irregularly irregular rhythm, intermittently patient noted to be in atrial fibrillation with rapid ventricular response. Patient states that she was too weak to get up and take her medications, medications noted to be digoxin 0.125 and Cardizem 180 mg. Patient was given both of these and on reevaluation patient is actually converted back into a sinus rhythm with heart rate of 90. Patient was not complaining of chest pain or shortness of breath, she persists that her worst symptom is that in addition to her weakness she has a headache she cannot get rid of. She denies history of headaches. I am concerned because of her history of reported pulmonary mass that this may be a metastasis, CAT scan of the head was performed. CT of the head without any acute findings, chemistry nonspecific, CBC unremarkable, venous blood gas hemolyzed, chest x-ray shows COPD, urinalysis still pending. On reevaluation patient is having some expiratory wheezes, she has some increased work of breathing, patient will be placed on BiPAP, given duo nebs, Solu-Medrol. I was called back into the room, patient noted to be hypoxic down into the 70s, I increased oxygen, patient will have increase in pressure settings. After treatments were performed and settings adjusted patient has oxygen saturation of 91%. Patient has slowly become more somnolent however. Discussed with Dr. Mai. Patient is still arousable and still oriented. Patient has been discussed with Dr. Wan, hospitalist for admission, he requests ABG and call back. Unfortunately patient continues to take off her BiPAP. Patient is still oriented, she states she does not like it, I discussed with patient on multiple occasions that if she did not keep the BiPAP in place she may need to be intubated. After this patient stopped taking off her BiPAP. Patient has still become increasingly somnolent, patient is significantly hypercarbic at 97, baseline seems to be around 70 on most recent VBG. Patient deteriorating again on reevaluation, she has become very somnolent, she is not protecting her airway on BiPAP, she is not arousing even with sternal rub. Moving patient to Trauma [address] Mai. Called and spoke with daughter, Miss Holm, discussed patient's concerning situation, she states agreement with intubation. Patient was intubated, central line was placed, patient will be admitted to the ICU. 11/14/19 Discussed with Flip Hills PA-C, patient accepted to the ICU. 11/14/19 04:10 Discussed with daughter after she came back to the emergency department, she is very concerned patient may have COVID-19, she is requesting we test her and update her on these tests. - Vital Signs Vital signs: Temp Pulse Resp BP Pulse Ox 98.2 F 97 24 H 79/67 L 97 11/13/19 18:38 11/13/19 18:38 11/14/19 04:26 11/14/19 04:26 11/14/19 04:20 - Laboratory Result Diagrams: 11/13/19 21:07 11/13/19 21:07 Laboratory results interpreted by me: 11/13/19 11/13/19 11/13/19 21:07 21:07 21:07 RBC 3.55 L Hgb 10.1 L Hct 31.8 L MCHC 31.9 L RDW 15.5 H VBG pH VBG pCO2 VBG HCO3 Sodium 136.6 L Chloride 92 L Carbon Dioxide 37 H Glucose 136 H Digoxin < 0.40 L 11/14/19 00:18 RBC Hgb Hct MCHC RDW VBG pH 7.24 L VBG pCO2 97.7 H* VBG HCO3 40.5 H Sodium Chloride Carbon Dioxide Glucose Digoxin - EKG Interpretation by Me Additional EKG results interpreted by me: EKG shows atrial fibrillation at a rate of 122, normal axis, no overt T wave inversions or ST segment changes in consecutive leads. QTc 468 Procedures - Central Line Right IJ Central line pre-insertion: Sterile PPE donned, Chloraprep applied, Sterile drapes applied Central line lumen type: Triple Ultrasound guided: Yes Line secured with sutures: Yes Central line post-insertion: Blood return from lumens, Biopatch applied, Sutured, Sterile dressing applied, Position confirmed w/ CXR Number of attempts: 1 Complications: No - Intubation Orotracheal Airway evaluation: Normal anatomy Mallampati Classification: Class 1 Medications: Etomidate, Succinylcholine Intubation method: Orotracheal Blade type: Elian Blade size: 4 Equipment used: Glidescope ETT size: 7.5 ETT secured at: Teeth ETT secured at (cm): 24 Breath Sounds after Intubation: Right greater than left End tidal CO2 confirmed: Yes Post Intubation Xray: Yes Intubation Complications: No complications Notes: Initially secured at 24 centimeters at the teeth, this was pulled back to 22 cm at the teeth after breath sounds noted to be greater on the right. Critical Care Note - Critical Care Note Total time excluding time spent on procedures (mins): 60 - Atrial fibrillation with RVR, COPD exacerbation, respiratory distress, hypercarbia/hypoxia Comments: Please allow 60 minutes of critical care time for evaluation and management of patient with atrial fibrillation with RVR, COPD exacerbation, acute on chronic respiratory failure with hypoxia and hypercarbia. Interventions including rhythm control, duo nebs, steroids, BiPAP therapy, ultimately monitoring on ventilator with sedation. Multiple re-evaluations performed, time spent discussing with family multiple times, time spent admitting to the ICU. Discharge - Discharge Clinical Impression: COPD exacerbation, Atrial fibrillation with RVR, Nonadherence to medication Acute respiratory failure Qualifiers: Respiratory failure complication: hypoxia and hypercapnia Qualified Code(s): J96.01 - Acute respiratory failure with hypoxia Headache Qualifiers: Headache type: unspecified Headache chronicity pattern: acute headache Intractability: not intractable Qualified Code(s): R51 - Headache Condition: Serious Disposition: ADMITTED INPATIENT Admitting Provider: Izabela ([facility]) Unit Admitted: ICU
[2019-11-13] MEDS ORDERED: DIGOXIN 0.125 MG TABLET PO ONE (21:20)
[2019-11-13] MEDS ORDERED: DILTIAZEM HCL 180 MG CAPSULE.CR PO ONE (21:20)
[2019-11-13 21:28] LABS: ABSOLUTE BASOPHILS # (AUTO) 0.1 10^3/uL (0.0-0.2); ABSOLUTE EOSINOPHILS # (AUTO) 0.1 10^3/uL (0.0-0.6); ABSOLUTE LYMPHOCYTES (AUTO) 1.7 10^3/uL (0.5-4.7); ABSOLUTE MONOCYTES (AUTO) 0.6 10^3/uL (0.1-1.4); ABSOLUTE NEUT (AUTO) 4.5 10^3/uL (1.7-8.2); BASOPHILS % (AUTO) 0.9 % (0-2); EOSINOPHILS % (AUTO) 1.6 % (0-6); HEMATOCRIT 31.8 % (36.0-47.0); HEMOGLOBIN 10.1 g/dL (12.0-15.5); LYMPHOCYTES % (AUTO) 24.2 % (13-45); MEAN CORPUSCULAR HEMOGLOBIN 28.6 pg (27.0-33.4); MEAN CORPUSCULAR HGB CONC 31.9 g/dL (32.0-36.0); MEAN CORPUSCULAR VOLUME 89 fl (80-97); MONOCYTES % (AUTO) 8.2 % (3-13); PLATELET COUNT 244 10^3/uL (150-450); RED BLOOD COUNT 3.55 10^6/uL (3.72-5.28); RED CELL DISTRIBUTION WIDTH 15.5 % (11.5-14.0); SEGMENTED NEUTROPHILS % (AUTO) 65.1 % (42-78); TOTAL CELLS COUNTED % (AUTO) 100 %; WHITE BLOOD COUNT 6.9 10^3/uL (4.0-10.5)
[2019-11-13 21:47] LABS: ALBUMIN 3.6 g/dL (3.5-5.0); ALKALINE PHOSPHATASE 86 U/L (38-126); ASPARTATE AMINO TRANSFERASE 27 U/L (14-36); BILIRUBIN,DIRECT 0.4 mg/dL (0.0-0.4); BILIRUBIN,TOTAL 0.7 mg/dL (0.2-1.3); BLOOD UREA NITROGEN 17 mg/dL (7-20); CALCIUM 9.5 mg/dL (8.4-10.2); CHLORIDE 92 mmol/L (98-107); GLUCOSE 136 mg/dL (75-110); POTASSIUM 4.5 mmol/L (3.6-5.0); TOTAL PROTEIN 7.6 g/dL (6.3-8.2)
[2019-11-13 21:52] LABS: ANION GAP 8 (5-19); CARBON DIOXIDE 37 mmol/L (22-30)
--- NOTE | 2019-11-13 22:08 | RADIOLOGY REPORT (SQ) ---
EXAM DESCRIPTION: CT HEAD WITHOUT IV CONTRAST COMPLETED DATE/TME: 11/13/2019 00:00 CLINICAL HISTORY: 74 years, Female, HEAD ACHE EXAM DESCRIPTION: CLINICAL HISTORY: HEAD ACHE COMPARISON: None Available TECHNIQUE: Contiguous axial CT images of the head were obtained. Coronal and sagittal reconstructions were created from the axial data. This exam was performed according to our departmental dose-optimization program, which includes automated exposure control, adjustment of the mA and/or kV according to patient size and/or use of iterative reconstruction technique. FINDINGS: There is no evidence of acute mass, mass effect, midline shift or hemorrhage. The ventricles and extra-axial CSF spaces are unremarkable. The brain parenchyma appears normal for the patient's age. No acute abnormalities of the bones is seen. IMPRESSION: No acute intracranial abnormality.
[2019-11-14 00:32] LABS: VENOUS BLOOD BASE EXCESS 11.3 mmol/L; VENOUS BLOOD HCO3 40.5 mmol/L (20-32); VENOUS BLOOD PH 7.24 (7.30-7.42)
[2019-11-14 00:36] LABS: VENOUS BLOOD PCO2 97.7 mmHg (35-63)
[2019-11-14] MEDS ORDERED: METHYLPREDNISOLONE INJ 125 MG/2 ML SDV IV ONE (01:15)
[2019-11-14] MEDS ORDERED: IPRATROPIUM/ALBUTEROL 0.5-2.5 MG/3 ML AMPUL NEB ONE ×2 (01:39→01:57)
[2019-11-14 01:45] LABS: APPEARANCE,URINE CLEAR; BILIRUBIN,URINE NEGATIVE (NEGATIVE); COLOR,URINE YELLOW; GLUCOSE, URINE NEGATIVE (NEGATIVE); KETONES,URINE NEGATIVE (NEGATIVE); LEUKOCYTE ESTERASE,URINE NEGATIVE (NEGATIVE); NITRITE,URINE NEGATIVE (NEGATIVE); PROTEIN,URINE NEGATIVE (NEGATIVE); URINE SPECIFIC GRAVITY 1.012; UROBILINOGEN,URINE NEGATIVE mg/dL (<2.0)
[2019-11-14] MEDS ORDERED: PROPOFOL INJ 200 MG/20 ML VIAL IV ONE (02:44)
[2019-11-14] MEDS ORDERED: MIDAZOLAM HCL 50 MG/100 ML RTUINJ IV PRN (03:11)
[2019-11-14] MEDS ORDERED: LORAZEPAM INJ 2 MG/1 ML VIAL IV ONE (03:11)
[2019-11-14] MEDS ORDERED: LEVALBUTEROL HCL NEB 1.25 MG/3 ML AMPUL NEB ONE (04:08)
--- NOTE | 2019-11-14 04:16 | RADIOLOGY REPORT (SQ) ---
EXAM DESCRIPTION: XR CHEST 1 VIEW COMPLETED DATE/TME: 11/14/2019 03:44 CLINICAL HISTORY: 74 years, Female, post intubation and post central line COMPARISON: 11/13/2019 chest NUMBER OF VIEWS: 1 TECHNIQUE: Portable chest LIMITATIONS: None. FINDINGS: The heart size is normal. Endotracheal tube with the tip 4.6 cm above the shonna. Enteric tube, the tip extends into the upper abdomen. Central venous catheter with the tip in the SVC. No pneumothorax. Underlying emphysema. Scarring in the right lung apex. Airspace opacity left lung base. Tiny bibasilar effusions IMPRESSION: Tubes/lines/catheters in place. Tiny bibasilar effusions. Airspace opacity left lung base. Underlying emphysema copyright [address] [employer]- All Rights Reserved
--- NOTE | 2019-11-14 04:16 | RADIOLOGY REPORT (SQ) ---
ABDOMINAL RADIOGRAPH: 11/14/2019 3:14 AM CDT COMPARISON: None available TECHNIQUE: A single radiograph of the abdomen was obtained. HISTORY: 74-year old with orogastric tube placement. FINDINGS: Only the upper abdomen was included on this examination. There are airspace opacities at the left lung base associated with trace left effusion. The visualized bowel gas pattern is nonspecific and nonobstructive. No abnormal intra-abdominal calcifications are seen. There are no findings to suggest organomegaly. The nasogastric tube traverses below the left hemidiaphragm. The side port projects at the stomach. The tip is not seen. There is a central line catheter tip noted at the SVC/right atrial junction. IMPRESSION: The nasogastric tube traverses below the left hemidiaphragm. The side port projects at the stomach. The tip is not seen. There are airspace opacities at the left lung base associated with a trace left effusion.
[2019-11-14] MEDS ORDERED: DIGOXIN INJ 0.5 MG/2 ML AMPULE IV ONE (04:17)
[2019-11-14] MEDS ORDERED: SUCCINYLCHOLINE CHLORIDE INJ 200 MG/10 ML VIAL IV ONE (05:09)
[2019-11-14] MEDS ORDERED: ETOMIDATE INJ/PF 20 MG/10 ML SDV IV ONE (05:09)
[2019-11-14] MEDS ORDERED: VECURONIUM BROMIDE INJ 10 MG VIAL IV ONE (05:10)
--- NOTE | 2019-11-14 05:22 | CRITICAL CARE ADMISSION REPORT ---
HPI Date:: 11/14/19 Time:: 05:01 Reason for ICU Reason:: respiratory failure with hypercarbia Admission Date/Time & PCP: Admission Date/Time: 11/14/19 04:05 Primary Care Provider: JORGE CHACON DO Admit to Dr. Gurrola HPI: 74 year old female who presented to the ER tonight with complaints of being sick x 1 week with worsening of symptoms today. The patient called EMS and arrived at the ER and was alert and oriented when evaluated by the ER provider, per notes, and states she has not taken her meds due to being too weak to get them today. She has a past medical history to include a new dx of lung mass in which she has not followed up on. Head ct was done to R/O mets and was neg. She does have hx of atrial fib and copd as well. The pateint was in atrial fib with RVR and was given her PO dose of cardizem and dig and converted back to SR. The patient began to have increased work of breathing and was placed on BIPAP. The patient was then re-evaluated and noted to be more obtunded and an ABG was obtained and the patient had a CO2 of 97. The decision was mde by the ER provider to intubate due to increased lethargy and elevated CO2 level. Critical care was consulted for admission and management of this patient. - Diagnosis/Plan (1) Acute and chronic respiratory failure with hypercapnia Is this a current diagnosis for this admission?: Yes Plan: continue mechanical vent support repeat ABG adjust as needed (2) COPD exacerbation Is this a current diagnosis for this admission?: Yes Plan: initiate solumedrol neb tx as needed (3) CHF (congestive heart failure) Qualifiers: Heart failure type: unspecified Heart failure chronicity: chronic Qualified Code(s): I50.9 - Heart failure, unspecified Is this a current diagnosis for this admission?: Yes Plan: check BNP diuretics as needed (4) Chronic atrial fibrillation Is this a current diagnosis for this admission?: Yes Plan: continue home regimen of cardizem and digoxin consider anticoagulation therapy (5) Diabetes mellitus type 2 in nonobese Is this a current diagnosis for this admission?: Yes Plan: monitor blood sugar every 6 hrs prn sliding scale as needed Plan Summary: Admit to the ICU continue vent support and monitor ABG's. Will begin weaning vent support when appropriate. Initate steroids for COPD exacerbation. Covid 19 swab pending. Past Medical History Cardiac Medical History: Reports: Atrial Fibrillation - Chronic, Coronary Artery Disease, Hypertension Denies: Myocardial Infarction Pulmonary Medical History: Reports: Asthma, Chronic Obstructive Pulmonary Disease (COPD) Denies: Bronchitis, Pneumonia Neurological Medical History: Denies: Seizures Endocrine Medical History: Reports: Diabetes Mellitus Type 2 Denies: Diabetes Mellitus Type 1, Hyperthyroidism, Hypothyroidism GI Medical History: Reports: Gastroesophageal Reflux Disease Denies: Hepatitis, Hiatal Hernia Musculoskeltal Medical History: Reports: Arthritis - Rheumatoid arthritis Denies: Gout Skin Medical History: Denies: Eczema, Psoriasis Psychiatric Medical History: Denies: Depression Traumatic Medical History: Denies: Pneumothorax Hematology: Denies: Anemia, Sickle Cell Disease, Bleeding Tendencies Infectious Medical History: Denies: Clostridium Difficile, HIV Past Surgical History Past Surgical History: Reports: Orthopedic Surgery - Bilateral knees, Other - Cataract surgery Denies: Amputation, Hysterectomy, Mastectomy, Pacemaker Social/Family History - Social History Lives with: Alone Smoking Status: Unknown if Ever Smoked Frequency of Alcohol Use: None Hx Recreational Drug Use: No Drugs: None Hx Prescription Drug Abuse: No - Medication/Allergies Home Medications: Metformin HCl 500 mg PO BID 07/31/19 Glipizide [Glucotrol 10 mg Tablet] 10 mg PO BID 30 Days #60 tablet 08/05/19 Albuterol Sulfate [Ventolin 0.083% Neb 2.5 mg/3 mL Ampul] 1 vial NEB RTQ6 09/16/19 Digoxin [Lanoxin 0.125 mg Tablet] 0.125 mg PO DAILY 30 Days #30 tablet 09/24/19 Diltiazem HCl [Diltiazem 24Hr ER] 180 mg PO DAILY 30 Days #30 cap.sa.24h 09/24/19 Fluticasone/Umeclidin/Vilanter [Trelegy 100-62.5-25 Mcg Ellipta 14 Dose/Dpi] 1 inh IH DAILY #2 inhaler 09/24/19 Ipratropium/Albuterol Sulfate [Duoneb 3 ml Ampul] 3 ml NEB RTQ6HP PRN 30 Days #120 vial.neb 09/24/19 Allergies/Adverse Reactions: ibuprofen [From Motrin] Allergy (Intermediate, Verified 09/15/19 17:10) FACE SWELLING NSAIDS (Non-Steroidal Anti-Inflamma [Nsaids] Allergy (Mild, Verified 09/15/19 17:10) Review of Systems ROS unobtainable: Due to endotracheal tube Physical Exam Vital Signs: Temp Pulse Resp BP Pulse Ox 98.2 F 97 24 H 79/67 L 97 11/13/19 18:38 11/13/19 18:38 11/14/19 04:26 11/14/19 04:26 11/14/19 04:20 Intake & Output 11/12/19 11/13/19 11/14/19 06:59 06:59 06:59 Weight 77.111 kg Weight/Height Weight 77.111 kg Height 5 ft 6 in General appearance: PRESENT: well-developed, well-nourished Head exam: PRESENT: atraumatic, normocephalic Eye exam: PRESENT: PERRLA Mouth exam: PRESENT: dry mucosa, neck supple Neck exam: PRESENT: full ROM Respiratory exam: PRESENT: symmetrical, wheezes, other - intubated vent support Cardiovascular exam: PRESENT: RRR, +S1, +S2 Pulses: PRESENT: normal radial pulses, +2 pedal pulses bilateral Vascular exam: PRESENT: normal capillary refill GI/Abdominal exam: PRESENT: hypoactive bowel sounds Extremities exam: PRESENT: +1 edema Musculoskeletal exam: PRESENT: full ROM Neurological exam: PRESENT: other - intubated and sedated unable to perform a neuro exam Skin exam: PRESENT: dry, warm Tubes/Lines: PRESENT: Endotracheal Tube, Central Line - placedin RIJ by ER provider Laboratory/Radiographs Laboratory Results: 11/13/19 21:07 11/13/19 21:07 11/13/19 11/13/19 11/13/19 21:07 21:07 22:13 WBC 6.9 RBC 3.55 L Hgb 10.1 L Hct 31.8 L MCV 89 MCH 28.6 MCHC 31.9 L RDW 15.5 H Plt Count 244 Seg Neutrophils % 65.1 VBG pH Cancelled VBG pCO2 Cancelled VBG HCO3 Cancelled VBG Base Excess Cancelled Sodium 136.6 L Potassium 4.5 Chloride 92 L Carbon Dioxide 37 H Anion Gap 8 BUN 17 Creatinine 0.55 Est GFR ( Amer) > 60 Glucose 136 H Calcium 9.5 Total Bilirubin 0.7 AST 27 Alkaline Phosphatase 86 Total Protein 7.6 Albumin 3.6 Urine Color Urine Appearance Urine pH Ur Specific [place] Urine Protein Urine Glucose (UA) Urine Ketones Urine Blood Urine Nitrite Ur Leukocyte Esterase Urine WBC (Auto) 11/14/19 11/14/19 00:18 01:00 WBC RBC Hgb Hct MCV MCH MCHC RDW Plt Count Seg Neutrophils % VBG pH 7.24 L VBG pCO2 97.7 H* VBG HCO3 40.5 H VBG Base Excess 11.3 Sodium Potassium Chloride Carbon Dioxide Anion Gap BUN Creatinine Est GFR ( Amer) Glucose Calcium Total Bilirubin AST Alkaline Phosphatase Total Protein Albumin Urine Color YELLOW Urine Appearance CLEAR Urine pH 5.0 Ur Specific [place] 1.012 Urine Protein NEGATIVE Urine Glucose (UA) NEGATIVE Urine Ketones NEGATIVE Urine Blood NEGATIVE Urine Nitrite NEGATIVE Ur Leukocyte Esterase NEGATIVE Urine WBC (Auto) 1 11/13/19 21:07 Troponin I < 0.012 Impressions: Head CT 11/13/19 00:00 IMPRESSION: No acute intracranial abnormality. Chest X-Ray 11/14/19 03:44 IMPRESSION: Tubes/lines/catheters in place. Tiny bibasilar effusions. Airspace opacity left lung base. Underlying emphysema copyright 2011 [employer]- All Rights Reserved KUB X-Ray 11/14/19 03:45 IMPRESSION: The nasogastric tube traverses below the left hemidiaphragm. The side port projects at the stomach. The tip is not seen. There are airspace opacities at the left lung base associated with a trace left effusion. All labs, radiographs, diagnostic studies and EKGs were personally reviewed: Yes In addition, reports of radiographic and diagnostic studies were read: Yes Critical Time Critical Time (minutes): 55 -: The care of a critically ill patient is dynamic. This note represents a static moment in the admission process. Orders and treatments may be given simultaneously and urgently, and time is not electroplating sales representative of the treatment process. This patient requires Critical Care secondary to life threatening organ or limb dysfunction. Without Critical Care services, the patient is at risk for increased mortality and morbidity.
[2019-11-14 05:28] LABS: ARTERIAL BLOOD BASE EXCESS 12.5 mmol/L; ARTERIAL BLOOD HCO3 35.6 mmol/L (20-24); ARTERIAL BLOOD PCO2 39.8 mmHg (35-45); ARTERIAL BLOOD PH 7.57 (7.35-7.45); ARTERIAL BLOOD PO2 49.6 mmHg (80-100); ARTERIAL BLOOD TOTAL CO2 36.9 mmol/L (21-25)
[2019-11-14 05:30] LABS: ARTERIAL BLOOD FIO2 40%
[2019-11-14] MEDS: PROPOFOL 1,000 MG/100 ML INFUS..BTL IV PRN ×3 (05:45→23:26)
--- NOTE | 2019-11-14 06:02 | Progress Note ---
Provider Note Provider Note: Pt suctioned via ETT with nidhi bleeding and a significant amount of clots present.
[2019-11-14] MEDS: HEPARIN SOD (PORCINE) 5,000 UNIT/ML 1 ML VIAL SUBCUT SCH ×3 (06:19→21:54)
[2019-11-14] MEDS: METHYLPREDNISOLONE INJ 125 MG/2 ML SDV IV SCH ×3 (06:36→21:54)
[2019-11-14 06:56] LABS: ABSOLUTE LYMPHOCYTES (AUTO) 0.7 10^3/uL (0.5-4.7); ABSOLUTE MONOCYTES (AUTO) 0.1 10^3/uL (0.1-1.4); ABSOLUTE NEUT (AUTO) 9.7 10^3/uL (1.7-8.2); BASOPHILS % (AUTO) 0.3 % (0-2); HEMATOCRIT 28.9 % (36.0-47.0); HEMOGLOBIN 9.3 g/dL (12.0-15.5); LYMPHOCYTES % (AUTO) 6.3 % (13-45); MEAN CORPUSCULAR HEMOGLOBIN 28.5 pg (27.0-33.4); MEAN CORPUSCULAR HGB CONC 32.2 g/dL (32.0-36.0); MEAN CORPUSCULAR VOLUME 89 fl (80-97); MONOCYTES % (AUTO) 1.1 % (3-13); PLATELET COUNT 310 10^3/uL (150-450); RED BLOOD COUNT 3.27 10^6/uL (3.72-5.28); RED CELL DISTRIBUTION WIDTH 15.7 % (11.5-14.0); SEGMENTED NEUTROPHILS % (AUTO) 92.3 % (42-78); TOTAL CELLS COUNTED % (AUTO) 100 %; WHITE BLOOD COUNT 10.5 10^3/uL (4.0-10.5)
[2019-11-14 07:04] LABS: INTERNATIONAL RATION (INR) 1.01; PROTHROMBIN TIME 13.5 SEC (11.4-15.4)
[2019-11-14 07:30] LABS: ALKALINE PHOSPHATASE 96 U/L (38-126); ANION GAP 12 (5-19); ASPARTATE AMINO TRANSFERASE 25 U/L (14-36); BILIRUBIN,DIRECT 0.5 mg/dL (0.0-0.4); BILIRUBIN,TOTAL 0.8 mg/dL (0.2-1.3); BLOOD UREA NITROGEN 19 mg/dL (7-20); CALCIUM 9.9 mg/dL (8.4-10.2); CARBON DIOXIDE 34 mmol/L (22-30); CHLORIDE 92 mmol/L (98-107); GLUCOSE 218 mg/dL (75-110); POTASSIUM 5.1 mmol/L (3.6-5.0)
[2019-11-14 07:40] LABS: NT PRO BNP 220 pg/mL (<450)
[2019-11-14 07:42] LABS: TROPONIN I < 0.012 ng/mL
[2019-11-14 07:45] LABS: FREE T4 (FREE THYROXINE) 1.58 ng/dL (0.78-2.19)
[2019-11-14 07:59] LABS: THYROID STIMULATING HORMONE 0.55 uIU/mL (0.47-4.68)
[2019-11-14] MEDS: IPRATROPIUM/ALBUTEROL 0.5-2.5 MG/3 ML AMPUL NEB SCH ×3 (08:01→21:51)
[2019-11-14] MEDS ORDERED: DEXTROSE 40% GEL 15 GM TUBE PO PRN (08:41)
[2019-11-14] MEDS ORDERED: GLUCAGON,HUMAN RECOMB 1 MG INJ IM PRN (08:41)
[2019-11-14] MEDS ORDERED: DEXTROSE 50%-WATER 25 GM/50 ML DISP.SYRIN IV PRN (08:41)
--- NOTE | 2019-11-14 08:46 | Progress Note ---
Provider Note Provider Note: Patient seen shortly after [place]. There is no further hemoptysis. She has had a chest CT in July documenting RLL lesion but no biopsy will ask Dr. Quijano if this can be done bronchoscopically or by CT.
[2019-11-14] MEDS ORDERED: DIGOXIN 0.125 MG TABLET PO SCH (10:00)
[2019-11-14] MEDS ORDERED: NORMAL SALINE 1000 ML 1,000 ML IV PRN ×2 (11:04→13:48)
[2019-11-14] MEDS: INSULIN REG, HUMAN 100 UNIT/ML 3 ML VIAL (PYX) SUBCUT SCH ×4 (11:39→23:10)
[2019-11-14] MEDS: ACETAMINOPHEN 325 MG TABLET PO PRN (11:41)
[2019-11-14] MEDS: DILTIAZEM HCL 60 MG TABLET PO SCH ×2 (11:42→21:54)
[2019-11-14] MEDS: DIGOXIN INJ 0.5 MG/2 ML AMPULE IV SCH (14:07)
[2019-11-14] MEDS: PANTOPRAZOLE SODIUM 40 MG VIAL IV SCH (14:07)
[2019-11-14] MEDS: NORMAL SALINE 1000 ML 1,000 ML IV PRN ×2 (16:12→22:38)
[2019-11-14 17:07] LABS: ARTERIAL BLOOD BASE EXCESS 6.2 mmol/L; ARTERIAL BLOOD H2CO3 1.52 mmol/L (1.05-1.35); ARTERIAL BLOOD HCO3 31.6 mmol/L (20-24); ARTERIAL BLOOD PCO2 50.6 mmHg (35-45); ARTERIAL BLOOD PH 7.41 (7.35-7.45); ARTERIAL BLOOD PO2 81.9 mmHg (80-100); ARTERIAL BLOOD TOTAL CO2 33.2 mmol/L (21-25)
[2019-11-14 17:13] LABS: ARTERIAL BLOOD FIO2 50%
--- NOTE | 2019-11-14 20:21 | EKG REPORT ---
SEVERITY:- ABNORMAL ECG - ATRIAL FIBRILLATION, V-RATE 87-144 VENTRICULAR PREMATURE COMPLEX CONSIDER RVH OR POSTERIOR INFARCT ABNRM R PROG, CONSIDER ASMI OR LEAD PLACEMENT : Confirmed by: Dalton Horton 14-Nov-2019 20:21:13
--- NOTE | 2019-11-14 20:21 | EKG REPORT ---
SEVERITY:- ABNORMAL ECG - SINUS TACHYCARDIA ATRIAL PREMATURE COMPLEX RIGHT ATRIAL ABNORMALITY : Confirmed by: Dalton Horton 14-Nov-2019 20:20:54
[2019-11-15] MEDS: IPRATROPIUM/ALBUTEROL 0.5-2.5 MG/3 ML AMPUL NEB SCH ×4 (02:38→19:44)
[2019-11-15] MEDS: PROPOFOL 1,000 MG/100 ML INFUS..BTL IV PRN ×5 (02:41→20:15)
[2019-11-15 03:40] LABS: ABSOLUTE LYMPHOCYTES (AUTO) 0.9 10^3/uL (0.5-4.7); ABSOLUTE MONOCYTES (AUTO) 0.2 10^3/uL (0.1-1.4); ABSOLUTE NEUT (AUTO) 6.9 10^3/uL (1.7-8.2); BASOPHILS % (AUTO) 0.2 % (0-2); HEMATOCRIT 24.6 % (36.0-47.0); LYMPHOCYTES % (AUTO) 10.8 % (13-45); MEAN CORPUSCULAR HEMOGLOBIN 28.8 pg (27.0-33.4); MEAN CORPUSCULAR HGB CONC 32.4 g/dL (32.0-36.0); MEAN CORPUSCULAR VOLUME 89 fl (80-97); MONOCYTES % (AUTO) 2.4 % (3-13); PLATELET COUNT 229 10^3/uL (150-450); RED BLOOD COUNT 2.77 10^6/uL (3.72-5.28); RED CELL DISTRIBUTION WIDTH 15.9 % (11.5-14.0); SEGMENTED NEUTROPHILS % (AUTO) 86.6 % (42-78); TOTAL CELLS COUNTED % (AUTO) 100 %
[2019-11-15] MEDS ORDERED: FENTANYL CITRATE INJ/PF 100 MCG/2 ML AMPUL IV ONE (03:40)
[2019-11-15] MEDS ORDERED: FENTANYL CITRATE INJ/PF 100 MCG/2 ML AMPUL ONE ×2 (03:41→12:22)
[2019-11-15 03:54] LABS: ARTERIAL BLOOD BASE EXCESS 1.1 mmol/L; ARTERIAL BLOOD H2CO3 1.15 mmol/L (1.05-1.35); ARTERIAL BLOOD HCO3 25.1 mmol/L (20-24); ARTERIAL BLOOD O2 SATURATION 93.5 % (94-98); ARTERIAL BLOOD PCO2 38.1 mmHg (35-45); ARTERIAL BLOOD PH 7.44 (7.35-7.45); ARTERIAL BLOOD PO2 65.2 mmHg (80-100); ARTERIAL BLOOD TOTAL CO2 26.3 mmol/L (21-25)
[2019-11-15 03:55] LABS: ARTERIAL BLOOD FIO2 40%
[2019-11-15 04:49] LABS: ALBUMIN 3.1 g/dL (3.5-5.0); ALKALINE PHOSPHATASE 84 U/L (38-126); ANION GAP 6 (5-19); ASPARTATE AMINO TRANSFERASE 19 U/L (14-36); BILIRUBIN,DIRECT 0.4 mg/dL (0.0-0.4); BILIRUBIN,TOTAL 0.5 mg/dL (0.2-1.3); BLOOD UREA NITROGEN 33 mg/dL (7-20); CALCIUM 8.9 mg/dL (8.4-10.2); CARBON DIOXIDE 32 mmol/L (22-30); CHLORIDE 98 mmol/L (98-107); GLUCOSE 359 mg/dL (75-110); TOTAL PROTEIN 6.5 g/dL (6.3-8.2)
[2019-11-15 04:54] LABS: POTASSIUM 3.7 mmol/L (3.6-5.0)
[2019-11-15] MEDS: NORMAL SALINE 1000 ML 1,000 ML IV PRN ×2 (05:23→15:52)
[2019-11-15] MEDS: INSULIN REG, HUMAN 100 UNIT/ML 3 ML VIAL (PYX) SUBCUT SCH ×4 (05:24→23:41)
[2019-11-15] MEDS: HEPARIN SOD (PORCINE) 5,000 UNIT/ML 1 ML VIAL SUBCUT SCH ×3 (05:24→22:26)
[2019-11-15] MEDS: METHYLPREDNISOLONE INJ 125 MG/2 ML SDV IV SCH (05:24)
--- NOTE | 2019-11-15 08:20 | RADIOLOGY REPORT (SQ) ---
EXAM DESCRIPTION: CHEST SINGLE VIEW IMAGES COMPLETED DATE/TIME: 11/15/2019 5:29 am REASON FOR STUDY: congestion COMPARISON: 11/14/2019 NUMBER OF VIEWS: One view. TECHNIQUE: Single frontal radiographic image of the chest acquired. LIMITATIONS: None. FINDINGS: LUNGS AND PLEURA: Stable appearance. MEDIASTINUM AND HILAR STRUCTURES: Stable heart size and mediastinal structures. HEART AND VASCULAR STRUCTURES: Stable appearance. SUPPORT DEVICES: Appropriate location without change. BONES: No acute findings. OTHER: No other significant finding. IMPRESSION: STABLE APPEARANCE OF THE CHEST. SUPPORT DEVICES UNCHANGED. TECHNICAL DOCUMENTATION: JOB ID: [id number] 2010 [employer]- All Rights Reserved Reading location - IP/workstation name: [email or web address]
[2019-11-15] MEDS: DILTIAZEM HCL 60 MG TABLET PO SCH ×2 (09:33→22:26)
[2019-11-15] MEDS: DIGOXIN INJ 0.5 MG/2 ML AMPULE IV SCH (09:33)
[2019-11-15] MEDS ORDERED: INSULIN GLARGINE,HUM.REC.ANLOG 1,000 UNIT/10 ML VIAL (PYX) SUBCUT ONE (09:36)
[2019-11-15] MEDS ORDERED: INSULIN GLARGINE,HUM.REC.ANLOG 1,000 UNIT/10 ML VIAL SUBCUT SCH (10:00)
--- NOTE | 2019-11-15 11:24 | PDOC CRITICAL CARE PROG REPORT ---
General Date:: 11/15/19 ICU Day:: 2 Ventilator Day:: 2 Hospital Day:: 2 Resuscitation Status: Full Code Events in the past 12 to 24 Hours:: The patient presented with acute respiratory failure. Had to be intubated for worsening mental status and acute hypercarbic respiratpory failure. ABG satisfactory today on PRVC rate of 18. Reason for ICU Addmission:: respiratory failure with hypercarbia Physical Exam Vital Signs: Temp Pulse Resp BP Pulse Ox 99.3 F 101 H 24 H 154/76 H 97 11/15/19 09:50 11/15/19 10:00 11/15/19 10:00 11/15/19 10:00 11/15/19 10:00 Intake & Output 11/14/19 11/15/19 11/16/19 06:59 06:59 06:59 Intake Total 7 3630 568 Output Total 425 185 Balance 7 3205 383 Weight 74.5 kg 80.2 kg Weight/Height Weight 80.2 kg Height 5 ft 6 in General appearance: PRESENT: no acute distress Head exam: PRESENT: normocephalic Eye exam: PRESENT: EOMI, PERRLA. ABSENT: conjunctival injection, nystagmus, scleral icterus Ear exam: PRESENT: normal external ear exam Neck exam: ABSENT: thyromegaly Respiratory exam: PRESENT: other - The patient has hemoptysis which appears minor at the present time. ABSENT: accessory muscle use Cardiovascular exam: PRESENT: RRR, +S1, +S2 GI/Abdominal exam: PRESENT: normal bowel sounds, soft. ABSENT: ascites, tenderness Rectal exam: PRESENT: deferred Extremities exam: PRESENT: pedal edema, +2 edema. ABSENT: calf tenderness Neurological exam: ABSENT: alert - The patient is sedated on the ventialtor. Skin exam: PRESENT: normal color Tubes/Lines: PRESENT: Endotracheal Tube, Nasogastic Tube Laboratory/Radiographs Laboratory Results: 11/15/19 03:00 11/15/19 03:00 11/14/19 11/15/19 11/15/19 17:00 03:00 03:00 WBC 8.0 RBC 2.77 L Hgb 8.0 L Hct 24.6 L MCV 89 MCH 28.8 MCHC 32.4 RDW 15.9 H Plt Count 229 Seg Neutrophils % 86.6 H Carbonic Acid 1.52 H HCO3/H2CO3 Ratio 20:1 ABG pH 7.41 ABG pCO2 50.6 H ABG pO2 81.9 ABG HCO3 31.6 H ABG O2 Saturation 96.0 ABG Base Excess 6.2 FiO2 50% Sodium 135.6 L Potassium 3.7 D Chloride 98 Carbon Dioxide 32 H Anion Gap 6 BUN 33 H Creatinine 1.29 H Est GFR ( Amer) 49 L Glucose 359 H Calcium 8.9 Magnesium 1.9 Total Bilirubin 0.5 AST 19 Alkaline Phosphatase 84 Total Protein 6.5 Albumin 3.1 L 11/15/19 03:00 WBC RBC Hgb Hct MCV MCH MCHC RDW Plt Count Seg Neutrophils % Carbonic Acid 1.15 HCO3/H2CO3 Ratio 21:1 ABG pH 7.44 ABG pCO2 38.1 ABG pO2 65.2 L ABG HCO3 25.1 H ABG O2 Saturation 93.5 L ABG Base Excess 1.1 FiO2 40% Sodium Potassium Chloride Carbon Dioxide Anion Gap BUN Creatinine Est GFR ( Amer) Glucose Calcium Magnesium Total Bilirubin AST Alkaline Phosphatase Total Protein Albumin 11/13/19 11/14/19 11/14/19 21:07 06:30 11:15 Troponin I < 0.012 < 0.012 < 0.012 NT-Pro-B Natriuret Pep 220 11/14/19 17:00 Troponin I < 0.012 NT-Pro-B Natriuret Pep Impressions: Head CT 11/13/19 00:00 IMPRESSION: No acute intracranial abnormality. KUB X-Ray 11/14/19 03:45 IMPRESSION: The nasogastric tube traverses below the left hemidiaphragm. The side port projects at the stomach. The tip is not seen. There are airspace opacities at the left lung base associated with a trace left effusion. Chest X-Ray 11/15/19 04:15 IMPRESSION: STABLE APPEARANCE OF THE CHEST. SUPPORT DEVICES UNCHANGED. Assessment and Plan - Diagnosis (1) Acute respiratory failure Qualifiers: Respiratory failure complication: hypoxia and hypercapnia Qualified Code(s): J96.01 - Acute respiratory failure with hypoxia; J96.02 - Acute respiratory failure with hypercapnia Is this a current diagnosis for this admission?: Yes Plan: The patient remains on the ventilator. Unclear when she will be able to wean. The patient is undergoing bronchoscopy today. (2) Atrial fibrillation with rapid ventricular response Is this a current diagnosis for this admission?: Yes Plan: Patient now in NSR. (3) COPD exacerbation Is this a current diagnosis for this admission?: Yes (4) Diabetes mellitus type 2 in nonobese Is this a current diagnosis for this admission?: Yes Plan: Blood sugars are fairly elevated despite coverage. I added lantus to coverage. I cut back on the steroid dose as well. (5) Right lower lobe lung mass Is this a current diagnosis for this admission?: Yes Plan: Bronchoscopy today for diagnostic purposers with Pulmonary, Dr. Perkins./ Critical Time Critical Time (minutes): 35 Level of Care: ICU -: 1. The care of a critical patient is a dynamic process. This note is a r epresentative synopsis but static in nature. The timeframe for treatments given in order is not necessarily the actual time these treatments may have been done. 2. This patient requires critical care secondary to ongoing requirements for therapy not offered or safe outside the critical care environment. Transfer to a lower level of care will result in altered life or limb morbidity and mortali ty. 3. Multidisciplinary rounds completed. 4. ABCDE bundle addressed.
--- NOTE | 2019-11-15 12:06 | PDOC CONSULTATION ---
Consultation Consult Date: 11/15/19 Provider Consulted: PRICILA SAUCEDO History of Present Illness Admission Date/PCP: 11/14/19 04:05 JORGE CHACON DO Patient complains of: Dyspnea with hemoptysis. History of Present Illness: ALLIE JACQUES is a 74 year old female She presents with respiratory failure accompanied by hemoptysis. This patient has been hospitalized on several occasions in the recent past with breathlessness and dyspnea. She has also had significant abnormalities noted on a CT scan. Apparently on dismissal from the hospital she is generally scheduled for some sort of diagnostic procedure to evaluate her abnormal CT scan. But according to her son she never keeps any follow-up appointments. Further history is limited because she is currently intubated in the intensive care unit. Past Medical History Past Medical History: Again this historical information is limited because of the patient's intubated status. I have attempted to call her daughter who lives here locally with the patient but she did not respond on her cell phone at [phone]. Cardiac Medical History: Reports: Atrial Fibrillation - Chronic, Coronary Artery Disease, Hypertension Denies: Myocardial Infarction Pulmonary Medical History: Reports: Asthma, Chronic Obstructive Pulmonary Disease (COPD) Denies: Bronchitis, Pneumonia Neurological Medical History: Denies: Seizures Endocrine Medical History: Reports: Diabetes Mellitus Type 2 Denies: Diabetes Mellitus Type 1, Hyperthyroidism, Hypothyroidism GI Medical History: Reports: Gastroesophageal Reflux Disease Denies: Hepatitis, Hiatal Hernia Musculoskeltal Medical History: Reports: Arthritis - Rheumatoid arthritis Denies: Gout Skin Medical History: Denies: Eczema, Psoriasis Psychiatric Medical History: Denies: Depression Traumatic Medical History: Denies: Pneumothorax Hematology: Denies: Anemia, Sickle Cell Disease, Bleeding Tendencies Infectious Medical History: Denies: Clostridium Difficile, HIV Past Surgical History Past Surgical History: Difficult to obtain given her intubated status. Past Surgical History: Reports: Orthopedic Surgery - Bilateral knees, Other - Cataract surgery Denies: Amputation, Hysterectomy, Mastectomy, Pacemaker Social History Lives with: Alone Smoking Status: Former Smoker Frequency of Alcohol Use: None Hx Recreational Drug Use: No Drugs: None Hx Prescription Drug Abuse: No - Advance Directive Resuscitation Status: Full Code Family History Family History: CVA, Hypertension, Malignancy Family History: Again not reviewable because of her intubated status. Parental Family History Reviewed: No - Patient is intubated Children Family History Reviewed: No - Patient is intubated Sibling(s) Family History Reviewed.: No - Patient is intubated Medication/Allergy Home Medications: Metformin HCl 500 mg PO BID 07/31/19 Glipizide [Glucotrol 10 mg Tablet] 10 mg PO BID 30 Days #60 tablet 08/05/19 Apixaban [Eliquis 5 mg Tablet] 5 mg PO BID 11/15/19 Ipratropium/Albuterol Sulfate [Duoneb 3 ml Ampul] 3 ml NEB [id number] PRN 11/15/19 Allergies/Adverse Reactions: ibuprofen [From Motrin] Allergy (Intermediate, Verified 09/15/19 17:10) FACE SWELLING NSAIDS (Non-Steroidal Anti-Inflamma [Nsaids] Allergy (Mild, Verified 09/15/19 17:10) Physical Exam Vital Signs: Temp Pulse Resp BP Pulse Ox 99.3 F 101 H 24 H 154/76 H 97 11/15/19 09:50 11/15/19 10:00 11/15/19 10:00 11/15/19 10:00 11/15/19 10:00 Intake & Output 11/14/19 11/15/19 11/16/19 06:59 06:59 06:59 Intake Total 7 3630 568 Output Total 425 185 Balance 7 3205 383 Weight 74.5 kg 80.2 kg Exam: The patient was examined in the intensive care unit intubated. Extraocular movements appear to be intact. Endotracheal tube was noted to be in good position. Neck was supple without adenopathy or bruits. Lung exam revealed diminished breath sounds bilaterally with scattered rhonchi. Heart exam revealed normal heart tones without obvious murmur. Remainder of her examination was limited due to her intubated status. Results Laboratory Results: 11/15/19 03:00 11/15/19 03:00 11/14/19 11/15/19 11/15/19 17:00 03:00 03:00 WBC 8.0 RBC 2.77 L Hgb 8.0 L Hct 24.6 L MCV 89 MCH 28.8 MCHC 32.4 RDW 15.9 H Plt Count 229 Seg Neutrophils % 86.6 H Carbonic Acid 1.52 H HCO3/H2CO3 Ratio 20:1 ABG pH 7.41 ABG pCO2 50.6 H ABG pO2 81.9 ABG HCO3 31.6 H ABG O2 Saturation 96.0 ABG Base Excess 6.2 FiO2 50% Sodium 135.6 L Potassium 3.7 D Chloride 98 Carbon Dioxide 32 H Anion Gap 6 BUN 33 H Creatinine 1.29 H Est GFR ( Amer) 49 L Glucose 359 H Calcium 8.9 Magnesium 1.9 Total Bilirubin 0.5 AST 19 Alkaline Phosphatase 84 Total Protein 6.5 Albumin 3.1 L 11/15/19 03:00 WBC RBC Hgb Hct MCV MCH MCHC RDW Plt Count Seg Neutrophils % Carbonic Acid 1.15 HCO3/H2CO3 Ratio 21:1 ABG pH 7.44 ABG pCO2 38.1 ABG pO2 65.2 L ABG HCO3 25.1 H ABG O2 Saturation 93.5 L ABG Base Excess 1.1 FiO2 40% Sodium Potassium Chloride Carbon Dioxide Anion Gap BUN Creatinine Est GFR ( Amer) Glucose Calcium Magnesium Total Bilirubin AST Alkaline Phosphatase Total Protein Albumin 11/13/19 11/14/19 11/14/19 21:07 06:30 11:15 Troponin I < 0.012 < 0.012 < 0.012 NT-Pro-B Natriuret Pep 220 11/14/19 17:00 Troponin I < 0.012 NT-Pro-B Natriuret Pep Impressions: Head CT 11/13/19 00:00 IMPRESSION: No acute intracranial abnormality. KUB X-Ray 11/14/19 03:45 IMPRESSION: The nasogastric tube traverses below the left hemidiaphragm. The side port projects at the stomach. The tip is not seen. There are airspace opacities at the left lung base associated with a trace left effusion. Chest X-Ray 11/15/19 04:15 IMPRESSION: STABLE APPEARANCE OF THE CHEST. SUPPORT DEVICES UNCHANGED. Status: Image reviewed by me - I did review a series of x-rays as well as a CT scan from 07/30/2019. Her CT scan from 07/30/2019 revealed a right hilar mass that appeared to be encircling her right mainstem bronchus. Given the length of time since this 07/30/2019 CT scan I am actually somewhat surprised that she has not completely occluded her right mainstem bronchus. A recent chest x-ray during this hospitalization does not reveal atelectasis or right lung collapse. Assessment & Plan - Diagnosis (1) Acute respiratory failure Qualifiers: Respiratory failure complication: hypoxia and hypercapnia Qualified Code(s): J96.01 - Acute respiratory failure with hypoxia; J96.02 - Acute respiratory failure with hypercapnia Is this a current diagnosis for this admission?: Yes (3) Hemoptysis Is this a current diagnosis for this admission?: Yes (4) Lung mass Is this a current diagnosis for this admission?: Yes - Plan Summary Plan Summary: This patient has been admitted multiple times with respiratory distress. This admission she is admitted with respiratory failure and hemoptysis. She was initially found to have a right hilar, right mainstem mass on 07/30/2019. Multiple subsequent outpatient evaluations have been scheduled but according to the son she does not keep these appointments. Therefore it appears as if no evaluation of this lung mass has been undertaken. I am concerned of course that this mass represents an underlying carcinoma. It is certainly possible that the mass is secondary to an infectious cause. In any event I think bronchoscopic evaluation should yield diagnostic material. I will therefore schedule a bronchoscopy for later today. I have spoken with the son who is agreeable to proceed with bronchoscopy.
[2019-11-15] MEDS: PANTOPRAZOLE SODIUM 40 MG VIAL IV SCH (12:27)
[2019-11-15] MEDS: FENTANYL CITRATE INJ/PF 100 MCG/2 ML AMPUL IV PRN ×3 (12:32→23:49)
--- NOTE | 2019-11-15 13:23 | Operative Report ---
Operative Report DATE OF SURGERY: 11/15/19 PREOPERATIVE DIAGNOSIS: Right hilar mass. 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 OPERATION: Fiberoptic bronchoscopy via endobronchial tube without complication. Tolerated well. LMS, SARBJIT, LLL bronchi visualized and were normal. SHAYLA indurated. RUL patent. BI with near total occlusion with tumor. Multiple brushings, washings, and biopsies taken without complication. Photos taken. SURGEON: PRICILA SAUCEDO ANESTHESIA: Moderate Sedation COMPLICATIONS: None ESTIMATED BLOOD LOSS: < 5 cc INTRAOPERATIVE FINDINGS: BI tumor. PROCEDURE: Fiberoptic bronchoscopy via endotracheal tube.
[2019-11-15] MEDS: METHYLPREDNISOLONE INJ 40 MG/1 ML SDV IV SCH (18:13)
[2019-11-16] MEDS: PROPOFOL 1,000 MG/100 ML INFUS..BTL IV PRN ×5 (00:31→22:11)
[2019-11-16] MEDS: IPRATROPIUM/ALBUTEROL 0.5-2.5 MG/3 ML AMPUL NEB SCH ×4 (02:07→20:17)
[2019-11-16] MEDS: FENTANYL CITRATE INJ/PF 100 MCG/2 ML AMPUL IV PRN ×8 (03:19→23:48)
[2019-11-16 04:50] LABS: ABSOLUTE LYMPHOCYTES (AUTO) 0.9 10^3/uL (0.5-4.7); ABSOLUTE MONOCYTES (AUTO) 0.4 10^3/uL (0.1-1.4); ABSOLUTE NEUT (AUTO) 12.4 10^3/uL (1.7-8.2); HEMATOCRIT 23.8 % (36.0-47.0); LYMPHOCYTES % (AUTO) 6.7 % (13-45); MEAN CORPUSCULAR HEMOGLOBIN 28.2 pg (27.0-33.4); MEAN CORPUSCULAR HGB CONC 32.1 g/dL (32.0-36.0); MEAN CORPUSCULAR VOLUME 88 fl (80-97); MONOCYTES % (AUTO) 2.6 % (3-13); PLATELET COUNT 211 10^3/uL (150-450); RED BLOOD COUNT 2.71 10^6/uL (3.72-5.28); RED CELL DISTRIBUTION WIDTH 16.5 % (11.5-14.0); SEGMENTED NEUTROPHILS % (AUTO) 90.7 % (42-78); TOTAL CELLS COUNTED % (AUTO) 100 %; WHITE BLOOD COUNT 13.6 10^3/uL (4.0-10.5)
[2019-11-16 04:52] LABS: HEMOGLOBIN 7.6 g/dL (12.0-15.5)
[2019-11-16 05:10] LABS: ALBUMIN 2.8 g/dL (3.5-5.0); ALKALINE PHOSPHATASE 76 U/L (38-126); ASPARTATE AMINO TRANSFERASE 18 U/L (14-36); BILIRUBIN,DIRECT 0.4 mg/dL (0.0-0.4); BILIRUBIN,TOTAL 0.4 mg/dL (0.2-1.3); BLOOD UREA NITROGEN 35 mg/dL (7-20); CARBON DIOXIDE 29 mmol/L (22-30); GLUCOSE 268 mg/dL (75-110); POTASSIUM 4.2 mmol/L (3.6-5.0); TOTAL PROTEIN 6.1 g/dL (6.3-8.2)
[2019-11-16] MEDS: HEPARIN SOD (PORCINE) 5,000 UNIT/ML 1 ML VIAL SUBCUT SCH ×3 (05:14→21:58)
[2019-11-16 05:15] LABS: ANION GAP 5 (5-19); CHLORIDE 105 mmol/L (98-107)
[2019-11-16] MEDS: INSULIN REG, HUMAN 100 UNIT/ML 3 ML VIAL (PYX) SUBCUT SCH ×4 (05:42→23:28)
[2019-11-16] MEDS: NORMAL SALINE 1000 ML 1,000 ML IV PRN ×2 (05:43→18:32)
[2019-11-16] MEDS: METHYLPREDNISOLONE INJ 40 MG/1 ML SDV IV SCH ×2 (05:43→17:30)
[2019-11-16] MEDS ORDERED: IPRATROPIUM/ALBUTEROL 0.5-2.5 MG/3 ML AMPUL NEB PRN (07:34)
--- NOTE | 2019-11-16 09:02 | PDOC CRITICAL CARE PROG REPORT ---
General Date:: 11/16/19 ICU Day:: 3 Ventilator Day:: 3 Hospital Day:: 3 Resuscitation Status: Full Code Events in the past 12 to 24 Hours:: The patient presented with acute respiratory failure. Had to be intubated for worsening mental status and acute hypercarbic respiratpory failure. ABG satisfactory today on PRVC rate of 18. 9/22 The patient remains sedated on the ventilator.The hempoptysis is largel;y gone. The patatient undderwent a diahnostic FOB with Dr. Hills yesterday. There was tumore seen in the bronchous intermedius and it was biopsied. Once we have the path we can make certain arrangements for more advanced care. It appears that the patient may benefit form a facility where endobr RT can be instituted. in the interim we will attempt to extricate patient from the ventilator. Reason for ICU Addmission:: respiratory failure with hypercarbia Physical Exam Vital Signs: Temp Pulse Resp BP Pulse Ox 98.2 F 86 18 139/65 H 97 11/16/19 03:51 11/16/19 08:21 11/16/19 08:21 11/16/19 05:36 11/16/19 08:21 Intake & Output 11/15/19 11/16/19 11/17/19 06:59 06:59 06:59 Intake Total 3630 3061 Output Total 425 1755 Balance 3205 1306 Weight 80.2 kg 80.4 kg Weight/Height Weight 80.4 kg Height 5 ft 6 in General appearance: PRESENT: cooperative Head exam: PRESENT: atraumatic, normocephalic Eye exam: PRESENT: conjunctiva pink, PERRLA Ear exam: PRESENT: normal external ear exam Mouth exam: PRESENT: moist Neck exam: ABSENT: carotid bruit, thyromegaly Respiratory exam: PRESENT: unlabored. ABSENT: accessory muscle use, decreased breath sounds Cardiovascular exam: PRESENT: +S1, +S2 Pulses: PRESENT: normal dorsalis pedis pul, +1 pedal pulses bilateral GI/Abdominal exam: PRESENT: normal bowel sounds, soft Extremities exam: ABSENT: calf tenderness Neurological exam: PRESENT: other - Patient remains fairly heavily sedaterd on the ventilator. Laboratory/Radiographs Laboratory Results: 11/16/19 04:17 11/16/19 04:17 11/16/19 11/16/19 11/16/19 04:17 04:17 04:17 WBC 13.6 H RBC 2.71 L Hgb 7.6 L Hct 23.8 L MCV 88 MCH 28.2 MCHC 32.1 RDW 16.5 H Plt Count 211 Seg Neutrophils % 90.7 H Sodium 139.2 Cancelled Potassium 4.2 Cancelled Chloride 105 Cancelled Carbon Dioxide 29 Cancelled Anion Gap 5 Cancelled BUN 35 H Cancelled Creatinine 1.01 Cancelled Est GFR ( Amer) > 60 Cancelled Est GFR (Non-Af Amer) Cancelled Glucose 268 H Cancelled Calcium 9.0 Cancelled Magnesium 2.2 Total Bilirubin 0.4 AST 18 Alkaline Phosphatase 76 Total Protein 6.1 L Albumin 2.8 L 11/13/19 11/14/19 11/14/19 21:07 06:30 11:15 Troponin I < 0.012 < 0.012 < 0.012 NT-Pro-B Natriuret Pep 220 11/14/19 17:00 Troponin I < 0.012 NT-Pro-B Natriuret Pep Impressions: Head CT 11/13/19 00:00 IMPRESSION: No acute intracranial abnormality. KUB X-Ray 11/14/19 03:45 IMPRESSION: The nasogastric tube traverses below the left hemidiaphragm. The side port projects at the stomach. The tip is not seen. There are airspace opacities at the left lung base associated with a trace left effusion. Assessment and Plan - Diagnosis (1) Acute respiratory failure Qualifiers: Respiratory failure complication: hypoxia and hypercapnia Qualified Code(s): J96.01 - Acute respiratory failure with hypoxia; J96.02 - Acute respiratory failure with hypercapnia Is this a current diagnosis for this admission?: Yes Plan: The patient remains on the ventilator. Unclear when she will be able to wean. The patient is undergoing bronchoscopy today. 11/15 I am hopefull that thepatient can be weaned today (2) Atrial fibrillation with rapid ventricular response Is this a current diagnosis for this admission?: Yes (3) COPD exacerbation Is this a current diagnosis for this admission?: Yes Plan: Patient on steroids and nebulizers (4) Diabetes mellitus type 2 in nonobese Is this a current diagnosis for this admission?: Yes Plan: Blood sugars are fairly elevated despite coverage. I added lantus to coverage. I cut back on the steroid dose as well. 11/15 The bood sugars will require a little more fine tuning. Her last BS [id number]. (5) Right lower lobe lung mass Is this a current diagnosis for this admission?: Yes Plan: Bronchoscopy today for diagnostic purposers with Pulmonary, Dr. Perkins./ 11/15 This mass is ever to an icebergwitha sdmal rfarment in the endobronchial area ansd larger portion surrounding the bronchous Plan Summary: 11/15 The patient is s/p endobronchail biopsy yesterdaya Critical Time Critical Time (minutes): 25 Level of Care: ICU -: 1. The care of a critical patient is a dynamic process. This note is a technical sales representatives synopsis but static in nature. The timeframe for treatments given in order is not necessarily the actual time these treatments may have been done. 2. This patient requires critical care secondary to ongoing requirements for therapy not offered or safe outside the critical care environment. Transfer to a lower level of care will result in altered life or limb morbidity and mortality. 3. Multidisciplinary rounds completed. 4. ABCDE bundle addressed.
--- NOTE | 2019-11-16 09:02 | RADIOLOGY REPORT (SQ) ---
EXAM DESCRIPTION: CHEST SINGLE VIEW IMAGES COMPLETED DATE/TIME: 11/16/2019 6:19 am REASON FOR STUDY: congestion COMPARISON: 11/15/2019 EXAM PARAMETERS: NUMBER OF VIEWS: One view. TECHNIQUE: Single frontal radiographic view of the chest acquired. RADIATION DOSE: NA LIMITATIONS: None. FINDINGS: LUNGS AND PLEURA: Biapical-upper lung scarring/fibrosis. Emphysematous changes in the alysia ngs, stable findings. Stable mild prominence of the left suprahilar interstitial markings may repres ent bronchiectatic changes. Bibasilar scarring more so on the left. Very small pleural effusions. N o pneumothorax. MEDIASTINUM AND HILAR STRUCTURES: Stable appearance. HEART AND VASCULAR STRUCTURES: Heart normal in size. Normal vasculature. BONES: No acute findings. HARDWARE: Appropriate location without change. OTHER: No other significant finding. IMPRESSION: 1. No significant interval changes since previous examination dated 11/15/2019. TECHNICAL DOCUMENTATION: JOB ID: [id number] 2010 [employer]- All Rights Reserved Reading location - IP/workstation name: [email or web address]
[2019-11-16] MEDS ORDERED: INSULIN GLARGINE,HUM.REC.ANLOG 1,000 UNIT/10 ML VIAL (PYX) SUBCUT ONE (10:00)
[2019-11-16] MEDS ORDERED: APIXABAN 5 MG TABLET PO SCH (10:00)
[2019-11-16] MEDS: DILTIAZEM HCL 60 MG TABLET PO SCH ×2 (10:25→21:58)
[2019-11-16] MEDS: DIGOXIN INJ 0.5 MG/2 ML AMPULE IV SCH (10:25)
[2019-11-16] MEDS: METFORMIN HCL 500 MG TABLET PO SCH ×2 (10:25→17:30)
--- NOTE | 2019-11-16 11:37 | PDOC PROGRESS REPORT ---
Subjective Progress Note for:: 11/16/19 Subjective:: In the interim this patient continues on mechanical ventilation. Her FiO2 is 0.4. Minute ventilation is low at the 9-10 range. She has not had significant hemoptysis in the endotracheal tube. Continues to be lightly sedated. Reason For Visit: COPD EXACERBATION Physical Exam Vital Signs: Temp Pulse Resp BP Pulse Ox 98.2 F 86 21 H 160/84 H 90 L 11/16/19 09:52 11/16/19 10:00 11/16/19 10:00 11/16/19 10:00 11/16/19 10:00 Intake & Output 11/15/19 11/16/19 11/17/19 06:59 06:59 06:59 Intake Total 3630 3061 126 Output Total 425 1755 450 Balance 3205 1306 -324 Weight 80.2 kg 80.4 kg Exam: In the interim her physical exam is largely unchanged. She continues to have a few scattered rhonchi on pulmonary exam but otherwise the remainder of her exam is unchanged. Results Laboratory Results: 11/16/19 04:17 11/16/19 04:17 11/16/19 11/16/19 11/16/19 04:17 04:17 04:17 WBC 13.6 H RBC 2.71 L Hgb 7.6 L Hct 23.8 L MCV 88 MCH 28.2 MCHC 32.1 RDW 16.5 H Plt Count 211 Seg Neutrophils % 90.7 H Sodium 139.2 Cancelled Potassium 4.2 Cancelled Chloride 105 Cancelled Carbon Dioxide 29 Cancelled Anion Gap 5 Cancelled BUN 35 H Cancelled Creatinine 1.01 Cancelled Est GFR ( Amer) > 60 Cancelled Est GFR (Non-Af Amer) Cancelled Glucose 268 H Cancelled Calcium 9.0 Cancelled Magnesium 2.2 Total Bilirubin 0.4 AST 18 Alkaline Phosphatase 76 Total Protein 6.1 L Albumin 2.8 L 11/13/19 11/14/19 11/14/19 21:07 06:30 11:15 Troponin I < 0.012 < 0.012 < 0.012 NT-Pro-B Natriuret Pep 220 11/14/19 17:00 Troponin I < 0.012 NT-Pro-B Natriuret Pep Impressions: Head CT 11/13/19 00:00 IMPRESSION: No acute intracranial abnormality. KUB X-Ray 11/14/19 03:45 IMPRESSION: The nasogastric tube traverses below the left hemidiaphragm. The side port projects at the stomach. The tip is not seen. There are airspace opacities at the left lung base associated with a trace left effusion. Chest X-Ray 11/16/19 04:15 IMPRESSION: 1. No significant interval changes since previous examination dated 11/15/2019. Status: Image reviewed by me - I have reviewed recent chest x-ray. There are no areas of atelectasis. Typically there does not appear to be any atelectasis involving the right middle or right lower lobes. Assessment & Plan - Diagnosis (1) Acute respiratory failure Qualifiers: Respiratory failure complication: hypoxia and hypercapnia Qualified Code(s): J96.01 - Acute respiratory failure with hypoxia; J96.02 - Acute respiratory failure with hypercapnia Is this a current diagnosis for this admission?: Yes (3) Hemoptysis Is this a current diagnosis for this admission?: Yes (4) Lung mass Is this a current diagnosis for this admission?: Yes - Time Time Spent with patient: 35 or more minutes - Plan Summary Plan Summary: Pathology results are currently pending at this time. I expect results in the next 24 hours. Again is my expectation of this likely is an underlying endobronchial tumor. If indeed she has underlying carcinoma she may benefit from a short course of external beam radiation therapy. Have discussed with Dr. Rahman. I think at this time we can also begin weaning from mechanical ventilation. I will be available should any further pulmonary issues arise. Further recommendations are pending her biopsy results.
[2019-11-16] MEDS: PANTOPRAZOLE SODIUM 40 MG VIAL IV SCH (12:41)
[2019-11-16] MEDS: GLIPIZIDE 10 MG TABLET PO SCH ×2 (12:42→18:32)
[2019-11-16] MEDS ORDERED: LORAZEPAM INJ 2 MG/1 ML VIAL ONE (14:30)
[2019-11-17] MEDS: PROPOFOL 1,000 MG/100 ML INFUS..BTL IV PRN ×3 (01:36→09:45)
[2019-11-17] MEDS: IPRATROPIUM/ALBUTEROL 0.5-2.5 MG/3 ML AMPUL NEB SCH ×4 (02:40→20:01)
[2019-11-17 04:43] LABS: ABSOLUTE LYMPHOCYTES (AUTO) 1.3 10^3/uL (0.5-4.7); ABSOLUTE MONOCYTES (AUTO) 0.4 10^3/uL (0.1-1.4); ABSOLUTE NEUT (AUTO) 14.1 10^3/uL (1.7-8.2); BASOPHILS % (AUTO) 0.1 % (0-2); HEMATOCRIT 25.6 % (36.0-47.0); HEMOGLOBIN 8.1 g/dL (12.0-15.5); MEAN CORPUSCULAR HEMOGLOBIN 28.2 pg (27.0-33.4); MEAN CORPUSCULAR HGB CONC 31.5 g/dL (32.0-36.0); MEAN CORPUSCULAR VOLUME 89 fl (80-97); MONOCYTES % (AUTO) 2.5 % (3-13); PLATELET COUNT 223 10^3/uL (150-450); RED BLOOD COUNT 2.87 10^6/uL (3.72-5.28); RED CELL DISTRIBUTION WIDTH 16.6 % (11.5-14.0); SEGMENTED NEUTROPHILS % (AUTO) 89.4 % (42-78); TOTAL CELLS COUNTED % (AUTO) 100 %; WHITE BLOOD COUNT 15.7 10^3/uL (4.0-10.5)
[2019-11-17] MEDS: FENTANYL CITRATE INJ/PF 100 MCG/2 ML AMPUL IV PRN ×2 (04:49→08:15)
[2019-11-17 05:07] LABS: BLOOD UREA NITROGEN 23 mg/dL (7-20); CARBON DIOXIDE 33 mmol/L (22-30); CHLORIDE 106 mmol/L (98-107); GLUCOSE 142 mg/dL (75-110); POTASSIUM 4.1 mmol/L (3.6-5.0)
[2019-11-17 05:24] LABS: ANION GAP 5 (5-19)
[2019-11-17] MEDS: INSULIN REG, HUMAN 100 UNIT/ML 3 ML VIAL (PYX) SUBCUT SCH ×4 (06:17→23:28)
[2019-11-17] MEDS: HEPARIN SOD (PORCINE) 5,000 UNIT/ML 1 ML VIAL SUBCUT SCH ×3 (06:31→23:42)
[2019-11-17] MEDS: METHYLPREDNISOLONE INJ 40 MG/1 ML SDV IV SCH ×2 (06:31→17:12)
--- NOTE | 2019-11-17 06:31 | RADIOLOGY REPORT (SQ) ---
CLINICAL HISTORY: congestion COMPARISON: 11/16/2019. TECHNIQUE: XR CHEST 1 VIEW 11/17/2019 4:15 AM CDT FINDINGS: Cardiac silhouette is normal in size. There are continued opacities in the upper lobes and minimal left basilar and right basilar involvement. There is no pleural effusion. There is no pneumothorax. There are no acute osseous findings. Endotracheal tube, nasogastric tube and right central line are unchanged. IMPRESSION: No significant change.
[2019-11-17] MEDS: NORMAL SALINE 1000 ML 1,000 ML IV PRN ×2 (08:16→23:00)
--- NOTE | 2019-11-17 08:21 | PDOC CRITICAL CARE PROG REPORT ---
General Date:: 11/17/19 ICU Day:: 4 Ventilator Day:: 4 Hospital Day:: 4 Resuscitation Status: Full Code Events in the past 12 to 24 Hours:: The patient presented with acute respiratory failure. Had to be intubated for worsening mental status and acute hypercarbic respiratpory failure. ABG satisfactory today on PRVC rate of 18. 9/22 The patient remains sedated on the ventilator.The hempoptysis is largel;y gone. The patatient undderwent a diahnostic FOB with Dr. Hills yesterday. There was tumore seen in the bronchous intermedius and it was biopsied. Once we have the path we can make certain arrangements for more advanced care. It appears that the patient may benefit form a facility where endobr RT can be instituted. in the interim we will attempt to extricate patient from the ventilator. Reason for ICU Addmission:: respiratory failure with hypercarbia Physical Exam Vital Signs: Temp Pulse Resp BP Pulse Ox 97.9 F 71 35 H 153/75 H 92 11/17/19 07:54 11/17/19 07:54 11/17/19 07:54 11/17/19 07:54 11/17/19 07:54 Intake & Output 11/16/19 11/17/19 11/18/19 06:59 06:59 06:59 Intake Total 3061 1424 Output Total 1755 2985 250 Balance 1306 -1561 -250 Weight 80.4 kg 80.7 kg Weight/Height Weight 80.7 kg Height 5 ft 6 in General appearance: PRESENT: mild distress Head exam: PRESENT: normocephalic Eye exam: PRESENT: PERRLA Ear exam: PRESENT: normal external ear exam Mouth exam: PRESENT: moist Neck exam: ABSENT: lymphadenopathy, thyromegaly Respiratory exam: PRESENT: tachypnea - slightly labored. ABSENT: accessory muscle use Cardiovascular exam: PRESENT: RRR, +S1, +S2 Pulses: PRESENT: +1 pedal pulses bilateral GI/Abdominal exam: PRESENT: normal bowel sounds Extremities exam: ABSENT: calf tenderness Neurological exam: PRESENT: alert, awake Skin exam: PRESENT: normal color Tubes/Lines: PRESENT: Endotracheal Tube, Nasogastic Tube Laboratory/Radiographs Laboratory Results: 11/17/19 04:29 11/17/19 04:29 11/17/19 11/17/19 04:29 04:29 WBC 15.7 H RBC 2.87 L Hgb 8.1 L Hct 25.6 L MCV 89 MCH 28.2 MCHC 31.5 L RDW 16.6 H Plt Count 223 Seg Neutrophils % 89.4 H Sodium 143.6 Potassium 4.1 Chloride 106 Carbon Dioxide 33 H Anion Gap 5 BUN 23 H Creatinine 0.70 Est GFR ( Amer) > 60 Glucose 142 H Calcium 9.0 Magnesium 2.2 11/13/19 21:07 Throat Throat Culture - Final Group C Beta Streptococcus Normal Fe 11/13/19 11/14/19 11/14/19 21:07 06:30 11:15 Troponin I < 0.012 < 0.012 < 0.012 NT-Pro-B Natriuret Pep 220 11/14/19 17:00 Troponin I < 0.012 NT-Pro-B Natriuret Pep Impressions: Head CT 11/13/19 00:00 IMPRESSION: No acute intracranial abnormality. KUB X-Ray 11/14/19 03:45 IMPRESSION: The nasogastric tube traverses below the left hemidiaphragm. The side port projects at the stomach. The tip is not seen. There are airspace opacities at the left lung base associated with a trace left effusion. Chest X-Ray 11/17/19 04:15 IMPRESSION: No significant change. Assessment and Plan - Diagnosis (1) Acute respiratory failure Qualifiers: Respiratory failure complication: hypoxia and hypercapnia Qualified Code(s): J96.01 - Acute respiratory failure with hypoxia; J96.02 - Acute respiratory failure with hypercapnia Is this a current diagnosis for this admission?: Yes Plan: The patient remains on the ventilator. Unclear when she will be able to wean. The patient is undergoing bronchoscopy today. 11/15 I am hopeful that the patient can be weaned today 11/16 She is weaning presently. She was acting a little strange yesterday afternoon. She was shaking and appeared initially less responsive. For a short time it appeared that she might be seizing but that appears not to have been the case. the patient responded to commands. She is on SBT with PS of 15 presently TVs are about 350. her RR is about 30. Not sure she is ready for extubation at this time. No further hemoptysis. Does not have alot of secretions. (2) Atrial fibrillation with rapid ventricular response Is this a current diagnosis for this admission?: Yes Plan: Patient now in NSR. (3) COPD exacerbation Is this a current diagnosis for this admission?: Yes Plan: Patient on steroids and nebulizers. 11/16 Does nt appear to be particualrly wheezy. Does not have alot of secretions (4) Diabetes mellitus type 2 in nonobese Is this a current diagnosis for this admission?: Yes Plan: Blood sugars are fairly elevated despite coverage. I added lantus to coverage. I cut back on the steroid dose as well. 11/15 The bood sugars will require a little more fine tuning. Her last BS was 268. 11/16 Her Blood suagars are under better control at this time. (5) Right lower lobe lung mass Is this a current diagnosis for this admission?: Yes Plan: Bronchoscopy today for diagnostic purposes with Pulmonary, Dr. Perkins./ 11/15 This mass is ever to an iceberg with a small piece in the endobronchial area ansd larger portion surrounding the bronchous. 11/16 Patholgy is pending. as noted there is no major hemoptysis or sinificant atelectasis. Critical Time Critical Time (minutes): 25 Level of Care: ICU -: 1. The care of a critical patient is a dynamic process. This note is a insurance representative synopsis but static in nature. The timeframe for treatments given in order is not necessarily the actual time these treatments may have been done. 2. This patient requires critical care secondary to ongoing requirements for therapy not offered or safe outside the critical care environment. Transfer to a lower level of care will result in altered life or limb morbidity and mortality. 3. Multidisciplinary rounds completed. 4. ABCDE bundle addressed.
[2019-11-17] MEDS: GLIPIZIDE 10 MG TABLET PO SCH ×3 (09:52→17:16)
[2019-11-17] MEDS: DILTIAZEM HCL 60 MG TABLET PO SCH ×2 (09:52→23:45)
[2019-11-17] MEDS: DIGOXIN INJ 0.5 MG/2 ML AMPULE IV SCH (09:52)
[2019-11-17] MEDS: METFORMIN HCL 500 MG TABLET PO SCH ×3 (09:52→17:16)
[2019-11-17] MEDS ORDERED: INSULIN GLARGINE,HUM.REC.ANLOG 1,000 UNIT/10 ML VIAL SUBCUT SCH (10:00)
[2019-11-17 10:22] LABS: ARTERIAL BLOOD BASE EXCESS 3.9 mmol/L; ARTERIAL BLOOD H2CO3 1.69 mmol/L (1.05-1.35); ARTERIAL BLOOD HCO3 30.3 mmol/L (20-24); ARTERIAL BLOOD O2 SATURATION 89.9 % (94-98); ARTERIAL BLOOD PCO2 56.1 mmHg (35-45); ARTERIAL BLOOD PH 7.35 (7.35-7.45); ARTERIAL BLOOD PO2 61.3 mmHg (80-100); ARTERIAL BLOOD TOTAL CO2 32.1 mmol/L (21-25)
[2019-11-17 10:31] LABS: ARTERIAL BLOOD FIO2 35%
[2019-11-17] MEDS: PANTOPRAZOLE SODIUM 40 MG VIAL IV SCH (11:00)
[2019-11-17] MEDS: DEXMEDETOMIDINE IN NS 400 MCG/100 ML RTUPB IV PRN ×2 (13:53→18:39)
[2019-11-17] MEDS ORDERED: DEXMEDETOMIDINE IN 0.9 % NACL 400 MCG/100 ML RTUPB IV ONE (13:53)
--- NOTE | 2019-11-17 14:12 | PDOC PROGRESS REPORT ---
Subjective Progress Note for:: 11/17/19 Subjective:: This patient is seen in the intensive care unit. She continues on mechanical ventilation. She is currently weaning from mechanical ventilation with good response. She is somewhat awake and alert and able to respond to some questioning although she is moderately sedated at this time. The nurses note no complication or new findings. Reason For Visit: COPD EXACERBATION Physical Exam Vital Signs: Temp Pulse Resp BP Pulse Ox 97.9 F 84 37 H 151/73 H 89 L 11/17/19 12:00 11/17/19 12:00 11/17/19 12:00 11/17/19 12:00 11/17/19 12:00 Intake & Output 11/16/19 11/17/19 11/18/19 06:59 06:59 06:59 Intake Total 3061 1424 1130 Output Total 1755 2985 900 Balance 1306 -1561 230 Weight 80.4 kg 80.7 kg Exam: Examination today is largely unchanged. She continues on mechanical ventilation with an endotracheal tube in place her neck is supple without adenopathy or bruits her lung exam reveals scattered rhonchi otherwise unremarkable heart exam revealed tachycardia without obvious murmurs abdominal exam was nondistended nontender bowel sounds are hypoactive extremity exam reveals no clubbing cyanosis or edema. Results Laboratory Results: 11/17/19 04:29 11/17/19 04:29 11/17/19 11/17/19 11/17/19 04:29 04:29 10:03 WBC 15.7 H RBC 2.87 L Hgb 8.1 L Hct 25.6 L MCV 89 MCH 28.2 MCHC 31.5 L RDW 16.6 H Plt Count 223 Seg Neutrophils % 89.4 H Carbonic Acid 1.69 H HCO3/H2CO3 Ratio 17:1 ABG pH 7.35 ABG pCO2 56.1 H ABG pO2 61.3 L ABG HCO3 30.3 H ABG O2 Saturation 89.9 L ABG Base Excess 3.9 FiO2 35% Sodium 143.6 Potassium 4.1 Chloride 106 Carbon Dioxide 33 H Anion Gap 5 BUN 23 H Creatinine 0.70 Est GFR ( Amer) > 60 Glucose 142 H Calcium 9.0 Magnesium 2.2 11/14/19 14:00 Tracheal Aspirate Gram Stain - Final 11/14/19 14:00 Tracheal Aspirate Sputum Culture - Final NORMAL FE 11/13/19 21:07 Throat Throat Culture - Final Group C Beta Streptococcus Normal Fe 11/13/19 11/14/19 11/14/19 21:07 06:30 11:15 Troponin I < 0.012 < 0.012 < 0.012 NT-Pro-B Natriuret Pep 220 11/14/19 17:00 Troponin I < 0.012 NT-Pro-B Natriuret Pep Impressions: Head CT 11/13/19 00:00 IMPRESSION: No acute intracranial abnormality. KUB X-Ray 11/14/19 03:45 IMPRESSION: The nasogastric tube traverses below the left hemidiaphragm. The side port projects at the stomach. The tip is not seen. There are airspace opacities at the left lung base associated with a trace left effusion. Chest X-Ray 11/17/19 04:15 IMPRESSION: No significant change. 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 Because of the inadequacies of ICD10 this could not be appropriately coded. 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 She does not have any atelectasis of her right lung. I think we can rapidly proceed with extubation. However should she have difficulty with extubation or need for reintubation I think a short course of external beam radiation therapy directed towards the bronchus intermedius and surrounding areas would be beneficial in shrinking the tumor in improving her aeration of the right lower and right middle lobes. Long-term prognosis for this patient is obviously quite guarded.
[2019-11-18] MEDS: IPRATROPIUM/ALBUTEROL 0.5-2.5 MG/3 ML AMPUL NEB SCH ×4 (02:29→20:16)
[2019-11-18] MEDS: HEPARIN SOD (PORCINE) 5,000 UNIT/ML 1 ML VIAL SUBCUT SCH ×3 (06:37→21:17)
[2019-11-18] MEDS: METHYLPREDNISOLONE INJ 40 MG/1 ML SDV IV SCH ×2 (06:39→17:06)
[2019-11-18 07:09] LABS: ANION GAP 6 (5-19); BLOOD UREA NITROGEN 24 mg/dL (7-20); CALCIUM 9.1 mg/dL (8.4-10.2); CARBON DIOXIDE 36 mmol/L (22-30); CHLORIDE 104 mmol/L (98-107); POTASSIUM 4.2 mmol/L (3.6-5.0)
[2019-11-18 07:13] LABS: GLUCOSE 59 mg/dL (75-110)
[2019-11-18] MEDS: INSULIN REG, HUMAN 100 UNIT/ML 3 ML VIAL (PYX) SUBCUT SCH ×3 (07:35→17:05)
[2019-11-18] MEDS: DEXTROSE 50%-WATER 25 GM/50 ML DISP.SYRIN IV PRN (07:39)
--- NOTE | 2019-11-18 09:08 | PDOC CRITICAL CARE PROG REPORT ---
General Date:: 11/18/19 ICU Day:: 4 Hospital Day:: 4 Resuscitation Status: Full Code Events in the past 12 to 24 Hours:: The patient presented with acute respiratory failure. Had to be intubated for worsening mental status and acute hypercarbic respiratpory failure. ABG satisfactory today on PRVC rate of 18. 9/22 The patient remains sedated on the ventilator.The hempoptysis is largel;y gone. The patatient undderwent a diahnostic FOB with Dr. Hills yesterday. There was tumore seen in the bronchous intermedius and it was biopsied. Once we have the path we can make certain arrangements for more advanced care. It appears that the patient may benefit form a facility where endobr RT can be instituted. in the interim we will attempt to extricate patient from the ventilator. 924 The patient was extubated yesterday. Did need several hours of bIPAP thereafter. her respiratory staus remains , I believe a little precarious. i spoke to her son and brought him up top speed. he is aware of the diagnosis. No further hemoptysis. oxygenation ok on nasal cannula. The patient's mental status is much improved as well. She will answer questions appropriatelly. She is not aware of diagnosis at this time. At some point will need more complete staging involving CT abdo/pelvis and possibly PET scan . I don't ghulam patient is likely an operable candidate based o her significant COPD. Reason for ICU Addmission:: respiratory failure with hypercarbia Physical Exam Vital Signs: Temp Pulse Resp BP Pulse Ox 96.6 F L 67 16 164/109 H 94 11/18/19 05:47 11/18/19 02:29 11/18/19 02:29 11/18/19 07:37 11/18/19 07:37 Intake & Output 11/17/19 11/18/19 11/19/19 06:59 06:59 06:59 Intake Total 1424 2251 Output Total 2985 2794 828 Balance -1561 -499 -460 Weight 80.7 kg 83.8 kg Weight/Height Weight 83.8 kg Height 5 ft 6 in General appearance: PRESENT: no acute distress, cooperative, obese Eye exam: PRESENT: conjunctiva pink Ear exam: PRESENT: normal external ear exam Mouth exam: PRESENT: moist, neck supple Neck exam: PRESENT: full ROM, JVD Respiratory exam: ABSENT: accessory muscle use, retraction Cardiovascular exam: PRESENT: RRR, +S1, +S2 Pulses: PRESENT: normal dorsalis pedis pul GI/Abdominal exam: PRESENT: normal bowel sounds, soft Extremities exam: ABSENT: calf tenderness, pedal edema Musculoskeletal exam: PRESENT: normal inspection Neurological exam: PRESENT: alert, awake Psychiatric exam: PRESENT: appropriate affect Laboratory/Radiographs Laboratory Results: 11/17/19 04:29 11/18/19 06:29 11/17/19 11/18/19 10:03 06:29 Carbonic Acid 1.69 H HCO3/H2CO3 Ratio 17:1 ABG pH 7.35 ABG pCO2 56.1 H ABG pO2 61.3 L ABG HCO3 30.3 H ABG O2 Saturation 89.9 L ABG Base Excess 3.9 FiO2 35% Sodium 145.6 H Potassium 4.2 Chloride 104 Carbon Dioxide 36 H Anion Gap 6 BUN 24 H Creatinine 0.72 Est GFR ( Amer) > 60 Glucose 59 L Calcium 9.1 11/14/19 14:00 Tracheal Aspirate Gram Stain - Final 11/14/19 14:00 Tracheal Aspirate Sputum Culture - Final NORMAL RIDDHI 11/13/19 11/14/19 11/14/19 21:07 06:30 11:15 Troponin I < 0.012 < 0.012 < 0.012 NT-Pro-B Natriuret Pep 220 11/14/19 17:00 Troponin I < 0.012 NT-Pro-B Natriuret Pep Impressions: Head CT 11/13/19 00:00 IMPRESSION: No acute intracranial abnormality. KUB X-Ray 11/14/19 03:45 IMPRESSION: The nasogastric tube traverses below the left hemidiaphragm. The side port projects at the stomach. The tip is not seen. There are airspace opacities at the left lung base associated with a trace left effusion. Chest X-Ray 11/17/19 04:15 IMPRESSION: No significant change. Assessment and Plan - Diagnosis (1) Acute respiratory failure Qualifiers: Respiratory failure complication: hypoxia and hypercapnia Qualified Code(s): J96.01 - Acute respiratory failure with hypoxia; J96.02 - Acute r espiratory failure with hypercapnia Is this a current diagnosis for this admission?: Yes Plan: The patient remains on the ventilator. Unclear when she will be able to wean. The patient is undergoing bronchoscopy today. 11/15 I am hopeful that the patient can be weaned today 11/16 She is weaning presently. She was acting a little strange yesterday afternoon. She was shaking and appeared initially less responsive. For a short time it appeared that she might be seizing but that appears not to have been the case. the patient responded to commands. She is on SBT with PS of 15 presently TVs are about 350. her RR is about 30. Not sure she is ready for extubation at this time. No further hemoptysis. Does not have alot of secretions. 11/17 S/P extubation. Respiratory status better. No atelectasis by CXR. On nasal cannula. On steroids and HHN. (2) Atrial fibrillation with rapid ventricular response Is this a current diagnosis for this admission?: Yes Plan: Patient now in NSR. (3) COPD exacerbation Is this a current diagnosis for this admission?: Yes Plan: Patient on steroids and nebulizers. 11/16 Does nt appear to be particualrly wheezy. Does not have alot of secretions (4) Diabetes mellitus type 2 in nonobese Is this a current diagnosis for this admission?: Yes Plan: Blood sugars are fairly elevated despite coverage. I added lantus to coverage. I cut back on the steroid dose as well. 11/15 The bood sugars will require a little more fine tuning. Her last BS was 268. 11/16 Her Blood suagars are under better control at this time. (5) Right lower lobe lung mass Is this a current diagnosis for this admission?: Yes Plan: Bronchoscopy today for diagnostic purposes with Pulmonary, Dr. Perkins./ 11/15 This mass is ever to an iceberg with a small piece in the endobronchial area and larger portion surrounding the bronchous. 11/16 Patholgy is pending. as noted there is no major hemoptysis or significant atelectasis 11/17 Aparently the patient has a squamous cell lung cancer. Will need staging as alluded to above. She has not yet been told of diagnosis. Critical Time Critical Time (minutes): 20 Level of Care: ICU -: 1. The care of a critical patient is a dynamic process. This note is a access representative synopsis but static in nature. The timeframe for treatments given in order is not necessarily the actual time these treatments may have been done. 2. This patient requires critical care secondary to ongoing requirements for therapy not offered or safe outside the critical care environment. Transfer to a lower level of care will result in altered life or limb morbidity and mortality. 3. Multidisciplinary rounds completed. 4. ABCDE bundle addressed.
[2019-11-18] MEDS: DILTIAZEM HCL 90 MG TABLET PO SCH ×3 (09:18→21:17)
[2019-11-18] MEDS: METFORMIN HCL 500 MG TABLET PO SCH ×3 (09:19→17:04)
[2019-11-18] MEDS: GLIPIZIDE 10 MG TABLET PO SCH ×3 (09:19→17:05)
[2019-11-18] MEDS: DIGOXIN INJ 0.5 MG/2 ML AMPULE IV SCH (09:20)
[2019-11-18] MEDS ORDERED: HYDRALAZINE HCL 25 MG TABLET PO SCH (10:00)
[2019-11-18] MEDS: HYDRALAZINE HCL INJ/PF 20 MG/1 ML SDV IV PRN (10:23)
[2019-11-18] MEDS: INSULIN GLARGINE,HUM.REC.ANLOG 1,000 UNIT/10 ML VIAL SUBCUT SCH (10:25)
[2019-11-18] MEDS: METOPROLOL TARTRATE PF/INJ 5 MG/5 ML SDV IV PRN (11:13)
[2019-11-18] MEDS: QUETIAPINE FUMARATE 25 MG TABLET PO SCH (11:50)
[2019-11-18] MEDS: NORMAL SALINE 1000 ML 1,000 ML IV PRN (13:52)
[2019-11-18] MEDS: DEXMEDETOMIDINE IN NS 400 MCG/100 ML RTUPB IV PRN (14:06)
[2019-11-18] MEDS: PANTOPRAZOLE SODIUM 40 MG VIAL IV SCH (14:57)
--- NOTE | 2019-11-18 15:40 | PDOC PROGRESS REPORT ---
Subjective Progress Note for:: 11/18/19 Subjective:: In the interim this patient has continued to improve. She is now extubated. She is able to give some response to simple questions. She indicates she does not feel breathless at this time. Reason For Visit: COPD EXACERBATION Physical Exam Vital Signs: Temp Pulse Resp BP Pulse Ox 97.5 F 93 18 113/74 95 11/18/19 10:00 11/18/19 14:20 11/18/19 14:20 11/18/19 13:37 11/18/19 13:37 Intake & Output 11/17/19 11/18/19 11/19/19 06:59 06:59 06:59 Intake Total 1424 2251 1086 Output Total 2989 9740 1465 Balance -0492 -831 -584 Weight 80.7 kg 83.8 kg 83.8 kg Exam: Physical exam today is notable for the absence of the endotracheal tube which is been present up until yesterday. Her neck was supple without adenopathy or bruits. Lung exam revealed scattered rhonchi. Heart exam revealed tachycardia without obvious murmur. Results Laboratory Results: 11/17/19 04:29 11/18/19 06:29 11/18/19 06:29 Sodium 145.6 H Potassium 4.2 Chloride 104 Carbon Dioxide 36 H Anion Gap 6 BUN 24 H Creatinine 0.72 Est GFR ( Amer) > 60 Glucose 59 L Calcium 9.1 11/14/19 14:00 Tracheal Aspirate Gram Stain - Final 11/14/19 14:00 Tracheal Aspirate Sputum Culture - Final NORMAL RIDDHI 11/13/19 11/14/19 11/14/19 21:07 06:30 11:15 Troponin I < 0.012 < 0.012 < 0.012 NT-Pro-B Natriuret Pep 220 11/14/19 17:00 Troponin I < 0.012 NT-Pro-B Natriuret Pep Impressions: Head CT 11/13/19 00:00 IMPRESSION: No acute intracranial abnormality. KUB X-Ray 11/14/19 03:45 IMPRESSION: The nasogastric tube traverses below the left hemidiaphragm. The side port projects at the stomach. The tip is not seen. There are airspace opacities at the left lung base associated with a trace left effusion. Chest X-Ray 09/23/20 04:15 IMPRESSION: No significant change. Assessment & Plan - Diagnosis (1) Acute respiratory failure Qualifiers: Respiratory failure complication: hypoxia and hypercapnia Qualified Code(s): J96.01 - Acute respiratory failure with hypoxia; J96.02 - Acute respiratory failure with hypercapnia Is this a current diagnosis for this admission?: Yes (3) Hemoptysis Is this a current diagnosis for this admission?: Yes (4) Lung mass Is this a current diagnosis for this admission?: Yes - Time Time Spent with patient: 35 or more minutes - Plan Summary Plan Summary: This patient is now extubated. I suspect that we can proceed with evaluation and treatment planning for her underlying squamous cell carcinoma. Going forward we will likely follow from a distance and assist if needed in the future.
[2019-11-18] MEDS: FENTANYL CITRATE INJ/PF 100 MCG/2 ML AMPUL IV PRN ×2 (17:19→19:20)
--- NOTE | 2019-11-18 17:39 | PDOC CONSULTATION ---
Consultation Consult Date: 11/18/19 Provider Consulted: PATSY BARRON Consult reason:: Hematology/Oncology consultation was requested for patient with newly diagnosed Squamous Cell Lung cancer. History of Present Illness Admission Date/PCP: 11/14/19 04:05 JORGE CHACON DO History of Present Illness: ALLIE JACQUES is a 74 year old female who was initially admitted for acute respiratory distress and was intubated for a time. mass was found in the main stem bronchus and this was biopsied and found to have squamous cell carcinoma. Currently, patient has been extubated but no family is at bedside. Nurses report that she has been slowly improving, but she remains quite confused. No evidence of bleeding. Past Medical History Cardiac Medical History: Reports: Atrial Fibrillation - Chronic, Coronary Artery Disease, Hypertension Denies: Myocardial Infarction Pulmonary Medical History: Reports: Asthma, Chronic Obstructive Pulmonary Disease (COPD) Denies: Bronchitis, Pneumonia Neurological Medical History: Denies: Seizures Endocrine Medical History: Reports: Diabetes Mellitus Type 2 Denies: Diabetes Mellitus Type 1, Hyperthyroidism, Hypothyroidism GI Medical History: Reports: Gastroesophageal Reflux Disease Denies: Hepatitis, Hiatal Hernia Musculoskeltal Medical History: Reports: Arthritis - Rheumatoid arthritis Denies: Gout Skin Medical History: Denies: Eczema, Psoriasis Psychiatric Medical History: Denies: Depression Traumatic Medical History: Denies: Pneumothorax Hematology: Denies: Anemia, Sickle Cell Disease, Bleeding Tendencies Infectious Medical History: Denies: Clostridium Difficile, HIV Past Surgical History Past Surgical History: Reports: Orthopedic Surgery - Bilateral knees, Other - Cataract surgery Denies: Amputation, Hysterectomy, Mastectomy, Pacemaker Social History Lives with: Alone Smoking Status: Former Smoker Frequency of Alcohol Use: None Hx Recreational Drug Use: No Drugs: None Hx Prescription Drug Abuse: No - Advance Directive Resuscitation Status: Full Code Family History Family History: CVA, Hypertension, Malignancy Parental Family History Reviewed: Yes Children Family History Reviewed: Yes Sibling(s) Family History Reviewed.: No Medication/Allergy Home Medications: Metformin HCl 500 mg PO BID 07/31/19 Glipizide [Glucotrol 10 mg Tablet] 10 mg PO BID 30 Days #60 tablet 08/05/19 Apixaban [Eliquis 5 mg Tablet] 5 mg PO BID 11/15/19 Ipratropium/Albuterol Sulfate [Duoneb 3 ml Ampul] 3 ml NEB [id number] PRN 11/15/19 Allergies/Adverse Reactions: ibuprofen [From Motrin] Allergy (Intermediate, Verified 09/15/19 17:10) FACE SWELLING NSAIDS (Non-Steroidal Anti-Inflamma [Nsaids] Allergy (Mild, Verified 09/15/19 17:10) Review of Systems ROS unobtainable: Due to mental status Physical Exam Vital Signs: Temp Pulse Resp BP Pulse Ox 97.2 F 66 19 114/72 100 11/18/19 16:00 11/18/19 16:00 11/18/19 16:00 11/18/19 16:00 11/18/19 15:00 Intake & Output 11/17/19 11/18/19 11/19/19 06:59 06:59 06:59 Intake Total 1424 2251 1122 Output Total 2987 8515 1500 Balance -1564 -499 -343 Weight 80.7 kg 83.8 kg 83.8 kg Exam: Overweight, 74 year old female in mild respiratory distress. Head exam: PRESENT: atraumatic, normocephalic Eye exam: PRESENT: EOMI Mouth exam: PRESENT: tongue midline Neck exam: PRESENT: other - central line in place. Respiratory exam: PRESENT: clear to auscultation kyle Cardiovascular exam: PRESENT: RRR GI/Abdominal exam: PRESENT: soft. ABSENT: tenderness Extremities exam: PRESENT: other - USMAN hose in place.. ABSENT: pedal edema Neurological exam: PRESENT: altered, other - confused. Says her legs have been cut off. Focused psych exam: PRESENT: restlessness Skin exam: PRESENT: normal color Results Laboratory Results: 11/17/19 04:29 11/18/19 06:29 11/18/19 06:29 Sodium 145.6 H Potassium 4.2 Chloride 104 Carbon Dioxide 36 H Anion Gap 6 BUN 24 H Creatinine 0.72 Est GFR ( Amer) > 60 Glucose 59 L Calcium 9.1 11/15/19 03:00 Tracheal Aspirate Gram Stain - Final 11/15/19 03:00 Tracheal Aspirate Sputum Culture - Final NORMAL RIDDHI 11/13/19 11/14/19 11/14/19 21:07 06:30 11:15 Troponin I < 0.012 < 0.012 < 0.012 NT-Pro-B Natriuret Pep 220 11/14/19 17:00 Troponin I < 0.012 NT-Pro-B Natriuret Pep Impressions: Head CT 11/13/19 00:00 IMPRESSION: No acute intracranial abnormality. KUB X-Ray 11/14/19 03:45 IMPRESSION: The nasogastric tube traverses below the left hemidiaphragm. The side port projects at the stomach. The tip is not seen. There are airspace opacities at the left lung base associated with a trace left effusion. Chest X-Ray 11/17/19 04:15 IMPRESSION: No significant change. Status: Image reviewed by me Assessment & Plan - Diagnosis (1) Acute respiratory failure Qualifiers: Respiratory failure complication: hypoxia and hypercapnia Qualified Code(s): J96.01 - Acute respiratory failure with hypoxia; J96.02 - Acute respiratory failure with hypercapnia Is this a current diagnosis for this admission?: Yes Plan: Improving. 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 I will discuss this with her son. Before recommending systemic therapy, I will need staging studies with at least CT C/A/P as well as PET if possible (Must be done as outpatient). I understand there is enough tissue to order an omniseq genetic profiling for further targeted therapy options. Again, this cannot be done until she is an outpatient. She may be able to have some palliative radiation in house if needed. If patient's mental status and performance status does not improve, then systemic therapy will not be possible and she would be a good candidate for Hospice. I will be happy to follow with you.
[2019-11-18] MEDS ORDERED: QUETIAPINE FUMARATE 25 MG TABLET PO SCH (22:00)
[2019-11-19] MEDS: INSULIN REG, HUMAN 100 UNIT/ML 3 ML VIAL (PYX) SUBCUT SCH ×4 (00:40→17:29)
[2019-11-19] MEDS: IPRATROPIUM/ALBUTEROL 0.5-2.5 MG/3 ML AMPUL NEB SCH ×4 (02:35→20:41)
[2019-11-19] MEDS: NORMAL SALINE 1000 ML 1,000 ML IV PRN ×2 (03:15→15:52)
[2019-11-19] MEDS: FENTANYL CITRATE INJ/PF 100 MCG/2 ML AMPUL IV PRN ×3 (03:15→16:18)
[2019-11-19] MEDS: DEXTROSE 50%-WATER 25 GM/50 ML DISP.SYRIN IV PRN (06:58)
[2019-11-19] MEDS: METHYLPREDNISOLONE INJ 40 MG/1 ML SDV IV SCH ×2 (07:00→18:21)
[2019-11-19] MEDS: HEPARIN SOD (PORCINE) 5,000 UNIT/ML 1 ML VIAL SUBCUT SCH ×3 (07:00→21:55)
--- NOTE | 2019-11-19 08:06 | PDOC PROGRESS REPORT ---
Subjective Progress Note for:: 11/19/19 Subjective:: Patient is awake and talking. She is less confused and is eating a sandwhich. She states that someone told her that her legs had been cut off, but she knows this is not true. Reason For Visit: COPD EXACERBATION Physical Exam Vital Signs: Temp Pulse Resp BP Pulse Ox 98.4 F 45 L 18 124/68 100 11/19/19 06:00 11/19/19 00:00 11/18/19 20:16 11/19/19 06:36 11/19/19 06:36 Intake & Output 11/18/19 11/19/19 11/20/19 06:59 06:59 06:59 Intake Total 2251 2180 Output Total 2750 2520 Balance -499 -340 Weight 83.8 kg 81.2 kg General appearance: PRESENT: no acute distress Head exam: PRESENT: normocephalic Respiratory exam: PRESENT: unlabored Extremities exam: ABSENT: pedal edema Musculoskeletal exam: PRESENT: normal inspection Neurological exam: PRESENT: alert, awake Skin exam: PRESENT: normal color Results Laboratory Results: 11/17/19 04:29 11/18/19 06:29 11/14/19 06:15 Blood Blood Culture - Final NO GROWTH IN 5 DAYS 11/14/19 06:30 Blood Blood Culture - Final NO GROWTH IN 5 DAYS 11/15/19 03:00 Tracheal Aspirate Gram Stain - Final 11/15/19 03:00 Tracheal Aspirate Sputum Culture - Final NORMAL RIDDHI 11/13/19 11/14/19 11/14/19 21:07 06:30 11:15 Troponin I < 0.012 < 0.012 < 0.012 NT-Pro-B Natriuret Pep 220 11/14/19 17:00 Troponin I < 0.012 NT-Pro-B Natriuret Pep Impressions: Head CT 11/13/19 00:00 IMPRESSION: No acute intracranial abnormality. KUB X-Ray 11/14/19 03:45 IMPRESSION: The nasogastric tube traverses below the left hemidiaphragm. The side port projects at the stomach. The tip is not seen. There are airspace opacities at the left lung base associated with a trace left effusion. Chest X-Ray 11/17/19 04:15 IMPRESSION: No significant change. 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 They understand that the biopsy did show cancer, but she is not yet strong enough to start any therapy. I am hopeful that she will be able to get stronger and be discharged for further staging and work-up and then we can discuss treatment. I will continue to follow. - Time Time Spent with patient: 15-24 minutes
[2019-11-19] MEDS: DEXMEDETOMIDINE IN NS 400 MCG/100 ML RTUPB IV PRN ×2 (08:20→22:48)
[2019-11-19] MEDS: INSULIN GLARGINE,HUM.REC.ANLOG 1,000 UNIT/10 ML VIAL SUBCUT SCH (09:43)
[2019-11-19] MEDS: QUETIAPINE FUMARATE 25 MG TABLET PO SCH (09:44)
[2019-11-19] MEDS: DIGOXIN INJ 0.5 MG/2 ML AMPULE IV SCH (09:44)
[2019-11-19] MEDS: METFORMIN HCL 500 MG TABLET PO SCH ×2 (09:44→18:21)
[2019-11-19] MEDS: GLIPIZIDE 10 MG TABLET PO SCH ×2 (09:44→18:26)
[2019-11-19] MEDS: DILTIAZEM HCL 90 MG TABLET PO SCH ×2 (09:44→21:54)
--- NOTE | 2019-11-19 11:34 | PDOC CRITICAL CARE PROG REPORT ---
General Date:: 11/19/19 ICU Day:: 5 Ventilator Day:: 5 Hospital Day:: 5 Resuscitation Status: Full Code Events in the past 12 to 24 Hours:: The patient presented with acute respiratory failure. Had to be intubated for worsening mental status and acute hypercarbic respiratpory failure. ABG satisfactory today on PRVC rate of 18. 11/15 The patient remains sedated on the ventilator.The hempoptysis is largel;y gone. The patatient undderwent a diahnostic FOB with Dr. Hills yesterday. There was tumore seen in the bronchous intermedius and it was biopsied. Once we have the path we can make certain arrangements for more advanced care. It appears that the patient may benefit form a facility where endobr RT can be instituted. in the interim we will attempt to extricate patient from the ventilator. 11/17 The patient was extubated yesterday. Did need several hours of bIPAP thereafter. her respiratory staus remains , I believe a little precarious. i spoke to her son and brought him up top speed. he is aware of the diagnosis. No further hemoptysis. oxygenation ok on nasal cannula. The patient's mental status is much improved as well. She will answer questions appropriatelly. She is not aware of diagnosis at this time. At some point will need more complete staging involving CT abdo/pelvis and possibly PET scan . I don't ghulam patient is likely an operable candidate based o her significant COPD. 11/18 The patient's respiratory status waxes and wanes. Has been on and off BIPAP the past few days. She is responsive and cogent. Her family and she are aware of her diagnosis. would like to get staging CT scan abdo/pelvis shrortly. Patient may be a a candidate for RT and a biologic agent. Certainly does not appear to be an operative candidate. Has been afebbrile. No additional hemoptysois. Reason for ICU Addmission:: respiratory failure with hypercarbia Physical Exam Vital Signs: Temp Pulse Resp BP Pulse Ox 98.4 F 80 16 124/68 100 11/19/19 10:00 11/19/19 07:48 11/19/19 07:48 11/19/19 06:36 11/19/19 07:48 Intake & Output 11/18/19 11/19/19 11/20/19 06:59 06:59 06:59 Intake Total 2251 2180 17 Output Total 2750 2520 135 Balance -499 -340 -118 Weight 83.8 kg 81.2 kg Weight/Height Weight 81.2 kg Height 5 ft 6 in General appearance: PRESENT: mild distress, obese Eye exam: PRESENT: conjunctiva pink Mouth exam: PRESENT: moist Neck exam: PRESENT: full ROM, lymphadenopathy. ABSENT: tracheal deviation Respiratory exam: PRESENT: accessory muscle use Cardiovascular exam: PRESENT: irregular rhythm, +S1, +S2 Pulses: PRESENT: +1 pedal pulses bilateral GI/Abdominal exam: PRESENT: normal bowel sounds, soft Rectal exam: PRESENT: deferred Extremities exam: ABSENT: calf tenderness, full ROM, joint swelling Musculoskeletal exam: PRESENT: full ROM Neurological exam: PRESENT: altered, oriented to time, oriented to situation, reflexes normal Psychiatric exam: PRESENT: anxious Tubes/Lines: PRESENT: Other - BIPAP intermittently Laboratory/Radiographs Laboratory Results: 11/17/19 04:29 11/18/19 06:29 11/14/19 06:15 Blood Blood Culture - Final NO GROWTH IN 5 DAYS 11/14/19 06:30 Blood Blood Culture - Final NO GROWTH IN 5 DAYS 11/15/19 03:00 Tracheal Aspirate Gram Stain - Final 11/15/19 03:00 Tracheal Aspirate Sputum Culture - Final NORMAL RIDDHI 11/13/19 11/14/19 11/14/19 21:07 06:30 11:15 Troponin I < 0.012 < 0.012 < 0.012 NT-Pro-B Natriuret Pep 220 11/14/19 17:00 Troponin I < 0.012 NT-Pro-B Natriuret Pep Impressions: Head CT 11/13/19 00:00 IMPRESSION: No acute intracranial abnormality. KUB X-Ray 11/14/19 03:45 IMPRESSION: The nasogastric tube traverses below the left hemidiaphragm. The side port projects at the stomach. The tip is not seen. There are airspace opacities at the left lung base associated with a trace left effusion. Chest X-Ray 11/17/19 04:15 IMPRESSION: No significant change. Assessment and Plan - Diagnosis (1) Acute respiratory failure Qualifiers: Respiratory failure complication: hypoxia and hypercapnia Qualified Code(s): J96.01 - Acute respiratory failure with hypoxia; J96.02 - Acute respiratory failure with hypercapnia Is this a current diagnosis for this admission?: Yes Plan: The patient remains on the ventilator. Unclear when she will be able to wean. The patient is undergoing bronchoscopy today. 11/15 I am hopeful that the patient can be weaned today 11/16 She is weaning presently. She was acting a little strange yesterday afternoon. She was shaking and appeared initially less responsive. For a short time it appeared that she might be seizing but that appears not to have been the case. the patient responded to commands. She is on SBT with PS of 15 presently TVs are about 350. her RR is about 30. Not sure she is ready for extubation at this time. No further hemoptysis. Does not have alot of secretions. 11/17 S/P extubation. Respiratory status better. No atelectasis by CXR. On nasal cannula. On steroids and HHN. 11/19 There is some hesitancy to send her to another [facility] becuse of the tenuousness of er resp. status. (2) Atrial fibrillation with rapid ventricular response Is this a current diagnosis for this admission?: Yes Plan: Patient now in NSR. (3) COPD exacerbation Is this a current diagnosis for this admission?: Yes Plan: Patient on steroids and nebulizers. 11/16 Does nt appear to be particualrly wheezy. Does not have alot of secretions 11/18 The patient has significant COPD. Her ABGs shiw chronic CO2 retentionwith PaCO2 in the 50s. The patient has been on and off BIPAP for days now. She is on steroids and HHn. PFTs not readiliy available. (4) Diabetes mellitus type 2 in nonobese Is this a current diagnosis for this admission?: Yes Plan: Blood sugars are fairly elevated despite coverage. I added lantus to coverage. I cut back on the steroid dose as well. 11/15 The bood sugars will require a little more fine tuning. Her last BS was 268. 11/16 Her Blood sugars are under better control at this time. 11/18 Blood sugars are ok. (5) Squamous cell carcinoma of bronchus in right lower lobe Is this a current diagnosis for this admission?: Yes Plan: The patient will ultimnately get treatment which will consist f RT and perhaps a biologic medication Discussed with Dr. aden. the patient weill be scheduled for staging CT scan. Critical Time Critical Time (minutes): 25 Level of Care: ICU -: 1. The care of a critical patient is a dynamic process. This note is a electronics parts sales representative synopsis but static in nature. The timeframe for treatments given in order is not necessarily the actual time these treatments may have been done. 2. This patient requires critical care secondary to ongoing requirements for therapy not offered or safe outside the critical care environment. Transfer to a lower level of care will result in altered life or limb morbidity and mortality. 3. Multidisciplinary rounds completed. 4. ABCDE bundle addressed.
[2019-11-19] MEDS: PANTOPRAZOLE SODIUM 40 MG TABLET.DR PO SCH (12:03)
--- NOTE | 2019-11-19 12:50 | PDOC PROGRESS REPORT ---
Subjective Progress Note for:: 11/19/19 Subjective:: This patient continues in the ICU with mild to moderate respiratory distress. She is currently on a BiPAP device to assist in maintaining her oxygen saturations. In the interim, the nurse notes no new findings. Reason For Visit: COPD EXACERBATION Physical Exam Vital Signs: Temp Pulse Resp BP Pulse Ox 98.4 F 80 16 130/89 H 100 11/19/19 10:00 11/19/19 07:48 11/19/19 11:06 11/19/19 11:06 11/19/19 11:06 Intake & Output 11/18/19 11/19/19 11/20/19 06:59 06:59 06:59 Intake Total 2251 2180 17 Output Total 2750 2520 235 Balance -499 -340 -218 Weight 83.8 kg 81.2 kg Exam: Exam today is largely unchanged. She has markedly diminished breath sounds throughout lung [place]. Results Laboratory Results: 11/17/19 04:29 11/18/19 06:29 11/15/19 13:00 Bronchial Washings Fungal Smear - Final 11/15/19 13:00 Bronchial Washings Fungal Smear - Final 11/15/19 13:00 Bronchial Washings AFB Smear Concentration - Final 11/15/19 13:00 Bronchial Washings Acid Fast Bacilli Smear - Final 11/14/19 06:15 Blood Blood Culture - Final NO GROWTH IN 5 DAYS 11/14/19 06:30 Blood Blood Culture - Final NO GROWTH IN 5 DAYS 11/15/19 03:00 Tracheal Aspirate Gram Stain - Final 11/15/19 03:00 Tracheal Aspirate Sputum Culture - Final NORMAL RIDDHI 11/13/19 11/14/19 11/14/19 21:07 06:30 11:15 Troponin I < 0.012 < 0.012 < 0.012 NT-Pro-B Natriuret Pep 220 11/14/19 17:00 Troponin I < 0.012 NT-Pro-B Natriuret Pep Impressions: Head CT 11/13/19 00:00 IMPRESSION: No acute intracranial abnormality. KUB X-Ray 11/14/19 03:45 IMPRESSION: The nasogastric tube traverses below the left hemidiaphragm. The side port projects at the stomach. The tip is not seen. There are airspace opacities at the left lung base associated with a trace left effusion. Chest X-Ray 11/17/19 04:15 IMPRESSION: No significant change. 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 Chest x-ray does not reveal any atelectasis or collapse in particular of the right middle or right lower lobes. I think for now continued BiPAP support of her ventilation is appropriate. We may need to consider external beam radiation therapy of her centrally located tumor. Continue to follow along with you during this patient's hospitalization.
[2019-11-19] MEDS: HYDRALAZINE HCL INJ/PF 20 MG/1 ML SDV IV PRN (15:41)
[2019-11-19] MEDS: HYDRALAZINE HCL 25 MG TABLET PO SCH ×2 (17:24→21:54)
[2019-11-20] MEDS: INSULIN REG, HUMAN 100 UNIT/ML 3 ML VIAL (PYX) SUBCUT SCH ×5 (00:47→23:50)
[2019-11-20] MEDS: IPRATROPIUM/ALBUTEROL 0.5-2.5 MG/3 ML AMPUL NEB SCH ×4 (02:46→20:57)
[2019-11-20] MEDS: NORMAL SALINE 1000 ML 1,000 ML IV PRN ×2 (05:30→19:00)
[2019-11-20] MEDS: HYDRALAZINE HCL 25 MG TABLET PO SCH ×3 (06:22→21:58)
[2019-11-20] MEDS: METHYLPREDNISOLONE INJ 40 MG/1 ML SDV IV SCH ×2 (06:23→17:52)
[2019-11-20] MEDS: HEPARIN SOD (PORCINE) 5,000 UNIT/ML 1 ML VIAL SUBCUT SCH ×3 (06:23→21:59)
--- NOTE | 2019-11-20 09:15 | PDOC CRITICAL CARE PROG REPORT ---
General Date:: 11/20/19 ICU Day:: 6 Hospital Day:: 6 Resuscitation Status: Full Code Events in the past 12 to 24 Hours:: The patient presented with acute respiratory failure. Had to be intubated for worsening mental status and acute hypercarbic respiratpory failure. ABG satisfactory today on PRVC rate of 18. 11/15 The patient remains sedated on the ventilator.The hempoptysis is largel;y gone. The patatient undderwent a diahnostic FOB with Dr. Hills yesterday. There was tumore seen in the bronchous intermedius and it was biopsied. Once we have the path we can make certain arrangements for more advanced care. It appears that the patient may benefit form a facility where endobr RT can be instituted. in the interim we will attempt to extricate patient from the ventilator. 11/17 The patient was extubated yesterday. Did need several hours of bIPAP thereafter. her respiratory staus remains , I believe a little precarious. i spoke to her son and brought him up top speed. he is aware of the diagnosis. No further hemoptysis. oxygenation ok on nasal cannula. The patient's mental status is much improved as well. She will answer questions appropriatelly. She is not aware of diagnosis at this time. At some point will need more complete staging involving CT abdo/pelvis and possibly PET scan . I don't ghulam patient is likely an operable candidate based o her significant COPD. 11/18 The patient's respiratory status waxes and wanes. Has been on and off BIPAP the past few days. She is responsive and cogent. Her family and she are aware of her diagnosis. would like to get staging CT scan abdo/pelvis shrortly. Patient may be a a candidate for RT and a biologic agent. Certainly does not appear to be an operative candidate. Has been afebbrile. No additional hemoptysois. Reason for ICU Addmission:: respiratory failure with hypercarbia Physical Exam Vital Signs: Temp Pulse Resp BP Pulse Ox 97.5 F 66 16 155/73 H 98 11/20/19 08:00 11/20/19 08:23 11/20/19 08:23 11/20/19 08:00 11/20/19 08:23 Intake & Output 11/19/19 11/20/19 11/21/19 06:59 06:59 06:59 Intake Total 2180 2174 Output Total 7075 4145 125 Balance -340 -711 -125 Weight 81.2 kg 80.1 kg Weight/Height Weight 80.1 kg Height 5 ft 6 in General appearance: PRESENT: no acute distress Head exam: PRESENT: atraumatic Eye exam: PRESENT: conjunctiva pink Mouth exam: PRESENT: moist Teeth exam: PRESENT: edentulous Neck exam: ABSENT: JVD, thyromegaly, tracheal deviation Respiratory exam: ABSENT: accessory muscle use Cardiovascular exam: PRESENT: +S1, +S2 GI/Abdominal exam: PRESENT: normal bowel sounds, soft. ABSENT: tenderness Extremities exam: ABSENT: calf tenderness, clubbing, joint swelling Musculoskeletal exam: PRESENT: full ROM Neurological exam: PRESENT: alert, oriented to person, oriented to place Psychiatric exam: PRESENT: other - at times thepatient becomes anxious ans ca n't seem to get cpomfortable. i feel that some of this coes from her impaitred breathing. Has been on and off of Biapp most days Skin exam: PRESENT: normal color Laboratory/Radiographs Laboratory Results: 11/17/19 04:29 11/18/19 06:29 11/15/19 13:00 Bronchial Washings Fungal Smear - Final 11/15/19 13:00 Bronchial Washings Fungal Smear - Final 11/15/19 13:00 Bronchial Washings AFB Smear Concentration - Final 11/15/19 13:00 Bronchial Washings Acid Fast Bacilli Smear - Final 11/14/19 06:15 Blood Blood Culture - Final NO GROWTH IN 5 DAYS 11/14/19 06:30 Blood Blood Culture - Final NO GROWTH IN 5 DAYS 11/13/19 11/14/19 11/14/19 21:07 06:30 11:15 Troponin I < 0.012 < 0.012 < 0.012 NT-Pro-B Natriuret Pep 220 11/14/19 17:00 Troponin I < 0.012 NT-Pro-B Natriuret Pep Impressions: Head CT 11/13/19 00:00 IMPRESSION: No acute intracranial abnormality. KUB X-Ray 11/14/19 03:45 IMPRESSION: The nasogastric tube traverses below the left hemidiaphragm. The side port projects at the stomach. The tip is not seen. There are airspace opacities at the left lung base associated with a trace left effusion. Chest X-Ray 11/17/19 04:15 IMPRESSION: No significant change. Assessment and Plan - Diagnosis (1) Acute respiratory failure Qualifiers: Respiratory failure complication: hypoxia and hypercapnia Qualified Code(s): J96.01 - Acute respiratory failure with hypoxia; J96.02 - Acute respiratory failure with hypercapnia Is this a current diagnosis for this admission?: Yes Plan: The patient remains on the ventilator. Unclear when she will be able to wean. The patient is undergoing bronchoscopy today. 11/15 I am hopeful that the patient can be weaned today 11/16 She is weaning presently. She was acting a little strange yesterday afternoon. She was shaking and appeared initially less responsive. For a short time it appeared that she might be seizing but that appears not to have been the case. the patient responded to commands. She is on SBT with PS of 15 presently TVs are about 350. her RR is about 30. Not sure she is ready for extubation at this time. No further hemoptysis. Does not have alot of secretions. 11/17 S/P extubation. Respiratory status better. No atelectasis by CXR. On nasal cannula. On steroids and HHN. 11/18 There is some hesitancy to send her to another floor becuse of the tenuousness of her resp. status. 11/19 The patient mejia s appear a bit more comfortable today. Perhaps the Sero[place]le has helped keep her calm as well. Has been porimarily on the nasl cannula. 'Has bee see by oncology. Staging CT scan to be doine. (2) Atrial fibrillation with rapid ventricular response Is this a current diagnosis for this admission?: Yes Plan: Patient now in NSR. (3) COPD exacerbation Is this a current diagnosis for this admission?: Yes Plan: Patient on steroids and nebulizers. 11/16 Does nt appear to be particualrly wheezy. Does not have alot of secretions 11/18 The patient has significant COPD. Her ABGs shiw chronic CO2 retentionwith PaCO2 in the 50s. The patient has been on and off BIPAP for days now. She is on steroids and HHn. PFTs not readiliy available. (4) Diabetes mellitus type 2 in nonobese Is this a current diagnosis for this admission?: Yes Plan: Blood sugars are fairly elevated despite coverage. I added lantus to coverage. I cut back on the steroid dose as well. 11/15 The bood sugars will require a little more fine tuning. Her last BS was 268. 11/16 Her Blood sugars are under better control at this time. 11/18 Blood sugars are ok. 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 The care of a critical patient is a dynamic process. This note is a loss prevention representative synopsis but static in nature. The timeframe for treatments given in order is not necessarily the actual time these treatments may have been done. 2. This patient requires critical care secondary to ongoing requirements for therapy not offered or safe outside the critical care environment. Transfer to a lower level of care will result in altered life or limb morbidity and mortality. 3. Multidisciplinary rounds completed. 4. ABCDE bundle addressed.
[2019-11-20] MEDS: QUETIAPINE FUMARATE 25 MG TABLET PO SCH (09:47)
[2019-11-20] MEDS: INSULIN GLARGINE,HUM.REC.ANLOG 1,000 UNIT/10 ML VIAL SUBCUT SCH (09:47)
[2019-11-20] MEDS: DIGOXIN INJ 0.5 MG/2 ML AMPULE IV SCH (09:48)
[2019-11-20] MEDS: PANTOPRAZOLE SODIUM 40 MG TABLET.DR PO SCH (09:48)
[2019-11-20] MEDS: METFORMIN HCL 500 MG TABLET PO SCH ×2 (09:48→17:52)
[2019-11-20] MEDS: DILTIAZEM HCL 90 MG TABLET PO SCH ×2 (09:48→21:58)
[2019-11-20] MEDS: GLIPIZIDE 10 MG TABLET PO SCH ×2 (09:56→17:52)
[2019-11-20] MEDS: DEXMEDETOMIDINE IN NS 400 MCG/100 ML RTUPB IV PRN (10:15)
[2019-11-20 11:46] LABS: ARTERIAL BLOOD BASE EXCESS 10.6 mmol/L; ARTERIAL BLOOD FIO2 2L; ARTERIAL BLOOD H2CO3 1.66 mmol/L (1.05-1.35); ARTERIAL BLOOD HCO3 36.4 mmol/L (20-24); ARTERIAL BLOOD O2 SATURATION 91.2 % (94-98); ARTERIAL BLOOD PCO2 55.2 mmHg (35-45); ARTERIAL BLOOD PH 7.44 (7.35-7.45); ARTERIAL BLOOD PO2 59.8 mmHg (80-100); ARTERIAL BLOOD TOTAL CO2 38.1 mmol/L (21-25)
[2019-11-21] MEDS: IPRATROPIUM/ALBUTEROL 0.5-2.5 MG/3 ML AMPUL NEB SCH ×3 (02:12→14:14)
[2019-11-21] MEDS: DEXMEDETOMIDINE IN NS 400 MCG/100 ML RTUPB IV PRN (02:48)
[2019-11-21] MEDS: HEPARIN SOD (PORCINE) 5,000 UNIT/ML 1 ML VIAL SUBCUT SCH ×3 (07:32→21:28)
[2019-11-21] MEDS: METHYLPREDNISOLONE INJ 40 MG/1 ML SDV IV SCH (07:32)
[2019-11-21] MEDS: HYDRALAZINE HCL 25 MG TABLET PO SCH ×3 (07:32→21:27)
[2019-11-21] MEDS: INSULIN REG, HUMAN 100 UNIT/ML 3 ML VIAL (PYX) SUBCUT SCH ×3 (07:33→18:54)
--- NOTE | 2019-11-21 08:10 | RADIOLOGY REPORT (SQ) ---
EXAM DESCRIPTION: CT ABD/PELVIS WITH IV ORAL IMAGES COMPLETED DATE/TIME: 11/21/2019 3:30 am REASON FOR STUDY: Historry of lung cancer; staging procedure COMPARISON: PET-CT 02/18/2014 TECHNIQUE: CT scan of the abdomen and pelvis performed using helical scanning technique with dynamic intravenous contrast injection. No oral contrast. Images reviewed with lung, soft tissue, and bone windows. Reconstructed coronal and sagittal MPR images reviewed. Delayed images for evaluation of the urinary system also acquired. All images stored on PACS. All CT scanners at this facility use dose modulation, iterative reconstruction, and/or weight based d osing when appropriate to reduce radiation dose to as low as reasonably achievable (ALARA). [facility]: Dose Right [facility]: CareDose [facility]: Dose Right [facility]: Teradose 4D [facility]: [place] CONTRAST TYPE AND DOSE: contrast/concentration: Isovue 350.00 mmol/ml; Total Contrast Delivered: 91. 0 ml; Total Saline Delivered: 69.9 ml RENAL FUNCTION: Creatinine 0.7 RADIATION DOSE: CT Rad equipment meets quality standard of care and radiation dose reduction techniq ues were employed. CTDIvol: 13.1 - 17.6 mGy. DLP: 1427 mGy-cm.. LIMITATIONS: None. FINDINGS: LOWER CHEST: No significant findings. No nodules or infiltrates. LIVER: Normal size. No masses. No dilated ducts. SPLEEN: Normal size. No focal lesions. PANCREAS: No masses. No significant calcifications. No adjacent inflammation or peripancreatic fluid collections. Pancreatic duct not dilated. GALLBLADDER: No identified stones by CT criteria. No inflammatory changes to suggest cholecystitis. ADRENAL GLANDS: No significant masses or asymmetry. RIGHT KIDNEY AND URETER: No solid masses. No significant calcifications. No hydronephrosis or hyd roureter. LEFT KIDNEY AND URETER: No solid masses. No significant calcifications. No hydronephrosis or hydr oureter. AORTA AND VESSELS: No aneurysm. No dissection. Renal arteries, SMA, celiac without stenosis. RETROPERITONEUM: No retroperitoneal adenopathy, hemorrhage or masses. BOWEL AND PERITONEAL CAVITY: Patient drank oral contrast No masses or inflammatory changes. No free fluid or peritoneal masses. APPENDIX: Normal. PELVIS: No mass. No free fluid. Bladder decompressed by a Floyd catheter. Normal size female pelvi c organs. 2 cm calcified fibroid ABDOMINAL WALL: 2 cm diameter midline supraumbilical ventral hernia containing omental fat, best show n on axial image 39 BONES: Minimal upper endplate chronic compression at T12. Degenerative anterolisthesis at L3-4 OTHER: No other significant finding. IMPRESSION: No CT evidence of metastatic disease to the abdomen or pelvis given history of lung canc er TECHNICAL DOCUMENTATION: JOB ID: [id number] Quality ID # [id number]: Final reports with documentation of one or more dose reduction techniques (e.g., Au tomated exposure control, adjustment of the mA and/or kV according to patient size, use of iterative reconstruction technique) 2010 [employer]- All Rights Reserved Reading location - IP/workstation name: [id number]
[2019-11-21] MEDS: NORMAL SALINE 1000 ML 1,000 ML IV PRN (08:30)
[2019-11-21] MEDS: METFORMIN HCL 500 MG TABLET PO SCH ×2 (09:23→09:24)
[2019-11-21] MEDS: DIGOXIN INJ 0.5 MG/2 ML AMPULE IV SCH (09:24)
[2019-11-21] MEDS: QUETIAPINE FUMARATE 25 MG TABLET PO SCH (09:24)
[2019-11-21] MEDS: GLIPIZIDE 10 MG TABLET PO SCH ×2 (09:24→18:55)
[2019-11-21] MEDS: PANTOPRAZOLE SODIUM 40 MG TABLET.DR PO SCH (09:24)
[2019-11-21] MEDS: DILTIAZEM HCL 90 MG TABLET PO SCH ×2 (09:24→21:27)
[2019-11-21 09:56] LABS: ANION GAP 5 (5-19); BLOOD UREA NITROGEN 21 mg/dL (7-20); CALCIUM 9.3 mg/dL (8.4-10.2); CARBON DIOXIDE 37 mmol/L (22-30); CHLORIDE 99 mmol/L (98-107); GLUCOSE 179 mg/dL (75-110); POTASSIUM 3.8 mmol/L (3.6-5.0)
[2019-11-21] MEDS ORDERED: PREDNISONE 20 MG TABLET PO ONE (10:02)
[2019-11-21] MEDS: INSULIN GLARGINE,HUM.REC.ANLOG 1,000 UNIT/10 ML VIAL SUBCUT SCH (10:04)
[2019-11-21 13:25] LABS: HEMATOCRIT 31.8 % (36.0-47.0); HEMOGLOBIN 9.9 g/dL (12.0-15.5); MEAN CORPUSCULAR HEMOGLOBIN 28.2 pg (27.0-33.4); MEAN CORPUSCULAR HGB CONC 31.2 g/dL (32.0-36.0); MEAN CORPUSCULAR VOLUME 90 fl (80-97); PLATELET COUNT 202 10^3/uL (150-450); RED BLOOD COUNT 3.52 10^6/uL (3.72-5.28); RED CELL DISTRIBUTION WIDTH 16.8 % (11.5-14.0)
--- NOTE | 2019-11-21 14:48 | PDOC PROGRESS REPORT ---
Subjective Progress Note for:: 11/21/19 Subjective:: Patient being transferred out of the ICU to the medical floor. Patient was admitted to the hospital on 11/14/2019 for acute respiratory failure secondary to COPD exacerbation. She was admitted directly to the ICU and was intubated. Patient underwent bronchoscopy during that time with biopsy and bronchial washing. Patient was later extubated on 11/17/2019. Patient initially required BiPAP therapy and has been continued on treatment for COPD exacerbation. Patient did take several days of steroids but it seems steroids have been stopped after dose this morning. Patient still on nebulizer treatments. Notably patient was treated for A. fib with RVR while in the ICU as well. Patient has remained stable off BiPAP and is being downgraded to medical floor. Biopsy results showed primary squamous cell carcinoma and oncology has been involved. Today patient complains of shortness of breath during my counter. She is mildly tachypneic but not laboring or using any accessory muscles. Reason For Visit: COPD EXACERBATION Physical Exam Vital Signs: Temp Pulse Resp BP Pulse Ox 98.1 F 66 16 157/77 H 96 11/21/19 12:00 11/21/19 14:15 11/21/19 14:15 11/21/19 12:00 11/21/19 14:15 Intake & Output 11/20/19 11/21/19 11/22/19 06:59 06:59 06:59 Intake Total 2174 1142 1053 Output Total 2885 3270 390 Balance -711 -5076 663 Weight 80.1 kg 80.3 kg General appearance: PRESENT: cooperative, mild distress Eye exam: PRESENT: EOMI Respiratory exam: PRESENT: prolonged expiratory phas, rales - fine, dry, symmetrical, tachypnea. ABSENT: accessory muscle use, chest wall tenderness, retraction, rhonchi, stridor, unlabored, wheezes Cardiovascular exam: PRESENT: +S1, +S2. ABSENT: bradycardia, clicks, tachycardia GI/Abdominal exam: PRESENT: soft. ABSENT: rebound, rigid, tenderness Neurological exam: PRESENT: alert, awake, oriented to person, oriented to place, oriented to time, oriented to situation Results Laboratory Results: 11/21/19 09:17 11/21/19 09:17 11/21/19 11/21/19 09:17 09: WBC 9.0 RBC 3.52 L Hgb 9.9 L Hct 31.8 L MCV 90 MCH 28.2 MCHC 31.2 L RDW 16.8 H Plt Count 202 Sodium 141.0 Potassium 3.8 Chloride 99 Carbon Dioxide 37 H Anion Gap 5 BUN 21 H Creatinine 0.65 Est GFR ( Amer) > 60 Glucose 179 H Calcium 9.3 11/13/19 11/14/19 11/14/19 21:07 06:30 11:15 Troponin I < 0.012 < 0.012 < 0.012 NT-Pro-B Natriuret Pep 220 11/14/19 17:00 Troponin I < 0.012 NT-Pro-B Natriuret Pep Impressions: Head CT 11/13/19 00:00 IMPRESSION: No acute intracranial abnormality. KUB X-Ray 11/14/19 03:45 IMPRESSION: The nasogastric tube traverses below the left hemidiaphragm. The side port projects at the stomach. The tip is not seen. There are airspace opacities at the left lung base associated with a trace left effusion. Chest X-Ray 11/17/19 04:15 IMPRESSION: No significant change. Abdomen/Pelvis CT 11/21/19 00:00 IMPRESSION: No CT evidence of metastatic disease to the abdomen or pelvis given history of lung cancer Assessment and Plan - Diagnosis (1) Acute on chronic respiratory failure with hypoxia and hypercapnia Is this a current diagnosis for this admission?: Yes Plan: Extubated 11/17/2019. Doing well currently on nasal cannula. We will keep BiPAP on standby will be used only as needed. (2) COPD exacerbation Is this a current diagnosis for this admission?: Yes Plan: Continue bronchodilator treatments. Oral prednisone, ICS. 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 Right lower lobe with adenopathy. Abdominal/pelvis CT does not show any metastatic disease. Patient does have lesion pressing against her right lower lobe bronchus and pulmonary vessel. I discussed with Dr. Peraza who is planning to follow-up with patient as outpatient, once patient feels stronger, to determine appropriate course of treatment but will work on potentially getting patient radiation therapy while inpatient. (4) Persistent atrial fibrillation with rapid ventricular response Is this a current diagnosis for this admission?: Yes Plan: We will transition to p.o. digoxin. Levels have been adequate. Will check another level tomorrow afternoon. Continue diltiazem Eliluann remains on hold given her recent history of hemoptysis. DVT prophylaxis. (5) Diabetes mellitus type 2 in nonobese Is this a current diagnosis for this admission?: Yes Plan: Takes metformin and glipizide at home. Last A1c in July was 8.1 which is adequate for patient's age. Metformin on hold currently giving contrast Continue glipizide. Continue Lantus - Time Time Spent with patient: 15-24 minutes Anticipated Discharge Disposition: Home with Home Health Anticipated Discharge Timeframe: within 72 hours
[2019-11-21] MEDS: METOPROLOL TARTRATE PF/INJ 5 MG/5 ML SDV IV PRN (17:28)
[2019-11-21] MEDS ORDERED: DIGOXIN INJ 0.5 MG/2 ML AMPULE IV PRN (18:32)
[2019-11-21] MEDS ORDERED: METOPROLOL TARTRATE PF/INJ 5 MG/5 ML SDV IV ONE (18:45)
[2019-11-21] MEDS: LEVALBUTEROL HCL NEB 1.25 MG/3 ML AMPUL NEB SCH (20:27)
[2019-11-21] MEDS: BUDESONIDE NEB 0.5 MG/2 ML AMPUL NEB SCH (20:27)
[2019-11-21] MEDS: IPRATROPIUM BROMIDE 0.02% NEB 0.5 MG/2.5 ML AMPUL NEB SCH (20:27)
[2019-11-22] MEDS: INSULIN REG, HUMAN 100 UNIT/ML 3 ML VIAL (PYX) SUBCUT SCH ×4 (00:47→17:18)
[2019-11-22] MEDS: LEVALBUTEROL HCL NEB 1.25 MG/3 ML AMPUL NEB SCH ×4 (02:29→20:21)
[2019-11-22] MEDS: IPRATROPIUM BROMIDE 0.02% NEB 0.5 MG/2.5 ML AMPUL NEB SCH ×4 (02:29→20:21)
[2019-11-22] MEDS: NORMAL SALINE 1000 ML 1,000 ML IV PRN ×2 (03:55→19:53)
[2019-11-22] MEDS: HYDRALAZINE HCL 25 MG TABLET PO SCH (05:16)
[2019-11-22] MEDS: HEPARIN SOD (PORCINE) 5,000 UNIT/ML 1 ML VIAL SUBCUT SCH ×3 (05:17→21:34)
[2019-11-22] MEDS: DEXTROSE 40% GEL 15 GM TUBE PO PRN (07:01)
[2019-11-22] MEDS: BUDESONIDE NEB 0.5 MG/2 ML AMPUL NEB SCH ×2 (07:54→20:21)
--- NOTE | 2019-11-22 08:31 | PDOC PROGRESS REPORT ---
Subjective Progress Note for:: 11/22/19 Subjective:: Patient is a bit confused this morning, but nursing report that her O2 sat was 88% and her GLU was only around 50. She is better now. Receiving a nebulizer treatment. She tells me that her days are getting shorter and she may not be here very long. ROS: She continues to have dyspnea and ankle swelling. Reason For Visit: COPD EXACERBATION Physical Exam Vital Signs: Temp Pulse Resp BP Pulse Ox 97.5 F 106 H 18 152/85 H 94 11/22/19 07:47 11/22/19 07:54 11/22/19 07:54 11/21/19 23:53 11/22/19 07:54 Intake & Output 11/21/19 11/22/19 11/23/19 06:59 06:59 06:59 Intake Total 1142 2313 Output Total 3270 3490 Balance -2128 -1177 Weight 80.3 kg 80.3 kg General appearance: PRESENT: no acute distress, obese Head exam: PRESENT: normocephalic Eye exam: PRESENT: EOMI Respiratory exam: PRESENT: wheezes Cardiovascular exam: PRESENT: other - Heart sounds obscured. Extremities exam: PRESENT: +1 edema Neurological exam: PRESENT: alert, awake Psychiatric exam: PRESENT: appropriate affect Skin exam: PRESENT: normal color Results Laboratory Results: 11/21/19 09:17 11/21/19 09:17 11/21/19 11/21/19 09:17 09:17 WBC 9.0 RBC 3.52 L Hgb 9.9 L Hct 31.8 L MCV 90 MCH 28.2 MCHC 31.2 L RDW 16.8 H Plt Count 202 Sodium 141.0 Potassium 3.8 Chloride 99 Carbon Dioxide 37 H Anion Gap 5 BUN 21 H Creatinine 0.65 Est GFR ( Amer) > 60 Glucose 179 H Calcium 9.3 11/13/19 11/14/19 11/14/19 21:07 06:30 11:15 Troponin I < 0.012 < 0.012 < 0.012 NT-Pro-B Natriuret Pep 220 11/14/19 17:00 Troponin I < 0.012 NT-Pro-B Natriuret Pep Impressions: Head CT 11/13/19 00:00 IMPRESSION: No acute intracranial abnormality. KUB X-Ray 11/14/19 03:45 IMPRESSION: The nasogastric tube traverses below the left hemidiaphragm. The side port projects at the stomach. The tip is not seen. There are airspace opacities at the left lung base associated with a trace left effusion. Chest X-Ray 11/17/19 04:15 IMPRESSION: No significant change. Abdomen/Pelvis CT 11/21/19 00:00 IMPRESSION: No CT evidence of metastatic disease to the abdomen or pelvis given history of lung cancer Assessment & Plan - Diagnosis (1) Acute respiratory failure Qualifiers: Respiratory failure complication: hypoxia and hypercapnia Qualified Code(s) : J96.01 - Acute respiratory failure with hypoxia; J96.02 - Acute respiratory failure with hypercapnia Is this a current diagnosis for this admission?: Yes Plan: Slowly improving. 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 Alvarez for radiation - Again, unable to start any systemic therapy at this point. Patient tells me that she may not even want any treatme nt. I have not yet discussed Hospice with family, but am happy to if she refuses radiation treatment. However, she may be able to start radiation and then complete as outpatient if she has transportation. If not, again, should consider home with Hospice. - Time Time Spent with patient: 15-24 minutes
[2019-11-22] MEDS: PANTOPRAZOLE SODIUM 40 MG TABLET.DR PO SCH (09:18)
[2019-11-22] MEDS: PREDNISONE 20 MG TABLET PO SCH (09:18)
[2019-11-22] MEDS: QUETIAPINE FUMARATE 25 MG TABLET PO SCH (09:19)
[2019-11-22] MEDS: LOSARTAN POTASSIUM 25 MG TABLET PO SCH ×2 (09:19→21:34)
[2019-11-22] MEDS: DILTIAZEM HCL 90 MG TABLET PO SCH ×2 (09:20→21:34)
--- NOTE | 2019-11-22 10:03 | PDOC PROGRESS REPORT ---
Subjective Progress Note for:: 11/22/19 Subjective:: Patient is seen seated upright beside her bed. She is on nasal cannula oxygen. She appears in no obvious distress. She indicated to me that she was considering not taking any treatment for her underlying cancer. She denies any new symptoms at this time. She further denies any hemoptysis. Reason For Visit: COPD EXACERBATION Physical Exam Vital Signs: Temp Pulse Resp BP Pulse Ox 97.5 F 106 H 18 152/85 H 94 11/22/19 07:47 11/22/19 07:54 11/22/19 07:54 11/21/19 23:53 11/22/19 07:54 Intake & Output 11/21/19 11/22/19 11/23/19 06:59 06:59 06:59 Intake Total 1142 2313 Output Total 3270 3490 Balance -2128 -1177 Weight 80.3 kg 80.3 kg Exam: Exam today is largely unchanged. She is in no obvious distress. Lung exam revealed scattered rhonchi throughout all lung stephens otherwise her lung exam was unremarkable. Heart exam revealed normal S1 and S2 without obvious murmurs rubs or clicks. Results Laboratory Results: 11/21/19 09:17 11/21/19 09:17 11/21/19 09:17 WBC 9.0 RBC 3.52 L Hgb 9.9 L Hct 31.8 L MCV 90 MCH 28.2 MCHC 31.2 L RDW 16.8 H Plt Count 202 11/13/19 11/14/19 11/14/19 21:07 06:30 11:15 Troponin I < 0.012 < 0.012 < 0.012 NT-Pro-B Natriuret Pep 220 11/14/19 17:00 Troponin I < 0.012 NT-Pro-B Natriuret Pep Impressions: Head CT 11/13/19 00:00 IMPRESSION: No acute intracranial abnormality. KUB X-Ray 11/14/19 03:45 IMPRESSION: The nasogastric tube traverses below the left hemidiaphragm. The side port projects at the stomach. The tip is not seen. There are airspace opacities at the left lung base associated with a trace left effusion. Chest X-Ray 11/17/19 04:15 IMPRESSION: No significant change. 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 She is considering future therapy. I think radiation therapy is the next ap propriate step as per Dr. Tovar. I will sign off for now.
[2019-11-22] MEDS: ACETAMINOPHEN 325 MG TABLET PO PRN (11:03)
[2019-11-22] MEDS: CHLORTHALIDONE 25 MG TABLET PO SCH (11:04)
[2019-11-22] MEDS: DIGOXIN 0.25 MG TABLET PO SCH (11:04)
--- NOTE | 2019-11-22 15:40 | PDOC PROGRESS REPORT ---
Subjective Progress Note for:: 11/22/19 Reason For Visit: COPD EXACERBATION Physical Exam Vital Signs: Temp Pulse Resp BP Pulse Ox 97.5 F 102 H 18 187/88 H 95 11/22/19 07:47 11/22/19 13:35 11/22/19 13:35 11/22/19 07:23 11/22/19 13:35 Intake & Output 11/21/19 11/22/19 11/23/19 06:59 06:59 06:59 Intake Total 1142 2313 Output Total 3270 5040 Balance -2128 -1177 Weight 80.3 kg 80.3 kg 80.3 kg General appearance: PRESENT: no acute distress, cooperative Neck exam: ABSENT: JVD Respiratory exam: PRESENT: decreased breath sounds, prolonged expiratory phas, tachypnea, unlabored. ABSENT: wheezes Cardiovascular exam: PRESENT: irregular rhythm, +S1, +S2. ABSENT: tachycardia GI/Abdominal exam: PRESENT: soft. ABSENT: rebound, rigid, tenderness Neurological exam: PRESENT: alert, awake, oriented to person, oriented to place, oriented to time Results Laboratory Results: 11/21/19 09:17 11/21/19 09:17 11/13/19 11/14/19 11/14/19 21:07 06:30 11:15 Troponin I < 0.012 < 0.012 < 0.012 NT-Pro-B Natriuret Pep 220 11/14/19 17:00 Troponin I < 0.012 NT-Pro-B Natriuret Pep Impressions: Head CT 11/13/19 00:00 IMPRESSION: No acute intracranial abnormality. KUB X-Ray 11/14/19 03:45 IMPRESSION: The nasogastric tube traverses below the left hemidiaphragm. The side port projects at the stomach. The tip is not seen. There are airspace opacities at the left lung base associated with a trace left effusion. Chest X-Ray 11/17/19 04:15 IMPRESSION: No significant change. Abdomen/Pelvis CT 11/21/19 00:00 IMPRESSION: No CT evidence of metastatic disease to the abdomen or pelvis given history of lung cancer Assessment and Plan - Diagnosis (1) Acute on chronic respiratory failure with hypoxia and hypercapnia Is this a current diagnosis for this admission?: Yes Plan: Extubated 11/17/2019. Doing well currently on nasal cannula. We will keep BiPAP on standby will be used only as needed. (2) COPD exacerbation Is this a current diagnosis for this admission?: Yes Plan: Continue bronchodilator treatments. Oral prednisone, ICS. 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 Right lower lobe with adenopathy. Abdominal/pelvis CT does not show any metastatic disease. Patient does have lesion pressing against her right lower lobe bronchus and pulmonary vessel. I discussed with Dr. Peraza who is planning to follow-up with patient as outpatient, once patient feels stronger, to determine appropriate course of treatment but will work on potentially getting patient radiation therapy while inpatient. 11/21 Today patient seems reluctant to want to undergo any kind of treatment. I was able to reason with her about the importance of palliative radiation and she became amenable to this. However she states she does not want to do other treatment for her lung cancer. Plan will still be for her to follow-up outpatient with oncology to further discuss this. In the meantime we will see if she can get some radiation. Oncology is following. (4) Persistent atrial fibrillation with rapid ventricular response Is this a current diagnosis for this admission?: Yes Plan: Continue diltiazem and oral digoxin Eliquis remains on hold given her recent history of hemoptysis. Currently resolved. DVT prophylaxis. (5) Diabetes mellitus type 2 in nonobese Is this a current diagnosis for this admission?: Yes Plan: Takes metformin and glipizide at home. Last A1c in July was 8.1 which is adequate for patient's age. We will use only sliding scale insulin for now given a.m. with hypoglycemia. Will resume metformin tomorrow. - Time Time Spent with patient: 15-24 minutes Anticipated Discharge Disposition: Home with Home Health Anticipated Discharge Timeframe: within 72 hours
[2019-11-23] MEDS: INSULIN REG, HUMAN 100 UNIT/ML 3 ML VIAL (PYX) SUBCUT SCH ×5 (00:05→23:55)
[2019-11-23] MEDS: IPRATROPIUM BROMIDE 0.02% NEB 0.5 MG/2.5 ML AMPUL NEB SCH ×4 (01:54→20:23)
[2019-11-23] MEDS: LEVALBUTEROL HCL NEB 1.25 MG/3 ML AMPUL NEB SCH ×4 (01:54→20:23)
[2019-11-23] MEDS: HEPARIN SOD (PORCINE) 5,000 UNIT/ML 1 ML VIAL SUBCUT SCH ×3 (05:34→22:29)
[2019-11-23] MEDS: DEXTROSE 40% GEL 15 GM TUBE PO PRN (07:00)
[2019-11-23] MEDS: BUDESONIDE NEB 0.5 MG/2 ML AMPUL NEB SCH ×2 (08:10→20:23)
--- NOTE | 2019-11-23 08:50 | PDOC PROGRESS REPORT ---
Subjective Progress Note for:: 11/23/19 Subjective:: Patient sitting up in chair. Looking much better today. She states that she discussed radiation with Dr. Alvarez, but she does not believe this will help. She does not wish to have any treatment. She is very agreeable to Hospice care at home, but does not have a reliable caregiver in her home. Her son lives in [place], but not locally. Reason For Visit: COPD EXACERBATION Physical Exam Vital Signs: Temp Pulse Resp BP Pulse Ox 98.3 F 96 17 154/80 H 96 11/23/19 00:00 11/23/19 08:10 11/23/19 08:10 11/23/19 00:00 11/23/19 08:10 Intake & Output 11/22/19 11/23/19 11/24/19 06:59 06:59 06:59 Intake Total 2313 1550 Output Total 3490 4300 Balance -1177 -2750 Weight 80.3 kg 80.3 kg General appearance: PRESENT: obese Head exam: PRESENT: normocephalic Eye exam: PRESENT: EOMI Respiratory exam: PRESENT: unlabored Extremities exam: ABSENT: pedal edema Neurological exam: PRESENT: alert, awake, oriented to person, oriented to place, oriented to situation Skin exam: PRESENT: normal color Results Laboratory Results: 11/21/19 09:17 11/21/19 09:17 11/13/19 11/14/19 11/14/19 21:07 06:30 11:15 Troponin I < 0.012 < 0.012 < 0.012 NT-Pro-B Natriuret Pep 220 11/14/19 17:00 Troponin I < 0.012 NT-Pro-B Natriuret Pep Impressions: Head CT 11/13/19 00:00 IMPRESSION: No acute intracranial abnormality. KUB X-Ray 11/14/19 03:45 IMPRESSION: The nasogastric tube traverses below the left hemidiaphragm. The side port projects at the stomach. The tip is not seen. There are airspace opacities at the left lung base associated with a trace left effusion. Chest X-Ray 11/17/19 04:15 IMPRESSION: No significant change. 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 She has requested no active treatment and requests to be discharged home with Hospice services. I have discussed this with Dr. Escobar. He will speak with her son and try to arrange this. He believes patient will not agree to SNF and the daughter is not a reliable caregiver. I will sign off, but am happy to help with arrangements if needed, - Time Time Spent with patient: 15-24 minutes
[2019-11-23] MEDS: PREDNISONE 20 MG TABLET PO SCH (09:19)
[2019-11-23] MEDS: NORMAL SALINE 1000 ML 1,000 ML IV PRN (09:19)
[2019-11-23] MEDS: PANTOPRAZOLE SODIUM 40 MG TABLET.DR PO SCH (09:20)
[2019-11-23] MEDS: METFORMIN HCL 500 MG TABLET PO SCH ×2 (09:20→17:35)
[2019-11-23] MEDS: CHLORTHALIDONE 25 MG TABLET PO SCH (09:20)
[2019-11-23] MEDS: DIGOXIN 0.25 MG TABLET PO SCH (09:20)
[2019-11-23] MEDS: QUETIAPINE FUMARATE 25 MG TABLET PO SCH (09:20)
[2019-11-23] MEDS: LOSARTAN POTASSIUM 25 MG TABLET PO SCH ×2 (09:20→22:29)
[2019-11-23] MEDS: DILTIAZEM HCL 90 MG TABLET PO SCH ×2 (09:20→22:29)
--- NOTE | 2019-11-23 11:57 | PDOC PROGRESS REPORT ---
Subjective Progress Note for:: 11/23/19 Subjective:: Patient still having some baseline shortness of breath today. She denies any chest pain. We did have a lengthy conversation about goals of care going forward with her and her son Rufus. She is reluctant about undergoing treatment for lung cancer at this point. Reason For Visit: COPD EXACERBATION Physical Exam Vital Signs: Temp Pulse Resp BP Pulse Ox 98.3 F 96 17 154/80 H 96 11/23/19 10:00 11/23/19 08:10 11/23/19 08:10 11/23/19 00:00 11/23/19 08:10 Intake & Output 11/22/19 11/23/19 11/24/19 06:59 06:59 06:59 Intake Total 2313 1550 1000 Output Total 3490 4300 Balance -1177 -2750 1000 Weight 80.3 kg 80.3 kg General appearance: PRESENT: no acute distress, cooperative Neck exam: ABSENT: JVD Respiratory exam: PRESENT: decreased breath sounds, prolonged expiratory phas, symmetrical, unlabored. ABSENT: tachypnea, wheezes Cardiovascular exam: PRESENT: RRR, +S1, +S2. ABSENT: tachycardia GI/Abdominal exam: PRESENT: soft. ABSENT: rebound, rigid, tenderness Neurological exam: PRESENT: alert, awake, oriented to person, oriented to place, oriented to time Results Laboratory Results: 11/21/19 09:17 11/21/19 09:17 11/13/19 11/14/19 11/14/19 21:07 06:30 11:15 Troponin I < 0.012 < 0.012 < 0.012 NT-Pro-B Natriuret Pep 220 11/14/19 17:00 Troponin I < 0.012 NT-Pro-B Natriuret Pep Impressions: Head CT 11/13/19 00:00 IMPRESSION: No acute intracranial abnormality. KUB X-Ray 11/14/19 03:45 IMPRESSION: The nasogastric tube traverses below the left hemidiaphragm. The side port projects at the stomach. The tip is not seen. There are airspace opacities at the left lung base associated with a trace left effusion. Chest X-Ray 11/17/19 04:15 IMPRESSION: No significant change. 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 Right lower lobe with adenopathy. Abdominal/pelvis CT does not show any metastatic disease. Patient does have lesion pressing against her right lower lobe bronchus and pulmonary vessel. Patient is reluctant about undergoing treatment and does not want palliative radiation at this time. I had lengthy conversation with both patient and her son Rufus. She seems to be leaning towards hospice but her son would like to talk to with Dr. Brewer first before proceeding with decision. Notified Dr. Tovar who will be having family meeting with son and patient tomorrow. (2) Acute on chronic respiratory failure with hypoxia and hypercapnia Is this a current diagnosis for this admission?: Yes Plan: Extubated 11/17/2019. Doing well currently on nasal cannula. We will keep BiPAP on standby will be used only as needed. (3) COPD exacerbation Is this a current diagnosis for this admission?: Yes Plan: Continue bronchodilator treatments. Oral prednisone, ICS. (4) Persistent atrial fibrillation with rapid ventricular response Is this a current diagnosis for this admission?: Yes Plan: Continue diltiazem and oral digoxin Eliquis remains on hold given her recent history of hemoptysis. Currently resolved. DVT prophylaxis. (5) Diabetes mellitus type 2 in nonobese Is this a current diagnosis for this admission?: Yes Plan: Takes metformin and glipizide at home. Last A1c in July was 8.1 which is adequate for patient's age. Hold glipizide for now. Continue metformin and sliding scale with. Discontinued Lantus given a.m. hypoglycemia. - Time Time Spent with patient: Less than 15 minutes Anticipated Discharge Disposition: Home with Hospice Anticipated Discharge Timeframe: within 36 hours
--- NOTE | 2019-11-23 12:11 | ADVANCED CARE ---
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 Discussed options including palliative radiation as well as hospice, and full treatment. Patient seems to be leaning towards hospice but her son would like to discuss with oncology before making decision. If patient were to go home on hospice, she will want her grandson to move in with her. Her son Rufus is actually based in [place]. I have informed Dr. Peraza will be coordinating family conversation via phone tomorrow with patient and patient's son. Time Spent: 20mins
[2019-11-24] MEDS: LEVALBUTEROL HCL NEB 1.25 MG/3 ML AMPUL NEB SCH ×4 (02:09→21:00)
[2019-11-24] MEDS: IPRATROPIUM BROMIDE 0.02% NEB 0.5 MG/2.5 ML AMPUL NEB SCH ×4 (02:09→21:00)
[2019-11-24] MEDS: HEPARIN SOD (PORCINE) 5,000 UNIT/ML 1 ML VIAL SUBCUT SCH ×2 (05:31→13:10)
[2019-11-24] MEDS: INSULIN REG, HUMAN 100 UNIT/ML 3 ML VIAL (PYX) SUBCUT SCH ×2 (06:51→11:38)
[2019-11-24] MEDS: BUDESONIDE NEB 0.5 MG/2 ML AMPUL NEB SCH ×2 (08:09→21:00)
--- NOTE | 2019-11-24 08:25 | PDOC PROGRESS REPORT ---
Subjective Progress Note for:: 11/24/19 Subjective:: Family meeting was held today with patient, her son, Rufus, and her sisters by conference call. Patient states that she has decided to live with her son in [place]. She would like Hospice care on discharge, she does NOT wish to have any further ventilation or resuscitation efforts and would prefer to "go naturally." Her family agrees with this decision. I have explained to the family that there are many possible treatments for her lung cancer, but she does not wish to try any of these and it is her decision. There would be no guarantee that they would help at all anyway. All of their questions were answered. She requests that the central IV line and the Floyd catheter be removed prior to discharge and family requests that we provide ambulance transp ortation to [place] until she can be admitted to Hospice once she [place]. Reason For Visit: COPD EXACERBATION Physical Exam Vital Signs: Temp Pulse Resp BP Pulse Ox 99.2 F 78 19 155/68 H 95 11/23/19 19:45 11/23/19 20:23 11/23/19 20:23 11/23/19 19:45 11/24/19 04:11 Intake & Output 11/23/19 11/24/19 11/25/19 06:59 06:59 06:59 Intake Total 1550 2124 Output Total 4300 3400 Balance -2750 -1276 Weight 80.3 kg 80.3 kg General appearance: PRESENT: no acute distress, obese Exam: Sitting up in chair eating her breakfast. Head exam: PRESENT: normocephalic Mouth exam: PRESENT: moist, tongue midline Respiratory exam: PRESENT: unlabored Extremities exam: ABSENT: pedal edema Neurological exam: PRESENT: alert, awake, oriented to person, oriented to place, oriented to time, oriented to situation Psychiatric exam: PRESENT: appropriate affect Skin exam: PRESENT: normal color Results Laboratory Results: 11/21/19 09:17 11/21/19 09:17 11/13/19 11/14/19 11/14/19 21:07 06:30 11:15 Troponin I < 0.012 < 0.012 < 0.012 NT-Pro-B Natriuret Pep 220 11/14/19 17:00 Troponin I < 0.012 NT-Pro-B Natriuret Pep Impressions: Head CT 11/13/19 00:00 IMPRESSION: No acute intracranial abnormality. KUB X-Ray 11/14/19 03:45 IMPRESSION: The nasogastric tube traverses below the left hemidiaphragm. The side port projects at the stomach. The tip is not seen. There are airspace opacities at the left lung base associated with a trace left effusion. Chest X-Ray 11/17/19 04:15 IMPRESSION: No significant change. 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 I will speak with discharge planners and help in any way to make arrangements for her to be transferred to [facility]. Patient now requests DNR/DNI status. Patient was also discussed with Dr. Escobar. I spent 60 minutes in direct conversation with patient and family. - Time Time Spent with patient: 35 or more minutes
[2019-11-24] MEDS: PREDNISONE 20 MG TABLET PO SCH (09:13)
[2019-11-24] MEDS: DILTIAZEM HCL 90 MG TABLET PO SCH ×2 (09:14→22:07)
[2019-11-24] MEDS: PANTOPRAZOLE SODIUM 40 MG TABLET.DR PO SCH (09:14)
[2019-11-24] MEDS: QUETIAPINE FUMARATE 25 MG TABLET PO SCH (09:14)
[2019-11-24] MEDS: DIGOXIN 0.25 MG TABLET PO SCH (09:14)
[2019-11-24] MEDS: METFORMIN HCL 500 MG TABLET PO SCH ×2 (09:14→17:23)
[2019-11-24] MEDS: LOSARTAN POTASSIUM 25 MG TABLET PO SCH ×2 (09:14→22:07)
[2019-11-24] MEDS: CHLORTHALIDONE 25 MG TABLET PO SCH (09:15)
[2019-11-24] MEDS: ACETAMINOPHEN 325 MG TABLET PO PRN ×2 (11:44→22:07)
[2019-11-24] MEDS ORDERED: MORPHINE SULFATE 10 MG/ML INJ IV PRN (14:20)
[2019-11-24] MEDS ORDERED: LORAZEPAM 1 MG TABLET PO PRN (14:20)
--- NOTE | 2019-11-24 14:36 | PDOC PROGRESS REPORT ---
Subjective Progress Note for:: 11/24/19 Subjective:: Patient feels well today. Patient is now agreeable to DNR/DNI and going on hospice care. Reason For Visit: COPD EXACERBATION Physical Exam Vital Signs: Temp Pulse Resp BP Pulse Ox 97.9 F 86 16 125/69 95 11/24/19 11:55 11/24/19 13:37 11/24/19 13:37 11/24/19 11:55 11/24/19 13:37 Intake & Output 11/23/19 11/24/19 11/25/19 06:59 06:59 06:59 Intake Total 1550 2124 670 Output Total 4300 3400 900 Balance -2750 -1276 -230 Weight 80.3 kg 80.3 kg General appearance: PRESENT: no acute distress, cooperative Respiratory exam: PRESENT: symmetrical, unlabored. ABSENT: accessory muscle use, tachypnea Neurological exam: PRESENT: alert, awake, oriented to person, oriented to place, oriented to time Psychiatric exam: ABSENT: agitated, anxious Results Laboratory Results: 11/21/19 09:17 11/21/19 09:17 11/13/19 11/14/19 11/14/19 21:07 06:30 11:15 Troponin I < 0.012 < 0.012 < 0.012 NT-Pro-B Natriuret Pep 220 11/14/19 17:00 Troponin I < 0.012 NT-Pro-B Natriuret Pep Impressions: Head CT 11/13/19 00:00 IMPRESSION: No acute intracranial abnormality. KUB X-Ray 11/14/19 03:45 IMPRESSION: The nasogastric tube traverses below the left hemidiaphragm. The side port projects at the stomach. The tip is not seen. There are airspace opacities at the left lung base associated with a trace left effusion. Chest X-Ray 11/17/19 04:15 IMPRESSION: No significant change. 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 Right lower lobe with adenopathy. Abdominal/pelvis CT does not show any metastatic disease. Patient does have lesion pressing against her right lower lobe bronchus and pulmonary vessel. Patient has refused treatment at this point and after conversation with myself and Dr. Peraza, patient has decided to be DNR/DNI and be discharged on hospice to go live with her son Rufus in [place]. I have consulted discharge planning to arrange for hospice in [place] and to coordinate patient's transportation over there. Pain/anxiety control as needed. (2) Acute on chronic respiratory failure with hypoxia and hypercapnia Is this a current diagnosis for this admission?: Yes Plan: Extubated 11/17/2019. Doing well currently on nasal cannula. Uses oxygen via nasal cannula 3-4L on chronic basis so will be discharged with this. (3) COPD exacerbation Is this a current diagnosis for this admission?: Yes Plan: Improved. Continue bronchodilator treatments. ICS. Discontinue steroids. (4) Persistent atrial fibrillation with rapid ventricular response Is this a current diagnosis for this admission?: Yes Plan: Continue diltiazem and oral digoxin Eliquis remains on hold given her recent history of hemoptysis. Currently resolved. Will d/c DVT prophylaxis. (5) Diabetes mellitus type 2 in nonobese Is this a current diagnosis for this admission?: Yes Plan: Takes metformin and glipizide at home. Continue metformin and reduced dose of glipizide. - Time Time Spent with patient: Less than 15 minutes Anticipated Discharge Disposition: Home with Hospice Anticipated Discharge Timeframe: when hospice and transportation have been arranged
[2019-11-24] MEDS: GLIPIZIDE 5 MG TABLET PO SCH (17:23)
[2019-11-25] MEDS: LEVALBUTEROL HCL NEB 1.25 MG/3 ML AMPUL NEB SCH ×4 (02:51→20:08)
[2019-11-25] MEDS: IPRATROPIUM BROMIDE 0.02% NEB 0.5 MG/2.5 ML AMPUL NEB SCH ×4 (02:51→20:06)
[2019-11-25] MEDS: BUDESONIDE NEB 0.5 MG/2 ML AMPUL NEB SCH ×2 (08:44→20:07)
[2019-11-25] MEDS: PANTOPRAZOLE SODIUM 40 MG TABLET.DR PO SCH (11:02)
[2019-11-25] MEDS: CHLORTHALIDONE 25 MG TABLET PO SCH (11:03)
[2019-11-25] MEDS: DILTIAZEM HCL 90 MG TABLET PO SCH ×2 (11:03→21:51)
[2019-11-25] MEDS: QUETIAPINE FUMARATE 25 MG TABLET PO SCH (11:03)
[2019-11-25] MEDS: GLIPIZIDE 5 MG TABLET PO SCH ×2 (11:03→17:12)
[2019-11-25] MEDS: DIGOXIN 0.25 MG TABLET PO SCH (11:03)
[2019-11-25] MEDS: LOSARTAN POTASSIUM 25 MG TABLET PO SCH ×2 (11:06→21:52)
[2019-11-25] MEDS: METFORMIN HCL 500 MG TABLET PO SCH ×2 (11:06→17:12)
--- NOTE | 2019-11-25 12:15 | PDOC PROGRESS REPORT ---
Subjective Progress Note for:: 11/25/19 Subjective:: Patient says she is feeling well. She denies any chest pain or difficulty breathing. Chart reviewed. Appears at this time patient is planning to go live with her son in [place]. According to the notes he is agreed to be a DO NOT RESUSCITATE and possibly hospice Reason For Visit: COPD EXACERBATION Physical Exam Vital Signs: Temp Pulse Resp BP Pulse Ox 97.5 F 60 16 130/48 H 99 11/25/19 07:46 11/25/19 08:55 11/25/19 08:55 11/25/19 07:46 11/25/19 09:17 Intake & Output 11/24/19 11/25/19 11/26/19 06:59 06:59 06:59 Intake Total 2124 970 Output Total 3400 1300 Balance -1276 -330 Weight 80.3 kg 70.2 kg General appearance: PRESENT: no acute distress Head exam: PRESENT: atraumatic, normocephalic Eye exam: PRESENT: conjunctiva pink, EOMI, PERRLA. ABSENT: scleral icterus Ear exam: PRESENT: normal external ear exam Mouth exam: PRESENT: moist, tongue midline Neck exam: PRESENT: other - vascular cath in R IJ. ABSENT: carotid bruit, JVD, lymphadenopathy, thyromegaly Respiratory exam: PRESENT: clear to auscultation kyle. ABSENT: rales, rhonchi, wheezes Cardiovascular exam: PRESENT: RRR, +S1, +S2. ABSENT: diastolic murmur, rubs, systolic murmur Pulses: PRESENT: normal dorsalis pedis pul Vascular exam: PRESENT: normal capillary refill GI/Abdominal exam: PRESENT: normal bowel sounds, soft. ABSENT: distended, guarding, mass, organolmegaly, rebound, tenderness Rectal exam: PRESENT: deferred Extremities exam: PRESENT: full ROM. ABSENT: calf tenderness, clubbing, pedal edema Neurological exam: PRESENT: alert, awake, oriented to person, oriented to place, oriented to time, oriented to situation, CN II-XII grossly intact. ABSENT: motor sensory deficit Psychiatric exam: PRESENT: appropriate affect, normal mood. ABSENT: homicidal ideation, suicidal ideation Skin exam: PRESENT: dry, intact, warm. ABSENT: cyanosis, rash Results Laboratory Results: 11/21/19 09:17 11/21/19 09:17 11/13/19 11/14/19 11/14/19 21:07 06:30 11:15 Troponin I < 0.012 < 0.012 < 0.012 NT-Pro-B Natriuret Pep 220 11/14/19 17:00 Troponin I < 0.012 NT-Pro-B Natriuret Pep Impressions: Head CT 11/13/19 00:00 IMPRESSION: No acute intracranial abnormality. KUB X-Ray 11/14/19 03:45 IMPRESSION: The nasogastric tube traverses below the left hemidiaphragm. The side port projects at the stomach. The tip is not seen. There are airspace opacities at the left lung base associated with a trace left effusion. Chest X-Ray 11/17/19 04:15 IMPRESSION: No significant change. Abdomen/Pelvis CT 11/21/19 00:00 IMPRESSION: No CT evidence of metastatic disease to the abdomen or pelvis given history of lung cancer Assessment and Plan - Diagnosis (1) Acute on chronic respiratory failure with hypoxia and hypercapnia Is this a current diagnosis for this admission?: Yes Plan: Extubated 11/17/2019. Doing well currently on nasal cannula. Uses oxygen via nasal cannula 3-4L on chronic basis so will be discharged with this. Also apparently uses CPAP machine at home. She appears to be at her baseline respiratory chow (2) Atrial fibrillation with rapid ventricular response Is this a current diagnosis for this admission?: Yes Plan: Patient now in NSR. (3) COPD exacerbation Is this a current diagnosis for this admission?: Yes Plan: Improved. Continue bronchodilator treatments. ICS. off steroids. 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 Right lower lobe with adenopathy. Abdominal/pelvis CT does not show any metastatic disease. Patient does have lesion pressing against her right lower lobe bronchus and pulmonary vessel. Patient has refused treatment at this point and after conversation with Dr. Escobar and Dr. Peraza, patient has decided to be DNR/DNI and be discharged on hospice to go live with her son Rufus in [place]. Currently awaiting discharge planning to arrange for hospice in [place] and to coordinate patient's transportation over there. Pain/anxiety control as needed. - Time Time Spent with patient: 15-24 minutes Medications reviewed and adjusted accordingly: Yes Anticipated Discharge Disposition: Home, Self Care Anticipated Discharge Timeframe: within 72 hours Disposition: Live with son in [place]
[2019-11-26] MEDS: IPRATROPIUM BROMIDE 0.02% NEB 0.5 MG/2.5 ML AMPUL NEB SCH ×4 (02:30→19:53)
[2019-11-26] MEDS: LEVALBUTEROL HCL NEB 1.25 MG/3 ML AMPUL NEB SCH ×4 (02:30→19:53)
[2019-11-26] MEDS: QUETIAPINE FUMARATE 25 MG TABLET PO SCH (07:55)
[2019-11-26] MEDS: GLIPIZIDE 5 MG TABLET PO SCH ×2 (07:55→17:28)
[2019-11-26] MEDS: BUDESONIDE NEB 0.5 MG/2 ML AMPUL NEB SCH ×2 (08:01→19:53)
--- NOTE | 2019-11-26 08:14 | PDOC PROGRESS REPORT ---
Subjective Progress Note for:: 11/26/19 Subjective:: Patient states that she is worried about her home. She is trying to make arrangements so that her daughter does not have access to it while she is in [place]. Plans are still to move to [place] with her son. She still does not know when this will take place. Preparations are ongoing. Reason For Visit: COPD EXACERBATION Physical Exam Vital Signs: Temp Pulse Resp BP Pulse Ox 98.2 F 60 18 109/35 L 95 11/25/19 23:17 11/26/19 02:30 11/26/19 02:30 11/25/19 23:17 11/26/19 02:30 Intake & Output 11/25/19 11/26/19 11/27/19 06:59 06:59 06:59 Intake Total 970 100 Output Total 1300 Balance -330 100 Weight 70.2 kg General appearance: PRESENT: obese Exam: Sitting up eating breakfast. Head exam: PRESENT: normocephalic Eye exam: PRESENT: EOMI Respiratory exam: PRESENT: unlabored Neurological exam: PRESENT: alert, awake, oriented to person, oriented to place, oriented to time, oriented to situation Psychiatric exam: PRESENT: appropriate affect Skin exam: PRESENT: normal color Results Laboratory Results: 11/21/19 09:17 11/21/19 09:17 11/13/19 11/14/19 11/14/19 21:07 06:30 11:15 Troponin I < 0.012 < 0.012 < 0.012 NT-Pro-B Natriuret Pep 220 11/14/19 17:00 Troponin I < 0.012 NT-Pro-B Natriuret Pep Impressions: Head CT 11/13/19 00:00 IMPRESSION: No acute intracranial abnormality. KUB X-Ray 11/14/19 03:45 IMPRESSION: The nasogastric tube traverses below the left hemidiaphragm. The side port projects at the stomach. The tip is not seen. There are airspace opacities at the left lung base associated with a trace left effusion. Chest X-Ray 11/17/19 04:15 IMPRESSION: No significant change. Abdomen/Pelvis CT 11/21/19 00:00 IMPRESSION: No CT evidence of metastatic disease to the abdomen or pelvis given history of lung cancer Assessment & Plan - Diagnosis (1) Acute respiratory failure Qualifiers: Respiratory failure complication: hypoxia and hypercapnia Qualified Code(s): J96.01 - Acute respiratory failure with hypoxia; J96.02 - Acute respiratory failure with hypercapnia Is this a current diagnosis for this admission?: Yes Plan: Much improved. 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 - Time Time Spent with patient: Less than 15 minutes - Plan Summary Plan Summary: Please call if needed. I will sign off.
[2019-11-26] MEDS: CHLORTHALIDONE 25 MG TABLET PO SCH (09:46)
[2019-11-26] MEDS: DIGOXIN 0.25 MG TABLET PO SCH (09:46)
[2019-11-26] MEDS: PANTOPRAZOLE SODIUM 40 MG TABLET.DR PO SCH (09:46)
[2019-11-26] MEDS: DILTIAZEM HCL 90 MG TABLET PO SCH ×2 (09:46→21:54)
[2019-11-26] MEDS: METFORMIN HCL 500 MG TABLET PO SCH ×2 (09:46→17:28)
[2019-11-26] MEDS: LOSARTAN POTASSIUM 25 MG TABLET PO SCH ×2 (12:52→21:54)
[2019-11-26] MEDS: ACETAMINOPHEN 325 MG TABLET PO PRN ×2 (12:53→21:57)
--- NOTE | 2019-11-26 13:43 | PDOC PROGRESS REPORT ---
Subjective Progress Note for:: 11/26/19 Subjective:: Patient says she is feeling well. She denies any chest pain or difficulty breathing. Chart reviewed. Appears at this time patient is planning to go live with her son in [place]. According to the notes he is agreed to be a DO NOT RESUSCITATE and possibly hospice Still awaiting plans for transfer by private means? To [place] with son Reason For Visit: COPD EXACERBATION Physical Exam Vital Signs: Temp Pulse Resp BP Pulse Ox 97.7 F 59 L 12 102/39 L 100 11/26/19 10:54 11/26/19 10:54 11/26/19 10:54 11/26/19 10:54 11/26/19 10:54 Intake & Output 11/25/19 11/26/19 11/27/19 06:59 06:59 06:59 Intake Total 970 100 480 Output Total 1300 Balance -330 100 480 Weight 70.2 kg General appearance: PRESENT: no acute distress, well-nourished Head exam: PRESENT: atraumatic, normocephalic Eye exam: PRESENT: conjunctiva pink, EOMI, PERRLA. ABSENT: scleral icterus Mouth exam: PRESENT: moist, tongue midline Neck exam: ABSENT: carotid bruit, JVD, lymphadenopathy, thyromegaly Respiratory exam: PRESENT: clear to auscultation kyle, unlabored. ABSENT: rales, rhonchi, wheezes Cardiovascular exam: PRESENT: RRR, +S1, +S2. ABSENT: diastolic murmur, rubs, systolic murmur Pulses: PRESENT: normal dorsalis pedis pul Vascular exam: PRESENT: normal capillary refill GI/Abdominal exam: PRESENT: normal bowel sounds, soft. ABSENT: distended, guarding, mass, organolmegaly, rebound, tenderness Rectal exam: PRESENT: deferred Extremities exam: PRESENT: full ROM. ABSENT: calf tenderness, clubbing, pedal edema Neurological exam: PRESENT: alert, awake, oriented to person, oriented to place, oriented to time, oriented to situation, CN II-XII grossly intact. ABSENT: motor sensory deficit Psychiatric exam: PRESENT: appropriate affect, normal mood. ABSENT: homicidal ideation, suicidal ideation Skin exam: PRESENT: dry, intact, warm. ABSENT: cyanosis, rash Results Laboratory Results: 11/21/19 09:17 11/21/19 09:17 11/13/19 11/14/19 11/14/19 21:07 06:30 11:15 Troponin I < 0.012 < 0.012 < 0.012 NT-Pro-B Natriuret Pep 220 11/14/19 17:00 Troponin I < 0.012 NT-Pro-B Natriuret Pep Impressions: Head CT 11/13/19 00:00 IMPRESSION: No acute intracranial abnormality. KUB X-Ray 11/14/19 03:45 IMPRESSION: The nasogastric tube traverses below the left hemidiaphragm. The side port projects at the stomach. The tip is not seen. There are airspace opacities at the left lung base associated with a trace left effusion. Chest X-Ray 11/17/19 04:15 IMPRESSION: No significant change. Abdomen/Pelvis CT 11/21/19 00:00 IMPRESSION: No CT evidence of metastatic disease to the abdomen or pelvis given history of lung cancer Assessment and Plan - Diagnosis (1) Acute on chronic respiratory failure with hypoxia and hypercapnia Is this a current diagnosis for this admission?: Yes Plan: Extubated 11/17/2019. Doing well currently on nasal cannula. Uses oxygen via nasal cannula 3-4L on chronic basis so will be discharged with this. Also apparently uses CPAP machine at home. She appears to be at her baseline respiratory chow (2) Atrial fibrillation with rapid ventricular response Is this a current diagnosis for this admission?: Yes Plan: Patient now in NSR. (3) COPD exacerbation Is this a current diagnosis for this admission?: Yes (4) Squamous cell carcinoma of bronchus in right lower lobe Is this a current diagnosis for this admission?: Yes Plan: New diagnosis. Right lower lobe with adenopathy. Abdominal/pelvis CT does not show any metastatic disease. Patient does have lesion pressing against her right lower lobe bronchus and pulmonary vessel. Patient has refused treatment at this point and after conversation with Dr. Escobar and Dr. Peraza, patient has decided to be DNR/DNI and be discharged on hospice to go live with her son Rufus in [place]. Currently awaiting discharge planning to arrange for hospice in [place] and to coordinate patient's transportation over there. Pain/anxiety control as needed. 11/25 No new findings - Time Time Spent with patient: 15-24 minutes Medications reviewed and adjusted accordingly: Yes Anticipated Discharge Disposition: Home with Hospice Anticipated Discharge Timeframe: within 24 hours
[2019-11-27] MEDS: LEVALBUTEROL HCL NEB 1.25 MG/3 ML AMPUL NEB SCH ×3 (02:01→14:01)
[2019-11-27] MEDS: IPRATROPIUM BROMIDE 0.02% NEB 0.5 MG/2.5 ML AMPUL NEB SCH ×3 (02:01→14:01)
[2019-11-27] MEDS: ACETAMINOPHEN 325 MG TABLET PO PRN (02:47)
[2019-11-27] MEDS ORDERED: INFLUENZA QUAD (6MOS+) 2020-21 VAC 0.5 ML SYR IM ONE (08:00)
[2019-11-27] MEDS: BUDESONIDE NEB 0.5 MG/2 ML AMPUL NEB SCH (08:10)
[2019-11-27] MEDS: LOSARTAN POTASSIUM 25 MG TABLET PO SCH (09:01)
[2019-11-27] MEDS: METFORMIN HCL 500 MG TABLET PO SCH (09:16)
[2019-11-27] MEDS: QUETIAPINE FUMARATE 25 MG TABLET PO SCH (09:16)
[2019-11-27] MEDS: GLIPIZIDE 5 MG TABLET PO SCH (09:17)
[2019-11-27] MEDS: PANTOPRAZOLE SODIUM 40 MG TABLET.DR PO SCH (09:17)
[2019-11-27] MEDS: CHLORTHALIDONE 25 MG TABLET PO SCH (09:18)
[2019-11-27] MEDS: DIGOXIN 0.25 MG TABLET PO SCH (09:18)
[2019-11-27 16:11] VITALS: BP 96/59
--- NOTE | 2019-11-27 16:31 | PDOC DISCHARGE SUMMARY ---
Impression - Admit/DC Date/PCP Admission Date/Primary Care Provider: 11/14/19 04:05 JORGE CHACON DO 11/14/2019 Discharge Date: 11/27/19 - Discharge Diagnosis (1) Acute on chronic respiratory failure with hypoxia and hypercapnia Is this a current diagnosis for this admission?: Yes (2) Atrial fibrillation with rapid ventricular response Is this a current diagnosis for this admission?: Yes (3) COPD exacerbation Is this a current diagnosis for this admission?: Yes (4) Squamous cell carcinoma of bronchus in right lower lobe Is this a current diagnosis for this admission?: Yes (5) DNR (do not resuscitate) Is this a current diagnosis for this admission?: Yes - Additional Information Resuscitation Status: Do Not Resuscitate Discharge Diet: Diabetic Discharge Activity: Activity As Tolerated Referrals: pcp,will be in [place] [Other] (pt leaving as we speak to go to [place]) Prescriptions: Diltiazem HCl [Cartia Xt] 180 mg PO DAILY #30 cap.sr.24h Digoxin 250 mcg PO DAILY #30 tablet Quetiapine Fumarate [Seroquel 25 mg Tablet] 12.5 mg PO QAM #30 tablet Home Medications: Metformin HCl 500 mg PO BID 07/31/19 Ipratropium/Albuterol Sulfate [Duoneb 3 ml Ampul] 3 ml NEB [id number] PRN 11/15/19 Glipizide [Glucotrol 10 mg Tablet] 5 mg PO BID 30 Days #60 tablet 11/27/19 Digoxin 250 mcg PO DAILY #30 tablet 11/28/19 Diltiazem HCl [Cartia Xt] 180 mg PO DAILY #30 cap.sr.24h 11/28/19 Quetiapine Fumarate [Seroquel 25 mg Tablet] 12.5 mg PO QAM #30 tablet 11/28/19 History of Present Illiness History of Present Illness: ALLIE JACQUES is a 74 year old female 74 year old [facility] 1 week with worsening of symptoms today. The patient called EMS and arrived at the ER and was alert and oriented when evaluated by the ER provider, per notes, and states she has not taken her meds due to being too weak to get them today. She has a past medical history to include a new dx of lung mass in which she has not followed up on. Head ct was done to R/O mets and was neg. She does have hx of atrial fib and copd as well. The pateint was in atrial fib with RVR and was given her PO dose of cardizem and dig and converted back to SR. The patient began to have increased work of breathing and was placed on BIPAP. The patient was then re-evaluated and noted to be more obtunded and an ABG was obtained and the patient had a CO2 of 97. The decision was mde by the ER provider to intubate due to increased lethargy and elevated CO2 level. Critical care was consulted for admission and management of this patient. Hospital Course Hospital Course: Patient was initially intubated and admitted to the emergency room. She was treated with acute on chronic respiratory failure. She was also found to have a lung mass which had not been previously related. COVID-19 was ruled out. She had a bronchoscopy done of the right lower lung lobe mass and this resulted as a squamous cell carcinoma of the bronchus intermedius. She was subsequently extubated and oncology consult was obtained. CT scan of the abdomen and pelvis reveals no evidence of metastatic disease. She was treated for A. fib with RVR while in the ICU. It appears patient does have a prior history of A. fib. She had been on Eliquis but she is apparently a hospice patient she has been taken off the Eliquis. As for her squamous cell carcinoma it appears that patient opted not to proceed with treatment. Patient opted for hospice care on discharge as she does not wish to have any further ventilation or resuscitation efforts as per the hospital records. Physical Exam Vital Signs: Temp Pulse Resp BP Pulse Ox 98.0 F 72 16 106/50 L 97 11/27/19 10:52 11/27/19 14:01 11/27/19 14:01 11/27/19 10:52 11/27/19 14:01 Intake & Output 11/26/19 11/27/19 11/28/19 06:59 06:59 06:59 Intake Total 100 1170 120 Balance 100 1170 120 General appearance: PRESENT: no acute distress, well-nourished Head exam: PRESENT: normocephalic Eye exam: PRESENT: conjunctiva pink, EOMI, PERRLA. ABSENT: scleral icterus Mouth exam: PRESENT: moist, tongue midline Neck exam: ABSENT: carotid bruit, JVD, lymphadenopathy, thyromegaly Respiratory exam: PRESENT: clear to auscultation kyle. ABSENT: rales, rhonchi, wheezes Cardiovascular exam: PRESENT: RRR. ABSENT: diastolic murmur, rubs, systolic murmur Pulses: PRESENT: normal dorsalis pedis pul Vascular exam: PRESENT: normal capillary refill GI/Abdominal exam: PRESENT: normal bowel sounds, soft. ABSENT: distended, guarding, mass, organolmegaly, rebound, tenderness Rectal exam: PRESENT: deferred Extremities exam: PRESENT: full ROM. ABSENT: calf tenderness, clubbing, pedal edema Neurological exam: PRESENT: alert, awake, oriented to person, oriented to place, oriented to time, oriented to situation, CN II-XII grossly intact. ABSENT: motor sensory deficit Psychiatric exam: PRESENT: appropriate affect, normal mood. ABSENT: homicidal ideation, suicidal ideation Skin exam: PRESENT: dry, intact, warm. ABSENT: cyanosis, rash Results Laboratory Results: WBC 9.0 10^3/uL (4.0-10.5) 11/21/19 09:17 RBC 3.52 10^6/uL (3.72-5.28) L 11/21/19 09:17 Hgb 9.9 g/dL (12.0-15.5) L 11/21/19 09:17 Hct 31.8 % (36.0-47.0) L 11/21/19 09:17 MCV 90 fl (80-97) 11/21/19 09:17 MCH 28.2 pg (27.0-33.4) 11/21/19 09:17 MCHC 31.2 g/dL (32.0-36.0) L 11/21/19 09:17 RDW 16.8 % (11.5-14.0) H 11/21/19 09:17 Plt Count 202 10^3/uL (150-450) 11/21/19 09:17 Lymph % (Auto) 8.0 % (13-45) L 11/17/19 04:29 [place] % (Auto) 2.5 % (3-13) L 11/17/19 04:29 Eos % (Auto) 0.0 % (0-6) 11/17/19 04:29 Baso % (Auto) 0.1 % (0-2) 11/17/19 04:29 Absolute Neuts (auto) 14.1 10^3/uL (1.7-8.2) H 11/17/19 04:29 Absolute Lymphs (auto) 1.3 10^3/uL (0.5-4.7) 11/17/19 04:29 Absolute Monos (auto) 0.4 10^3/uL (0.1-1.4) 11/17/19 04:29 Absolute Eos (auto) 0.0 10^3/uL (0.0-0.6) 11/17/19 04:29 Absolute Basos (auto) 0.0 10^3/uL (0.0-0.2) 11/17/19 04:29 Seg Neutrophils % 89.4 % (42-78) H 11/17/19 04:29 PT 13.5 SEC (11.4-15.4) 11/14/19 06:30 INR 1.01 11/14/19 06:30 Carbonic Acid 1.66 mmol/L (1.05-1.35) H 11/20/19 11:30 HCO3/H2CO3 Ratio 21:1 11/20/19 11:30 ABG pH 7.44 (7.35-7.45) 11/20/19 11:30 ABG pCO2 55.2 mmHg (35-45) H 11/20/19 11:30 ABG pO2 59.8 mmHg (80-100) L 11/20/19 11:30 ABG HCO3 36.4 mmol/L (20-24) H 11/20/19 11:30 ABG Total CO2 38.1 mmol/L (21-25) H 11/20/19 11:30 ABG O2 Saturation 91.2 % (94-98) L 11/20/19 11:30 ABG Base Excess 10.6 mmol/L 11/20/19 11:30 VBG pH 7.24 (7.30-7.42) L 11/14/19 00:18 VBG pCO2 97.7 mmHg (35-63) H* 11/14/19 00:18 VBG HCO3 40.5 mmol/L (20-32) H 11/14/19 00:18 VBG Base Excess 11.3 mmol/L 11/14/19 00:18 FiO2 2L 11/20/19 11:30 Sodium 141.0 mmol/L (137-145) 11/21/19 09:17 Potassium 3.8 mmol/L (3.6-5.0) 11/21/19 09:17 Chloride 99 mmol/L (98-107) 11/21/19 09:17 Carbon Dioxide 37 mmol/L (22-30) H 11/21/19 09:17 Anion Gap 5 (5-19) 11/21/19 09:17 BUN 21 mg/dL (7-20) H 11/21/19 09:17 Creatinine 0.65 mg/dL (0.52-1.25) 11/21/19 09:17 Est GFR ( Amer) > 60 (>60) 11/21/19 09:17 Est GFR (Non-Af Amer) Cancelled 11/16/19 04:17 Est GFR (MDRD) Non-Af > 60 (>60) 11/21/19 09:17 Glucose 179 mg/dL (75-110) H 11/21/19 09:17 POC Glucose 181 mg/dL (70-110) H 11/25/19 11:16 Calcium 9.3 mg/dL (8.4-10.2) 11/21/19 09:17 Magnesium 2.2 mg/dL (1.6-2.3) 11/17/19 04:29 Total Bilirubin 0.4 mg/dL (0.2-1.3) 11/16/19 04:17 Direct Bilirubin 0.4 mg/dL (0.0-0.4) 11/16/19 04:17 Neonat Total Bilirubin Not Reportable 11/16/19 04:17 Neonat Direct Bilirubin Not Reportable 11/16/19 04:17 Neonat Indirect Bili Not Reportable 11/16/19 04:17 AST 18 U/L (14-36) 11/16/19 04:17 ALT 8 U/L (<35) 11/16/19 04:17 Alkaline Phosphatase 76 U/L (38-126) 11/16/19 04:17 Troponin I < 0.012 ng/mL 11/14/19 17:00 NT-Pro-B Natriuret Pep 220 pg/mL (<450) 11/14/19 06:30 Total Protein 6.1 g/dL (6.3-8.2) L 11/16/19 04:17 Albumin 2.8 g/dL (3.5-5.0) L 11/16/19 04:17 EGFR Cancelled 11/16/19 04:17 TSH 0.55 uIU/mL (0.47-4.68) 11/14/19 06:30 Free T4 1.58 ng/dL (0.78-2.19) 11/14/19 06:30 Urine Color YELLOW 11/14/19 01:00 Urine Appearance CLEAR 11/14/19 01:00 Urine pH 5.0 (5.0-9.0) 11/14/19 01:00 Ur Specific [place] 1.012 11/14/19 01:00 Urine Protein NEGATIVE mg/dL (NEGATIVE) 11/14/19 01:00 Urine Glucose (UA) NEGATIVE mg/dL (NEGATIVE) 11/14/19 01:00 Urine Ketones NEGATIVE mg/dL (NEGATIVE) 11/14/19 01:00 Urine Blood NEGATIVE (NEGATIVE) 11/14/19 01:00 Urine Nitrite NEGATIVE (NEGATIVE) 11/14/19 01:00 Urine Bilirubin NEGATIVE (NEGATIVE) 11/14/19 01:00 Urine Urobilinogen NEGATIVE mg/dL (<2.0) 11/14/19 01:00 Ur Leukocyte Esterase NEGATIVE (NEGATIVE) 11/14/19 01:00 Urine WBC (Auto) 1 /HPF 11/14/19 01:00 U Hyaline Cast (Auto) 2 /LPF 11/14/19 01:00 Squamous Epi Cells Auto <1 /HPF 11/14/19 01:00 Urine Mucus (Auto) RARE /LPF 11/14/19 01:00 Urine Ascorbic Acid NEGATIVE (NEGATIVE) 11/14/19 01:00 Digoxin 1.28 ng/mL (0.8-2.0) 11/22/19 21:45 COVID-19 Source See comment 11/14/19 04:19 COVID-19 (NING) Not Detected (Not Detect) 11/14/19 04:19 Group A Strep Rapid NEGATIVE (NEGATIVE) 11/13/19 21:07 AFB Smear NO ACID FAST BACILLI (NO AFB SEEN) 11/15/19 14:50 11/13/19 11/14/19 11/14/19 21:07 06:30 11:15 Troponin I < 0.012 < 0.012 < 0.012 NT-Pro-B Natriuret Pep 220 11/14/19 17:00 Troponin I < 0.012 NT-Pro-B Natriuret Pep Impressions: Chest X-Ray 11/13/19 00:00 IMPRESSION: No significant interval change. No acute cardiopulmonary disease. Hyperinflated lungs which can be seen with obstructive lung disease. Head CT 11/13/19 00:00 IMPRESSION: No acute intracranial abnormality. Chest X-Ray 11/14/19 03:44 IMPRESSION: Tubes/lines/catheters in place. Tiny bibasilar effusions. Airspace opacity left lung base. Underlying emphysema copyright 2010 [employer]- All Rights Reserved KUB X-Ray 11/14/19 03:45 IMPRESSION: The nasogastric tube traverses below the left hemidiaphragm. The side port projects at the stomach. The tip is not seen. There are airspace opacities at the left lung base associated with a trace left effusion. Chest X-Ray 11/15/19 04:15 IMPRESSION: STABLE APPEARANCE OF THE CHEST. SUPPORT DEVICES UNCHANGED. Chest X-Ray 11/16/19 04:15 IMPRESSION: 1. No significant interval changes since previous examination dated 11/15/2019. Chest X-Ray 11/17/19 04:15 IMPRESSION: No significant change. Abdomen/Pelvis CT 11/21/19 00:00 IMPRESSION: No CT evidence of metastatic disease to the abdomen or pelvis given history of lung cancer Plan Health Concerns: DC home with family for hospice care Time Spent: Greater than 30 Minutes Stroke Is this a Stroke Patient?: No Acute Heart Failure Is this a Heart Failure Patient?: No
== END 2019-11-27 17:30 | disposition hospice, home (50) | DRG 208 ==
LOC: ER 18:24 → EH 11-14 04:05 → ICU 11-14 05:35 → 4S 11-21 15:17
PROVIDERS: ADMIT Internal Medicine; ATTEND Internal Medicine
PROC: 5A1945Z Respiratory Ventilation, 24-96 Consecutive Hours (ICD-10-PCS; principal; 2019-11-14)
PROC: 0BH17EZ Insertion of Endotracheal Airway into Trachea, Via Natural or Artificial Opening (ICD-10-PCS; 2019-11-14)
PROC: 5A09357 Assistance with Respiratory Ventilation, Less than 24 Consecutive Hours, Continuous Positive Airway Pressure (ICD-10-PCS; 2019-11-14)
PROC: 0B938ZX Drainage of Right Main Bronchus, Via Natural or Artificial Opening Endoscopic, Diagnostic (ICD-10-PCS; 2019-11-15)
PROC: 0BD38ZX Extraction of Right Main Bronchus, Via Natural or Artificial Opening Endoscopic, Diagnostic (ICD-10-PCS; 2019-11-15 12:30)
PROC: 5A09557 Assistance with Respiratory Ventilation, Greater than 96 Consecutive Hours, Continuous Positive Airway Pressure (ICD-10-PCS; 2019-11-17)
DX: J96.21 Acute and chronic respiratory failure with hypoxia (principal); J44.1 Chronic obstructive pulmonary disease with (acute) exacerbation; C34.31 Malignant neoplasm of lower lobe, right bronchus or lung; R04.2 Hemoptysis; C34.2 Malignant neoplasm of middle lobe, bronchus or lung; I48.19 Other persistent atrial fibrillation; J96.22 Acute and chronic respiratory failure with hypercapnia; Z66 Do not resuscitate; Z20.828 Contact with and (suspected) exposure to other viral communicable diseases; I25.10 Atherosclerotic heart disease of native coronary artery without angina pectoris; E11.9 Type 2 diabetes mellitus without complications; K21.9 Gastro-esophageal reflux disease without esophagitis; Z60.2 Problems related to living alone; B95.4 Other streptococcus as the cause of diseases classified elsewhere; I10 Essential (primary) hypertension; Z79.899 Other long term (current) drug therapy; Z87.891 Personal history of nicotine dependence; Z79.84 Long term (current) use of oral hypoglycemic drugs; Z79.01 Long term (current) use of anticoagulants; Z88.8 Allergy status to other drugs, medicaments and biological substances; Z82.3 Family history of stroke; Z80.9 Family history of malignant neoplasm, unspecified; Z82.49 Family history of ischemic heart disease and other diseases of the circulatory system; Z91.14 Patient's other noncompliance with medication regimen; Z78.1 Physical restraint status
CPT/HCPCS: 31623; 31624; 31625; 36415; 36600; 70450; 71045; 74018; 74177; 80048; 80053; 80162; 81001; 82803; 82962; 83735; 83880; 84439; 84443; 84484; 85025; 85027; 85610; 87015; 87040; 87070; 87077; 87101; 87116; 87205; 87206; 87635; 87880; 88104; 88305; 93005; 93010; 94002; 94003; 94640; 94660; 96374; 96375; 99285; 99291; C9113; C9803; J0330; J0360; J1160; J1644; J1815; J2060; J2250; J2270; J2405; J2704; J2920; J2930; J3010; J3490; J7030; J7512; J7614; J7644